=== PATIENT | female | born 1955 | race Caucasian/White ===

== ENCOUNTER 2023-04-16 13:24 | Outpatient (OUT) | payer OTHER, SELFPAY ==
--- NOTE | 2023-04-16 14:50 | PM.CN ---
Consult Note: HPI Data of Consult Patient: new to practice Consult date: 04/16/23 Requesting Physician: Tomas Rosas MD Primary Care Provider: LATOYA CHONG Consult Narrative Reason for consult: low back pain Narrative: Pleasant 67yof who presents for evaluation. Increasing low back pain that is axial, worse in past several months. Engages in provider directed home exercises > 6weeks, limited relief. Utilizes tylenol and advil as needed. Imaging reviewed, significant for multilevel facet arthropathy. Denies loss of bowel or bladder control. cc:: CC: Tomas Rosas MD Review of Systems ROS Status of ROS 10 or more systems reviewed and unremarkable except as noted in history and below Exam Constitutional Common normals: no apparent distress, oriented x3 and healthy appearing Respiratory Common normals: normal respiratory effort Effort & inspection: able to speak in complete sentences Back & Pelvis Other: Tenderness to palpation in lumbar spine. Pain with flexion, extension, lateral rotation. Facet loading maneuvers positive bilaterally. Coordination intact. Extremity Common normals: normal to inspection Neuro Common normals: oriented x3, CN's II-XII intact bilaterally and no focal motor deficits Psych Common normals: mental status grossly normal and cooperative Assessment and Plan Assessment and Plan (1) Lumbar stenosis with neurogenic claudication: (2) Lumbar spondylosis: Plan 67yof who presents for evaluation. Failed conservative measures, as noted above. Imaging reviewed, as noted. Given symptoms and imaging findings, prudent to attempt diagnostic bilateral L4-5, L5-S1 medial branch blocks under fluoroscopic guidance with intention of proceeding to radiofrequency ablation. She is in agreement. Medications reviewed, no changes. Follow up after procedure
== END 2023-04-16 13:25 | disposition home or self-care (01) ==
PROVIDERS: PCP Family Medicine; Visit Provider Anesthesiology
DX: M48.062 Spinal stenosis, lumbar region with neurogenic claudication (principal); M47.816 Spondylosis without myelopathy or radiculopathy, lumbar region
CPT/HCPCS: G0463

== ENCOUNTER 2023-04-30 06:48 | Day surgery (SDC) | payer OTHER, SELFPAY ==
[2023-04-30 07:04] VITALS: BP 147/88; PULSE 107; RESP 16; TEMP 36.7; O2SAT 97
[2023-04-30] MEDS: BUPIVACAINE HCL 0.25% PF 25 MG/10 ML VIAL INJ (07:34)
[2023-04-30] MEDS: LIDOCAINE HCL 2% PF 100 MG/5 ML VIAL INJ (07:34)
[2023-04-30] MEDS: TRIAMCINOLONE ACETONIDE 40 MG/ML VIAL INJ (07:34)
[2023-04-30 07:36] VITALS: BP 151/78; BP 159/83; PULSE 107; PULSE 108; RESP 18; O2SAT 95
--- NOTE | 2023-04-30 07:41 | W.PM.PROCNOT ---
Date of procedure: 04/30/23 Pre-op diagnosis: lumbar spondylosis Post-op diagnosis: same as pre-op Procedure: Procedure: Bilateral L4-5, L5-S1 medial branch block Medications: Bupivacaine 0.25% 4cc The patient was seen and examined in the preoperative holding area.? An informed consent was obtained and placed on the chart.? The patient was brought to the medical procedure unit and placed in the prone position.? A timeout was completed verifying correct patient, procedure site, positioning, plan, and special equipment.? Using aseptic technique, the needle was placed at left L4. Under direct fluoroscopic visualization a Quincke-tipped spinal needle was advanced to the junction of the superior articulating process with the transverse process at the designated medial branch segment.? Preceded by negative aspiration, the above-mentioned injectate was placed in 1 mL aliquots.? The procedure was repeated at left L5, S1.? The needle was removed and insertion site was covered. The same procedure, at the same levels, was completed on the right side. The patient was taken to the postprocedural recovery area and monitored for an appropriate length of time before found suitable for discharge in the company of a responsible adult. Anesthesia: Local Surgeon: Tomas Rosas Pathology: none sent Condition: stable Disposition: no change
[2023-04-30 13:57] VITALS: O2SAT 97
== END 2023-04-30 07:44 | disposition home or self-care (01) ==
PROVIDERS: PCP Family Medicine; Visit Provider Anesthesiology
DX: M47.816 Spondylosis without myelopathy or radiculopathy, lumbar region (principal)
CPT/HCPCS: 64493; 64494

== ENCOUNTER 2023-05-14 13:53 | Outpatient (OUT) | payer OTHER, SELFPAY ==
--- NOTE | 2023-05-14 15:03 | PM.CN ---
Consult Note: HPI Data of Consult Patient: known to practice within the last 3 years Consult date: 05/14/23 Requesting Physician: Tomas Rosas MD Primary Care Provider: LATOYA CHONG Consult Narrative Reason for consult: low back pain Narrative: 67yof who presents for assessment. recently underwent diagnostic bilateral l4-5, l5-s1 medial branch block and notes significant relief of >80% for over 2 hours and subsequent return of pain to baseline. satisfied with her results from diagnostic block. continues to stay very active. denies adverse med side effects. cc:: CC: Tomas Rosas MD Review of Systems ROS Status of ROS 10 or more systems reviewed and unremarkable except as noted in history and below Meds Home Medications and Allergies Home Medications Medication Instructions Recorded Confirmed Type COLLAGEN 20 mg PO DAILY 04/17/23 04/30/23 History estradiol 1 mg tablet mg 04/17/23 History mecobalamin (vitamin B12) 1,000 1,000 mcg PO DAILY 04/17/23 04/30/23 History mcg chewable tablet Allergies Allergy/AdvReac Type Severity Reaction Status Date / Time azathioprine Allergy Unknown Verified 04/17/23 08:40 hydroxychloroquine Allergy Unknown Verified 04/17/23 08:40 Exam Narrative Exam Narrative: Psych-alert and oriented x 3. Attentive and appropriate, constitutionally normal, displays normal mood and affect per situation.? There are no obvious deficits in memory, reasoning, or intellect.? Skin-no obvious rashes, bruising, erythema noted to the patient's area of pain. Extremities- extremities are warm with minimal edema and palpable pulses. Lumbar-no significant tenderness to palpation noted in the lumbar spine and paraspinal musculature.? Pain is elicited with extension, and lateral rotation of the lumbar spine. Range of motion is slightly diminished with these motions due to pain. Facet loading maneuvers are positive bilaterally and do appear to be concordant with the patient's normal complaints of pain.? Coordination remains intact.? Gait remains non-antalgic. Assessment and Plan Assessment and Plan (1) Lumbar spondylosis: (2) Lumbar stenosis with neurogenic claudication: Plan 67yof who presents for assessment. had significant relief with diagnostic block, as noted above. given positive response, prudent to proceed with bilateral l4-5, l5-s1 radiofrequency ablation under fluoroscopic guidance. this will be done at standard 80 degree celsius temp for 90 seconds at each level. we will do with moderate sedation. she is in agreement. medications reviewed, no changes. follow up after procedure.
== END 2023-05-14 13:54 | disposition home or self-care (01) ==
LOC: PM 13:53
PROVIDERS: PCP Family Medicine; Visit Provider Anesthesiology
DX: M47.816 Spondylosis without myelopathy or radiculopathy, lumbar region (principal); M48.062 Spinal stenosis, lumbar region with neurogenic claudication
CPT/HCPCS: G0463

== ENCOUNTER 2023-05-28 06:51 | Day surgery (SDC) | payer OTHER, SELFPAY ==
[2023-05-28 07:10] VITALS: BP 157/87; PULSE 100; RESP 16; TEMP 36.1; O2SAT 98
[2023-05-28] MEDS: 0.9 % SODIUM CHLORIDE 500 ML IV (07:22)
[2023-05-28] MEDS: LIDOCAINE HCL 2% 400 MG/20 ML MDV INJ (08:01)
[2023-05-28] MEDS: TRIAMCINOLONE ACETONIDE 40 MG/ML VIAL INJ (08:01)
[2023-05-28] MEDS: BUPIVACAINE HCL 0.25% PF 25 MG/10 ML VIAL INJ (08:01)
[2023-05-28] MEDS: LIDOCAINE HCL 2% 400 MG/20 ML MDV 15 ML INJ (08:01)
--- NOTE | 2023-05-28 08:10 | P.ON_ITS ---
Date of procedure: 05/28/23 Pre-op diagnosis: Lumbar spondylosis Post-op diagnosis: same as pre-op Procedure: Procedure: Bilateral L4-5, L5-S1 radiofrequency ablation Medications: Bupivacaine 0.25% 6cc, lidocaine 2% 5cc, kenalog 80mg The patient was seen and examined in the preoperative holding area.? The site was marked.? Written informed consent was obtained and placed on the chart.? The patient was brought to the medical procedure unit and placed in the prone position.? A timeout was completed verifying correct patient, procedure, positioning, and special requirements.? The skin overlying the target points, the designated medial branch, were prepped and draped in the usual sterile fashion.? The target point was achieved with a 20-gauge 15 cm with a 10 mm curved active tip radiofrequency cannula under direct fluoroscopic visualization.? The needle was inserted at level L4 on the right side. Needle tip position was confirmed with lateral fluoroscopic position.? Motor stimulation was carried out at 2 Hz up to 5 volts with the absence of extremity activity.? This was repeated at level L5, S1 on right side.?? Sensory stimulation was carried out.? Concordant pain was realized at the above- mentioned sites.? Then radiofrequency lesioning was carried out times 90 seconds at 80 degrees times 2 lesions at each level.? The radiofrequency probe was removed prior to cannula removal.? The above-mentioned injectate was placed in 1 mL increments.? The needle was removed. The same procedure, with the same steps, was then completed on the left side at the same levels. Insertion sites were covered.? The patient was taken to the postoperative recovery area and monitored for an appropriate length of time before being found suitable for discharge in the company of a responsible adult. Anesthesia: Moderate Sedation Surgeon: Tomas Rosas Pathology: none sent Condition: stable Disposition: no change
[2023-05-28 08:12] VITALS: BP 94/77; PULSE 89; RESP 16; TEMP 36.3; O2SAT 97
[2023-05-28 08:17] VITALS: BP 137/74; PULSE 92; RESP 14; TEMP 36.3; O2SAT 95
== END 2023-05-28 08:35 | disposition home or self-care (01) ==
PROVIDERS: PCP Family Medicine; Visit Provider Anesthesiology
DX: M47.816 Spondylosis without myelopathy or radiculopathy, lumbar region (principal)
CPT/HCPCS: 64635; 64636; J1100; J2704

== ENCOUNTER 2023-07-05 09:03 | Outpatient (OUT) | payer OTHER, SELFPAY ==
--- NOTE | 2023-07-05 09:47 | PM.CN ---
Consult Note: HPI Data of Consult Patient: known to practice within the last 3 years Requesting Physician: Mei Hatch NP Primary Care Provider: LATOYA CHONG Consult Narrative Reason for consult: f/u Narrative: Maci pretty pleasant 67 year old female presents for evaluation and management of chronic low back pain. Recently underwent bilateral L4-5 L5-S1 thermal RFA with 90% ongoing relief and functional improvement. Today rating pain 1/10 intermittent in left low back. cc:: CC: Mei Hatch NP Review of Systems ROS Status of ROS 10 or more systems reviewed and unremarkable except as noted in history and below [facility] Medical History Basal cell carcinoma ?C44.91 - Basal cell carcinoma of skin, unspecified (ICD-10) Osteoarthritis ?M19.90 - Unspecified osteoarthritis, unspecified site (ICD-10) Scoliosis ?M41.9 - Scoliosis, unspecified (ICD-10) Surgical History History of cardiac radiofrequency ablation ?Z98.890 - Other specified postprocedural states (ICD-10) History of hysterectomy ?Z90.710 - Acquired absence of both cervix and uterus (ICD-10) History of tonsillectomy ?Z90.89 - Acquired absence of other organs (ICD-10) Meds Home Medications and Allergies Home Medications Medication Instructions Recorded Confirmed Type COLLAGEN 20 mg PO DAILY 04/17/23 05/28/23 History estradiol 1 mg tablet mg 04/17/23 History mecobalamin (vitamin B12) 1,000 1,000 mcg PO DAILY 04/17/23 05/28/23 History mcg chewable tablet Allergies Allergy/AdvReac Type Severity Reaction Status Date / Time azathioprine Allergy Unknown Verified 04/17/23 08:40 hydroxychloroquine Allergy Unknown Verified 04/17/23 08:40 Exam Constitutional Documenting provider has reviewed patient's vital signs: yes Common normals: no apparent distress, oriented x3, healthy appearing, alert and well nourished General appearance: cooperative HENMT Common normals: normocephalic, hearing grossly normal bilaterally and moist oral mucous membranes Head and scalp: normocephalic Eye Common normals: PERRL Pupil: PERRL Neck & C-Spine Common normals: full ROM General: normal visual inspection Chest Common normals: inspection of chest normal Respiratory Common normals: normal respiratory effort, no retractions and no use of accessory muscles Back & Pelvis Other: stiffness to low back negative facet loading negative radiculopathy Neuro Common normals: oriented x3, CN's II-XII intact bilaterally, moves all extremities, no focal motor deficits, no sensory deficits noted and deep tendon reflexes 2+ bilaterally Sensorium/orientation: alert Motor exam: strength 5/5 throughout and no movement abnormalities noted Psych Common normals: mental status grossly normal, thought process normal, cooperative, affect normal, speech normal and activity/motor behavior normal Speech: normal speech Thought process: normal thought process Results Additional Findings Additional findings: I have checked an [facility] report on this patient today and there are no aberrancies noted in the prescribing history.?? A drug screen was completed and reviewed within the last year, and if there has not been a drug screen completed we ordered one today to monitor higher risk, state monitored pain medication use. As part of providing excellent, safe, comprehensive care, the following was completed at our patient's visit: 1. A medication reconciliation and review to ensure accurate knowledge of current/active medications, including asking our patients to inform us about any [id number] medications or herbal remedies/nutritional supplements/alternative remedies. 2. A review to specifically ensure our patients have had annual screening for: elevated body mass index (BMI), tobacco use, screening for depression, and screening for unhealthy alcohol use. When screening is concerning, patients are provided with education and the specific recommendation to discuss the concerning health issue and treatment options with their primary care provider. Assessment and Plan Assessment and Plan (1) Lumbar spondylosis: Plan f/u 6 months, sooner if needed
== END 2023-07-05 09:04 | disposition home or self-care (01) ==
LOC: PM 09:03
PROVIDERS: PCP Family Medicine; Visit Provider Nurse Practitioner
DX: M47.816 Spondylosis without myelopathy or radiculopathy, lumbar region (principal)
CPT/HCPCS: G0463

== ENCOUNTER 2023-09-17 12:30 | Outpatient (OUT) | payer BC, SELFPAY ==
--- OUTSIDE RECORDS SUMMARY | 2023-09-17 12:34 | XMS_ITS | CCD ---
Author Name Unknown Address [address] [facility] [address] [place] [address] Organization [facility] Care Team Providers Care Enterprise Resource Planning Consultant Name Role Phone JUSTIN CHRISTINE Attending Unavailable BUNTING, LATOYA Resendiz Primary Care Unavailable JUSTIN CHRISTINE Attending Unavailable BUNTING, LATOYA R Primary Care Unavailable Gregorio Barton Attending Unavailable Bunting, Latoya Oquendo Primary Care Unavailable Bunting, Latoya R Unavailable Unavailable Unavailable Bunnorma, DO Klein Primary Care Provider MD Gregorio Barton Attending Provider Bunting, DO Klein Primary Care Provider MD Gregorio Barton Attending Provider Bunting, DO Klein Attending Provider [phone] Dr. Gregorio Barton Attending Unavailab le Mick, Dr. Gregorio Herrera Referring Unavailab Latoya Fabian Primary Care Unavailable Mick, Dr. Gregorio Herrera Attending Unavailab le BunLatoya monroy Primary Care Unavailable ROSE MARIE, DR LUCI Rivera Admitting Unavailable WEST, DR LUCI Rivera Attending Unavailable WEST, DR LUCI Rivera Consulting Unavailable BUNNORMA, DR KLEIN Admitting Unavailable BUNNORMA, DR KLEIN Attending Unavailable Bunnomra, DO Klein Primary Care Provider DO Augusto Siu Attending Provider Bunnorma, DO Klein Primary Care Provider DO Augusto Siu Attending Provider CAL Elder Attending Provider Noris Elder Unavailable MD Art Rinaldi Attending Provider [phone] Gidarby GARCIA, Tomas Walsh Attending Unavailable Gidarby GARCIA, Tomas Walsh Attending Unavailable Gidarby GARCIA, Tomas Walsh Attending Unavailable Giedjordin GARCIA, Tomas Walsh Attending Unavailable BUNTING, LATOYA R Primary Care Physician DO Latoya Chong Primary Care Provider CAL Elder Attending Provider MD Art Rinaldi Attending Provider MD Richard Jackson Attending Provider REENATING, LATOYA R Referring Unavailable JACKSON, Richard R Attending Unavailable JACKSON, Richard R Attending Unavailable JACKSON, Richard R Admitting Unavailable JACKSON, Richard Resendiz Attending Unavailable JACKSON, Richard Resendiz Attending Unavailable SALBADOR, AUGUSTO Roth Attending Unavailable AUGUSTO SIU Referring Unavailable Elder, Noris Admitting Unavailable Noris Elder Attending Unavailable Bunting, Latoya Primary Care Unavailable Bunting, Latoya Primary Care Unavailable Art Rinaldi Admitting Unavailable Nimco, Art Attending Unavailable Augusto Siu Admitting Unavailable Augusto Siu Attending Unavailable Bunting, Latoya Primary Care Unavailable Jackson, Richard Admitting Unavailable Jackson, Richard Attending Unavailable Bunting, Latoya Primary Care Unavailable Augusto Siu Admitting Unavailable Augusto Siu Attending Unavailable Bunting, Latoya Primary Care Unavailable Noris Elder Admitting Unavailable Noris Elder Attending Unavailable Bunting, Latoya Primary Care Unavailable Allergies Allergy Classification Reported Allergen(s) Allergy Type Date of Onset Reaction(s) Facility (6 sources) azaTHIOprine; Translations: [azaTHIOprine TABS] Drug Allergy Unknown [facility] (11 sources) azaTHIOprine; Translations: [azaTHIOprine] Drug Allergy 05-04-2020 [facility] (4 sources) Hydroxychloroquin e; Translations: [hydroxychloroqui ne] Drug Allergy [facility] Medications Current Medications Medication Drug Class(es) Dates Sig (Normalized) Sig (Original) Calcium Citrate / Vitamin D (3 sources) Start: 06-08-2023 calcium-vitamin D Refill(s) 0 Start Date: 06/08/23 Status: Ordered cholecalciferol 0.025 mg oral tablet (10 sources) Vitamin D Start: 05-04-2020 take 1 tablet by mouth once daily Cholecalciferol (Vitamin D3) (Vitamin D3) 25 mcg (1,000 unit) Tablet Active 1000 UNIT PO Daily May 03, 2020 11:00pm Collagen (1 source) Collagen Active Fish Oils (1 source) take 1 capsule by mouth once daily lidocaine 0.05 mg/mg medicated patch (1 source) Antiarrhythmic, Amide Local Anesthetic Start: 01-15-2023 Lidocaine 5 % 1 patch remove after 12 hours Externally Once a day for 15 days Jan, Active meloxicam 15 mg oral tablet (1 source) Nonsteroidal Anti-inflammatory Drug take 1 tablet by mouth every twenty-four hours Meloxicam 15 MG 1 tablet Orally Once a day Active [place] 9-Zjg-Fcb-Fish Oil (Fish Oil) 1,000 mg (120 mg-180 mg) Capsule (9 sources) Start: 05-04-2020 take 1 capsule by mouth once daily [place] 9-Yqc-Dze-Fish Oil (Fish Oil) 1,000 mg (120 mg-180 mg) Capsule Active 1000 CAP PO Daily May 03, 2020 11:00pm Start: 05-04-2020 take 1 capsule by mo [facility] once daily [place] 5-Bwp-Yrv-Fish Oil (Fish Oil) 1,000 mg (120 mg-180 mg) Capsule Active 1000 CAP PO Daily May 04, 2020 12:00am vitamin B12 (4 sources) Vitamin B12 Start: 06-08-2023 Vitamin B12 Re fills(s) 0 Start Date: 06/08/23 Status: Ordered take 1 tablet by symone every twenty-four hours Vitamin B-12 1000 MCG 1 tablet Orally Once a day Active Vitamin D 1000 UNIT (1 source) take 1 tablet by mouth once william y Completed/Discontinued Medications Medication Drug Class(es) Dates Sig (Normalized) Sig (Original) acetaminophen 500 mg oral tablet (1 source) take 1 tablet by mouth once daily as needed Tylenol Extra Strength 500 MG Oral Tablet TAKE 1 TABLET DAILY NEEDED Quantity: 0 Refills: 0 Ordered: 14-Feb-2022 DO Active acetaminophen 325 mg / HYDROcodone bitartrate 5 mg oral tablet (9 sources) Opioid Agonist Start: 04-20-2020 End: 05-04-2020 take 1 tablet by mouth every four to six hours Hydrocodone-Acetamin ophen ([place]) 5-325 mg Tablet Discontinued 1 TAB PO EVERY 4-6 HOURS 17 10April 20, 2020 May 04, 2020 6:58am ciprofloxacin 500 mg oral tablet (2 sources) Quinolone Antimicrobial Start: 06-08-2023 Cipro 500 mg Tab 500 mg = 1 tab(s), Oral, As Directed, Pt to take 1 tab the day before procedure and the 2nd tab the day of procedure once completed., # 2 tab(s), Refills(s) 0, Pharmacy: [facility]/pharmacy #[id number], 164, cm, 06/08/23 12:39:00 EDT, Height/Length Dosing, 64, kg, 06/08/23 12:39:00 EDT, Weight Dosing Start Date: 06/08/23 Status: Ordered cyclobenzaprine hydrochloride 10 mg oral tablet (9 sources) Muscle Relaxant Start: 04-20-2020 End: 05-04-2020 take 10 mg by mouth three times daily Cyclobenzaprine Discontinued 10 MG PO Three times daily April 19, 2020 11:00pm May 04, 2020 6:58am estradiol 1 mg oral tablet (15 sources) Estrogen Start: 04-20-2020 estradiol 1 mg Tab 30 EA, 0 Refill(s), TAKE 1 TABLET BY MOUTH EVERY DAY, Refills(s) 0 Start Date: 06/08/23 Status: Ordered Fish Oil CAPS (1 source) Fish Oil CAPS TA KE 1 CAPSULE Daily Quantity: 0 Refills: 0 Ordered: 14-Feb-2022 DO Active ibuprofen 600 mg oral tablet (11 sources) Nonsteroidal Anti-inflammatory Drug Start: 04-20-2020 End: 05-04-2020 Ibuprofen Discontinued 600 MG PO Every 6 hours April 19, 2020 11:00pm May 04, 2020 6:58am do not exceed 4 doses in a 24 hour period take 1 tablet by symone th every eight hours Ibuprofen 600 MG Oral Tablet TAKE 1 TABLET DAILY OR 2 TABLETS DAILY ON A RARE OCCASION ONLY NEEDED FOR OSTEOARTHRITIES (USES 5 TIMES A MONTH MAX) Quantity: 0 Refills: 0 Ordered: 14-Feb-2022 DO Active Triamcinolone (2 sources) Corticosteroid Start: 08-08-2017 Kenalog -40 mg 03 Jose, 2018 Start: 08-31-2016 Kenalog -40 mg Aug, Problems Active Problems Problem Classification Problem Date Documented Date Episodic/Chronic Abdominal pain (9 sources) Abdominal pain; Translations: [Unspecified abdominal pain] 04-20-2020 Episodic Calculus of urinary tract (5 sources) Kidney stone; Translations: [Calculus of kidney] Onset: 06-08-2023 Episodic Cardiac dysrhythmias (5 sources) Supraventricular tachycardia; Translations: [Cardiac arrhythmia, unspecified] Onset: 09-23-2018 Chronic Cardiac dysrhythmias (4 sources) Palpitations; Translations: [Palpitations] Onset: 10-24-2018 Episodic Essential hypertension (1 source) Essential (primary) hypertension Onset: 10-24-2018 Chronic Genitourinary symptoms and ill-defined conditions (5 sources) Microscopic hematuria; Translations: [Other microscopic hematuria] Onset: 06-08-2023 Episodic Osteoarthritis (5 sources) Degenerative joint disease of hand; Translations: [Primary osteoarthritis, left hand] Onset: 02-26-2020 06-08-2023 Chronic Other diseases of veins and lymphatics (1 source) Venous insufficiency of leg; Translations: [Venous insufficiency (chronic) (peripheral)] Episodic Other lower respiratory disease (1 source) Shortness of breath Onset: 09-23-2018 Episodic Other lower respiratory disease (2 sources) Dyspnea on exertion; Translations: [Other respiratory abnormalities] Episodic Other lower respiratory disease (1 source) Multiple nodules of lung; Translations: [Other nonspecific abnormal finding of lung field] Episodic Residual codes; unclassified (4 sources) Body mass index 20-24 - normal; Translations: [Body Mass Index between 19-24, adult] Episodic Residual codes; unclassified (1 source) Body mass index (BMI) 22.0-22.9, adult Episodic Residual codes; unclassified (1 source) Asymptomatic menopausal state Episodic Screening and history of mental health and substance abuse codes (2 sources) Patient encounter status; Translations: [Encounter for screening for depression] Episodic Spondylosis; intervertebral disc disorders; other back problems (6 sources) Spondylosis without myelopathy or radiculopathy, thoracolumbar region; Translations: [Inflammation of sacroiliac joint] Onset: 06-07-2022 Chronic Spondylosis; intervertebral disc disorders; other back problems (2 sources) Dorsalgia, unspecified; Translations: [Other specified dorsopathies, thoracolumbar region] Onset: 06-07-2022 Episodic Unclassified (2 sources) Other forms of dyspnea; Translations: [Other forms of dyspnea] Onset: 09-23-2018 Unclassified (1 source) Encounter for screening mammogram for malignant neoplasm of breast; Translations: [Encounter for screening mammogram for malignant neoplasm of breast] Onset: 08-24-2023 Unclassified (1 source) Other microscopic hematuria; Translations: [Other microscopic hematuria] Onset: 06-25-2023 Unclassified (1 source) Pain in left hand; Translations: [Pain in left hand] Onset: 04-25-2023 Unclassified (1 source) Encounter for screening for osteoporosis; Translations: [Encounter for screening for osteoporosis] Onset: 03-30-2023 Unclassified (1 source) Low back pain, unspecified; Translations: [Low back pain, unspecified] Onset: 02-08-2023 Varicose veins of lower extremity (5 sources) Varicose veins of bilateral lower extremities with pain; Translations: [Pain due to varicose veins of lower extremity] Onset: 09-12-2021 Episodic Past or Other Problems Problem Classification Problem Date Documented Date Episodic/Chronic Other screening for suspected conditions (not mental disorders or infectious disease) (6 sources) Abnormal electrocardiogram [ECG] [EKG]; Translations: [Electrocardiogram abnormal] Onset: 10-24-2018 Episodic Unclassified (1 source) Never smoked tobacco; Translations: [Never a smoker] Unclassified (1 source) Lumbar pain M54.50 Results Test Name Value Interpretation Reference Range Facility MM screening mammo BI w/CADo n 08-24-2023 MM screening mammo BI w/CAD [facility] [address] Mammography Report Signed Patient: Christian Rich MR#: [id number] : 1955 Acct:[id number] Age/Sex: 67 / F ADM Date: 08/24/23 Loc: [place] Room: Type: [facility] Attending Dr: Augusto Siu DO Copies to: DO Augusto Williamson DO Ordering Provider: Augsuto Siu DO Date of Service: 08/24/23 MM/MM screening mammo BI w/CAD: SCREENING CLINICAL DATA: Screening for malignancy. BILATERAL SCREENING MAMMOGRAMS - FULL FIELD DIGITAL WITH TOMOSYNTHESIS AND CAD Tomosynthesis craniocaudal and mediolateral oblique views of both breasts were obtained using low- dose digital technique. Comparison is made to prior studies from August 13, 2020 through August 28, 2022. This examination was reviewed with the aid of CAD. There are scattered fibroglandular densities. Scattered calcifications are again seen bilaterally. A previously documented cyst on the left has resolved. There are no developing masses, typically malignant calcifications or architectural distortion. There has been no significant interval change. MM/MM screening mammo BI w/CAD IMPRESSION: NO MAMMOGRAPHIC EVIDENCE OF MALIGNANCY. ROUTINE FOLLOW-UP IS RECOMMENDED IN ONE YEAR. RESULT CODE: 2 Benign Findings(s) DENSITY CODE: 2 (approximately 25-50% glandular) FOLLOW UP: 1YR The false-negative rate of mammography is approximately 10-percent. Management of a palpable abnormality must be based on clinical grounds. Patient was entered into a reminder system with a target due date for the next mammogram. Impression dictated by: Clarissa Garcia M.D.08/24/2023 11:18 AM Dictation Location: [facility] Transcribed By: [facility] 08/24/23 1118 Dictated By: Clarissa Garcia MD 08/24/23 1115 Signed By: 08/24/23 1118 [facility] Pre-Certification Formon Pre-Certification Form [id number] [facility] Consent for Procedure/Surger yon 08-09-2023 Consent for Procedure/Surgery [id number]#[id number] [facility] Patient Educationon 08-08-19 Patient Education Urology Kidney Stones Kidney stones are solid, rock-like deposits that form inside of the kidneys. The kidneys are a pair of organs that make urine. A kidney stone may form in a kidney and move into other parts of the urinary tract, including the tubes that connect the kidneys to the bladder (ureters), the bladder, and the tube that carries urine out of the body (urethra). As the stone moves through these areas, it can cause intense pain and block the flow of urine. Kidney stones are created when high levels of certain minerals are found in the urine. The stones are usually passed out of the body through urination, but in some cases, medical treatment may be needed to remove them. What are the causes? Kidney stones may be caused by: ? A condition in which certain glands produce too much parathyroid hormone (primary hyperparathyroidism), which causes too much calcium buildup in the blood. ? A buildup of uric acid crystals in the bladder (hyperuricosuria). Uric acid is a chemical that the body produces when you eat certain foods. It usually leaves the body in the urine. ? Narrowing (stricture) of one or both of the ureters. ? A kidney blockage that is present at (congenital obstruction). ? Past surgery on the kidney or the ureters. What increases the risk? The following factors may make you more likely to develop this condition: ? Having had a kidney stone in the past. ? Having a family history of kidney stones. ? Not drinking enough water. ? Eating a diet that is high in protein, salt (sodium), or sugar. ? Being overweight or obese. What are the signs or symptoms? Symptoms of a kidney stone may include: ? Pain in the side of the abdomen, right below the ribs (flank pain). Pain usually spreads (radiates) to the groin. ? Needing to urinate often or urgently. ? Painful urination. ? Blood in the urine (hematuria). ? Nausea. ? Vomiting. ? Fever and chills. How is this diagnosed? This condition may be diagnosed based on: ? Your symptoms and medical history. ? A physical exam. ? Blood tests. ? Urine tests. These may be done before and after the stone passes out of your body through urination. ? Imaging tests, such as a CT scan, abdominal X-ray, or ultrasound. ? A procedure to examine the inside of the bladder (cystoscopy). How is this treated? Treatment for kidney stones depends on the size, location, and makeup of the stones. Kidney stones will often pass out of the body through urination. You may need to: ? Increase your fluid intake to help pass the stone. In some cases, you may be given fluids through an IV and may need to be monitored in the hospital. ? Take medicine for pain. ? Make changes in your diet to help prevent kidney stones from coming back. Sometimes, procedures are needed to remove a kidney stone. This may involve: ? A procedure to break up kidney stones using: ? A focused beam of light (laser therapy). ? Shock waves (extracorporeal shock wave lithotripsy). ? Surgery to remove kidney stones. This may be needed if you have severe pain or have stones that block your urinary tract. Follow these instructions at home: Medicines ? Take mmmu-glo-sqqngwd and prescription medicines only as told by your health care provider. ? Ask your health care provider if the medicine prescribed to you requires you to avoid driving or using heavy machinery. Eating and drinking ? Drink enough fluid to keep your urine pale yellow. You may be instructed to drink at least 8?10 glasses of water each day. This will help you pass the kidney stone. ? If directed, change your diet. This may include: ? Limiting how much sodium you eat. ? Eating more fruits and vegetables. ? Limiting how much animal protein you eat. Animal proteins include red meat, poultry, fish, and eggs. ? Eating a normal amount of calcium (1,000?1,300 mg per day). ? Follow instructions from your health care provider about eating or drinking restrictions. General instructions ? Collect urine samples as told by your health care provider. You may need to collect a urine sample: ? 24 hours after you pass the stone. ? 8?12 weeks after you pass the kidney stone, and every 6?12 months after that. ? Strain your urine every time you urinate, for as long as directed. Use the strainer that your health care provider recommends. ? Do not throw out the kidney stone after passing it. Keep the stone so it can be tested by your health care provider. Testing the makeup of your kidney stone may help prevent you from getting kidney stones in the future. ? Keep all follow-up visits. You may need follow-up X-rays or ultrasounds to make sure that your stone has passed. How is this prevented? To prevent another kidney stone: ? Drink enough fluid to keep your urine pale yellow. This is the best way to prevent kidney stones. ? Eat a healthy diet. Follow recommendations from (more content not included)... Normal [facility] Urology Office/Clinic Noteon 08-08-2023 Urology Office/Clinic Note Chief Complaint Patient is here for Cysto HPI Staff Cysto ABX TAKEN, review cytol108/12/22, CTU 06/25/23 History of Present Illness Tests reviewed: reviewed cytology, CTU I have reviewed the previous health record information and history for this patient from Dr. Jackson. I have reviewed and verified the staff HPI to be accurate for this encounter. There have been no associated fever, chills, flank pain, or blood in the urine. Denies any urinary infections since last encounter. Review of Systems ROS - Provider Constitutional: denies weight loss, denies hot flashes. Eyes: denies eye problems. Gastrointestinal: denies nausea, denies vomiting. Cardiovascular: denies chest pain or angina. Integumentary: no dryness Musculoskeletal: denies musculoskeletal symptoms. ENMT: denies otolaryngeal symptoms. Respiratory: no shortness of breath. Heme/Lymph: denies easy bleeding tendency, denies easy bruising tendency. Psychiatric: no confusion, no anxiety. Genitourinary: See HPI. Physical Exam Vitals & Measurements HR: 104(Peripheral) RR: 18 BP: 156/105 HT: 65 in HT: 165 cm WT: 62.5 kg WT: 137.5 lb BMI: 22.96 General Appearance: alert , no acute distress, well nourished, well developed female. Genitourinary: bladder nonpalpable, no flank pain. Procedure Operative Information Anesthesia Type: Local Procedure: Local Cystoscopy Complications: None Surgical risks, benefits, details of the procedure have been explained to the patient. Full informed consent has been obtained. Intraoperative Information Prepped: Patient is brought back to the endoscopy suite. Patient is placed in modified dorso/lithotomy position. Patient prepped in the usual fashion with Betadine solution. 2% Xylocaine Jelly is placed per Urethra. After waiting several minutes, the Cystoscope is introduced. The Urethra is: Normal The Bladder: Normal, Trabeculated: None (0) no kinjal, prolapse or a.v. The Ureteral orifices: Show efflux of clear urine Specimens Removed: None Removal: Cystoscope is removed. The patient tolerated it well. Postoperative Information Patient is discharged home with antibiotic coverage. Follow up arranged. Assessment/Plan 1. Microscopic hematuria (R31.29: Other microscopic hematuria) Cytology 06/08/23 neg. CTU 06/25/23 - Punctate nonobstructing stone R kidney. No enhancing renal or collecting system mass. Evidence of constipation. Pt had IO cysto today wo complications. Reviewed cytology and CTU with pt. 2. Kidney stone (N20.0: Calculus of kidney) CT AP wo con 04/20/20 - Punctate midpole stone on the right. [facility] 11/11/21 - Neg for stones. CTU 06/25/23 - Punctate nonobstructing stone R kidney. Follow up 1 yr with [facility] or sooner if needed. Pt understands and agrees with plan. Follow-up With When Contact Information KELSY GARCIA, Richard Resendiz, URL [facility] [address], [place] [address]- Additional Instructions: 1 yr with [facility] Patient Education Kidney Stones I, Angelina Turpin, personally scribed for Dr. Jackson on 08/08/2023 07:55:57. . Documentation recorded by the scribe, Angelina Turpin, accurately reflects the services(s) I performed and decisions made by me. Authenticated by Dr. Jackson on 08/08/2023 07:59:39. Problem List/Past Medical History Ongoing Arthritis Kidney stone Microscopic hematuria Historical No qualifying data Procedure/Surgical History Back, Cardiac ablation system, Colonoscopy, Hip replacement, Hysterectomy, Radiofrequency ablation of medial branch of lumbar nerve using fluoroscopic guidance. Medications calcium-vitamin D estradiol 1 mg Tab Vitamin B12 Allergies azaTHIOprine hydroxychloroquine Social History Alcohol - Low Risk, 08/08/2023 Substance Abuse - Denies Substance Abuse, 08/08/2023 Tobacco - Denies Tobacco Use, 08/08/2023 Never (less than 100 in lifetime) Tobacco Use:., 08/08/2023 Family History Cervical cancer: Mother. Diabetes: Father. Immunizations Vaccine Date Status influenza virus vaccine, inactivated 07/17/2023 Recorded influenza virus vaccine, inactivated 06/20/2022 Recorded SARS-CoV-2 (COVID-19) mRNA BNT-162b2 vax 07/14/2021 Recorded influenza virus vaccine, inactivated 05/19/2021 Recorded SARS-CoV-2 (COVID-19) mRNA BNT-162b2 vax 12/02/2020 Recorded SARS-CoV-2 (COVID-19) mRNA BNT-162b2 vax 11/11/2020 Recorded influenza virus vaccine, inactivated 07/16/2020 Recorded influenza virus vaccine, inactivated 05/13/2020 Recorded influenza virus vaccine, inactivated 06/05/2019 Recorded influenza virus vaccine, inactivated 06/17/2018 Recorded influenza virus vaccine, inactivated 06/11/2018 Recorded diphtheria/pertussis, acel/tetanus adult 03/28/2018 Recorded hepatitis B adult vaccine 07/01/2001 Recorded hepatitis B adult vaccine 03/13/2001 Recorded hepatitis B adult vaccine 12/18/2000 Recorded Normal [facility] Comment on above: Result Comment: Elec tronically Signed By: KELSY GARCIA, Richard Resendiz\.br\Date and Time Signed: 08/08/23 07:59 EST\.br\Electronically Co-Signed By: Angelina Turpin\.br\Date and Time Co-Signed: 08/08/23 07:58 EST Insurance Correspondenceon 1 Insurance Correspondence [id number]#[id number] Normal [facility] RAD - CT Reporton 06-27-2023 RAD - CT Report [id number]#[id number] Normal [facility] CT urogramon 06-25-2023 CT urogram [facility] [place] [address] CT Scan Report Signed Patient: Christian Rich MR#: [id number] : 1955 Acct:[id number] Age/Sex: 67 / F ADM Date: 06/25/23 Loc: CT Room: Type: [facility] Attending Dr: Richard Jackson MD Copies to: Richard Jackson MD Ordering Provider: Richard Jackson MD Date of Service: 06/25/23 CT/CT urogram: R31.29 CT ABDOMEN AND PELVIS WITH AND WITHOUT INTRAVENOUS CONTRAST: CLINICAL HISTORY: Microscopic hematuria. COMPARISON: CT abdomen and pelvis 04/20/2020 TECHNIQUE: Spiral images were obtained through the abdomen and pelvis before and after the administration of intravenous contrast. This CT exam was performed using one or more following dose reduction techniques: Automated exposure control, adjustment of the mA and/or kV according to patient size, or use of iterative reconstruction technique. FINDINGS: Lung Bases: [Calcified granuloma right lower lobe. Mild bibasilar atelectasis/scarring.] Organs:Noncontrasted images demonstrates a punctate stone involving the right kidney. No ureteral or urinary bladder calculus is seen. Postcontrast imaging demonstrates no enhancing renal or collecting system mass. Opacified ureters appear unremarkable. Urinary bladder is grossly unremarkable. Liver gallbladder spleen pancreas and adrenal glands all appear unremarkable. Abdominal aorta appears normal in caliber.[ GI: Stomach is grossly unremarkable. Small bowel appears nondilated. Appendix is normal. Moderate stool burden involving the colon with distention of the rectum to approximately 6.2 cm. Pelvis:[Urinary bladder is grossly unremarkable. Uterus has been removed. No adnexal mass.] Peritoneum/Retroperitoneum :No free air, free fluid or lymphadenopathy.[ Abd wall/Bones:Abdominal wall demonstrates no acute findings. Osseous structures demonstrate degenerative change.[ CT/CT urogram IMPRESSION: Punctate nonobstructing calculus right kidney. No obstructive uropathy. No enhancing renal or collecting system mass. Evidence of constipation. Impression dictated by: Emanuel Pérez Jr., DMaddieOMaddie06/25/2023 12:34 PM Dictation Location: [place] [address] Transcribed By: [facility] 06/25/23 1234 Dictated By: Emanuel Pérez Jr, DO 06/25/23 1228 Signed By: 06/25/23 1234 [facility] Creatinine (Bld) [Mass/Vol]O rdered By: Richard Jackson on 06-25-2023 Creatinine [Mass/Vol] 0.7 mg/dL 0.6-1.3 [facility] Comment on above: ER/ESD physician is notified/shown all ISTAT results.Critical values may be confirmed by laboratory testing ifdeemed necessary by ER attending doctor. ISTAT XRay CREon 06-25-2023 Creatinine [Mass/Vol] 0.7 mg/dL Normal 0.6-1.3 [facility] Comment on above: Result Comment: ER/E SD physician is notified/shown all ISTAT results. Critical values may be confirmed by laboratory testing if deemed necessary by ER attending doctor. Performed By: #### I SCRE ####[facility] [id number] ISTAT GFR > 60.0 Normal [facility] Comment on above: Result Comment: PERF ORMED BY: [facility] [address] [place] [address] PATHOLOGIST MUSIC PUBLISHER ALEJANDRA BONILLA M.D. Performed By: #### I SCRE ####[facility] [id number] [place] [id number] [facility] No Panel InformationOrdered By: Richard Jackson on 06-25-2023 Bedside Estimated GFR (eGFR) > 60.0 [facility] Physician Referralon 023 Physician Referral [id number] Normal [facility] Pre-Certification Formon Pre-Certification Form [id number] Normal [facility] Urine Cytology ([facility])on 08-14-2022 Urine Cytology Diagnosis Info Invalid Interpretation Code [facility] Comment on above: Result Comment: A:Ur ine,Urine:Voided Interpretation - MicroScopic Description - Adequacy - Gross Description Site ID:A color Light Yellow fixative Alcohol Specimen designated Urine received in alcohol preservative and labeled with the patient?s name, consists of 80ml clear light yellow fluid. Electronically signed by : on: 06/14/2023 08:27:08 Performed By: #### 1 [id number] #### [facility] Laboratory [address] [place] [address] Ambulatory Visit Summaryon 08-08-2022 Ambulatory Visit Summary CHRISTIAN RICH :1955 Visit Date:06/08/2023 Ambulatory Visit Instructions Your Diagnosis Microscopic hematuria Kidney stones Tests Performed CT Urogram -- Results Pending -- Please visit your patient portal for your results or contact your primary care physician. Your Care Team Attending Physician - Richard JACKSON MD Primary Care Physician - LATOYA CHONG DO Referring Physician - LATOYA CHONG DO This Is Your Medications List Contact prescribing physician if questions or concerns calcium-vitamin D cyanocobalamin (Vitamin B12) estradiol (estradiol 1 mg Tab) Procedures Performed Back, Cardiac ablation system, Colonoscopy, Hip replacement, Hysterectomy. Discharge Vitals Heart Rate (Peripheral) 91 Respiratory Rate 16 Blood Pressure 136/88 Height 164 cm Height 65 in Weight 64 kg Weight 140.8 lb BMI 23.8 What to do next You Need to Schedule the Following Appointments Follow Up with Richard JACKSON MD, URL When: Where: [address] [place] [address]- Medications What When Instructions Unchanged calcium-vitamin D Contact prescribing physician if questions or concerns Unchanged cyanocobalamin (Vitamin B12) Contact prescribing physician if questions or concerns Unchanged estradiol (estradiol 1 mg Tab) 30 EA, 0 Refill(s), TAKE 1 TABLET BY MOUTH EVERY DAY Contact prescribing physician if questions or concerns Allergies azaTHIOprine hydroxychloroquine Problems Ongoing - Any problem that you are currently receiving treatment for. Arthritis Kidney stones Microscopic hematuria Patient Survey You may receive a survey via text or e-mail asking about your office visit. Please share your experience with us by completing your survey. We appreciate your feedback and thank you for choosing us for your care. Education Materials Hematuria, Adult Hematuria is blood in the urine. Blood may be visible in the urine, or it may be identified with a test. This condition can be caused by infections of the bladder, urethra, kidney, or prostate. Other possible causes include: ? Kidney stones. ? Cancer of the urinary tract. ? Too much calcium in the urine. ? Conditions that are passed from parent to child (inherited conditions). ? Exercise that requires a lot of energy. Infections can usually be treated with medicine, and a kidney stone usually will pass through your urine. If neither of these is the cause of your hematuria, more tests may be needed to identify the cause of your symptoms. It is very important to tell your health care provider about any blood in your urine, even if it is painless or the blood stops without treatment. Blood in the urine, when it happens and then stops and then happens again, can be a symptom of a very serious condition, including cancer. There is no pain in the initial stages of many urinary cancers. Follow these instructions at home: Medicines ? Take cskv-cpp-hhtjjui and prescription medicines only as told by your health care provider. ? If you were prescribed an antibiotic medicine, take it as told by your health care provider. Do not stop taking the antibiotic even if you start to feel better. Eating and drinking ? Drink enough fluid to keep your urine pale yellow. It is recommended that you drink 3?4 quarts (2.8?3.8 L) a day. If you have been diagnosed with an infection, drinking cranberry juice in addition to large amounts of water is recommended. ? Avoid caffeine, tea, and carbonated beverages. These tend to irritate the bladder. ? Avoid alcohol because it may irritate the prostate (in males). General instructions ? If you have been diagnosed with a kidney stone, follow your health care provider's instructions about straining your urine to catch the stone. ? Empty your bladder often. Avoid holding urine for long periods of time. ? If you are female: ? After a bowel movement, wipe from front to back and use each piece of toilet paper only once. ? Empty your bladder before and after sex. ? Pay attention to any changes in your symptoms. Tell your health care provider about any changes or any new symptoms. ? It is up to you to get the results of any tests. Ask your health care provider, or the department that is doing the test, when your results will be ready. ? Keep all follow-up visits. This is important. Contact a health care provider if: ? You develop back pain. ? You have a fever or chills. ? You have nausea or vomiting. ? Your symptoms do not improve after 3 days. ? Your symptoms get worse. Get help right away if: ? You develop severe vomiting and are unable to take medicine without vomiting. ? You develop severe pain in your back or abdomen even though you are taking medicine. ? You pass a large amount of blood in your urine. ? You pass blood clots in your urine. ? (more content not included)... Normal [facility] Patient Educationon 06-08-20 23 Patient Education Urology Hematuria, Adult Hematuria is blood in the urine. Blood may be visible in the urine, or it may be identified with a test. This condition can be caused by infections of the bladder, urethra, kidney, or prostate. Other possible causes include: ? Kidney stones. ? Cancer of the urinary tract. ? Too much calcium in the urine. ? Conditions that are passed from parent to child (inherited conditions). ? Exercise that requires a lot of energy. Infections can usually be treated with medicine, and a kidney stone usually will pass through your urine. If neither of these is the cause of your hematuria, more tests may be needed to identify the cause of your symptoms. It is very important to tell your health care provider about any blood in your urine, even if it is painless or the blood stops without treatment. Blood in the urine, when it happens and then stops and then happens again, can be a symptom of a very serious condition, including cancer. There is no pain in the initial stages of many urinary cancers. Follow these instructions at home: Medicines ? Take hemh-vuf-jhvtkye and prescription medicines only as told by your health care provider. ? If you were prescribed an antibiotic medicine, take it as told by your health care provider. Do not stop taking the antibiotic even if you start to feel better. Eating and drinking ? Drink enough fluid to keep your urine pale yellow. It is recommended that you drink 3?4 quarts (2.8?3.8 L) a day. If you have been diagnosed with an infection, drinking cranberry juice in addition to large amounts of water is recommended. ? Avoid caffeine, tea, and carbonated beverages. These tend to irritate the bladder. ? Avoid alcohol because it may irritate the prostate (in males). General instructions ? If you have been diagnosed with a kidney stone, follow your health care provider's instructions about straining your urine to catch the stone. ? Empty your bladder often. Avoid holding urine for long periods of time. ? If you are female: ? After a bowel movement, wipe from front to back and use each piece of toilet paper only once. ? Empty your bladder before and after sex. ? Pay attention to any changes in your symptoms. Tell your health care provider about any changes or any new symptoms. ? It is up to you to get the results of any tests. Ask your health care provider, or the department that is doing the test, when your results will be ready. ? Keep all follow-up visits. This is important. Contact a health care provider if: ? You develop back pain. ? You have a fever or chills. ? You have nausea or vomiting. ? Your symptoms do not improve after 3 days. ? Your symptoms get worse. Get help right away if: ? You develop severe vomiting and are unable to take medicine without vomiting. ? You develop severe pain in your back or abdomen even though you are taking medicine. ? You pass a large amount of blood in your urine. ? You pass blood clots in your urine. ? You feel very weak or like you might faint. ? You faint. Summary ? Hematuria is blood in the urine. It has many possible causes. ? It is very important that you tell your health care provider about any blood in your urine, even if it is painless or the blood stops without treatment. ? Take fghs-snh-gjpzckt and prescription medicines only as told by your health care provider. ? Drink enough fluid to keep your urine pale yellow. This information is not intended to replace advice given to you by your health care provider. Make sure you discuss any questions you have with your health care provider. Document Revised: 03/23/2021 Document Reviewed: 03/23/2021 [employer] Patient Education ? 2022 [employer] Normal [facility] Urine Cytology ([facility])on 08-08-2022 Method of Extraction Voided Normal [facility] Comment on above: Performed By: #### 1 [id number] #### [facility] [address] Number of Jars 1 Invalid Interpretation Code [facility] Comment on above: Performed By: #### 1 [id number] #### [facility] [address] [place] [id number] Specimen Urine Normal [facility] Comment on above: Performed By: #### 1 [id number] #### [facility] [address] [place] [address] Type of Service Technical Only Normal [facility] Comment on above: Performed By: #### 1 [id number] #### [facility] [address] [place] [address] JESS Antinuclear Antibodieson 04-25-2023 Antinuclear Abs, IFA Positive Critically abnormal . [facility] Comment on above: Result Comment: Nega tive <1:80 Borderline 1:80 Positive >1:80 Performed By: #### A NA, CH50, TPO, THYGLOB AB, CHROMATIN, C3, C4 #### [facility] , Homogeneous Pattern 1:320 High . [facility] Comment on above: Result Comment: ICAP nomenclature: AC-1 Performed By: #### A NA, CH50, TPO, THYGLOB AB, CHROMATIN, C3, C4 #### [facility] , Note 1 Normal . [facility] Comment on above: Result Comment: For more information about Hep-2 cell patterns use ANApatterns.org, the official website for the International Consensus on Antinuclear Antibody (JESS) Patterns (ICAP). A positive JESS result may occur in healthy individuals (low titer) or be associated with a variety of diseases. See interpretation chart which is not all inclusive: Pattern Antigen Detected Suggested Disease Association Homogeneous DNA(ds,ss), SLE - High titers Nucleosomes, Histones Drug-induced SLE Speckled Sm, JACKSCREW WORKER, SCL-70, SLE,MCTD,PSS (diffuse form), SS-A/SS-B Sjogrens Nucleolar SCL-70, PM-1/SCL High titers Scleroderma, PM/DM Centromere Centromere PSS (limited form) w/Crest syndrome variable Nuclear Dot Sp100,u76-pmyqgr Primary Biliary Cirrhosis Nuclear GP210, Primary Biliary Cirrhosis Membrane mireille A,B,C Performed at: - [facility] [address] [id number] Detonator Maker: Freddy Zamora PhD, Phone: [phone] Performed By: #### A NA, CH50, TPO, THYGLOB AB, CHROMATIN, C3, C4 #### [facility] , Activated partial thrombopla stin time (aPTT) in platelet poor plasma by coagulation aOrdered By: Art Rinaldi on 04-25-2023 aPTT Coag (PPP) [Time] 28.6 s 25.1-36.5 [facility] Comment on above: A hematocrit value g reater than 55% may lead to inaccurate results in coagulation testing. Patients having hematocrit values >55% require a special collection tube for coagulation studies. Please contact the laboratory at [phone] for redraw instructions. Alanine aminotransferase [En zymatic activity/volume] in Serum or PlasmaOrdered By: Art Rinaldi on 04-25-2023 ALT [Catalytic activity/Vol] 10 U/L Normal 7-52 [facility] Comment on above: Performed By: #### E SR, LIPID, CRP, [id number], CMP, URIC, MG, CBC, ADDONUAPLUS, T4F, TSH3, CK ####[facility] [id number] Albumin [Mass/volume] in Ser um or Plasma by Bromocresol green (BCG) dye binding methoOrdered By: Art Rinaldi on 04-25-2023 Albumin BCG dye [Mass/Vol] 4.3 g/dL 3.5-5.7 [facility] Alkaline phosphatase [Enzyma tic activity/volume] in Serum or PlasmaOrdered By: Art Rinaldi on 04-25-2023 ALP [Catalytic activity/Vol] 54 U/L Normal 34-104 [facility] Comment on above: Performed By: #### E SR, LIPID, CRP, [id number], CMP, URIC, MG, CBC, ADDONUAPLUS, T4F, TSH3, CK ####[facility] Antithyroglobulin Abon 04-25 Antithyroglobulin Ab <1.0 Normal 0.0-0.9 [facility] Comment on above: Result Comment: Thyr oglobulin Antibody measured by [employer] Methodology Performed at: - [facility] [address] [id number] Detonator Maker: Freddy Zamora PhD, Phone: [phone] Performed By: #### A NA, CH50, TPO, THYGLOB AB, CHROMATIN, C3, C4 #### [facility] , Aspartate aminotransferase [ Enzymatic activity/volume] in Serum or PlasmaOrdered By: Art Rinaldi on 04-25-2023 AST [Catalytic activity/Vol] 14 U/L Normal 13-39 [facility] Comment on above: Performed By: #### E SR, LIPID, CRP, [id number], CMP, URIC, MG, CBC, ADDONUAPLUS, T4F, TSH3, CK ####[facility] Automated basophil %Ordered By: Art Rinaldi on 04-25-2023 Basophils/100 WBC (Bld) 0.2 % Normal . [facility] Comment on above: Performed By: #### E SR, LIPID, CRP, [id number], CMP, URIC, MG, CBC, ADDONUAPLUS, T4F, TSH3, CK ####[address] Automated basophil countOrde red By: Art Jamesrow on 04-25-2023 Basophils (Bld) [#/Vol] 0.0 10*3/uL Normal 0.0-0.2 [facility] Comment on above: Performed By: #### E SR, LIPID, CRP, [id number], CMP, URIC, MG, CBC, ADDONUAPLUS, T4F, TSH3, CK ####[address] Automated blood monocyte cou ntOrdered By: Art Rinaldi on 04-25-2023 Monocytes (Bld) [#/Vol] 0.6 10*3/uL Normal 0.0-0.8 [facility] Comment on above: Performed By: #### E SR, LIPID, CRP, [id number], CMP, URIC, MG, CBC, ADDONUAPLUS, T4F, TSH3, CK ####[address] Automated eosinophil %Ordere d By: Art Nimco on 04-25-2023 Eosinophils/100 WBC (Bld) 0.5 % Normal . [facility] Comment on above: Performed By: #### E SR, LIPID, CRP, [id number], CMP, URIC, MG, CBC, ADDONUAPLUS, T4F, TSH3, CK ####[address] Automated eosinophil countOr dered By: Art Nimco on 04-25-2023 Eosinophils (Bld) [#/Vol] 0.0 10*3/uL Normal 0.0-0.45 [facility] Comment on above: Performed By: #### E SR, LIPID, CRP, [id number], CMP, URIC, MG, CBC, ADDONUAPLUS, T4F, TSH3, CK ####[place] [id number] Automated erythrocytes count in urine sediment (number/area)Ordered By: Art Jamesrow on 04-25-2023 RBC Auto (Urine sed) [#/Area] 10-19 [HPF] 0-4 [facility] Automated leukocytes count i n urine sediment (number/area)Ordered By: Art Jamesrow on 04-25-2023 WBC Auto (Urine sed) [#/Area] None seen [HPF] 0-4 [facility] Automated monocyte %Ordered By: Art Jamesrow on 04-25-2023 Monocytes/100 WBC (Bld) 6.9 % Normal . [facility] Comment on above: Performed By: #### E SR, LIPID, CRP, [id number], CMP, URIC, MG, CBC, ADDONUAPLUS, T4F, TSH3, CK ####[address] Automated neutrophil %Ordere d By: Art Jamesrow on 04-25-2023 Neutrophils/100 WBC (Bld) 63.9 % Normal . [facility] Comment on above: Performed By: #### E SR, LIPID, CRP, [id number], CMP, URIC, MG, CBC, ADDONUAPLUS, T4F, TSH3, CK ####[address] Automated urine color determ inationOrdered By: Art Nimco on 04-25-2023 Color (U) Yellow Normal Yellow [facility] Comment on above: Order Comment: Name Collection Type:: Clean-Voided Midstream Performed By: #### E SR, LIPID, CRP, [id number], CMP, URIC, MG, CBC, ADDONUAPLUS, T4F, TSH3, CK ####[place] [id number] [facility] Bilirubin Test strip Ql (U)O rdered By: Art Jamesrow on 04-25-2023 Bilirubin Ql (U) Negative Negative [facility] Bilirubin.total [Mass/volume ] in Serum or PlasmaOrdered By: Art Jamesrow on 04-25-2023 Bilirubin [Mass/Vol] 0.3 mg/dL Normal 0.3-1.0 [facility] Comment on above: Performed By: #### E SR, LIPID, CRP, [id number], CMP, URIC, MG, CBC, ADDONUAPLUS, T4F, TSH3, CK ####[address] C reactive protein [Mass/vol ume] in Serum or PlasmaOrdered By: Art Nimco on 04-25-2023 CRP [Mass/Vol] < 0.5 mg/dL 0.0-0.5 [facility] C-Reactive Proteinon 023 CRP [Mass/Vol] mg/L Normal 0.0-0.5 [facility] Comment on above: Performed By: #### E SR, LIPID, CRP, [id number], CMP, URIC, MG, CBC, ADDONUAPLUS, T4F, TSH3, CK ####[address] Calcium [Mass/volume] in Ser um or PlasmaOrdered By: Art Jamesrow on 04-25-2023 Calcium [Mass/Vol] 9.4 mg/dL Normal 8.6-10.3 [facility] Comment on above: Performed By: #### E SR, LIPID, CRP, [id number], CMP, URIC, MG, CBC, ADDONUAPLUS, T4F, TSH3, CK ####[place] [id number] [facility] Carbon dioxide, total [Moles /volume] in Serum or PlasmaOrdered By: Art Jamesrow on 04-25-2023 CO2 [Moles/Vol] 28.1 mmol/L Normal 21.0-31.0 [facility] Comment on above: Performed By: #### E SR, LIPID, CRP, [id number], CMP, URIC, MG, CBC, ADDONUAPLUS, T4F, TSH3, CK ####[place] [id number] [facility] Chloride [Moles/volume] in S ajith or PlasmaOrdered By: Art Rinaldi on 04-25-2023 Chloride [Moles/Vol] 104 mmol/L Normal 98-107 [facility] Comment on above: Performed By: #### E SR, LIPID, CRP, [id number], CMP, URIC, MG, CBC, ADDONUAPLUS, T4F, TSH3, CK ####[facility] [id number] [place] [address] [facility] Cholesterol [Mass/volume] in Serum or PlasmaOrdered By: Art Rinaldi on 04-25-2023 Cholesterol [Mass/Vol] 226 mg/dL High 140-200 [facility] Comment on above: Chol less than 200 m g/dl low riskChol 201-239 mg/dl borderline riskChol 240 mg/dl and greater high risk Result Comment: Chol less than 200 mg/dl low risk Chol 201-239 mg/dl borderline risk Chol 240 mg/dl and greater high risk Performed By: #### E SR, LIPID, CRP, [id number], CMP, URIC, MG, CBC, ADDONUAPLUS, T4F, TSH3, CK ####[facility] [id number] [place] [address] [facility] Cholesterol in LDL Calc [Mas s/Vol]Ordered By: Art Rinaldi on 04-25-2023 Cholesterol in LDL [Mass/Vol] 112 mg/dL 0-100 [facility] Comment on above: LDL ATP III CLASSIFI CATIONLDL less than 100 mg/dL OptimalLDL 100-129 mg/dL Near or above optimalLDL 130-159 mg/dL Borderline highLDL 160-189 mg/dL HighLDL greater than 189 mg/dL Very high Cholesterol in VLDL Calc [Ma ss/Vol]Ordered By: Art Rinaldi on 04-25-2023 Cholesterol in VLDL [Mass/Vol] 43 mg/dL [facility] Chromatin Antibodyon 023 Chromatin Antibody <0.2 Normal 0.0-0.9 [facility] Comment on above: Result Comment: Perf ormed at: CB - [facility] [address] [id number] Detonator Maker: Freddy Zamora PhD, Phone: [phone] PERFORMED BY: [address] [place] [address] PATHOLOGIST MUSIC PUBLISHER ALEJANDRA BONILLA M.D. Performed By: #### A NA, CH50, TPO, THYGLOB AB, CHROMATIN, C3, C4 #### [facility] , Coagulation Profileon 2022 aPTT Coag (Bld) [Time] 28.6 s Normal 25.1-36.5 [facility] Comment on above: Result Comment: A he matocrit value greater than 55% may lead to inaccurate results in coagulation testing. Patients having hematocrit values >55% require a special collection tube for coagulation studies. Please contact the laboratory at [phone] for redraw instructions. PERFORMED BY: [address] [place] [address] PATHOLOGIST MUSIC PUBLISHER ALEJANDRA BONILLA M.D. Performed By: #### L UPANTCOAG ####[facility] ,#### PP ####[facility] [id number] [place] [id number] [facility] Complement C3on 04-25-2023 Complement C3 138 mg/dL Normal 82-167 [facility] Comment on above: Performed By: #### A NA, CH50, TPO, THYGLOB AB, CHROMATIN, C3, C4 #### [facility] , Complement C4on 04-25-2023 Complement C4 21 mg/dL Normal 12-38 [facility] Comment on above: Performed By: #### A NA, CH50, TPO, THYGLOB AB, CHROMATIN, C3, C4 #### [facility] , Complement Total (CH50)on Complement Total (CH50) >60 Normal >41 [facility] Comment on above: Result Comment: Age Male Female 1 - 30 days Not Estab. Not Estab. 31 days - 6 months >32 >20 7 months - 17 years >39 >39 >17 years >41 >41 NOTE: The adult ( >17 years ) reference interval range is used to flag abnormals on this report. If the patient is 17 years old or younger, use the table above to determine out of range values. Performed at: - [facility] [address] [id number] Detonator Maker: Freddy Zamora PhD, Phone: [phone] PERFORMED BY: [facility] [address] [place] [address] PATHOLOGIST MUSIC PUBLISHER ALEJANDRA BONILLA M.D. Performed By: #### A NA, CH50, TPO, THYGLOB AB, CHROMATIN, C3, C4 #### [facility] , Complete Blood Count Auto Di ffon 04-25-2023 Mean Corpuscular HGB Conc 33.8 g/dL Normal 32.0-35.0 [facility] Comment on above: Performed By: #### E SR, LIPID, CRP, [id number], CMP, URIC, MG, CBC, ADDONUAPLUS, T4F, TSH3, CK ####[address] NRBC% 0.1 /100{WBC} Normal 0-0.5 [facility] Comment on above: Performed By: #### E SR, LIPID, CRP, [id number], CMP, URIC, MG, CBC, ADDONUAPLUS, T4F, TSH3, CK ####[address] Comprehensive Metabolic Pane shane 04-25-2023 Albumin [Mass/Vol] 4.3 g/dL Normal 3.5-5.7 [facility] Comment on above: Performed By: #### E SR, LIPID, CRP, [id number], CMP, URIC, MG, CBC, ADDONUAPLUS, T4F, TSH3, CK ####[address] GFR/1.73 sq M.predicted MDRD (S/P/Bld) [Vol rate/Area] mL/min/{1.73_m2} Normal [facility] Comment on above: Performed By: #### E SR, LIPID, CRP, [id number], CMP, URIC, MG, CBC, ADDONUAPLUS, T4F, TSH3, CK ####[place] [id number] [facility] Creatine kinase [Enzymatic a ctivity/volume] in Serum or PlasmaOrdered By: Art Rinaldi on 04-25-2023 CK [Catalytic activity/Vol] 63 U/L Normal 30-223 [facility] Comment on above: Result Comment: PERF ORMED BY: [facility] [address] [place] [id number] PATHOLOGIST MUSIC PUBLISHER ALEJANDRA BONILLA M.D. Performed By: #### E SR, LIPID, CRP, [id number], CMP, URIC, MG, CBC, ADDONUAPLUS, T4F, TSH3, CK ####[address] Creatinine [Mass/volume] in Serum or PlasmaOrdered By: Art Rinaldi on 04-25-2023 Creatinine [Mass/Vol] 0.63 mg/dL Normal 0.60-1.20 [facility] Comment on above: Performed By: #### E SR, LIPID, CRP, [id number], CMP, URIC, MG, CBC, ADDONUAPLUS, T4F, TSH3, CK ####[place] [id number] [facility] Dipstick and Microscopicon 0 04-25-2023 Appearance (U) Clear Normal Clear [facility] Comment on above: Order Comment: Name Collection Type:: Clean-Voided Midstream Performed By: #### E SR, LIPID, CRP, [id number], CMP, URIC, MG, CBC, ADDONUAPLUS, T4F, TSH3, CK ####[address] Bacteria,Urine None Seen Normal None Seen [facility] Comment on above: Order Comment: Name Collection Type:: Clean-Voided Midstream Performed By: #### E SR, LIPID, CRP, [id number], CMP, URIC, MG, CBC, ADDONUAPLUS, T4F, TSH3, CK ####[place] [address] [place] [id number] [facility] Bilirubin,Urine Negative Normal Negative [facility] Comment on above: Order Comment: Name Collection Type:: Clean-Voided Midstream Performed By: #### E SR, LIPID, CRP, [id number], CMP, URIC, MG, CBC, ADDONUAPLUS, T4F, TSH3, CK ####[place] [id number] [facility] Glucose Ql (U) Normal Normal Normal [facility] Comment on above: Order Comment: Name Collection Type:: Clean-Voided Midstream Performed By: #### E SR, LIPID, CRP, [id number], CMP, URIC, MG, CBC, ADDONUAPLUS, T4F, TSH3, CK ####[place] [id number] [facility] Hyaline Casts,Urine None Seen Normal 0-8 [facility] Comment on above: Order Comment: Name Collection Type:: Clean-Voided Midstream Result Comment: PERF ORMED BY: [facility] [address] [place] [address] PATHOLOGIST MUSIC PUBLISHER ALEJANDRA BONILLA M.D. Performed By: #### E SR, LIPID, CRP, [id number], CMP, URIC, MG, CBC, ADDONUAPLUS, T4F, TSH3, CK ####[place] [id number] [facility] Ketones Ql (U) Negative Normal Negative [facility] Comment on above: Order Comment: Name Collection Type:: Clean-Voided Midstream Performed By: #### E SR, LIPID, CRP, [id number], CMP, URIC, MG, CBC, ADDONUAPLUS, T4F, TSH3, CK ####[place] [id number] [facility] Leukocyte esterase Test strip Ql (U) Negative Normal Negative [facility] Comment on above: Order Comment: Name Collection Type:: Clean-Voided Midstream Performed By: #### E SR, LIPID, CRP, [id number], CMP, URIC, MG, CBC, ADDONUAPLUS, T4F, TSH3, CK ####[address] [address] [facility] Nitrite,Urine Negative Normal Negative [facility] Comment on above: Order Comment: Name Collection Type:: Clean-Voided Midstream Performed By: #### E SR, LIPID, CRP, [id number], CMP, URIC, MG, CBC, ADDONUAPLUS, T4F, TSH3, CK ####[address] [address] [facility] Occult Blood,Urine Negative Normal Negative [facility] Comment on above: Order Comment: Name Collection Type:: Clean-Voided Midstream Performed By: #### E SR, LIPID, CRP, [id number], CMP, URIC, MG, CBC, ADDONUAPLUS, T4F, TSH3, CK ####[address] [address] [facility] Protein,Urine Negative Normal Negative [facility] Comment on above: Order Comment: Name Collection Type:: Clean-Voided Midstream Performed By: #### E SR, LIPID, CRP, [id number], CMP, URIC, MG, CBC, ADDONUAPLUS, T4F, TSH3, CK ####[place] [id number] [facility] RBC,Urine 10-19 High 0-4 [facility] Comment on above: Order Comment: Name Collection Type:: Clean-Voided Midstream Performed By: #### E SR, LIPID, CRP, [id number], CMP, URIC, MG, CBC, ADDONUAPLUS, T4F, TSH3, CK ####[address] [address] [facility] Specificy [place],Urine 1.021 Normal 1.001-1.03 0 [facility] Comment on above: Order Comment: Name Collection Type:: Clean-Voided Midstream Performed By: #### E SR, LIPID, CRP, [id number], CMP, URIC, MG, CBC, ADDONUAPLUS, T4F, TSH3, CK ####[place] [id number] [facility] Squamous Epithelial Cell,Urine None Seen Normal 0-2 [facility] Comment on above: Order Comment: Name Collection Type:: Clean-Voided Midstream Performed By: #### E SR, LIPID, CRP, [id number], CMP, URIC, MG, CBC, ADDONUAPLUS, T4F, TSH3, CK ####[place] [address] [place] [id number] [facility] Urobilinogen,Urine Normal Normal Normal [facility] Comment on above: Order Comment: Name Collection Type:: Clean-Voided Midstream Performed By: #### E SR, LIPID, CRP, [id number], CMP, URIC, MG, CBC, ADDONUAPLUS, T4F, TSH3, CK ####[place] [address] WBC,Urine None Seen Normal 0-4 [facility] Comment on above: Order Comment: Name Collection Type:: Clean-Voided Midstream Performed By: #### E SR, LIPID, CRP, [id number], CMP, URIC, MG, CBC, ADDONUAPLUS, T4F, TSH3, CK ####[place] [id number] [facility] Erythrocyte Sedimentation Ra bryn 04-25-2023 ESR (Bld) [Velocity] 22 mm/h Normal 0-29 [facility] Comment on above: Result Comment: PERF ORMED BY: [facility] [address] [place] [address] PATHOLOGIST MUSIC PUBLISHER ALEJANDRA BONILLA M.D. Performed By: #### E SR, LIPID, CRP, [id number], CMP, URIC, MG, CBC, ADDONUAPLUS, T4F, TSH3, CK ####[address] Erythrocyte distribution wid th [Ratio] by Automated countOrdered By: Art Rinaldi on 04-25-2023 Erythrocyte distribution width (RBC) [Ratio] 13.3 % Normal 11.9-15.3 [facility] Comment on above: Performed By: #### E SR, LIPID, CRP, [id number], CMP, URIC, MG, CBC, ADDONUAPLUS, T4F, TSH3, CK ####[facility] [place] [address] [facility] Erythrocyte sedimentation ra te by Photometric methodOrdered By: Art Rinaldi on 04-25-2023 ESR Photometric method (Bld) [Velocity] 22 mm/hr 0-29 [facility] Erythrocytes [#/volume] in B lood by Automated countOrdered By: Art Rinaldi on 04-25-2023 RBC (Bld) [#/Vol] 4.19 10*6/uL Normal 3.60-5.00 [facility] Comment on above: Performed By: #### E SR, LIPID, CRP, [id number], CMP, URIC, MG, CBC, ADDONUAPLUS, T4F, TSH3, CK ####[facility] [place] [id number] [facility] Glucose [Mass/volume] in Ser um or PlasmaOrdered By: Art Rinaldi on 04-25-2023 Glucose [Mass/Vol] 92 mg/dL Normal 70-100 [facility] Comment on above: ADA recommended refe rence rangeRandom Glucose Reference Range is dependent on time and content of last meal. Glucose of more than 200 mg/dL in a nonstressed, ambulatory subject supports the diagnosis of Diabetes Mellitus. Result Comment: [place] om Glucose Reference Range is dependent on time and content of last meal. Glucose of more than 200 mg/dL in a nonstressed, ambulatory subject supports the diagnosis of Diabetes Mellitus. ADA recommended reference range Performed By: #### E SR, LIPID, CRP, [id number], CMP, URIC, MG, CBC, ADDONUAPLUS, T4F, TSH3, CK ####[facility] [place] [address] [facility] Hematocrit [Volume Fraction] of Blood by Automated countOrdered By: Art Rinaldi on 04-25-2023 Hematocrit (Bld) [Volume fraction] 36.9 % Normal 34.0-46.4 [facility] Comment on above: Performed By: #### E SR, LIPID, CRP, [id number], CMP, URIC, MG, CBC, ADDONUAPLUS, T4F, TSH3, CK ####[facility] [id number] [place] [id number] [facility] Hemoglobin [Mass/volume] in BloodOrdered By: Art Rinaldi on 04-25-2023 Hemoglobin (Bld) [Mass/Vol] 12.5 g/dL Normal 11.8-15.4 [facility] Comment on above: Performed By: #### E SR, LIPID, CRP, [id number], CMP, URIC, MG, CBC, ADDONUAPLUS, T4F, TSH3, CK ####[facility] [id number] [place] [address] [facility] INR in Platelet poor plasma by Coagulation assayOrdered By: Art Rinaldi on 04-25-2023 INR Coag (PPP) [Relative time] 0.8 {INR} Normal [facility] Comment on above: INR Therapeutic Rang e A) Pre- and Peroperative OAT started two weeks before surgery. NOT HIP SURGERY: 1.5 - 2.5 HIP SURGERY: 2 - 3B) Primary and secondary prevention of venous THROMBOSIS: 2 - 3C) Active venous thrombosis, pulmonary embolismand prevention of recurrent venous thrombosis: 2 - 3D) Prevention of arterial thromboembolismincluding patients with mechanical heart valves: 3 - 4.5 Result Comment: INR Therapeutic Range A) Pre- and Peroperative OAT started two weeks before surgery. NOT HIP SURGERY: 1.5 - 2.5 HIP SURGERY: 2 - 3 B) Primary and secondary prevention of venous THROMBOSIS: 2 - 3 C) Active venous thrombosis, pulmonary embolism and prevention of recurrent venous thrombosis: 2 - 3 D) Prevention of arterial thromboembolism including patients with mechanical heart valves: 3 - 4.5 Performed By: #### L UPANTCOAG ####[facility] ,#### PP ####[facility] [id number] [place] [id number] [facility] Ketones Auto test strip (U) [Mass/Vol]Ordered By: Art Rinaldi on 04-25-2023 Ketones (U) [Mass/Vol] Negative Negative [facility] - UrinalysisOrder ed By: Art Rinaldi on 04-25-2023 Hyaline casts LM Ql (Urine sed) None seen [LPF] 0-8 [facility] Leukocytes [#/volume] correc hilario for nucleated erythrocytes in Blood by Automated counOrdered By: Art Rinaldi on 04-25-2023 WBC corrected for nucl RBC Auto (Bld) [#/Vol] 8.5 10*3/uL 3.8-11.6 [facility] Leukocytes [#/volume] in Blo od by Automated countOrdered By: Art Rinaldi on 04-25-2023 WBC (Bld) [#/Vol] 8.5 10*3/uL Normal 3.8-11.6 [facility] Comment on above: Performed By: #### E SR, LIPID, CRP, [id number], CMP, URIC, MG, CBC, ADDONUAPLUS, T4F, TSH3, CK ####[facility] [id number] [place] [address] [facility] Lipid Panelon 04-25-2023 LDL Cholesterol,Calculate d 112 mg/dL High 0-100 [facility] Comment on above: Result Comment: LDL ATP III CLASSIFICATION LDL less than 100 mg/dL Optimal LDL 100-129 mg/dL Near or above optimal LDL 130-159 mg/dL Borderline high LDL 160-189 mg/dL High LDL greater than 189 mg/dL Very high Performed By: #### E SR, LIPID, CRP, [id number], CMP, URIC, MG, CBC, ADDONUAPLUS, T4F, TSH3, CK ####[facility] [place] [address] [facility] Triglyceride w/Reflex 217 mg/dL High 0-149 [facility] Comment on above: Result Comment: TRIG ATP III CLASSIFICATION TRIG less than 150 mg/dL Normal TRIG 150-199 mg/dL Borderline high TRIG 200-500 mg/dL High TRIG greater than 500 mg/dL Very high Standard traceable to the Center for Disease Conrtrol and Prevention (CDC) test method. Performed By: #### E SR, LIPID, CRP, [id number], CMP, URIC, MG, CBC, ADDONUAPLUS, T4F, TSH3, CK ####[facility] [id number] [place] [address] [facility] VLDL CHOLESTEROL 43 mg/dL Normal [facility] Comment on above: Performed By: #### E SR, LIPID, CRP, [id number], CMP, URIC, MG, CBC, ADDONUAPLUS, T4F, TSH3, CK ####[address] Lupus Anticoagulant Compon 0 04-25-2023 Dilute Prothrombin Time (dPt) 33.7 Normal 0.0-47.6 [facility] Comment on above: Performed By: #### L UPANTCOAG ####[facility] ,#### PP ####[address] dPT Confirm Ratio 1.05 Normal 0.00-1.34 [facility] Comment on above: Performed By: #### L UPANTCOAG ####[facility] ,#### PP ####[address] DRVVT Lupus 34.4 Normal 0.0-47.0 [facility] Comment on above: Performed By: #### L UPANTCOAG ####[facility] ,#### PP ####[address] Interpretation Comment: Normal . [facility] Comment on above: Result Comment: No l upus anticoagulant was detected. Performed at: - [facility] [id number] Detonator Maker: Rowena Schofield MD, Phone: [phone] PERFORMED BY: [facility] [address] [place] [address] PATHOLOGIST MUSIC PUBLISHER ALEJANDRA BONILLA M.D. Performed By: #### L UPANTCOAG ####[facility] ,#### PP ####[address] PTT-LA 37.4 Normal 0.0-43.5 [facility] Comment on above: Performed By: #### L UPANTCOAG ####[facility] ,#### PP ####[address] Thrombin Time 16.5 Normal 0.0-23.0 [facility] Comment on above: Performed By: #### L UPANTCOAG ####[facility] ,#### PP ####[address] Lupus anticoagulant [Interpr etation] in Platelet poor plasmaOrdered By: Art Rinaldi on 04-25-2023 Lupus anticoagulant (PPP) [Interp] Comment: . [facility] Comment on above: No lupus anticoagula nt was detected.Performed at: [facility] [address] [id number] Director: Rowena Schofield MD, Phone: [phone] Lymphocytes [#/volume] in Bl ood by Automated countOrdered By: Art Rinaldi on 04-25-2023 Lymphocytes (Bld) [#/Vol] 2.4 10*3/uL Normal 1.00-4.8 [facility] Comment on above: Performed By: #### E SR, LIPID, CRP, [id number], CMP, URIC, MG, CBC, ADDONUAPLUS, T4F, TSH3, CK ####[address] Lymphocytes/100 leukocytes i n Blood by Automated countOrdered By: Art Rinaldi on 04-25-2023 Lymphocytes/100 WBC (Bld) 28.5 % Normal . [facility] Comment on above: Performed By: #### E SR, LIPID, CRP, [id number], CMP, URIC, MG, CBC, ADDONUAPLUS, T4F, TSH3, CK ####[address] MCH [Entitic mass] by Automa hilario countOrdered By: Art Rinaldi on 04-25-2023 MCH (RBC) [Entitic mass] 29.8 pg Normal 24.7-34.3 [facility] Comment on above: Performed By: #### E SR, LIPID, CRP, [id number], CMP, URIC, MG, CBC, ADDONUAPLUS, T4F, TSH3, CK ####[address] MCHC Auto (RBC) [Mass/Vol]Or dered By: Art Rinaldi on 04-25-2023 MCHC (RBC) [Mass/Vol] 33.8 g/dL 32.0-35.0 [facility] MCV [Entitic volume] by Auto mated countOrdered By: Art Rinaldi on 04-25-2023 MCV (RBC) [Entitic vol] 88.1 fL Normal 80-100 [facility] Comment on above: Performed By: #### E SR, LIPID, CRP, [id number], CMP, URIC, MG, CBC, ADDONUAPLUS, T4F, TSH3, CK ####[address] Magnesium [Mass/volume] in S ajith or PlasmaOrdered By: Art Rinaldi on 04-25-2023 Magnesium [Mass/Vol] 1.9 mg/dL Normal 1.9-2.7 [facility] Comment on above: Performed By: #### E SR, LIPID, CRP, [id number], CMP, URIC, MG, CBC, ADDONUAPLUS, T4F, TSH3, CK ####[address] Neutrophils [#/volume] in Bl ood by Automated countOrdered By: Art Rinaldi on 04-25-2023 Neutrophils (Bld) [#/Vol] 5.5 10*3/uL Normal 1.8-7.7 [facility] Comment on above: Performed By: #### E SR, LIPID, CRP, [id number], CMP, URIC, MG, CBC, ADDONUAPLUS, T4F, TSH3, CK ####[address] Nitrite Test strip Ql (U)Ord ered By: Art Rinaldi on 04-25-2023 Nitrite Ql (U) Negative Negative [facility] No Panel InformationOrdered By: Art Rinaldi on 04-25-2023 Anti-Nuclear Antibody Comment 2 See comment . [facility] Comment on above: For more information about Hep-2 cell patterns usePreggerspaAudiencePointerCore Diagnostics.[employer], the official website for the [place] Systemss on Antinuclear Antibody (JESS) Patterns (ICAP). ---A positive JESS result may occur in healthy individuals (lowtiter) or be associated with a variety of diseases. Seeinterpretation chart which is not all inclusive:Pattern Antigen Detected Suggested Disease Association Homogeneous DNA(ds,ss), SLE - High titers Nucleosomes, Histones Drug-induced SLE Speckled Sm, JACKSCREW WORKER, SCL-70, SLE,MCTD,PSS (diffuse form), SS-A/SS-B Sjogrens Nucleolar SCL-70, PM-1/SCL High titers Scleroderma, PM/DM Centromere Centromere PSS (limited form) w/Crest syndrome variable Nuclear Dot Sp100,p31-otpsmg Primary Biliary Cirrhosis Nuclear GP210, Primary Biliary CirrhosisMembrane mireille A,B,C Performed at: [facility] [address] [id number] Director: Freddy Zamora PhD, Phone: [phone] Estimated GFR (CKD-EPI) > 60.0 mL/Min [facility] Creatinine Clearance (Chem N/A [facility] Total Complement (CH50) >60 U/mL >41 [facility] Comment on above: Age Male Female 1 - 30 days Not Estab. Not Estab. 31 days - 6 months >32 >20 7 months - 17 years >39 >39 >17 years >41 >41 NOTE: The adult ( >17 years ) reference interval range is used to flag abnormals on this report. If the patient is 17 years old or younger, use the table above to determine out of range values.Performed at: [facility] [address] [id number] Director: Freddy Zamora PhD, Phone: [phone] Nucleated erythrocytes [Pres ence] in Blood by Automated countOrdered By: Art Rinaldi on 04-25-2023 Nucleated RBC Auto Ql (Bld) 0.1 /100{WBC} 0-0.5 [facility] Platelet mean volume [Entiti c volume] in Blood by Automated countOrdered By: Art Rinaldi on 04-25-2023 Platelet mean volume (Bld) [Entitic vol] 8.7 fL Normal 6.3-10.7 [facility] Comment on above: Performed By: #### E SR, LIPID, CRP, [id number], CMP, URIC, MG, CBC, ADDONUAPLUS, T4F, TSH3, CK ####[place] [address] [place] [id number] [facility] Platelet poor plasma ratio o f lupus anticoagulant-sensitive activated partial thromboOrdered By: Art Rinaldi on 04-25-2023 aPTT.lupus sensitive.excess phospholipid actual/normal Coag (PPP) [Relative time] 33.7 sec 0.0-47.6 [facility] Platelets [#/volume] in Bloo d by Automated countOrdered By: Art Rinaldi on 04-25-2023 Platelets (Bld) [#/Vol] 229 10*3/uL Normal 150-450 [facility] Comment on above: Performed By: #### E SR, LIPID, CRP, [id number], CMP, URIC, MG, CBC, ADDONUAPLUS, T4F, TSH3, CK ####[place] [address] [place] [id number] [facility] Potassium [Moles/volume] in Serum or PlasmaOrdered By: Art Rinaldi on 04-25-2023 Potassium [Moles/Vol] 3.7 mmol/L Normal 3.5-5.1 [facility] Comment on above: Performed By: #### E SR, LIPID, CRP, [id number], CMP, URIC, MG, CBC, ADDONUAPLUS, T4F, TSH3, CK ####[place] [address] [place] [id number] [facility] Protein Auto test strip (U) [Mass/Vol]Ordered By: Art Rinaldi on 04-25-2023 Protein (U) [Mass/Vol] Negative Negative [facility] Protein [Mass/volume] in Ser um or PlasmaOrdered By: Art Rinaldi on 04-25-2023 Protein [Mass/Vol] 6.7 g/dL Normal 6.4-8.9 [facility] Comment on above: Performed By: #### E SR, LIPID, CRP, [id number], CMP, URIC, MG, CBC, ADDONUAPLUS, T4F, TSH3, CK ####[facility] [id number] Prothrombin time (PT)Ordered By: Art Rinaldi on 04-25-2023 PT Coag (PPP) [Time] 10.2 s Normal 9.0-12.9 [facility] Comment on above: A hematocrit value g reater than 55% may lead to inaccurate results in coagulation testing. Patients having hematocrit values >55% require a special collection tube for coagulation studies. Please contact the laboratory at [phone] for redraw instructions. Result Comment: A he matocrit value greater than 55% may lead to inaccurate results in coagulation testing. Patients having hematocrit values >55% require a special collection tube for coagulation studies. Please contact the laboratory at [phone] for redraw instructions. Performed By: #### L UPANTCOAG ####[facility] ,#### PP ####[address] RPR w/rfx to Quant TP Abson 04-25-2023 RPR, Rfx Quant RPR Non-Reactive Normal Non Reactive [facility] Comment on above: Result Comment: Perf ormed at: CB - [facility] [address] [id number] Detonator Maker: Freddy Zamora PhD, Phone: [phone] PERFORMED BY: [facility] [address] [place] [address] PATHOLOGIST MUSIC PUBLISHER ALEJANDRA BONILLA M.D. Performed By: #### R IN W RFX ####[facility] , Reagin Ab [Presence] in Seru m by RPROrdered By: Art Rinaldi on 04-25-2023 Reagin Ab RPR Ql (S) Non-Reactive Non Reactive [facility] Comment on above: Performed at: [facility] [address] [id number] Director: Freddy Zamora PhD, Phone: [phone] Screening dilute Lavelle's v iper venom time (DRVVT) with reflex to confirmatory testOrdered By: Art Jamesrow on 04-25-2023 dRVVT Coag (PPP) [Time] 34.4 s 0.0-47.0 [facility] Screening lupus anticoagulan t-sensitive activated partial thromboplastin time (aPTT)Ordered By: Art Nimco on 04-25-2023 aPTT.lupus sensitive Coag (PPP) [Time] 37.4 sec 0.0-43.5 [facility] Serum globulin measurement b y calculation (mass/volume)Ordered By: Artblank Rinaldi on 04-25-2023 Globulin (S) [Mass/Vol] 2.4 g/dL Normal [facility] Comment on above: Performed By: #### E SR, LIPID, CRP, [id number], CMP, URIC, MG, CBC, ADDONUAPLUS, T4F, TSH3, CK ####[facility] [id number] Serum homogeneous pattern an tinuclear antibody (JESS) titerOrdered By: Art Rinaldi on 04-25-2023 Homogenous nuclear Ab pattern (S) [Titer] 1:320 . [facility] Comment on above: ICAP nomenclature: A C-1 Serum nuclear antibody titer Ordered By: Art Rinaldi on 04-25-2023 Nuclear Ab (S) [Titer] Positive . [facility] Comment on above: Negative <1:80 Borde rline 1:80 Positive >1:80 Serum or plasma albumin/glob ulin mass ratioOrdered By: Art Rinaldi on 04-25-2023 Albumin/Globulin [Mass ratio] 1.8 {ratio} [facility] Comment on above: Performed By: #### E SR, LIPID, CRP, [id number], CMP, URIC, MG, CBC, ADDONUAPLUS, T4F, TSH3, CK ####[facility] [id number] Serum or plasma anion gap de terminationOrdered By: Art Rinaldi on 04-25-2023 Anion gap [Moles/Vol] 11.6 mmol/L Normal 6.0-15.0 [facility] Comment on above: Performed By: #### E SR, LIPID, CRP, [id number], CMP, URIC, MG, CBC, ADDONUAPLUS, T4F, TSH3, CK ####[facility] [facility] [id number] Serum or plasma chromatin an tibody assay (units/volume)Ordered By: Art Rinaldi on 04-25-2023 Chromatin Ab Qn <0.2 AI 0.0-0.9 [facility] Comment on above: Performed at: CB [facility] [place] [id number] Director: Freddy Zamora PhD, Phone: [phone] Serum or plasma complement C 3 measurement (mass/volume)Ordered By: Art Rinaldi on 04-25-2023 Complement C3 [Mass/Vol] 138 mg/dL 82-167 [facility] Serum or plasma complement C 4 measurement (mass/volume)Ordered By: Art Rinaldi on 04-25-2023 Complement C4 [Mass/Vol] 21 mg/dL 12-38 [facility] Serum or plasma high density lipoprotein (HDL) cholesterol measurementOrdered By: Art Rinaldi on 04-25-2023 Cholesterol in HDL [Mass/Vol] 71 mg/dL Normal 23-92 [facility] Comment on above: HDL CHOL ATP-III CLA SSIFICATION Cardiovascular RiskHDL > or equal to 60 mg/dL LOWHDL < 40 mg/dL HIGH Result Comment: HDL CHOL ATP-III CLASSIFICATION Cardiovascular Risk HDL > or equal to 60 mg/dL LOW HDL < 40 mg/dL HIGH Performed By: #### E SR, LIPID, CRP, [id number], CMP, URIC, MG, CBC, ADDONUAPLUS, T4F, TSH3, CK ####[facility] [id number] Serum or plasma thyroglobuli n antibody assay (units/volume)Ordered By: Art Rinaldi on 04-25-2023 Thyroglobulin Ab Qn [IU]/mL 0.0-0.9 [facility] Comment on above: Thyroglobulin Antibo dy measured by GeoGraffitiMethodologyPerformed at: [facility] [place] [id number] Director: Freddy Zamora PhD, Phone: [phone] Serum or plasma thyroperoxid ase antibody assay (units/volume)Ordered By: Art Rinaldi on 04-25-2023 TPO Ab Qn 13 [IU]/mL 0-34 [facility] Comment on above: Performed at: CB [facility] [id number] [place], [place] [id number] Director: Freddy Zamora PhD, Phone: [phone] Serum or plasma total choles terol/high density lipoprotein (HDL) cholesterol mass ratOrdered By: Art Rinaldi on 04-25-2023 Cholesterol.total/Cho lesterol in HDL [Mass ratio] 3.2 {ratio} Normal <5.0 [facility] Comment on above: Performed By: #### E SR, LIPID, CRP, [id number], CMP, URIC, MG, CBC, ADDONUAPLUS, T4F, TSH3, CK ####[facility] [id number] Sodium [Moles/volume] in Ser um or PlasmaOrdered By: Art Rinaldi on 04-25-2023 Sodium [Moles/Vol] 140 mmol/L Normal 136-145 [facility] Comment on above: Performed By: #### E SR, LIPID, CRP, [id number], CMP, URIC, MG, CBC, ADDONUAPLUS, T4F, TSH3, CK ####[place] [id number] [place] [id number] [facility] Specific gravity Auto test s trip (U) [Rel density]Ordered By: Art Rinaldi on 04-25-2023 Specific gravity (U) [Rel density] 1.021 1.001-1.03 0 [facility] Squamous epithelial cells de tection in urine sediment by light microscopyOrdered By: Art Rinaldi on 04-25-2023 Epithelial cells.squamous LM Ql (Urine sed) None seen [HPF] 0-2 [facility] TT plasOrdered By: Art begum on 04-25-2023 Thrombin time Coag (PPP) [Time] 16.5 sec 0.0-23.0 [facility] Thyroid Peroxidase Antibodie son 04-25-2023 Thyroid Peroxidase Antibodies 13 Normal 0-34 [facility] Comment on above: Result Comment: Perf ormed at: CB - [facility] [address] [id number] Detonator Maker: Freddy Zamora PhD, Phone: [phone] Performed By: #### A NA, CH50, TPO, THYGLOB AB, CHROMATIN, C3, C4 #### [facility] , Thyrotropin [Units/volume] i n Serum or PlasmaOrdered By: Art Rinaldi on 04-25-2023 TSH Qn 3.03 m[IU]/L Normal 0.45-5.33 [facility] Comment on above: Performed By: #### E SR, LIPID, CRP, [id number], CMP, URIC, MG, CBC, ADDONUAPLUS, T4F, TSH3, CK ####[facility] [id number] [place] [id number] [facility] Thyroxine (T4) free [Mass/vo lume] in Serum or PlasmaOrdered By: Art Rinaldi on 04-25-2023 Free T4 [Mass/Vol] 0.60 ng/dL Low 0.61-1.12 [facility] Comment on above: Performed By: #### E SR, LIPID, CRP, [id number], CMP, URIC, MG, CBC, ADDONUAPLUS, T4F, TSH3, CK ####[facility] [id number] [place] [address] [facility] Triglyceride [Mass/volume] i n Serum or PlasmaOrdered By: Art Rinaldi on 04-25-2023 Triglyceride [Mass/Vol] 217 mg/dL 0-149 [facility] Comment on above: TRIG ATP III CLASSIF ICATIONTRIG less than 150 mg/dL NormalTRIG 150-199 mg/dL Borderline highTRIG 200-500 mg/dL High TRIG greater than 500 mg/dL Very highStandard traceable to the Center for Disease Conrtrol and Prevention (CDC) test method. Urate [Mass/volume] in Serum or PlasmaOrdered By: Art Rinaldi on 04-25-2023 Urate [Mass/Vol] 3.9 mg/dL Normal 2.3-6.6 [facility] Comment on above: Performed By: #### E SR, LIPID, CRP, [id number], CMP, URIC, MG, CBC, ADDONUAPLUS, T4F, TSH3, CK ####[facility] [id number] Urea nitrogen [Mass/volume] in Serum or PlasmaOrdered By: Art Rinaldi on 04-25-2023 Urea nitrogen [Mass/Vol] 15 mg/dL Normal 7-25 [facility] Comment on above: Performed By: #### E SR, LIPID, CRP, [id number], CMP, URIC, MG, CBC, ADDONUAPLUS, T4F, TSH3, CK ####[facility] [id number] Urine bacteria detection by automated methodOrdered By: Art Rinaldi on 04-25-2023 Bacteria Auto Ql (U) None seen None Seen [facility] Urine clarity by refractomet ry automatedOrdered By: Art Rinaldi on 04-25-2023 Clarity Refractometry automated (U) Clear Clear [facility] Urine glucose measurement by automated test strip (mass/volume)Ordered By: Art Rinaldi on 04-25-2023 Glucose Auto test strip (U) [Mass/Vol] Normal mg/dL Normal [facility] Urine hemoglobin detection b y automated test stripOrdered By: Art Rinaldi on 04-25-2023 Hemoglobin Auto test strip Ql (U) Negative Negative [facility] Urine leukocyte esterase det ection by automated test stripOrdered By: Art Rinaldi on 04-25-2023 Leukocyte esterase Auto test strip Ql (U) Negative Negative [facility] Urine pH measurement by auto mated test stripOrdered By: Art Rinaldi on 04-25-2023 pH (U) 5.0 [pH] Normal 5.0-9.0 [facility] Comment on above: Order Comment: Name Collection Type:: Clean-Voided Midstream Performed By: #### E SR, LIPID, CRP, [id number], CMP, URIC, MG, CBC, ADDONUAPLUS, T4F, TSH3, CK ####[facility] [id number] [place] [address] [facility] Urobilinogen Auto test strip (U) [Mass/Vol]Ordered By: Art Rinaldi on 04-25-2023 Urobilinogen (U) [Mass/Vol] Normal mg/dL Normal [facility] Vitamin D 25 Hydroxy Totalon 04-25-2023 Vitamin D 25 Hydroxy Total 32.0 ng/mL Normal 30-100 [facility] Comment on above: Result Comment: RONY MIN D STATUS 25([place])VITAMIN D RANGE (ng/mL) Deficient <20 Insufficient 20 to <30 Sufficient 30 to 100 Reference: Shaina Sears, Iliana MELENDEZ, et al. Evaluation,treatment, and prevention of vitamin D deficiency; an Endocrine Society clinical practice guideline. JCEM. 2010; 96(7):191-. PERFORMED BY: [facility] [address] [place] [id number] PATHOLOGIST MUSIC PUBLISHER ALEJANDRA BONILLA M.D. Performed By: #### E SR, LIPID, CRP, [id number], CMP, URIC, MG, CBC, ADDONUAPLUS, T4F, TSH3, CK ####[facility] [id number] [place] [address] [facility] Vitamin D+Metabolites [Mass/ volume] in Serum or PlasmaOrdered By: Art Rinaldi on 04-25-2023 Vitamin D+Metabolites [Mass/Vol] 32.0 ng/mL 30-100 [facility] Comment on above: VITAMIN D STATUS 25( [place])VITAMIN D RANGE (ng/mL) Deficient <20 Insufficient 20 to <30Sufficient 30 to 100Reference: Shaina Sears, Iliana MELENDEZ, et al. Evaluation,treatment, and prevention of vitamin D deficiency; an Endocrine Society clinical practice guideline. JCEM. 2010; 96(7):1911-30. XR foot BI 2Von 04-25-2023 XR foot BI 2V [facility] [address] [place] [address] [place] [address] XRay Report Signed Patient: Christian Rich MR#: [id number] : 1955 Acct:[id number] Age/Sex: 67 / F ADM Date: 04/25/23 Loc: ICXD Room: Type: [facility] Attending Dr: Art Rinaldi MD Copies to: Art Rinaldi MD Ordering Provider: Art Rinaldi MD Date of Service: 04/25/23 XR/XR wrist BI 2V: PAIN ([id number]) XR/XR foot BI 2V: PAIN ([id number]) XR/XR hand BI 2V: PAIN CLINICAL DATA: Bilateral hand, wrist and foot pain for years. No injury. BILATERAL WRISTS - 2 views each COMPARISON: Left hand 08/01/2016 AP and lateral views were obtained. No acute fractures or dislocation are identified. Degenerative changes are visualized at the first carpal metacarpal joints with narrowing of the joint space, subchondral sclerosis and cystic change as well as hypertrophy. Adjacent bony ossicles are also visualized on the right. This has progressed on the left since the comparison. No prominent soft tissue swelling is seen. XR/XR wrist BI 2V IMPRESSION: DEGENERATIVE CHANGES INVOLVING THE FIRST CARPAL METACARPAL JOINT. BILATERAL HANDS - 2 views each COMPARISON: Left hand 08/01/2016 AP and lateral views were obtained. No acute fractures or dislocation are noted. There is joint space narrowing and hypertrophy involving the interphalangeal joints, greatest at the index finger on the left. There is also joint space narrowing, subchondral cystic change, sclerosis and hypertrophy at the first carpal metacarpal joint bilaterally. No significant soft tissue swelling is seen. IMPRESSION: DEGENERATIVE CHANGES, DESCRIBED. BILATERAL FEET - 2 views each COMPARISON: None AP and lateral views were obtained. No acute fracture or dislocation is seen. There is slight hallux valgus deformity. There is subchondral cystic change at the medial aspect of the first metat arsal heads. There is some joint space narrowing at the second metatarsal phalangeal joint on the right where there is subchondral cystic change and marginal spurring. There is minimal spurring at the head of the left second metatarsal. No soft tissue swelling is noted. IMPRESSION: DEGENERATIVE CHANGES, DESCRIBED. NO ACUTE BONY FINDINGS. Impression dictated by: Clarissa Garcia M.D.04/25/2023 6:04 PM Dictation Location: [place] [address] Transcribed By: PWS 04/25/231803 Dictated By: Clarissa Garcia MD 04/25/23 175 Signed By: 04/25/231803 Normal [facility] aPTT.lupus sensitive/aPTT.jad pus sensitive W excess phospholipid (screen to confirm raOrdered By: Art Rinaldi on 04-25-2023 aPTT.lupus sensitive/aPTT.lupus sensitive W excess phospholipid Coag (PPP) [Ratio] 1.05 Ratio 0.00-1.34 [facility] MR lumbar spine wo conon MR lumbar spine wo con [facility] Main [place] [address] [place] [address] MRI Report Signed Patient: Christian Rich MR#: [id number] : 1955 Acct:[id number] Age/Sex: 67 / F ADM Date: 02/08/23 Loc: MR Room: Type: [facility] Attending Dr: Noris KLEINC Copies to: CAL Hunter Ordering Provider: CAL Hunter Date of Service: 02/08/23 MR/MR lumbar spine wo con: Lumbar pain MRI LUMBAR SPINE WITHOUT CONTRAST COMPARISON: Plain films 02/08/2023 CLINICAL DATA: Chronic low back pain. No injury. Multiecho imaging in the axial and sagittal plane was performed without contrast. There is dextroscoliotic curvature. There is slight anterolisthesis of L5 on S1. Alignment is otherwise maintained. No acute compression fractures or marrow edema are identified. There is multilevel degenerative endplate signal change. The conus medullaris terminates at the L1-2 level. No paraspinal soft tissue abnormalities are noted. At T12-L1, there is narrowing of the disc space. There is mild annular disc bulging, slightly asymmetric extending laterally on the right. There is slight anterior thecal sac effacement. The neural foramen are patent. L1-2, there is narrowing of the disc space. There is mild annular disc bulging, greater extending laterally. There is minor facet disease. Mild thecal sac effacement is present. There is mild right and mild to moderate left foraminal encroachment. At L2-3, there is narrowing of the disc space. There is annular disc bulging, greater toward the neural foramen and slightly asymmetric extending laterally on the left. There is bilateral facet hypertrophy with fluid in the joint on the right. There is also thickening of ligamentum flavum, slightly greater on the left. There is at moderate thecal sac effacement. There is mild right and moderate left foraminal impingement. At L3-4, there is narrowing of the space. Annular disc bulging is visualized, greater toward the neural foramen where there is a more focal protrusion on the left. There is moderate facet and ligamentous hypertrophy. There is moderate thecal sac effacement. There is moderate left and mild right foraminal impingement. At L4-5, there is narrowing of the disc space. Annular disc bulging is visualized, greater toward the neural foramen and slightly asymmetric extending laterally on the right. There is facet and ligamentous hypertrophy. Mild to moderate thecal sac effacement is identified. There is mild to potentially moderate left and moderate to severe right foraminal impingement. At the lumbosacral junction, there is mild annular disc bulging, slightly more focal in the right parasagittal region extending toward the neural foramen. There is prominent bilateral facet disease. A synovial cyst is visualized posterior to the facets on the right. There is mild thecal sac effacement. Mild left and mild to moderate right foraminal encroachment is identified. MR/MR lumbar spine wo con IMPRESSION: DEXTROSCOLIOSIS AND MULTILEVEL DISCOVERTEBRAL DEGENERATIVE CHANGES WITH ASSOCIATED STENOSIS, OUTLINED ABOVE. Impression dictated by: Clarissa Garcia M.D.02/08/2023 5:18 PM Dictation Location: [place] [address] Transcribed By: [facility] 02/08/231717 Dictated By: Clarissa Garcia MD 02/08/23 1708 Signed By: 02/08/238 [facility] MR lumbar spine wo con [facility] [employer] Other MR lumbar spine wo con [facility] [employer] Other MR lumbar spine wo con [address] [place] [address] [employer] [place] [address] [facility] Other MR lumbar spine wo con MRI Report [facility] Other MR lumbar spine wo con Signed [facility] Other MR lumbar spine wo con Patient: Christian Rich MR#: [id number] [facility] Other MR lumbar spine wo con 8127 [facility] Other MR lumbar spine wo con : 1955 Acct:[id number] [facility] Other MR lumbar spine wo con Age/Sex: 67 / F ADM Date: 02/08/23 [facility] Other MR lumbar spine wo con Loc: MR Room: Type: [facility] Other MR lumbar spine wo con Attending Dr: Noris Elder WIRE DRAWING MACHINE OPERATOR-C [facility] Other MR lumbar spine wo con Copies to: Noris Elder WIRE DRAWING MACHINE OPERATOR-C [facility] Other MR lumbar spine wo con Ordering Provider: Noris Elder NP-C [facility] Other MR lumbar spine wo con Date of Service: 02/08/23 [facility] Other MR lumbar spine wo con MR/MR lumbar spine wo con: Lumbar pain [facility] Other MR lumbar spine wo con MRI LUMBAR SPINE WITHOUT CONTRAST [facility] Other MR lumbar spine wo con COMPARISON: Plain films 02/08/2023 [facility] Other MR lumbar spine wo con CLINICAL DATA: Chronic low back pain. No injury. [facility] Other MR lumbar spine wo con Multiecho imaging in the axial and sagittal plane was performed without contrast. [facility] Other MR lumbar spine wo con There is dextroscoliotic curvature. There is slight anterolisthesis of L5 on S1. Alignment is [facility] Other MR lumbar spine wo con otherwise maintained. No acute compression fractures or marrow edema are identified. There is [facility] Other MR lumbar spine wo con multilevel degenerative endplate signal change. The conus medullaris terminates at the L1-2 level. [facility] Other MR lumbar spine wo con No paraspinal soft tissue abnormalities are noted. [facility] Other MR lumbar spine wo con At T12-L1, there is narrowing of the disc space. There is mild annular disc bulging, slightly [facility] Other MR lumbar spine wo con asymmetric extending laterally on the right. There is slight anterior thecal sac effacement. The [facility] Other MR lumbar spine wo con neural foramen are patent. [facility] Other MR lumbar spine wo con L1-2, there is narrowing of the disc space. There is mild annular disc bulging, greater extending [facility] Other MR lumbar spine wo con laterally. There is minor facet disease. Mild thecal sac effacement is present. There is mild [facility] Other MR lumbar spine wo con right and mild to moderate left foraminal encroachment. [facility] Other MR lumbar spine wo con At L2-3, there is narrowing of the disc space. There is annular disc bulging, greater toward the [facility] Other MR lumbar spine wo con neural foramen and slightly asymmetric extending laterally on the left. There is bilateral facet [facility] Other MR lumbar spine wo con hypertrophy with fluid in the joint on the right. There is also thickening of ligamentum flavum, [facility] Other MR lumbar spine wo con slightly greater on the left. There is at moderate thecal sac effacement. There is mild right and [facility] Other MR lumbar spine wo con moderate left foraminal impingement. [facility] Other MR lumbar spine wo con At L3-4, there is narrowing of the space. Annular disc bulging is visualized, greater toward the [facility] Other MR lumbar spine wo con neural foramen where there is a more focal protrusion on the left. There is moderate facet and [facility] Other MR lumbar spine wo con ligamentous hypertrophy. There is moderate thecal sac effacement. There is moderate left and mild [facility] Other MR lumbar spine wo con right foraminal impingement. [facility] Other MR lumbar spine wo con At L4-5, there is narrowing of the disc space. Annular disc bulging is visualized, greater toward [facility] Other MR lumbar spine wo con the neural foramen and slightly asymmetric extending laterally on the right. There is facet and [facility] Other MR lumbar spine wo con ligamentous hypertrophy. Mild to moderate thecal sac effacement is identified. There is mild to [facility] Other MR lumbar spine wo con potentially moderate left and moderate to severe right foraminal impingement. [facility] Other MR lumbar spine wo con At the lumbosacral junction, there is mild annular disc bulging, slightly more focal in the right [facility] Other MR lumbar spine wo con parasagittal region extending toward the neural foramen. There is prominent bilateral facet [facility] Other MR lumbar spine wo con disease. A synovial cyst is visualized posterior to the facets on the right. There is mild thecal [facility] Other MR lumbar spine wo con sac effacement. Mild left and mild to moderate right foraminal encroachment is identified. [facility] Other MR lumbar spine wo con MR/MR lumbar spine wo con [facility] Other MR lumbar spine wo con IMPRESSION: [facility] Other MR lumbar spine wo con DEXTROSCOLIOSIS AND MULTILEVEL DISCOVERTEBRAL DEGENERATIVE CHANGES WITH ASSOCIATED STENOSIS, [facility] Other MR lumbar spine wo con OUTLINED ABOVE. [facility] Other MR lumbar spine wo con Impression dictated by: Clarissa Garcia M.D.02/08/2023 5:18 PM [facility] Other MR lumbar spine wo con Dictation Location: [place] [address] [facility] Other MR lumbar spine wo con Transcribed By: PWS 02/08/23 [facility] Other MR lumbar spine wo con Dictated By: Clarissa Garcia MD 02/08/23 170 [facility] Other MR lumbar spine wo con Signed By: [facility] Other MR lumbar spine wo con 02/08/23 1719 [facility] Other US breast LT limitedon 02-08 US breast LT limited [facility] Main [place] [address] [place] [address] Ultrasound Report Signed Patient: Christian Rich MR#: [id number] : 1955 Acct:[id number] Age/Sex: 67 / F ADM Date: 02/08/23 Loc: [facility] Room: Type: [facility] Attending Dr: Augusto Siu DO Ordering Provider: Augusto Siu DO Date of Service: 02/08/23 US/US breast LT limited: 6m;Abnormal mammogram Copies to: Augusto Siu DO Targeted left breast ultrasound HISTORY: Follow-up assessment of left breast cyst. COMPARISON: 08/28/2022 The previously identified anechoic cyst is no longer visualized consistent with interval resolution. US/US breast LT limited IMPRESSION: Resolution of anechoic left breast cyst. Impression dictated by: Stanislav Anthony M.D.02/08/2023 2:54 PM Dictation Location: [facility] Tech: Farrah Andrews Transcribed By: JAHAIRA 02/08/231453 Dictated By: Stanislav Anthony DO 02/08/231452 Signed By: 02/08/231453 [facility] XR lumbar spine 6V w bending on 02-08-2023 XR lumbar spine 6V w bending [facility] [place] [address] XRay Report Signed Patient: Christian Rich MR#: [id number] : 1955 Acct:[id number] Age/Sex: 67 / F ADM Date: 02/08/23 Loc: MR Room: Type: [facility] Attending Dr: Noris MCCALL Copies to: CAL Hunter Ordering Provider: CAL Hunter Date of Service: 02/08/23 XR/XR lumbar spine 6V w bending: Lumbar pain LUMBAR SPINE WITH FLEXION, EXTENSION AND BENDING VIEWS - 6 views: CLINICAL HISTORY: Nonradiating low back pain. No injury. COMPARISON: 04/28/2020 Standing AP neutral, right left bending and lateral views with neutral, flexion and extension were obtained. There is osteopenia. There is rotatory dextroscoliotic curvature. There is minimal anterolisthesis of L5 on S1. There is no other malalignment or instability. No acute fractures are seen. There is disc space narrowing at the upper lumbar levels, asymmetric toward the left. There is also mild posterior disc space narrowing at L3-4 and L4-5. There are tiny endplate spurs. There is mid and lower lumbar facet disease. The SI joints are intact. No paraspinal soft tissue abnormalities are present. XR/XR lumbar spine 6V w bending IMPRESSION: SCOLIOSIS AND DEGENERATIVE CHANGES. Impression dictated by: Clarissa Garcia M.D.02/08/2023 5:08 PM Dictation Location: [place] [address] Transcribed By: JAHAIRA 02/08/231707 Dictated By: Clarissa Garcia MD 02/08/231705 Signed By: 02/08/231707 [facility] XR lumbar spine 6V w bending XRay Report [facility] Other XR lumbar spine 6V w bending XR/XR lumbar spine 6V w bending: Lumbar pain [facility] Other XR lumbar spine 6V w bending LUMBAR SPINE WITH FLEXION, EXTENSION AND BENDING VIEWS - 6 views: [facility] Other XR lumbar spine 6V w bending CLINICAL HISTORY: Nonradiating low back pain. No injury. [facility] Other XR lumbar spine 6V w bending COMPARISON: 04/28/2020 [facility] Other XR lumbar spine 6V w bending Standing AP neutral, right left bending and lateral views with neutral, flexion and extension were [facility] Other XR lumbar spine 6V w bending obtained. There is osteopenia. There is rotatory dextroscoliotic curvature. There is minimal [facility] Other XR lumbar spine 6V w bending anterolisthesis of L5 on S1. There is no other malalignment or instability. No acute fractures are [facility] Other XR lumbar spine 6V w bending seen. There is disc space narrowing at the upper lumbar levels, asymmetric toward the left. There [facility] Other XR lumbar spine 6V w bending is also mild posterior disc space narrowing at L3-4 and L4-5. There are tiny endplate spurs. There [facility] Other XR lumbar spine 6V w bending is mid and lower lumbar facet disease. The SI joints are intact. No paraspinal soft tissue [facility] Other XR lumbar spine 6V w bending abnormalities are present. [facility] Other XR lumbar spine 6V w bending XR/XR lumbar spine 6V w bending [facility] Other XR lumbar spine 6V w bending SCOLIOSIS AND DEGENERATIVE CHANGES. [facility] Other XR lumbar spine 6V w bending Impression dictated by: Clarissa Garcia M.D.02/08/2023 5:08 PM [facility] Other XR lumbar spine 6V w bending Transcribed By: JAHAIRA 02/08/23 1706 [facility] Other XR lumbar spine 6V w bending Dictated By: Clarissa Garcia MD 02/08/23 1701 [facility] Other XR lumbar spine 6V w bending 02/08/23 8394 [facility] Other Office Visit (Cardiology)on 06-19-2022 Follow-up visit Diagnoses/Problems Assessed Body mass index (BMI) of 23.0 to 23.9 in adult (V85.1) (Z68.23) PSVT (paroxysmal supraventricular tachycardia) (427.0) (I47.1) Never a smoker Abnormal ECG (794.31) (R94.31) Palpitations (785.1) (R00.2) Orders Body mass index (BMI) of 23.0 to 23.9 in adult Healthy Weight Tips; Status:Complete - Retrospective Authorization; Done: 19Jun2022 Health Maintenance Please bring all medicines, vitamins, and herbal supplements with you when you come to the office.; Status:Complete - Retrospective Authorization; Done: 19Jun2022 SocHx: Never a smoker Tobacco Use Screening; Status:Complete; Done: 19Jun2022 Tobacco Use Screening; Status:Complete; Done: 19Jun2022 FOLLOW UP WITH PRIMARY CARE Physician. Jake Zepeda MA am scribing for and in the presence of, Dr. Gregorio Barton MD Patient Instructions PLEASE BRING ALL PRESCRIPTIONS IN ORIGINAL BOTTLES TO EVERY APPOINTMENT. Chief Complaint CHRISTIAN RICH is being seen for follow up. History of Present Illness 66-year-old female with a past medical history of hypertension. She had an episode of palpitations back in 2017. She ended in the emergency department and her arrhythmia was terminated with adenosine. There is no documentation of the rhythm strips during this evaluation. Her echocardiogram at that time showed a left ventricular ejection fraction 55-60% with no significant valvular abnormality. She states that she was doing well until last month when she had an episode of palpitations again. She did not seek medical attention at that time. Apparently her palpitations lasted for almost 30 minutes and resolve on its own. There was no dizziness or lightheadedness or chest pain associated with that. She was evaluated in September 2018 in the office and treadmill stress test was ordered. Her stress test was switched to Lexiscan Myoview stress test. Back in October 2018, her stress test was negative for ischemia with a left ventricular ejection fraction was 71%. Her echocardiogram shows no significant valvular normalities with a left ventricular ejection fraction 65%. she was scheduled for an ablation that was performed in July 23, 2020 with no complications. 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 Successful ablation of the slow pathway was performed. Since the last office visit, she has been doing well. She denies any symptoms of chest pain or shortness of breath or palpitations. Telemetry monitoring March 2022 shows creatinine 0.7, LFTs okay, TSH okay. Vital signs are stable Patient is alert oriented x3 Head normocephalic HEENT normal Neck no nodules. JVD negative Lungs clear to auscultation and percussion Cardiovascular regular rate and rhythm. No murmurs or gallops. Abdomen soft, bowel sounds present. No tenderness organomegaly Extremities no edema in the lower extremities Patient is alert oriented x3 no motor or sensory deficit Skin no cyanosis no pallor Clinical impression 1. Palpitations, no recurrence 2. 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 3. Normal left ventricular function per echocardiogram in 2017, stable 4. Abnormal stress test based on EKG changes, stable 5. Hyperlipidemia, controlled 6. Covid?19 infection in November 2020, patient recovered successfully Plan and recommendations Patient is doing well from the electrophysiology standpoint. No recurrence of palpitations. No chest pain. Patient would like to follow-up with primary care physician. Follow my office as needed basis. Risk factor modifications and lifestyle modifications discussed with patient. Diet , exercise and hydration discussed during this office visit, as well as avoid alcohol, smoking and excessive caffeine use. Prescriptions were refilled during this office visit I have personally review with patient during this office visit, laboratory data, echocardiogram results, stress test results, Holter?event monitor results prior and after the last electrophysiology visit. All questions has been answered. Please excuse any errors in grammar or translation related to this dictation. Voice recognition software was utilized to prepare this document. Active Problems Problems Abnormal ECG (794.31) (R94.31) Dyspnea on minimal exertion (786.09) (R06.09) Never a smoker Palpitations (785.1) (R00.2) Pre-procedure lab exam (V72.63) (Z01.812) PSVT (paroxysmal supraventricular tachycardia) (427.0) (I47.1) Surgical History Problems History of Colonoscopy [id number] History of Excision of basal cell carcinoma History of Radiofrequency ablation History of Tonsillectomy with adenoidectomy History of Total hysterectomy abdominal Past Medical History Problems History of BMI 24.0-24.9, adult (V85.1) (Z68.24) Current Meds Medication NameInstruction Estrace 1 MG Oral TabletTAKE 1 TABLET DAILY. Verbally updated medication list with Patient. Patient did not bring medication bottles or (more content not included)... Normal [employer] Tobacco Screening.on 022 Adult depression screening assessment No [facility] [facility] DO Work Phone: Fall risk assessment a) No falls within the last year [facility] 127 DO Work Phone: Tobacco use status [facility] b) No [facility] 127 DO Work Phone: Albumin [Mass/volume] in Ser um or PlasmaOrdered By: Latoya Chong on 06-09-2022 Albumin [Mass/Vol] 3.7 g/dL 3.2-5.5 [facility] Basophils Auto (Bld) [#/Vol] Ordered By: Latoya Bunting on 06-09-2022 Basophils (Bld) [#/Vol] 0.0 10*3/uL 0.0-0.2 [facility] Basophils/100 WBC Auto (Bld) Ordered By: Latoya Bunting on 06-09-2022 Basophils/100 WBC (Bld) 0.2 % . [facility] Cholesterol [Mass/volume] in Serum or PlasmaOrdered By: Latoya Chong on 06-09-2022 Cholesterol [Mass/Vol] 231 mg/dL 140-200 [facility] Comment on above: Chol less than 200 m g/dl low riskChol 201-239 mg/dl borderline riskChol 240 mg/dl and greater high risk Cholesterol in LDL Calc [Mas s/Vol]Ordered By: Latoya Bunting on 06-09-2022 Cholesterol in LDL [Mass/Vol] 135 mg/dL 0-100 [facility] Comment on above: LDL ATP III CLASSIFI CATIONLDL less than 100 mg/dL OptimalLDL 100-129 mg/dL Near or above optimalLDL 130-159 mg/dL Borderline highLDL 160-189 mg/dL HighLDL greater than 189 mg/dL Very high Cholesterol in VLDL Calc [Ma ss/Vol]Ordered By: Latoya Bunting on 06-09-2022 Cholesterol in VLDL [Mass/Vol] 25 mg/dL [facility] Creatinine and Glomerular fi ltration rate.predicted panel (S/P/Bld)Ordered By: Latoya Bunting on 06-09-2022 Creatinine [Mass/Vol] 0.69 mg/dL 0.44-1.03 [facility] Eosinophils Auto (Bld) [#/Vo l]Ordered By: Latoya Bunting on 06-09-2022 Eosinophils (Bld) [#/Vol] 0.0 10*3/uL 0.0-0.45 [facility] Eosinophils/100 WBC Auto (Bl d)Ordered By: Latoya Bunting on 06-09-2022 Eosinophils/100 WBC (Bld) 0.7 % . [facility] Erythrocyte distribution wid th Auto (RBC) [Ratio]Ordered By: Latoya Bunnorma on 06-09-2022 Erythrocyte distribution width (RBC) [Ratio] 13.4 % 11.9-15.3 [facility] Estimated glomerular filtrat ion rate (GFR) non- AmericanOrdered By: Latoya Bunnorma on 06-09-2022 GFR/1.73 sq M.predicted among non-blacks MDRD (S/P/Bld) [Vol rate/Area] > 60 mL/Min [facility] Globulin Calc (S) [Mass/Vol] Ordered By: Latoya Bunting on 06-09-2022 Globulin (S) [Mass/Vol] 2.5 g/dL [facility] Hematocrit Auto (Bld) [Volum e fraction]Ordered By: Latoya Bunting on 06-09-2022 Hematocrit (Bld) [Volume fraction] 38.6 % 34.0-46.4 [facility] Hemoglobin [Mass/volume] in BloodOrdered By: Latoya Bunting on 06-09-2022 Hemoglobin (Bld) [Mass/Vol] 12.9 g/dL 11.8-15.4 [facility] Laboratory - Hematology and Cell countsOrdered By: Latoya Bunting on 06-09-2022 Nucleated RBC/100 WBC (Bld) [Ratio] 0.1 % 0-0.5 [facility] Leukocytes [#/volume] in Blo od by Automated countOrdered By: Latoya Bunting on 06-09-2022 WBC (Bld) [#/Vol] 6.5 10*3/uL 4.5-11.0 [facility] Lymphocytes Auto (Bld) [#/Vo l]Ordered By: Latoya Bunting on 06-09-2022 Lymphocytes (Bld) [#/Vol] 2.3 10*3/uL 1.00-4.8 [facility] Lymphocytes/100 WBC Auto (Bl d)Ordered By: Latoya Bunting on 06-09-2022 Lymphocytes/100 WBC (Bld) 34.9 % . [facility] MCH Auto (RBC) [Entitic mass ]Ordered By: Latoya Bunting on 06-09-2022 MCH (RBC) [Entitic mass] 29.9 pg 24.7-34.3 [facility] MCHC Auto (RBC) [Mass/Vol]Or dered By: Latoya Bunting on 06-09-2022 MCHC (RBC) [Mass/Vol] 33.5 g/dL 32.0-35.0 [facility] MCV Auto (RBC) [Entitic vol] Ordered By: Latoya Bunting on 06-09-2022 MCV (RBC) [Entitic vol] 89.2 fL 80-100 [facility] Monocytes Auto (Bld) [#/Vol] Ordered By: Latoya Bunting on 06-09-2022 Monocytes (Bld) [#/Vol] 0.5 10*3/uL 0.0-0.8 [facility] Monocytes/100 WBC Auto (Bld) Ordered By: Latoya Bunting on 06-09-2022 Monocytes/100 WBC (Bld) 8.5 % . [facility] Neutrophils Auto (Bld) [#/Vo l]Ordered By: Latoya Bunting on 06-09-2022 Neutrophils (Bld) [#/Vol] 3.6 10*3/uL 1.8-7.7 [facility] Neutrophils/100 WBC Auto (Bl d)Ordered By: Latoya Bunting on 06-09-2022 Neutrophils/100 WBC (Bld) 55.7 % . [facility] No Panel InformationOrdered By: Latoya Bunting on 06-09-2022 25-Hydroxy Vitamin D Total 39.8 ng/mL 30-100 [facility] Comment on above: VITAMIN D STATUS 25( [place])VITAMIN D RANGE (ng/mL) Deficient <20 Insufficient 20 to <30Sufficient 30 to 100Reference: Aly MF,Shaina MORENO, Iliana MELENDEZ, et al. Evaluation,treatment, and prevention of vitamin D deficiency; an Endocrine Society clinical practice guideline. JCEM. 2010; 96(7):1911-30. Estimated GFR () > 60 mL/Min [facility] Comment on above: GFR estimated refere nce range: According to KDOQI guidelines, <60 ml/min/1.73m2 is sufficient to diagnose a patient with chronic kidney disease. Pharmacy Creatinine Clearance (Chem N/A [facility] Platelet mean volume Auto (B ld) [Entitic vol]Ordered By: Latoya Bunting on 06-09-2022 Platelet mean volume (Bld) [Entitic vol] 8.0 fL 6.3-10.7 [facility] Platelets Auto (Bld) [#/Vol] Ordered By: Latoya Bunting on 06-09-2022 Platelets (Bld) [#/Vol] 261 10*3/uL 150-450 [facility] Protein [Mass/volume] in Ser um or PlasmaOrdered By: Latoya Bunting on 06-09-2022 Protein [Mass/Vol] 6.2 g/dL 6.1-7.9 [facility] RBC Auto (Bld) [#/Vol]Ordere d By: Latoya Chong on 06-09-2022 RBC (Bld) [#/Vol] 4.33 10*6/uL 3.60-5.00 [facility] Serum or plasma alanine castro otransferase measurement without P-5'-P (enzymatic activiOrdered By: Latoya Bunting on 06-09-2022 ALT No additional P-5'-P [Catalytic activity/Vol] 13 U/L 10-60 [facility] Serum or plasma albumin/glob ulin mass ratioOrdered By: Latoya Bunting on 06-09-2022 Albumin/Globulin [Mass ratio] 1.5 {ratio} [facility] Serum or plasma alkaline tesha sphatase measurement (enzymatic activity/volume)Ordered By: Latoya Chong on 06-09-2022 ALP [Catalytic activity/Vol] 51 U/L 32-92 [facility] Serum or plasma anion gap de terminationOrdered By: Latoya Chong on 06-09-2022 Anion gap [Moles/Vol] 15.5 mmol/L 6.0-15.0 [facility] Serum or plasma aspartate am inotransferase measurement (enzymatic activity/volume)Ordered By: Latoya Chong on 06-09-2022 AST [Catalytic activity/Vol] 19 U/L 10-42 [facility] Serum or plasma calcium franchesca urement (mass/volume)Ordered By: Latoya Chong on 06-09-2022 Calcium [Mass/Vol] 9.2 mg/dL 8.2-10.2 [facility] Serum or plasma chloride aristides surement (moles/volume)Ordered By: Latoya Chong on 06-09-2022 Chloride [Moles/Vol] 102 mmol/L 95-114 [facility] Serum or plasma glucose franchesca urement (mass/volume)Ordered By: Latoya Chong on 06-09-2022 Glucose [Mass/Vol] 91 mg/dL 70-100 [facility] Comment on above: ADA recommended refe rence rangeRandom Glucose Reference Range is dependent on time and content of last meal. Glucose of more than 200 mg/dL in a nonstressed, ambulatory subject supports the diagnosis of Diabetes Mellitus. Serum or plasma high density lipoprotein (HDL) cholesterol measurementOrdered By: Latoya Chong on 06-09-2022 Cholesterol in HDL [Mass/Vol] 71 mg/dL 35-85 [facility] Comment on above: HDL CHOL ATP-III CLA SSIFICATION Cardiovascular RiskHDL > or equal to 60 mg/dL LOWHDL < 40 mg/dL HIGH Serum or plasma potassium me asurement (moles/volume)Ordered By: Latoya Chong on 06-09-2022 Potassium [Moles/Vol] 4.1 mmol/L 3.5-5.1 [facility] Serum or plasma sodium measu rement (moles/volume)Ordered By: Latoya Chong on 06-09-2022 Sodium [Moles/Vol] 139 mmol/L 136-146 [facility] Serum or plasma total biliru bin measurement (mass/volume)Ordered By: Latoya Chong on 06-09-2022 Bilirubin [Mass/Vol] 0.7 mg/dL 0.3-1.2 [facility] Serum or plasma total carbon dioxide measurement (moles/volume)Ordered By: Latoya Chong on 06-09-2022 CO2 [Moles/Vol] 25.6 mmol/L 22.0-30.0 [facility] Serum or plasma total choles terol/high density lipoprotein (HDL) cholesterol mass ratOrdered By: Latoya Chong on 06-09-2022 Cholesterol.total/Cho lesterol in HDL [Mass ratio] 3.3 {ratio} <5.0 [facility] Serum or plasma urea nitroge n measurement (mass/volume)Ordered By: Latoya Chong on 06-09-2022 Urea nitrogen [Mass/Vol] 11 mg/dL 9-23 [facility] Triglyceride [Mass/volume] i n Serum or PlasmaOrdered By: Latoya Chong on 06-09-2022 Triglyceride [Mass/Vol] 125 mg/dL 35-149 [facility] Comment on above: TRIG ATP III CLASSIF ICATIONTRIG less than 150 mg/dL NormalTRIG 150-199 mg/dL Borderline highTRIG 200-500 mg/dL High TRIG greater than 500 mg/dL Very highStandard traceable to the Center for Disease Conrtrol and Prevention (CDC) test method. Basophils Auto (Bld) [#/Vol] Ordered By: Gregorio Barton on 03-31-2022 Basophils (Bld) [#/Vol] 0.0 10*3/uL 0.0-0.2 [facility] Basophils/100 WBC Auto (Bld) Ordered By: Gregorio Barton on 03-31-2022 Basophils/100 WBC (Bld) 0.3 % . [facility] Blood hemoglobin measurement (mass/volume)Ordered By: Gregorio Barton on 03-31-2022 Hemoglobin (Bld) [Mass/Vol] 13.0 g/dL 11.8-15.4 [facility] Blood leukocytes automated c ount (number/volume)Ordered By: Gregorio Barton on 03-31-2022 WBC (Bld) [#/Vol] 6.7 10*3/uL 4.5-11.0 [facility] Body fluid albumin measureme nt (mass/volume)Ordered By: Gregorio Barton on 03-31-2022 Albumin (Body fld) [Mass/Vol] 3.7 g/dL 3.2-5.5 [facility] Creatinine and Glomerular fi ltration rate.predicted panel (S/P/Bld)Ordered By: Gregorio Barton on 03-31-2022 Creatinine [Mass/Vol] 0.70 mg/dL 0.44-1.03 [facility] Eosinophils Auto (Bld) [#/Vo l]Ordered By: Gregorio Barton on 03-31-2022 Eosinophils (Bld) [#/Vol] 0.0 10*3/uL 0.0-0.45 [facility] Eosinophils/100 WBC Auto (Bl d)Ordered By: Gregorio Barton on 03-31-2022 Eosinophils/100 WBC (Bld) 0.6 % . [facility] Erythrocyte distribution wid th Auto (RBC) [Ratio]Ordered By: Gregorio Barton on 03-31-2022 Erythrocyte distribution width (RBC) [Ratio] 12.9 % 11.9-15.3 [facility] Estimated glomerular filtrat ion rate (GFR) non- AmericanOrdered By: Gregorio Barton on 03-31-2022 GFR/1.73 sq M.predicted among non-blacks MDRD (S/P/Bld) [Vol rate/Area] > 60 mL/Min [facility] Globulin Calc (S) [Mass/Vol] Ordered By: Gregorio Barton on 03-31-2022 Globulin (S) [Mass/Vol] 2.6 g/dL [facility] Hematocrit Auto (Bld) [Volum e fraction]Ordered By: Gregorio Barton on 03-31-2022 Hematocrit (Bld) [Volume fraction] 38.9 % 34.0-46.4 [facility] Laboratory - Hematology and Cell countsOrdered By: Gregorio Barton on 03-31-2022 Nucleated RBC/100 WBC (Bld) [Ratio] 0.0 % 0-0.5 [facility] Lymphocytes Auto (Bld) [#/Vo l]Ordered By: Gregorio Barton on 03-31-2022 Lymphocytes (Bld) [#/Vol] 2.4 10*3/uL 1.00-4.8 [facility] Lymphocytes/100 WBC Auto (Bl d)Ordered By: Gregorio Barton on 03-31-2022 Lymphocytes/100 WBC (Bld) 35.3 % . [facility] MCH Auto (RBC) [Entitic mass ]Ordered By: Gregorio Barton on 03-31-2022 MCH (RBC) [Entitic mass] 29.8 pg 24.7-34.3 [facility] MCHC Auto (RBC) [Mass/Vol]Or dered By: Gregorio Barton on 03-31-2022 MCHC (RBC) [Mass/Vol] 33.5 g/dL 32.0-35.0 [facility] MCV Auto (RBC) [Entitic vol] Ordered By: Gregorio Barton on 03-31-2022 MCV (RBC) [Entitic vol] 89.0 fL 80-100 [facility] Monocytes Auto (Bld) [#/Vol] Ordered By: Gregorio Barton on 03-31-2022 Monocytes (Bld) [#/Vol] 0.5 10*3/uL 0.0-0.8 [facility] Monocytes/100 WBC Auto (Bld) Ordered By: Gregorio Barton on 03-31-2022 Monocytes/100 WBC (Bld) 7.2 % . [facility] Neutrophils Auto (Bld) [#/Vo l]Ordered By: Gregorio Barton on 03-31-2022 Neutrophils (Bld) [#/Vol] 3.8 10*3/uL 1.8-7.7 [facility] Neutrophils/100 WBC Auto (Bl d)Ordered By: Gregorio Barton on 03-31-2022 Neutrophils/100 WBC (Bld) 56.6 % . [facility] No Panel InformationOrdered By: Gregorio Barton on 03-31-2022 Estimated GFR () > 60 mL/Min [facility] Comment on above: GFR estimated refere nce range: According to KDOQI guidelines, <60 ml/min/1.73m2 is sufficient to diagnose a patient with chronic kidney disease. Pharmacy Creatinine Clearance (Chem N/A [facility] No Panel Informationon 03-31 56.6\S\56.6 Normal . [facility] [employer] [email or web address] Work Phone: 8.2\S\8.2 Normal 6.3-10.7 [facility] [employer] Work Phone: [phone]\S\244 Normal 150-450 [facility] Work Phone: 12.9\S\12.9 Normal 11.9-15.3 [facility] [employer] Work Phone: 33.5\S\33.5 Normal 32.0-35.0 -[facility] Work Phone: 29.8\S\29.8 Normal 24.7-34.3 -[facility] Work Phone: 3.8\S\3.8 Normal 1.8-7.7 -[facility] Work Phone: 0.0\S\0.0 Normal 0.0-0.45 -[facility] [email or web address] Work Phone: Comment on above: PERFORMED BY:[facility] [place] [id number] MEDICAL DIRECTORALEJANDRA BONILLA M.D. 0.3\S\0.3 Normal . -[facility] Work Phone: [phone] 0.6\S\0.6 Normal 0.3-1.2 [facility] Work Phone: [phone] 7.2\S\7.2 Normal . -[facility] Work Phone: [phone] 35.3\S\35.3 Normal . -[facility] Work Phone: [phone] 0.5\S\0.5 Normal 0.0-0.8 -[facility] Work Phone: [phone] 2.4\S\2.4 Normal 1.00-4.8 -[facility] Work Phone: [phone] 89.0\S\89.0 Normal 80-100 -[facility] Work Phone: [phone] 38.9\S\38.9 Normal 34.0-46.4 -[facility] Work Phone: [phone] 13.0\S\13.0 Normal 11.8-15.4 -[facility] Work Phone: [phone] 4.37\S\4.37 Normal 3.60-5.00 -[facility] Work Phone: [phone] 6.7\S\6.7 Normal 3.8-11.6 -[facility] Work Phone: [phone] 3.7\S\3.7 Normal 3.2-5.5 -[facility] Work Phone: [phone] 6.3\S\6.3 Normal 6.1-7.9 [facility] [email or web address] Work Phone: 9.1\S\9.1 Normal 8.2-10.2 [facility] [email or web address] Work Phone: [phone] 23.3\S\23.3 Normal 22.0-30.0 [facility] [employer] [email or web address] Work Phone: 103\S\103 Normal 95-114 [facility] [email or web address] Work Phone: 4.1\S\4.1 Normal 3.5-5.1 [facility] [email or web address] Work Phone: 46\S\46 Normal 32-92 [facility] [employer] [email or web address] Work Phone: 14\S\14 Normal 10-60 [facility] [email or web address] Work Phone: 16\S\16 Normal 10-42 [facility] [employer] [email or web address] Work Phone: [phone] 1.4\S\1.4 Normal -[facility] [employer] Work Phone: 2.6\S\2.6 Normal [facility] [email or web address] Work Phone: 137\S\137 Normal 136-146 [facility] [employer] [email or web address] Work Phone: > 60 Normal [facility] [email or web address] Work Phone: Comment on above: GFR estimated refere nce range: According to KDOQI guidelines, <60 ml/min/1.73m2 is sufficient to diagnose a patient with chronic kidney disease. 0.70\S\0.70 Normal 0.44-1.03 [facility] [employer] [email or web address] Work Phone: 12\S\12 Normal 9-23 [facility] [employer] [email or web address] Work Phone: [phone] 88\S\88 Normal 70-100 [facility] Work Phone: Comment on above: Random Glucose Refer ence Range is dependent on time and content of last meal. Glucose of more than 200 mg/dL in a nonstressed, ambulatory subject supports the diagnosis of Diabetes Mellitus. ADA recommended reference range 3.65\S\3.65 Normal 0.45-5.33 [facility] Work Phone: Comment on above: PERFORMED BY:[facility] [place], [place] [id number] MEDICAL DIRECTORALEJANDRA BONILLA M.D. Platelet mean volume Auto (B ld) [Entitic vol]Ordered By: Gregorio Barton on 03-31-2022 Platelet mean volume (Bld) [Entitic vol] 8.2 fL 6.3-10.7 [facility] Platelets Auto (Bld) [#/Vol] Ordered By: Gregorio Barton on 03-31-2022 Platelets (Bld) [#/Vol] 244 10*3/uL 150-450 [facility] Protein [Mass/volume] in Ser um or PlasmaOrdered By: Gregorio Barton on 03-31-2022 Protein [Mass/Vol] 6.3 g/dL 6.1-7.9 [facility] RBC Auto (Bld) [#/Vol]Ordere d By: Gregorio Barton on 03-31-2022 RBC (Bld) [#/Vol] 4.37 10*6/uL 3.60-5.00 [facility] Serum or plasma alanine castro otransferase measurement without P-5'-P (enzymatic activiOrdered By: Gregorio Barton on 03-31-2022 ALT No additional P-5'-P [Catalytic activity/Vol] 14 U/L 10-60 [facility] Serum or plasma albumin/glob ulin mass ratioOrdered By: Gregorio Barton on 03-31-2022 Albumin/Globulin [Mass ratio] 1.4 {ratio} [facility] Serum or plasma alkaline tesha sphatase measurement (enzymatic activity/volume)Ordered By: Gregorio Barton on 03-31-2022 ALP [Catalytic activity/Vol] 46 U/L 32-92 [facility] Serum or plasma aspartate am inotransferase measurement (enzymatic activity/volume)Ordered By: Gregorio Barton on 03-31-2022 AST [Catalytic activity/Vol] 16 U/L 10-42 [facility] Serum or plasma calcium franchesca urement (mass/volume)Ordered By: Gregorio Barton on 03-31-2022 Calcium [Mass/Vol] 9.1 mg/dL 8.2-10.2 [facility] Serum or plasma chloride aristides surement (moles/volume)Ordered By: Gregorio Barton on 03-31-2022 Chloride [Moles/Vol] 103 mmol/L 95-114 [facility] Serum or plasma glucose franchesca urement (mass/volume)Ordered By: Gregorio Barton on 03-31-2022 Glucose [Mass/Vol] 88 mg/dL 70-100 [facility] Comment on above: ADA recommended refe rence range Random Glucose Reference Range is dependent on time and content of last meal. Glucose of more than 200 mg/dL in a nonstressed, ambulatory subject supports the diagnosis of Diabetes Mellitus. ADA recommended refe rence rangeRandom Glucose Reference Range is dependent on time and content of last meal. Glucose of more than 200 mg/dL in a nonstressed, ambulatory subject supports the diagnosis of Diabetes Mellitus. Serum or plasma potassium me asurement (moles/volume)Ordered By: Gregorio Barton on 03-31-2022 Potassium [Moles/Vol] 4.1 mmol/L 3.5-5.1 [facility] Serum or plasma sodium measu rement (moles/volume)Ordered By: Gregorio Barton on 03-31-2022 Sodium [Moles/Vol] 137 mmol/L 136-146 [facility] Serum or plasma total biliru bin measurement (mass/volume)Ordered By: Gregorio Barton on 03-31-2022 Bilirubin [Mass/Vol] 0.6 mg/dL 0.3-1.2 [facility] Serum or plasma total carbon dioxide measurement (moles/volume)Ordered By: Gregorio Barton on 03-31-2022 CO2 [Moles/Vol] 23.3 mmol/L 22.0-30.0 [facility] Serum or plasma urea nitroge n measurement (mass/volume)Ordered By: Gregorio Barton on 03-31-2022 Urea nitrogen [Mass/Vol] 12 mg/dL 9- [facility] TSH DL <= 0.005 mIU/L QnOrde red By: Gregorio Barton on 03-31-2022 TSH Qn 3.65 m[IU]/L 0.45-5.33 [facility] BASIC METABOLIC PANELon - Anion gap [Moles/Vol] 13 mmol/L Normal 10 - 20 [facility] [place] Comment on above: Performed By: #### B MP #### [address] [address] Calcium [Mass/Vol] 9.4 mg/dL Normal 8.6 - 10.3 [facility] Comment on above: Performed By: #### B MP #### [address] [address] Chloride [Moles/Vol] 103 mmol/L Normal 98 - 107 [facility] [place] Comment on above: Performed By: #### B MP #### [address] [address] Creatinine [Mass/Vol] 0.67 mg/dL Normal 0.50 - 1.05 [facility] [place] Comment on above: Performed By: #### B MP #### [address] [address] GFR- AM. >60 Normal >60 [facility] [place] Comment on above: Result Comment: CALC ULATIONS OF ESTIMATED GFR ARE PERFORMED USING THE MDRD STUDY EQUATION FOR THE IDMS-TRACEABLE CREATININE METHODS. CLIN CHEM 2007;53:766-72 Performed By: #### B MP #### [address] [address] GFR-NON AM. >60 Normal >60 [facility] Comment on above: Performed By: #### B MP #### [address] [address] Glucose [Mass/Vol] 93 mg/dL Normal 74 - 99 [facility] Comment on above: Performed By: #### B MP #### [address] [place] [address] HCO3 (Bld) [Moles/Vol] 27 mmol/L Normal 21 - 32 [facility] [place] Comment on above: Performed By: #### B MP #### [address] [place] [address] Potassium [Moles/Vol] 3.6 mmol/L Normal 3.5 - 5.3 [facility] [place] Comment on above: Performed By: #### B MP #### [address] [place] [address] Sodium [Moles/Vol] 139 mmol/L Normal 136 - 145 [facility] Comment on above: Performed By: #### B MP #### [address] [address] Urea nitrogen [Mass/Vol] 12 mg/dL Normal 6 - 23 [facility] [place] Comment on above: Performed By: #### B MP #### [address] [place] [address] CBCon 07-23-2020 Erythrocyte distribution width (RBC) [Ratio] 12.5 % Normal 11.5 - 14.5 [facility] [place] Comment on above: Performed By: #### C BC #### [address] [address] Hematocrit (Bld) [Volume fraction] 40.8 % Normal 36.0 - 46.0 [facility] [place] Comment on above: Performed By: #### C BC #### [address] [place] [address] Hemoglobin (Bld) [Mass/Vol] 13.6 g/dL Normal 12.0 - 16.0 [facility] [place] Comment on above: Performed By: #### C BC #### [address] [place] [address] MCHC (RBC) [Mass/Vol] 33.3 g/dL Normal 32.0 - 36.0 [facility] [place] Comment on above: Performed By: #### C BC #### [address] [address] MCV (RBC) [Entitic vol] 90 fL Normal 80 - 100 [facility] [place] Comment on above: Performed By: #### C BC #### [address] [address] Nucleated RBC/100 WBC (Bld) [Ratio] 0.0 /100 WBC Normal 0.0 - 0.0 [facility] [place] Comment on above: Performed By: #### C BC #### [address] [address] Platelets (Bld) [#/Vol] 228 10*3/uL Normal 150 - 450 [facility] [place] Comment on above: Performed By: #### C BC #### [address] [address] RBC (Bld) [#/Vol] 4.53 x10E12/L Normal 4.00 - 5.20 [facility] [place] Comment on above: Performed By: #### C BC #### [address] [address] WBC (Bld) [#/Vol] 7.9 10*3/uL Normal 4.4 - 11.3 [facility] Comment on above: Performed By: #### C BC #### [address] [address] CORONAVIRUS 2019, SCREEN ASY MPTOMATICon 07-23-2020 CORONAVIRUS 2019,PCR NOT DETECTED Normal Not Detected [facility] [place] Comment on above: Result Comment: . This assay is designed to detect the N2 and E genes of SARS-CoV-2 via nucleic acid amplification. A Not Detected result does not preclude COVID-19 infection since the adequacy of sample collection and/or low viral burden may result in presence of viral nucleic acids below the clinical sensitivity of this test method. Fact sheet for providers: www.fda.gov/media/598721/download Fact sheet for patients: www.fda.gov/media/540109/download This test has received FDA Emergency Use Authorization (EUA) and has been verified by [facility]. This test is only authorized for the duration of time that circumstances exist to justify the authorization of the emergency use of in vitro diagnostic tests for the detection of SARS-CoV-2 virus and/or diagnosis of COVID-19 infection under section 564(b)(1) of the Act, 21 U.S.C. 360bbb-3(b)(1), unless the authorization is terminated or revoked sooner. [facility] is certified under CLIA-88 as qualified to perform high complexity testing. Testing is performed in the [facility] [place] laboratory located at [address] [place] [address]. Performed By: #### C OVSC #### [place] [address] Lab Specimen Source Nasal, Nasopharyngeal Normal [facility] [place] Comment on above: Performed By: #### C OVSC #### [place] [address] Covid 19 Resultson 0 Covid 19 Results NEGATIVE COVID-[address] Coronaviruses are common world-wide and are the cause of many common colds. SARS-COV2 is a new coronavirus that began circulating worldwide in 2019 so we are calling it COVID-19. It has been estimated that four out of five patients with COVID-19 will recover at home without the need for medical attention. Symptoms of COVID-19 include cough, fever, shortness of breath, loss of taste or smell and other flu-like symptoms including chills, sore muscles, sore throat, and headache. Severe illness is more common in older people and people with other health problems such as high blood pressure, obesity, and immune system problems. If the test is positive, you have COVID-19. You will be contacted by the ordering physicians office and instructed to remain on home isolation, in accordance with CDC guidelines. You may also be contacted by the [facility] to see if any of your close contacts may have been exposed to the virus and need to quarantine. If the test is negative, you likely do not have COVID-19 at this time, but you still may have a different illness that can spread to other people (like Influenza, or the Flu) and could still be at risk for getting COVID-19. We recommend that you stay away from other people to limit the spread of illness until your symptoms are improving and you are fever-free for 24 hours without the use of fever lowering medications such as acetaminophen or ibuprofen. No test is 100% accurate so if you are still concerned you may have COVID-19, talk to your doctor about the need to continue to stay away from others. Medicines Acetaminophen (Tylenol and others) is generally safe. Anti-inflammatory medications, such as Ibuprofen (Advil or Motrin) or Naproxen (Aleve) can also be used. Oynb-tve-ipxpotx cough and cold medicines can be used according to the instructions on the package. Some onbh-ygc-tptgooc medicines also contain acetaminophen. Make sure you are not taking more than your recommended dose For those not hospitalized, there is no specific treatment available for this illness. Antibiotics do not treat Coronaviruses. Follow-Up Follow up with your doctor by scheduling a virtual visit or consider follow-up at one of our urgent care fever clinics. If you are having difficulty breathing, or are very weak and having difficulty standing, this is a medical emergency. Call 911 or have someone take you to the nearest emergency room immediately. If possible, wear a facemask. Additional guidance from the CDC for patients who tested POSITIVE for COVID-19 How to isolate: Isolate yourself in a specific room at home and limit your contact with others. Use a separate bathroom from other members of the household, when possible. Leave home only to get essential medical care. Do not go to work, school or public areas. Avoid using public transportation, ride-sharing, or taxis. Restrict contact with pets and other animals. If you must care for your pet or be around animals while you are sick, wash your hands before and after your interaction and wear a facemask. Make sure that shared spaces in the home have good airflow, such as by an air conditioner or an opened window, weather permitting. Personal Hygiene Procedures: Wear a face mask when in the same room as other people or pets. If a face mask interferes with your breathing, others should wear a mask when sharing space with you. Frequent hand-washing: wash your hands with soap and water for at least 20 seconds. If soap and water are not available, use alcohol-based hand dumper central concrete mixing plant. Avoid touching your eyes, nose, and mouth with unwashed hands. Household Hygiene Procedures: Avoid sharing personal household items such as dishes, glassware, cups, eating utensils, towels or bedding with other people or pets in your home. After use, these items should be washed with soap and hot water. Disinfect all high-touch surfaces every day with antibacterial cleaning solutions such as Lysol wipes, bleach, cleansers, etc. High-touch surfaces include tabletops, doorknobs, bathroom fixtures, toilets, phones, keyboards, tablets and bedside tables. Immediately clean any surfaces that may have blood, poop or body fluids on them, using antibacterial cleaning solutions such as Lysol wipes, bleach, cleansers, etc. If clothing or bedding come into contact with blood, poop or body fluids, they should be washed immediately. Follow the directions on the laundry detergent and clothing labels but hot water is recommended when possible. Stopping home isolation precautions: If possible, consult your doctor before stopping home isolation precautions. According to the CDC, you can discontinue home isolation precautions when you have met both of these criteria: Your fever and respiratory symptoms have been gone for 24 hours without the use of any medicines like ibuprofen (Motrin) and acetaminophen (Tylenol). It has been at least 10 days since your symptoms first appeared. If you are immunosuppressed OR you were admitted to the hospital for this, you should wait until it has been 14 days since your symptoms first appeared. Guidelines for Those Living With and/or Caring For Persons with COVID-19: Read and follow all the recommendations outlined in this handout. Do not permit visitors in the home unless there is an essential need. Wear a facemask when in the same room as the patient. Wear a facemask and gloves (disposable if available) when you touch or have contact with the patient's blood, poop, or body fluids including saliva, phlegm, nasal mucus, vomit or urine. Clean or throw away facemasks and gloves after use and wash your hands with soap and water. You will need to quarantine (stay away from others) for 14 days after your last contact with your family member with COVID-19. The person with COVID-19 is considered contagious 48 hours prior to symptoms beginning (or starting with the day of the positive test if they have no symptoms) for a total of 10 days. Additional resources: [place] Department [facility] COVID Hotline at 5-035-4ZUFFOT ( ). COVID-19 Careline at (available 24 hours per day, seven days a week if you or a loved one is experiencing anxiety related to the coronavirus pandemic). Clinical research opportunities: is conducting research studies to develop better testing and treatments for COVID. Do you want any information on how to participate Call [phone]. Websites: hospitals.org or www.CDC.gov Follow My Health / My [facility] (for other test results): Revised 06/22/2020 Electronic Signatures: April Chen (ADMIN) (Signature pending) Authored Last Updated: 23-Jul-2020 11:41 by April PSCMSash (ADMIN) Normal [facility] [place] PT/INRon 07-23-2020 INR Coag (PPP) [Relative time] 1.0 {INR} Normal 0.9 - 1.1 [facility] [place] Comment on above: Performed By: #### P TINR #### [address] [address] PT Coag (PPP) [Time] 11.2 s Normal 10.1 - 13.3 [facility] [place] Comment on above: Performed By: #### P TINR #### [address] [address] Vital Signs Date Time Vital Sign Value Performing Clinician Facility 08-08-2023 08:08-0500 Diastolic blood pressure 90 mm[Hg] Richard JACKSON [facility] 08-08-2023 08:08-0500 Heart rate 94 /min Richard JACKSON [facility] 08-08-2023 08:08-0500 Mean blood pressure 113 mm[Hg] Richard JACKSON [facility] 08-08-2023 08:08-0500 Respiratory rate 18 /min Richard JACKSON [facility] 08-08-2023 08:08-0500 Systolic blood pressure 159 mm[Hg] Richard JACKSON [facility] 08-08-2023 07:34-0500 Blood Pressure Location Richard JACKSON [facility] 08-08-2023 07:34-0500 Diastolic blood pressure 105 mm[Hg] Richard JACKSON [facility] 08-08-2023 07:34-0500 Heart rate 104 /min Richard JACKSON [facility] 08-08-2023 07:34-0500 Respiratory rate 18 /min Richard JACKSON [facility] 08-08-2023 07:34-0500 Systolic blood pressure 156 mm[Hg] Richard JACKSON [facility] 06-08-2023 12:37-0400 Diastolic blood pressure 88 mm[Hg] Richard JACKSON [facility] 06-08-2023 12:37-0400 Heart rate 91 /min Irchard JACKSON [facility] 06-08-2023 12:37-0400 Respiratory rate 16 /min Richard JACKSON [facility] 06-08-2023 12:37-0400 Systolic blood pressure 136 mm[Hg] Richard JACKSON [facility] 01-15-2023 09:50-0400 Body height 165.1 cm Noris Elder Other [facility] Other 01-15-2023 09:50-0400 Body mass index (BMI) [Ratio] 22.3 kg/m2 Noris Elder Other [facility] Other 01-15-2023 09:50-0400 Body weight 60.78 kg Noris Elder Other [facility] Other 01-15-2023 09:50-0400 Diastolic blood pressure 86 mm[Hg] Noris Elder Other [facility] Other 01-15-2023 09:50-0400 Systolic blood pressure 142 mm[Hg] Noris [employer] Other [facility] Other 06-19-2022 12:32-0500 Body height 165.1 cm Latoya R Bunting Work Phone: [facility] [employer] DO Work Phone: 06-19-2022 12:32-0500 Body mass index (BMI) [Ratio] 23.46 kg/m2 Latoya R Bunting Work Phone: [facility] [employer] DO Work Phone: 06-19-2022 12:32-0500 Body surface area Derived from formula 1.71 m2 Latoya R Bunting Work Phone: [facility] [employer] DO Work Phone: 06-19-2022 12:32-0500 Body weight 63.96 kg Latoya R Bunting Work Phone: [facility] [employer] [address] DO Work Phone: 06-19-2022 12:32-0500 Diastolic blood pressure 75 mm[Hg] Latoya R Bunting Work Phone: [facility] [address] DO Work Phone: 06-19-2022 12:32-0500 Heart rate 95 /min Latoya R Bunting Work Phone: [facility] [address] DO Work Phone: 06-19-2022 12:32-0500 Systolic blood pressure 153 mm[Hg] Latoya R Bunting Work Phone: [facility] [address] DO Work Phone: Encounters Encounter Date Encounter Type Care Provider Facility Start: 08-13-2024 ambulatory Richard JACKSON [facility]ili [facility] Start: 08-29-2023 End: 08-29-2023 ambulatory AUGUSTO SIU Not Available Start: 08-24-2023 End: 08-24-2023 ambulatory Augusto Siu Facility:[facility] Start: 08-08-2023 End: 08-09-2023 ambulatory Richard JACKSON Facility:[facility] Start: 08-08-2023 End: 08-08-2023 Patient encounter procedure Richard JACKSON [facility] Start: 06-25-2023 End: 06-25-2023 ambulatory Richard Jackson Facility:[facility] Start: 06-25-2023 End: 06-25-2023 ambulatory DO Latoya Bunting Work Phone: [facility] Work Phone: Start: 06-25-2023 End: 06-25-2023 Patient encounter procedure DO Latoya Bunting Work Phone: [facility]-CT Scan [facility] [place] Work Phone: Start: 06-08-2023 End: 06-09-2023 ambulatory Richard JACKSON Facility:[facility] Start: 06-08-2023 End: 06-08-2023 Lab Drop off Richard JACKSON [facility] Start: 06-08-2023 End: 06-09-2023 ambulatory LAT[facility] R [facility]UN[facility] Start: 06-08-2023 End: 06-08-2023 Patient encounter procedure Richard JACKSON [facility] [place] Start: 05-28-2023 End: 05-29-2023 ambulatory Tomas Rosas MD Facility:[facility] Start: 05-14-2023 End: 05-15-2023 ambulatory Tomas Rosas MD Facility:[facility] [place] Start: 05-09-2023 ambulatory LATOYA BUNTING Facility : [facility] Start: 05-08-2023 ambulatory LATOYA BUNTING Facility : [facility] Start: 04-30-2023 End: 05-01-2023 ambulatory Tomas Rosas MD Facility: [facility] Start: 04-25-2023 End: 04-25-2023 ambulatory Latoya Bunting Facility:[facility] Start: 04-25-2023 End: 04-25-2023 ambulatory DO Latoya Bunting Work Phone: [facility] Work Phone: Start: 04-25-2023 End: 04-25-2023 Patient encounter procedure DO Latoya Bunting Work Phone: [facility]-[address] Work Phone: Start: 04-16-2023 End: 04-17-2023 ambulatory Tomas oRsas MD Facility: [facility] Start: 03-30-2023 End: 03-30-2023 ambulatory Noris Elder Facility:[facility] Start: 03-30-2023 End: 03-30-2023 ambulatory DO Latoya Bunting Work Phone: [facility] Work Phone: Start: 03-30-2023 End: 03-30-2023 Patient encounter procedure DO Latoya Bunting Work Phone: [facility] Work Phone: Start: 02-08-2023 End: 02-08-2023 ambulatory Noris Elder Facility:[facility] Start: 02-08-2023 End: 02-08-2023 ambulatory DO Latoya Bunting Work Phone: [facility] Work Phone: Start: 02-08-2023 End: 02-08-2023 Patient encounter procedure DO Latoya Bunting Work Phone: [facility]-MRI [facility] [place] Work Phone: Start: 02-08-2023 End: 02-08-2023 ambulatory DO Latoya Bunting Work Phone: [facility] Work Phone: Start: 02-08-2023 End: 02-08-2023 Patient encounter procedure DO Latoya Bunting Work Phone: [facility] Start: 01-15-2023 End: 01-15-2023 ambulatory Noris Elder Other [facility] [employer] Other Start: 01-15-2023 Office outpatient ne w 45 minutes Noris Elder [facility] Start: 08-28-2022 End: 08-28-2022 ambulatory DO Latoya Bunting Work Phone: [facility] Work Phone: Start: 08-28-2022 End: 08-28-2022 Patient encounter procedure DO Latoya Bunting Work Phone: [facility] Work Phone: Start: 08-23-2022 End: 08-23-2022 ambulatory DO Latoya Bunting Work Phone: [facility] Work Phone: Start: 08-23-2022 End: 08-23-2022 Patient encounter procedure DO Latoya Chong Work Phone: [facility] Work Phone: Start: 06-19-2022 Office outpatient visit 25 minutes Latoya Astrid Chong Work Phone: [facility] [facility] DO Work Phone: Start: 06-19-[address] Gregorio Nichols acility: Start: 06-09-2022 End: 06-09-2022 ambulatory DO Latoya Chong Work Phone: [facility] Work Phone: Start: 06-09-2022 End: 06-09-2022 Patient encounter procedure DO Latoya Chong Work Phone: [facility] Start: 06-07-2022 End: 07-15-[address] LATOYA CHONG Facility:[facility] Start: 04-17-[address] Gregorio Nichols acility: Start: 03-31-2022 Chart Update Latoya Velez ng [facility] Work Phone: Start: 03-31-2022 End: 03-31-2022 Patient encounter procedure DO Latoya Chong Work Phone: [facility] Start: 09-12-2021 End: 09-13-[address] LUCI TROTTER Facility:[facility] Start: 11-14-2018 Patient encounter procedure Gregorio Barton Facility:[id number] Start: 10-24-2018 Patient encounter procedure JUSTIN CHRISTINE Facility:[id number] Start: 09-23-2018 Patient encounter procedure JUSTIN CHRISTINE Facility:[id number] Patient encounter status Latoya Chong [facility] Phone[facility] Work Phone: Procedures Date Procedure Procedure Detail Performing Clinician Start: 08-08-2023 Transurethral cystoscopy Richard JACKSON Start: 06-25-2023 CT of urinary tract DO Latoya Bunting Work Phone: Start: 04-25-2023 Plain X-ray of bilat eral hands DO Latoya Bunting Work Phone: Start: 04-25-2023 Plain X-ray of bilat eral wrists DO Latoya Bunting Work Phone: Start: 04-25-2023 X-ray of both feet DO D arrin Bunting Work Phone: Start: 03-30-2023 Dual energy X-ray absorptiometry DO Latoya Bunting Work Phone: Start: 02-08-2023 MR lumbar spine wo con DO Latoya Bunting Work Phone: Start: 02-08-2023 X-ray of lumbar spin e, six views including bending views DO Latoya Bunting Work Phone: Start: 02-08-2023 Ultrasonography of l eft breast DO Latoya Bunting Work Phone: Start: 08-28-2022 Mammography of left breast DO Latoya Bunting Work Phone: Start: 08-28-2022 Ultrasonography of l eft breast DO Latoya Bunting Work Phone: Start: 08-23-2022 Screening mammograph y of bilateral breasts DO Latoya Bunting Work Phone: Start: 11-14-2018 Echocardiography Jose o Barton Back structure, excl uding neck (body structure) Richard JACKSON Cardiac ablation sys tem (physical object) Richard JACKSON Colonoscopy Latoya R Buntin g Work Phone: Comment on above: [id number]; Colonoscopy Richard JACKSON Destructive procedure Latoya R Bunting Work Phone: Excision of basal ce ll carcinoma Latoya Chong Work Phone: Hysterectomy Richard JACKSON Insertion of hip prosthesis Richardcass JACKSON Radiofrequency ablat ion of medial branch of lumbar nerve using fluoroscopic guidance Richardcass JACKSON Tonsillectomy and adenoidectomy Latoya R Lor Work Phone: Total abdominal hysterectomy Latoya R Lor Work Phone: Plan of Treatment Date Care Activity Detail Author Start: 04-25-2023 Hemolytic complement CH50 level [facility] Start: 04-25-2023 [facility] Start: 04-17-2022 FUV, Provider: Gregorio Barton, Status: Pen, Time: 11:45 AM FUV, Provider: Gregorio Barton, Status: Pen, [facility]: 11:[facility] [place] [facility]: Lupus anticoagulant [Interpretation] in Platelet poor plasma [facility] Thrombin time [facility] Immunizations Immunization Date Immunization Notes Care Provider Edna lopez 07-17-2023 influenza virus vaccine, unspecified formulation Richard JACKSON [facility] 06-20-2022 influenza virus vaccine, unspecified formulation Richard JACKSON [facility] 07-14-2021 Pfizer-BioNTech COVID-19 Vacc 30 MCG/0.3ML Intramuscular Suspension Latoya R Lor Work Phone: [facility] 05-19-2021 influenza virus vaccine, unspecified formulation Richard JACKSON [facility] 05-19-2021 influenza, injectable, quadrivalent, preservative free Latoya R Lor Work Phone: [facility] DO Work Phone: 12-02-2020 Pfizer-BioNTech COVID-19 Vacc 30 MCG/0.3ML Intramuscular Suspension Latoya R Bunting Work Phone: [facility] 11-11-2020 Pfizer-BioNTech COVID-19 Vacc 30 MCG/0.3ML Intramuscular Suspension Latoya R B[place] Work Phone: [facility] 07-16-2020 influenza virus vaccine, unspecified formulation Richard JACKSON [facility] 07-16-2020 Influenza, injectable, [place] [place] Canine Kidney, preservative free, quadrivalent Latoya R B[place] Work Phone: [place] [address] DO Work Phone: 05-13-2020 influenza virus vaccine, unspecified formulation Latoya R Bunting Work Phone: [facility] 06-05-2019 influenza virus vaccine, unspecified formulation Richard JACKSON [facility] 06-05-2019 influenza, injectable, quadrivalent, preservative free Latoya R [place] Work Phone: [place] [address] DO Work Phone: 06-17-2018 influenza virus vaccine, unspecified formulation Richard JACKSON [facility] 06-17-2018 influenza, seasonal, injectable, preservative free Latoya R [place] Work Phone: [place] [address] DO Work Phone: 06-11-2018 influenza virus vaccine, unspecified formulation Richard JACKSON [facility] 06-06-2018 influenza virus vaccine, unspecified formulation Latoya R Bunnorma Work Phone: [facility] Work Phone: 06-06-2018 pneumococcal polysaccharide vaccine, 23 valent Latoya R Bunting Work Phone: [facility] Work Phone: 03-28-2018 tetanus toxoid, reduced diphtheria toxoid, and acellular pertussis vaccine, adsorbed Latoya R Bunnorma Work Phone: [facility] 07-01-2001 hepatitis B vaccine, adult dosage Latoya R Bunting Work Phone: [facility] 03-13-2001 hepatitis B vaccine, adult dosage Latoya R [place] Work Phone: [facility] 12-18-2000 hepatitis B vaccine, adult dosage Latoya R Bunting Work Phone: [facility] NEGATED: Highlighted row has not occurred! 8 influenza, seasonal, injectable Patient Objection Noris Elder Other [facility] Other NEGATED: Highlighted row has not occurred! 8 pneumococcal polysaccharide vaccine, 23 valent Patient Objection Noris Elder Other [facility] Other Payers Date Payer Category Payer Unknown [id number] 2022 Medicare [id number] 2022 Self-pay [id number] 2022 Unknown 1959 Unknown [id number] 1955 Unknown [id number] 2.16.8 40.1.339458.3.579.2.355 1956 Unknown [id number] 2.16.8 40.1.878294.3.579.2.355 1956 Unknown [id number] 2.16.840 .1.357748.3.579.2.1068 1956 Unknown [id number] 2.16. 840.1.252681.3.579.2.356 1956 Unknown [id number] 2.16. 840.1.895575.3.579.2.356 1956 Unknown [id number] 2.16.84 0.1.667699.3.579.2.593 1956 Unknown [id number] 2.16.84 0.1.025750.3.579.2.593 1956 Unknown [id number] 2.16. 840.1.100279.3.579.2.196 1956 Unknown [id number] 2.16. 840.1.116376.3.579.2.196 1956 Unknown [id number] 2.16. 840.1.194573.3.579.2.196 1956 Unknown [id number] 2.16. 840.1.839696.3.579.2.196 1956 Unknown [id number] 2.16.8 40.1.020776.3.579.2.727 1956 Unknown [id number] 2.16.8 40.1.508320.3.579.2.727 1956 Unknown [id number] 2.16.8 40.1.428933.3.579.2.727 1956 Unknown [id number] 2.16.8 40.1.237114.3.579.2.727 1956 Unknown [id number] 2.16.84 0.1.678837.3.579.2.1259 Unknown [id number] Unknown [id number] Unknown [id number] 2.16.8 40.1.305157.3.579.2.531 Unknown [id number] 2.16.8 40.1.255390.3.579.2.531 Unknown [id number] 2.16.8 40.1.003378.3.579.2.531 Unknown [id number] 2.16.8 40.1.617302.3.579.2.531 Unknown [id number] 2.16.8 40.1.714725.3.579.2.531 Unknown [id number] 2.16.8 40.1.908944.3.579.2.531 Social History Date Type Detail Facility Occasional alcohol use Occasional alcohol use [facility] Work Phone: Start: 05-04-2020 End: 08-08-2023 Tobacco smoking status NHIS Never smoked tobacco (finding) [facility] Start: 1955 Sex Assigned At Female F [facility] Sex Assigned At [facility] Tobacco smoking status Never [facility] Functional Status Date Assessment Result Facility 08-08-2023 Functional Status N/A [facility] 06-08-2023 Functional Status N/A [facility] Clinical Notes 05-20-2022 to 08-08-2023 Note Date & Type Note Facility 08-08-2023 Hospital Discharg e instructions Patient Education 08/08/2023 07:44:17 Kidney Stones Kidney Stones Kidney stones are solid, rock-like deposits that form inside of the kidneys. The kidneys are a pair of organs that make urine. A kidney stone may form in a kidney and move into other parts of the urinary tract, including the tubes that connect the kidneys to the bladder (ureters), the bladder, and the tube that carries urine out of the body (urethra). As the stone moves through these areas, it can cause intense pain and block the flow of urine. Kidney stones are created when high levels of certain minerals are found in the urine. The stones are usually passed out of the body through urination, but in some cases, medical treatment may be needed to remove them. What are the causes? Kidney stones may be caused by: A condition in which certain glands produce too much parathyroid hormone (primary hyperparathyroidism), which causes too much calcium buildup in the blood. A buildup of uric acid crystals in the bladder (hyperuricosuria). Uric acid is a chemical that the body produces when you eat certain foods. It usually leaves the body in the urine. Narrowing (stricture) of one or both of the ureters. A kidney blockage that is present at (congenital obstruction). Past surgery on the kidney or the ureters. What increases the risk? The following factors may make you more likely to develop this condition: Having had a kidney stone in the past. Having a family history of kidney stones. Not drinking enough water. Eating a diet that is high in protein, salt (sodium), or sugar. Being overweight or obese. What are the signs or symptoms? Symptoms of a kidney stone may include: Pain in the side of the abdomen, right below the ribs (flank pain). Pain usually spreads (radiates) to the groin. Needing to urinate often or urgently. Painful urination. Blood in the urine (hematuria). Nausea. Vomiting. Fever and chills. How is this diagnosed? This condition may be diagnosed based on: Your symptoms and medical history. A physical exam. Blood tests. Urine tests. These may be done before and after the stone passes out of your body through urination. Imaging tests, such as a CT scan, abdominal X-ray, or ultrasound. A procedure to examine the inside of the bladder (cystoscopy). How is this treated? Treatment for kidney stones depends on the size, location, and makeup of the stones. Kidney stones will often pass out of the body through urination. You may need to: Increase your fluid intake to help pass the stone. In some cases, you may be given fluids through an IV and may need to be monitored in the hospital. Take medicine for pain. Make changes in your diet to help prevent kidney stones from coming back. Sometimes, procedures are needed to remove a kidney stone. This may involve: A procedure to break up kidney stones using: ?A focused beam of light (laser therapy). ?Shock waves (extracorporeal shock wave lithotripsy). Surgery to remove kidney stones. This may be needed if you have severe pain or have stones that block your urinary tract. Follow these instructions at home: Medicines Take gjgm-glb-johvbol and prescription medicines only as told by your health care provider. Ask your health care provider if the medicine prescribed to you requires you to avoid driving or using heavy machinery. Eating and drinking Drink enough fluid to keep your urine pale yellow. You may be instructed to drink at least 8 10 glasses of water each day. This will help you pass the kidney stone. If directed, change your diet. This may include: ?Limiting how much sodium you eat. ?Eating more fruits and vegetables. ?Limiting how much animal protein you eat. Animal proteins include red meat, poultry, fish, and eggs. ?Eating a normal amount of calcium (1,000 1,300 mg per day). Follow instructions from your health care provider about eating or drinking restrictions. General instructions Collect urine samples as told by your health care provider. You may need to collect a urine sample: ?24 hours after you pass the stone. ?8 12 weeks after you pass the kidney stone, and every 6 12 months after that. Strain your urine every time you urinate, for as long as directed. Use the strainer that your health care provider recommends. Do not throw out the kidney stone after passing it. Keep the stone so it can be tested by your health care provider. Testing the makeup of your kidney stone may help prevent you from getting kidney stones in the future. Keep all follow-up visits. You may need follow-up X-rays or ultrasounds to make sure that your stone has passed. How is this prevented? To prevent another kidney stone: Drink enough fluid to keep your urine pale yellow. This is the best way to prevent kidney stones. Eat a healthy diet. Follow recommendations from your health care provider about foods to avoid. Recommendations vary depending on the type of kidney stone that you have. You may be instructed to eat a low-protein diet. Maintain a healthy weight. Where to find more information National Kidney Foundation (NKF): www.kidney.org Urology Care Foundation (UCF): www.urologyhealth.org Contact a health care provider if: You have pain that gets worse or does not get better with medicine. Get help right away if: You have a fever or chills. You develop severe pain. You develop new abdominal pain. You faint. You are unable to urinate. Summary Kidney stones are solid, rock-like deposits that form inside of the kidneys. Kidney stones can cause nausea, vomiting, blood in the urine, abdominal pain, and the urge to urinate often. Treatment for kidney stones depends on the size, location, and makeup of the stones. Kidney stones will often pass out of the body through urination. Kidney stones can be prevented by drinking enough fluids, eating a healthy diet, and maintaining a healthy weight. This information is not intended to replace advice given to you by your health care provider. Make sure you discuss any questions you have with your health care provider. Document Revised: 11/01/2022 Document Reviewed: 11/01/2022 [employer] Patient Education 2022 [employer]. Follow Up Care 06/08/2023 13:38:53 With:KELSY GARCIA, Richard Resendiz, BUDDY Address: [facility] [address] , [place] [address]- When: Unknown [facility] 06-08-2023 Note Chief Complaint Referral *Microscopic Hematuria HPI Staff Evaluation requested by Dr Latoya Chong due to hematuria. Pt is a new pt, never before seen in our office. CT ap 04/20/20 UA 04/25/23 *10-19 RBC's CBC/CMP 04/25/23 *BUN 15 & Crea 0.63 Denies family Hx of Bladder Cancer. Never Smoker. Denies Hx of Kidney Stones, was told previous CT from 2020 states Rt Nephrolithiasis. Denies visible blood in urine. Denies pain/burning. Denies urinary concerns. Does have hx of bulging disks. Hx of back pain. History of Present Illness Tests reviewed: Reviewed UA, labs, CT, XR, external records. I have reviewed the previous health record information and history for this patient from external provider. I have reviewed and verified the staff HPI to be accurate for this encounter. There have been no associated fever, chills, flank pain, or blood in the urine. Denies any urinary infections since last encounter. Review of Systems PHQ Score Initial Depression Screen Score: 0 ROS - Provider Constitutional: denies weight loss, denies hot flashes. Eyes: denies eye problems. Gastrointestinal: denies nausea, denies vomiting. Cardiovascular: denies chest pain or angina. Integumentary: no dryness Musculoskeletal: denies musculoskeletal symptoms. ENMT: denies otolaryngeal symptoms. Respiratory: no shortness of breath. Heme/Lymph: denies easy bleeding tendency, denies easy bruising tendency. Psychiatric: no confusion, no anxiety. Genitourinary: See HPI. Physical Exam Vitals & Measurements HR: 91(Peripheral) RR: 16 BP: 136/88 HT: 65 in HT: 164 cm WT: 64 kg WT: 140.8 lb BMI: 23.8 General Appearance: alert , no acute distress, well nourished, well developed female. Head: normocephalic . Eyes: normal orbit and globe. ENMT: normal examination of external ears. Chest: Lungs CTA, respirations non labored . Cardiovascular: regular rate and rhythm. Abdomen: soft , non distended, no tenderness, no mass or organomegaly, no hernia. Genitourinary: bladder nonpalpable, no flank tenderness. Lymph Nodes: unremarkable palpation of the cervical area. Skin: warm, dry, no bruising. Psychiatric: cooperative, affect appropriate for age, normal judgement, euthymic mood. Assessment/Plan Evaluation requested by Dr Latoya Chong due to hematuria. No issues with urination. Pending workup for RA. 1. Microscopic hematuria (R31.29: Other microscopic hematuria) Micro UA 04/25/23 10-19 RBCs. Denies gross hematuria. Mother had ovarian cancer. Family hx of colon cancer. Never a smoker. UA today neg. Discussed options. The patient is aware that a distinct etiology of the hematuria may not be clear upon conclusion of the workup. Will initiate hematuria workup to include upper urinary tract imaging, as well as evaluation of the urinary cells with urine cytology. A cystoscopy will be scheduled to rule out lower urinary tract pathology. The rationale for this workup has been discussed, and all questions have been answered. Informed consent will be obtained. Prophylactic antibiotics will be given. -Cysto -Cytology today -CT Urogram -Abx sent 2. Kidney stones (N20.0: Calculus of kidney) CT AP wo con 04/20/20 punctate midpole stone on the right. KUB 11/11/21 neg for stones. Denies hx of stones. Denies current pain. Follow-up With When Contact Information KELSY GARCIA, Richard Resendiz, URL [address] [place] [address]- Additional Instructions: Cysto, CT Urogram Patient Education Hematuria, Adult I, Gabbi Kwan, personally scribed for Dr. Jackson on 06/08/2023 13:11:49. . Documentation recorded by the scribe, Gabbi Kwan, accurately reflects the services(s) I performed and decisions made by me. Authenticated by Dr. Jackson on 06/08/2023 13:16:00. Problem List/Past Medical History Ongoing Arthritis Kidney stones Microscopic hematuria Historical No qualifying data Procedure/Surgical History Back, Cardiac ablation system, Colonoscopy, Hip replacement, Hysterectomy. Medications calcium-vitamin D estradiol 1 mg Tab Vitamin B12 Allergies azaTHIOprine hydroxychloroquine Social History Tobacco Never (less than 100 in lifetime) Tobacco Use:. Never Smokeless Tobacco Use:. Household tobacco concerns: No. Yes, 06/08/2023 Family History Cervical cancer: Mother. Diabetes: Father. Immunizations Vaccine Date Status influenza virus vaccine, inactivated 06/20/2022 Recorded SARS-CoV-2 (COVID-19) mRNA BNT-162b2 vax 07/14/2021 Recorded influenza virus vaccine, inactivated 05/19/2021 Recorded SARS-CoV-2 (COVID-19) mRNA BNT-162b2 vax 12/02/2020 Recorded SARS-CoV-2 (COVID-19) mRNA BNT-162b2 vax 11/11/2020 Recorded influenza virus vaccine, inactivated 07/16/2020 Recorded influenza virus vaccine, inactivated 05/13/2020 Recorded influenza virus vaccine, inactivated 06/05/2019 Recorded influenza virus vaccine, in (more content not included)... [facility] Comment on above: Result Comment: Elec tronically Signed By: Richard JACKSON MD\.br\Date and Time Signed: 06/08/23 13:16 EDT\.br\Electronically Co-Signed By: Gabbi Kwan.br\Date and Time Co-Signed: 06/08/23 13:12 EDT\.br\Electronically Co-Signed By: Gabbi Kwan\Date and Time Co-Signed: 06/08/23 13:12 EDT 06-08-2023 [facility] e instructions Patient Education 06/08/2023 13:10:51 Hematuria, Adult Hematuria, Adult Hematuria is blood in the urine. Blood may be visible in the urine, or it may be identified with a test. This condition can be caused by infections of the bladder, urethra, kidney, or prostate. Other possible causes include: Kidney stones. Cancer of the urinary tract. Too much calcium in the urine. Conditions that are passed from parent to child (inherited conditions). Exercise that requires a lot of energy. Infections can usually be treated with medicine, and a kidney stone usually will pass through your urine. If neither of these is the cause of your hematuria, more tests may be needed to identify the cause of your symptoms. It is very important to tell your health care provider about any blood in your urine, even if it is painless or the blood stops without treatment. Blood in the urine, when it happens and then stops and then happens again, can be a symptom of a very serious condition, including cancer. There is no pain in the initial stages of many urinary cancers. Follow these instructions at home: Medicines Take jfab-iyy-itvjopq and prescription medicines only as told by your health care provider. If you were prescribed an antibiotic medicine, take it as told by your health care provider. Do not stop taking the antibiotic even if you start to feel better. Eating and drinking Drink enough fluid to keep your urine pale yellow. It is recommended that you drink 3 4 quarts (2.8 3.8 L) a day. If you have been diagnosed with an infection, drinking cranberry juice in addition to large amounts of water is recommended. Avoid caffeine, tea, and carbonated beverages. These tend to irritate the bladder. Avoid alcohol because it may irritate the prostate (in males). General instructions If you have been diagnosed with a kidney stone, follow your health care provider's instructions about straining your urine to catch the stone. Empty your bladder often. Avoid holding urine for long periods of time. If you are female: ?After a bowel movement, wipe from front to back and use each piece of toilet paper only once. ?Empty your bladder before and after sex. Pay attention to any changes in your symptoms. Tell your health care provider about any changes or any new symptoms. It is up to you to get the results of any tests. Ask your health care provider, or the department that is doing the test, when your results will be ready. Keep all follow-up visits. This is important. Contact a health care provider if: You develop back pain. You have a fever or chills. You have nausea or vomiting. Your symptoms do not improve after 3 days. Your symptoms get worse. Get help right away if: You develop severe vomiting and are unable to take medicine without vomiting. You develop severe pain in your back or abdomen even though you are taking medicine. You pass a large amount of blood in your urine. You pass blood clots in your urine. You feel very weak or like you might faint. You faint. Summary Hematuria is blood in the urine. It has many possible causes. It is very important that you tell your health care provider about any blood in your urine, even if it is painless or the blood stops without treatment. Take osdw-wgm-tvlosuv and prescription medicines only as told by your health care provider. Drink enough fluid to keep your urine pale yellow. This information is not intended to replace advice given to you by your health care provider. Make sure you discuss any questions you have with your health care provider. Document Revised: 03/23/2021 Document Reviewed: 03/23/2021 [employer] Patient Education 2022 [employer]. Follow Up Care 05/09/2023 11:38:04 With:KELSY GARCIA, Richard Resendiz, URL Address: [address] [place] [address]- When: Unknown [facility] 01-15-2023 Evaluation note Encounter Date Diagnosis Assessment Notes Jan, Lumbar pain (ICD-10 - M54.50) -Will order Xray lumbar 6view -WIll order MRI lumbar to rule out cord compression -Will refer to Pain managment; Dr GARCIA -Will get SERGE from physical Therapy for continuity of care -Will order dexa scan r/o osteoporosis -Will follow up in 8 weeks or once imaging is compelted Medical decision making shows a new problem to me with further workup planned or suggested with the potential for extensive treatment options that were considered with the most applicable given this patient's situation as noted above. Treatment options considered include a combination of physical therapy approaches, pharmacologic management, and interventional procedures. Those most applicable to the patient were discussed at this time. Risk of complications and/or morbidity and mortality is high given that acute and chronic pain poses a threat to life and bodily function if undertreated, poorly treated or with failure to maintain adequate treatment and timely followup. Given the serious and fluctuating nature of pain with extensive consideration for whenever pain changes, there always remains the possibility of prolonged functional impairment requiring constant patient reassessment and high-level medical decision making. The amount and complexity of data reviewed is high given that patient labs, radiology reports, and other test were obtained, reviewed and summarized as applicable from the physician portal and/or outside medical records. Pertinent positive and negative findings were considered in medical decision-making. Jan, Sacroiliac inflammation (ICD-10 - M46.1) Jan, Depression screening (ICD-10 - Z13.31) PHQ reviewed score 4; education completed with [employer] [facility] number given. denies anythoughts of harming self or others. Feels down d/t difficulty with pain and being able to do activities with grandchildren. Jan, BMI 22.0-22.9, adult (ICD-10 - Z68.22) Jan, Post menopausal syndrome (ICD-10 - Z78.0) [facility] Other 10-15-2022 History of Present illness Narrative* 66-year-old female with a past medical history of hypertension. She had an episode of palpitations back in 2016. She ended in the emergency department and her arrhythmia was terminated with adenosine. There is no documentation of the rhythm strips during this evaluation. Her echocardiogram at that time showed a left ventricular ejection fraction 55-60% with no significant valvular abnormality. She states that she was doing well until last month when she had an episode of palpitations again. Shedid not seek medical attention at that time. Apparently her palpitations lasted for almost 30 minutes and resolve on its own. There was no dizziness or lightheadedness or chest pain associated with that. She was evaluated in September 2018 in the office and treadmill stress test was ordered. Her stress test was switched to Lexiscan Myoview stress test. Back in October 2018, her stress test was negative for ischemia with a left ventricular ejection fraction was 71%. Her echocardiogram shows no significant valvular normalities with a left ventricular ejection fraction 65%. she was scheduled for anablation that was performed in July 23, 2020 with no complications. 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 Successful ablation of the slow pathway was performed. * Since the last office visit, she has been doing well. She denies any symptoms of chest pain or shortness of breath or palpitations. * Telemetry monitoring March 2022 shows creatinine 0.7, LFTs okay, TSH okay. * Vital signs are stable * Patient is alert oriented x3 * Head normocephalic * HEENT normal * Neck no nodules. JVD negative * Lungs clear to auscultation and percussion * Cardiovascular regular rate and rhythm. No murmurs or gallops. * Abdomen soft, bowel sounds present. No tenderness organomegaly * Extremities no edema in the lower extremities * Patient is alert oriented x3 no motor or sensory deficit * Skin no cyanosis no pallor * Clinical impression * 1. Palpitations, no recurrence * 2. 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 * 3. Normal left ventricular function per echocardiogram in 2017, stable * 4. Abnormal stress test based on EKG changes, stable * 5. Hyperlipidemia, controlled * 6. Covid 19 infection in November 2020, patient recovered successfully * Plan and recommendations * Patient is doing well from the electrophysiology standpoint. No recurrence of palpitations. No chest pain. Patient would like to follow-up with primary care physician. * Follow my office as needed basis. * Risk factor modifications and lifestyle modifications discussed with patient. Diet , exercise and hydration discussed during this office visit, as well as avoid alcohol, smoking and excessive caffeine use. * Prescriptions were refilled during this office visit * I have personally review with patient during this office visit, laboratory data, echocardiogram results, stress test results, Holter event monitor results prior and after the last electrophysiology visit. All questions has been answered. * Please excuse any errors in grammar or translation related to this dictation. Voice recognition software was utilized to prepare this document. -[facility] DO Work Phone: Evaluation + Plan note Future Appointments Appointment Date:08/08/2023 07:45:00 AM Scheduled Provider:Richard JACKSON MD Location:[facility] [place] Appointment Type:URO Procedure 15 min Diagnostic Tests Pending * Creatinine 06/08/23 [facility] evaluation + Plan note Future Appointments Appointment Date:08/08/2023 07:45:00 AM Scheduled Provider:Richard JACKSON MD Location:[facility] [place] Appointment Type:URO Procedure 15 min Diagnostic Tests Pending * Urine Cytology ([facility]) [facility] Future Appointments Appointment Date:08/13/2024 09:45:00 AM Scheduled Provider:Richard JACKSON MD Location:[facility] [place] Appointment Type:URO Office Visit [facility] Evaluation noteNo assessment information available [facility] Work Phone: Histezg general Narrative - Reported* Type Description Date Medical History migraine headache Medical History mild osteoarthritis Medical History varicose veins Medical History basal cell carcinoma Surgical History hysterectomy 1993 Surgical History D&C 1981 Surgical History colonoscopy 2006, 2014 Surgical History tonsillectomy Hospitalization History same as surgical history [facility] Other Hospital course Narrative No data available for this section [facility] Discharge instructions No data available for this section [facility] No data available for this section [facility] Summary Purpose Family History No Family History Records FoundUnknown Family Member Name Dates Details No pertinent family history: Mother, Father(V49.89, Z78.9) Status:Active Relationship Condition Age at Onset Recorded Date/T katy Not Specified No pertinent family history Unknown Unknown Family Member Name Dates Details No pertinent family history: Mother, Father(V49.89, Z78.9) Status:Active Advance Directives No Advanced Directives Records Found Advance Directive Response Recorded Date/ Time Advance Directives No July 1:28pm Advance Directive Response Recorded Date/ Time Advance Directives No July 12:28pm Procedure Findings Note Pre-procedure Verification a nd Time Out: Pre-Procedure Verification and Time Out: Procedure Locationprocedure area HUDDLE - Pre-procedure Verificationcompleted TIME OUT - Final Verificationcompleted DEBRIEFcompleted General Information: Anesthesia Critical Care: Non-Anesthesia Date/Time of Procedure: 23-Jul-2020 14:56 Post-Procedure 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 Her spells of been adenosine-sensitive in an raj (more content not included)... Chief Complaint and Reason for Visit Chief Complaint Z00.00 Chief Complaint Z00.00 E78.2;Z83.3;Z83.49;Z79.899;E55.9 Chief Complaint E78.2;Z83.3;Z83.49;Z 79.899;E55.9 Z12.31 Chief Complaint E78.2;Z83.3;Z83.49;Z 79.899;E55.9 Z12.31 r92.8 Chief Complaint R92.8 M54.50 Chief Complaint R92.8 M54.50 z780 Chief Complaint z780 Rheumatoid Arthritis R31.29 N20.0 Chief Complaint CHRISTIAN RICH is being seen for follow up. Reason for Referral Reason DECLINED evaluate and treat Diagnosis 1 Lumbar pain (M54.50) Referral Organization [facility] Referring Provider First Name Noris Referring Provider Last Name Jael Referring Provider Specialty Nurse Pract [place] Referred Organization [facility] Referred Provider Trever Moreno Referred Address [address], [place],[address] Referred Provider Specialty Pain Medicin e Referral Priority Routine General Notes Kathia Nunez 023 08:06:47 AM >Received today and waiting for office notes to be locked before sending referral Kathia Nunez 01/17/2023 07:30:06 AM >Office notes are now locked. [facility]'s office request us to fill out form and fax referral to them and they will review the referral and call patient. Referral was fax Kathia Nunez 01/24/2023 10:24:48 AM >Letter from [facility] is in the chart and patient has declined to schedule Clinical Notes Office [phone] Additional Source Comments INFORMATION SOURCE (unrecogn ized section and content) DATE CREATED AUTHOR 10/25/2018 [facility] DATE CREATED AUTHOR AUTHOR'S ORGANIZ ATION 11/16/2018 [facility] DATE CREATED AUTHOR AUTHOR'S ORGANIZ ATION 08/05/2020 [facility] DATE CREATED AUTHOR AUTHOR'S ORGANIZ ATION 06/20/2022 [facility] DATE CREATED AUTHOR AUTHOR'S ORGANIZ ATION 06/20/2022 [employer] DATE CREATED AUTHOR AUTHOR'S ORGANIZ ATION 08/17/2022 [facility] DATE CREATED AUTHOR AUTHOR'S ORGANIZ ATION 06/05/2023 [facility] DATE CREATED AUTHOR AUTHOR'S ORGANIZ ATION 08/14/2023 [facility] DATE CREATED AUTHOR AUTHOR'S ORGANIZ ATION 08/30/2023 [facility] DATE CREATED AUTHOR AUTHOR'S ORGANIZ ATION 09/14/2023 [facility] Care Teams (unrecognized sec tion and content) Team Status: Inactive Member Role Status Dates Latoya Chong , DO Primary Care Provider Active Gregorio Barton MD Attending Provider Active Team Status: Active Member Role Status Dates Latoya Chong , DO Primary Care Provider Active Team Status: Inactive Member Role Status Dates Latoya Chong , DO Primary Care Provider, Wei reyes Active Team Status: Inactive Member Role Status Dates Latoya Chong , DO Primary Care Provider Active Augusto Siu , DO Attending Provider Active Team Status: Inactive Member Role Status Dates Latoya Chong , DO Primary Care Provider Active CAL Patel Attending Provider Active Team Status: Inactive Member Role Status Dates Latoya Chong , DO Primary Care Provider Active Art Rinaldi MD Attending Provider Active Team Status: Inactive Member Role Status Dates Latoya Chong , DO Primary Care Provider Active Richard Jackson MD Attending Provider Active Goals (unrecognized section and content) Goals may be documented in a n alternate sectionGoals may be documented in an alternate sectionGoals may be documented in an alternate sectionGoals may be documented in an alternate sectionGoals may be documented in an alternate sectionGoals may be documented in an alternate sectionNo InformationGoals may be documented in an alternate sectionGoals may be documented in an alternate section No data available for this section No data available for this sectionGoals may be documented in an alternate section No data available for this section REASON FOR VISIT (unrecogniz ed section and content) referred by Dr. Chong low back pain FOR RECORDS PERTAINING TO PATIENTS WHO ARE OR HAVE BEEN ENROLLED IN A CHEMICAL DEPENDENCY/SUBSTANCEABUSE PROGRAM, SOME INFORMATION MAY BE OMITTED. This clinical summary was aggregated from multiple sources. Caution should be exercised in using it in the provision of clinical care. This summary normalizes information from multiple sources, and as a consequence, information in this document may materially change the coding, format and clinical context of patient data. In addition, data may be omitted in some cases. CLINICAL DECISIONS SHOULD BE BASED ON THE PRIMARY CLINICAL RECORDS. [employer] provides no warranty or guarantee of the accuracy or completeness of information in this document.
--- NOTE | 2023-09-17 14:32 | PM.CN ---
Consult Note: HPI Data of Consult Patient: known to practice within the last 3 years Consult date: 09/17/23 Requesting Physician: Tomas Rosas MD Primary Care Provider: LATOYA CHONG Consult Narrative Reason for consult: low back, bilateral lower extremity pain Narrative: 67yof who presents for assessment. worsening pain from low back into bilateral lower extremities. imaging reviewed, which shows multilevel stenosis, worst at l4-5 and l5-s1. continues in provider directed home exercise course >6 weeks, with minimal benefit. uses tylenol as needed. denies adverse med side effects. cc:: CC: Tomas Rosas MD Review of Systems ROS Status of ROS 10 or more systems reviewed and unremarkable except as noted in history and below [facility] History Scoliosis ?M41.9 - Scoliosis, unspecified (ICD-10) Osteoarthritis ?M19.90 - Unspecified osteoarthritis, unspecified site (ICD-10) Basal cell carcinoma ?C44.91 - Basal cell carcinoma of skin, unspecified (ICD-10) Surgical History History of tonsillectomy ?Z90.89 - Acquired absence of other organs (ICD-10) History of hysterectomy ?Z90.710 - Acquired absence of both cervix and uterus (ICD-10) History of cardiac radiofrequency ablation ?Z98.890 - Other specified postprocedural states (ICD-10) Meds Home Medications and Allergies Home Medications Medication Instructions Recorded Confirmed Type COLLAGEN 20 mg PO DAILY 04/17/23 05/28/23 History estradiol 1 mg tablet mg 04/17/23 History mecobalamin (vitamin B12) 1,000 1,000 mcg PO DAILY 04/17/23 05/28/23 History mcg chewable tablet Allergies Allergy/AdvReac Type Severity Reaction Status Date / Time azathioprine Allergy Unknown Verified 04/17/23 08:40 hydroxychloroquine Allergy Unknown Verified 04/17/23 08:40 Exam Narrative Exam Narrative: Psych-alert and oriented x 3. Attentive and appropriate, constitutionally normal, displays normal mood and affect per situation. There are no obvious deficits in memory, reasoning, or intellect.? Skin-no obvious rashes, bruising, erythema noted to the patient's area of pain.? Extremities- extremities are warm with minimal edema and palpable pulses. Lumbar-tenderness to palpation noted in the lumbar spine and paraspinal musculature. Pain is elicited with flexion, extension, and lateral rotation of the lumbar spine. Range of motion is not diminished with these motions. Facet loading maneuvers are negative.? Strength-noted to be unremarkable with the exception of decreased strength rated at 4 out of 5 in bilateral quadriceps femoris, anterior tibialis. Sensory-no notable sensory deficits in the bilateral lower extremities to touch or pinprick in all dermatomal distributions with the exception to decreased sensation to the bilateral L4, 5 dermatomal distribution.? Coordination remains intact.? Gait remains non-antalgic. Assessment and Plan Assessment and Plan (1) Lumbar spondylosis: (2) Lumbar stenosis with neurogenic claudication: Plan 67yof who presents for assessment. failed conservative measures, as noted. imaging reviewed, as noted. given symptoms and imaging, would proceed with bilateral l4-5 tfesi under fluoroscopic guidance. depending on response, may benefit from bilateral l5-s1 tfesi under fluoroscopic guidance. she is in agreement. meds reviewed, no changes. follow up after procedure.
== END 2023-09-17 12:31 | disposition home or self-care (01) ==
PROVIDERS: PCP Family Medicine; Visit Provider Anesthesiology
DX: M47.816 Spondylosis without myelopathy or radiculopathy, lumbar region (principal); M48.062 Spinal stenosis, lumbar region with neurogenic claudication
CPT/HCPCS: G0463

== ENCOUNTER 2023-09-24 08:00 | Day surgery (SDC) | payer BC, SELFPAY ==
--- OUTSIDE RECORDS SUMMARY | 2023-09-24 08:03 | XMS_ITS | CCD ---
Author Name Unknown Address [address] [place] [address] Organization [facility] Care Team Providers Care Air Support Operations Operator Name Role Phone JUSTIN CHRISTINE Attending Unavailable BUNTING, LATOYA R Primary Care Unavailable JUSTIN CHRISTINE Attending Unavailable BUNTING, LATOYA R Primary Care Unavailable Gregorio Barton Attending Unavailable Bunting, Latoya Oquendo Primary Care Unavailable Bunting, Latoya R Unavailable Unavailable Unavailable Bunnorma, DO Klein Primary Care Provider MD Gregorio Barton Attending Provider [phone] Bunting, DO Klein Primary Care Provider [phone] MD Gregorio Barton Attending Provider [phone] Bunnorma, DO Klein Attending Provider Dr. Gregorio Barton Attending Unavailab le Mick, Dr. Gregorio Herrera Referring Unavailab le Latoya Chong Primary Care Unavailable Mick, Dr. Gregorio Herrera Attending Unavailab le Latoya Chong Primary Care Unavailable ROSE MARIE, DR LUCI Rivera Admitting Unavailable WEST, DR LUCI Rivera Attending Unavailable WEST, DR LUCI Rivera Consulting Unavailable BUNNORMA, DR KLEIN Admitting Unavailable BUNNORMA, DR KLEIN Attending Unavailable Bunnorma, DO Klein Primary Care Provider DO Augusto Siu Attending Provider Bunting, DO Klein Primary Care Provider DO Augusto Siu Attending Provider CAL Elder Attending Provider Noris Elder Unavailable MD Art Rinaldi Attending Provider LATOYA CHONG Primary Care Physician DO Latoya Chong Primary Care Provider CAL Elder Attending Provider MD Art Rinaldi Attending Provider MD Richard Jackson Attending Provider BUNTING, LATOYA R Referring Unavailable JACKSON, Richard R Attending Unavailable JACKSON, Richard R Attending Unavailable JACKSON, Richard R Admitting Unavailable JACKSON, Richard R Attending Unavailable JACKSON, Richard R Attending Unavailable KAYLEE, AUGUSTO Roth Attending Unavailable KAYLEE, AUGUSTO Roth Referring Unavailable Elder, Noris Admitting Unavailable Jael, Noris Attending Unavailable Bunting, Latoya Primary Care Unavailable Bunting, Latoya Primary Care Unavailable Nimco, Art Admitting Unavailable Nimco, Art Attending Unavailable Kaylee, Augusto Roth Admitting Unavailable Kaylee, Augusto Roth Attending Unavailable Bunting, Latoya Primary Care Unavailable Jackson, Richard Admitting Unavailable Jackson, Richard Attending Unavailable Bunting, Latoya Primary Care Unavailable Augusto Siu Admitting Unavailable Kaylee, Augusto Roth Attending Unavailable Bunting, Latoya Primary Care Unavailable Jael, Noris Admitting Unavailable Jael, Noris Attending Unavailable Bunting, Latoya Primary Care Unavailable Giarminitis , Andrius Walsh Attending Unavailable Giedraitis , Andrius Nico Attending Unavailable Giedraitis , Andrius Nico Attending Unavailable Giedraitis , Andrius Vziggy Attending Unavailable Giedraitis , Andrius Nico Attending Unavailable Allergies Allergy Classification Reported Allergen(s) Allergy Type Date of Onset Reaction(s) Facility (6 sources) azaTHIOprine; Translations: [azaTHIOprine TABS] Drug Allergy Unknown [facility] (11 sources) azaTHIOprine; Translations: [azaTHIOprine] Drug Allergy 05-04-2020 [facility] (4 sources) Hydroxychloroquin e; Translations: [hydroxychloroqui ne] Drug Allergy [facility] Medications Current Medications Medication Drug Class(es) Dates [...] 1 tablet Orally Once a day Active Houlka 6-Zee-Gxx-Fish Oil (Fish Oil) 1,000 mg (120 mg-180 mg) Capsule (9 sources) Start: 05-04-2020 take 1 capsule by mouth once daily Houlka 2-Wuq-Sow-Fish Oil (Fish Oil) 1,000 mg (120 mg-180 mg) Capsule Active 1000 CAP PO Daily May 03, 2020 11:00pm Start: 05-04-2020 take 1 capsule by mo [facility] once daily Houlka 0-Waq-Kfi-Fish Oil (Fish Oil) 1,000 mg (120 mg-180 [...] every four to six hours Hydrocodone-Acetamin ophen (Parks) 5-325 mg Tablet Discontinued 1 TAB PO [...] completed., # 2 tab(s), Refills(s) 0, Pharmacy: [facility]/pharmacy #[id number], 164, cm, 06/08/23 12:39:00 EDT, Height/Length [...] sources) Corticosteroid Start: 08-08-2017 Kenalog -40 mg Aug, Start: 08-31-2016 Kenalog -40 mg Aug, Problems [...] n 08-24-2023 MM screening mammo BI w/CAD [facility] [place] [address] Mammography Report Signed Patient: Christian Rich MR#: [id number] : 1955 Acct:[id number] Age/Sex: 67 / F ADM Date: 08/24/23 Loc: [place] Room: Type: [facility] Attending Dr: Augusto Siu DO Copies to: DO Augusto Williamson DO Ordering Provider: Augusto Siu DO Date of Service: 08/24/23 MM/MM [...] Clarissa Garcia M.D.08/24/2023 11:18 AM Dictation Location: [facility] Transcribed By: [facility] 08/24/23 1118 Dictated By: Clarissa Garcia MD 08/24/23 1115 Signed By: 08/24/23 1118 [facility] Pre-Certification Formon Pre-Certification Form [id number]#1.00TIFF [facility] Consent for Procedure/Surger yon 08-09-2023 Consent for Procedure/Surgery [id number]#1.00TIFF [facility] Patient Educationon 08-08-19 Patient Education Urology Kidney [...] these instructions at home: Medicines ? Take lplk-uas-yfbveli and prescription medicines only as told by [...] recommendations from (more content not included)... Normal Noé [facility] Urology Office/Clinic Noteon 08-08-2023 Urology Office/Clinic Note [...] [facility] [address], [place] [address]- Additional Instructions: 1 yr with KUB Patient [...] hepatitis B adult vaccine 12/18/2000 Recorded Normal [facility] Comment on above: Result Comment: Elec tronically Signed By: KELSY GARCIA, Richard Resendiz\.br\Date and Time Signed: 08/08/23 07:59 EST\.br\Electronically Co-Signed By: Angelina Turpin\.br\Date and Time Co-Signed: 08/08/23 07:58 EST Insurance Correspondenceon 1 Insurance Correspondence [id number]#1.00TIFF Normal [facility] RAD - CT Reporton 06-27-2023 RAD - CT Report [id number]#1.00TIFF Normal [facility] CT urogramon 06-25-[address] [facility] [place] [address] CT Scan Report Signed Patient: Christian Rich MR#: [id number] : 1955 Acct:[id number] Age/Sex: 67 / F ADM Date: 06/25/23 Loc: CT Room: Type: [facility] Attending Dr: Richard Jackson MD Copies to: [...] constipation. Impression dictated by: Emanuel Pérez Jr., D.O.06/25/2023 12:34 PM Dictation Location: [place] [address] Transcribed By: [facility] 06/25/23 1234 Dictated By: Emanuel Pérez Jr, DO 06/25/23 1228 Signed By: 06/25/23 1234 [facility] Creatinine (Bld) [Mass/Vol]O rdered By: Richard Jackson on 06-25-2023 Creatinine [Mass/Vol] 0.7 mg/dL 0.6-1.3 [facility] Comment on above: ER/ESD physician is notified/shown all ISTAT results.Critical values may be confirmed by laboratory testing ifdeemed necessary by ER attending doctor. ISTAT XRay CREon 06-25-2023 Creatinine [Mass/Vol] 0.7 mg/dL Normal 0.6-1.3 [facility] Comment on above: Result Comment: ER/E SD physician is notified/shown all ISTAT results. Critical values may be confirmed by laboratory testing if deemed necessary by ER attending doctor. Performed By: #### I SCRE ####[facility] [id number] [place] [id number] [facility] ISTAT GFR > 60.0 Normal [facility] Comment on above: Result Comment: PERF ORMED BY: [facility] [address] [place] [id number] PATHOLOGIST TEMPLATE STORAGE CLERK ALEJANDRA BONILLA M.D. Performed By: #### I SCRE ####[facility] [id number] [place] [id number] [facility] No Panel InformationOrdered By: Richard Jackson on 06-25-2023 Bedside Estimated GFR (eGFR) > 60.0 [facility] Physician Referralon 023 Physician Referral [id number]#1.00TIFF Normal [facility] Pre-Certification Formon Pre-Certification Form [id number]#1.00TIFF Normal [facility] Urine Cytology ([facility])on 08-14-2022 Urine Cytology Diagnosis Info Invalid Interpretation Code [facility] Comment on above: Result Comment: A:Ur ine,Urine:Voided Interpretation - MicroScopic Description - Adequacy - Gross Description Site ID:A color Light Yellow fixative Alcohol Specimen designated Urine received in alcohol preservative and labeled with the patient?s name, consists of 80ml clear light yellow fluid. Electronically signed by : on: 06/14/2023 08:27:08 Performed By: #### 1 [id number] #### [facility] [address] [place] [address] Ambulatory Visit Summaryon 1 08-08-2022 Ambulatory Visit Summary CHRISTIAN RICH :1955 [...] with Richard JACKSON MD, URL When: Where: [address] [place] [address]- Medications What When Instructions Unchanged calcium-vitamin D [...] these instructions at home: Medicines ? Take wclm-gns-efkgncs and prescription medicines only as told by [...] urine. ? (more content not included)... Normal Umanzor [facility] Patient Educationon 06-08-20 23 Patient Education Urology [...] these instructions at home: Medicines ? Take ubyg-kcn-inuzyfp and prescription medicines only as told by [...] the blood stops without treatment. ? Take znqv-rtn-ltxeiey and prescription medicines only as told by your health care provider. ? Drink enough fluid to keep your urine pale yellow. This information is not intended to replace advice given to you by your health care provider. Make sure you discuss any questions you have with your health care provider. Document Revised: 03/23/2021 Document Reviewed: 03/23/2021 [employer] Patient Education ? 2022 [employer] Normal [facility] Urine Cytology ([facility])on 08-08-2022 Method of Extraction Voided Normal [facility] Comment on above: Performed By: #### 1 [id number] #### [facility] [address] Number of Jars 1 Invalid Interpretation Code [facility] Comment on above: Performed By: #### 1 [id number] #### [facility] [address] [place] [id number] Specimen Urine Normal [facility] Comment on above: Performed By: #### 1 [id number] #### [facility] [address] [place] [address] Type of Service Technical Only Normal [facility] Comment on above: Performed By: #### 1 [id number] #### [facility] [address] [place] [address] JESS Antinuclear Antibodieson 04-25-2023 Antinuclear Abs, IFA Positive Critically abnormal . [facility] Comment on above: Result Comment: Nega tive <1:80 Borderline 1:80 Positive >1:80 Performed By: #### A NA, CH50, TPO, THYGLOB AB, CHROMATIN, C3, C4 #### [facility] , Homogeneous Pattern 1:320 High . [facility] Comment on above: Result Comment: ICAP nomenclature: AC-1 Performed By: #### A NA, CH50, TPO, THYGLOB AB, CHROMATIN, C3, C4 #### [facility] , Note 1 Normal . [facility] Comment on above: Result Comment: For more [...] titers Nucleosomes, Histones Drug-induced SLE Speckled Sm, ENTERPRISE ENGINEER, SCL-70, SLE,MCTD,PSS (diffuse form), SS-A/SS-B Sjogrens Nucleolar SCL-70, PM-1/SCL High titers Scleroderma, PM/DM Centromere Centromere PSS (limited form) w/Crest syndrome variable Nuclear Dot Sp100,a43-jwneca Primary Biliary Cirrhosis Nuclear GP210, Primary Biliary Cirrhosis Membrane mireille A,B,C Performed at: - [facility] [id number] Geological Drafter: Freddy Zamora PhD, Phone: [phone] Performed By: #### A NA, CH50, TPO, THYGLOB AB, CHROMATIN, C3, C4 #### [facility] , Activated partial thrombopla stin time (aPTT) in platelet poor plasma by coagulation aOrdered By: Art Rinaldi on 04-25-2023 aPTT Coag (PPP) [Time] 28.6 s 25.1-36.5 [facility] Comment on above: A hematocrit value g reater than 55% may lead to inaccurate results in coagulation testing. Patients having hematocrit values >55% require a special collection tube for coagulation studies. Please contact the laboratory at [phone] for redraw instructions. Alanine aminotransferase [En zymatic activity/volume] in Serum or PlasmaOrdered By: Art Rinaldi on 04-25-2023 ALT [Catalytic activity/Vol] 10 U/L Normal 7-52 [facility] Comment on above: Performed By: #### E SR, LIPID, CRP, [id number], CMP, URIC, MG, CBC, ADDONUAPLUS, T4F, TSH3, CK ####[facility] Albumin [Mass/volume] in Ser um or Plasma by Bromocresol green (BCG) dye binding methoOrdered By: Art Rinaldi on 04-25-2023 Albumin BCG dye [Mass/Vol] 4.3 g/dL 3.5-5.7 [facility] Alkaline phosphatase [Enzyma tic activity/volume] in Serum or PlasmaOrdered By: Art Rinaldi on 04-25-2023 ALP [Catalytic activity/Vol] 54 U/L Normal 34-104 [facility] Comment on above: Performed By: #### E SR, LIPID, CRP, [id number], CMP, URIC, MG, CBC, ADDONUAPLUS, T4F, TSH3, CK ####[facility] Antithyroglobulin Abon 04-25 Antithyroglobulin Ab <1.0 Normal 0.0-0.9 [facility] Comment on above: Result Comment: Thyr oglobulin Antibody measured by Crossfader Methodology Performed at: - [facility] [address] [id number] Geological Drafter: Freddy Zamora PhD, Phone: [phone] Performed By: #### A NA, CH50, TPO, THYGLOB AB, CHROMATIN, C3, C4 #### [facility] , Aspartate aminotransferase [ Enzymatic activity/volume] in Serum or PlasmaOrdered By: Art Rinaldi on 04-25-2023 AST [Catalytic activity/Vol] 14 U/L Normal 13-39 [facility] Comment on above: Performed By: #### E SR, LIPID, CRP, [id number], CMP, URIC, MG, CBC, ADDONUAPLUS, T4F, TSH3, CK ####[facility] [address] Automated basophil %Ordered By: Artblank Rinaldi on 04-25-2023 Basophils/100 WBC (Bld) 0.2 % Normal . [facility] Comment on above: Performed By: #### E SR, LIPID, CRP, [id number], CMP, URIC, MG, CBC, ADDONUAPLUS, T4F, TSH3, CK ####[address] Automated basophil countOrde red By: Art Rinaldi on 04-25-2023 Basophils (Bld) [#/Vol] 0.0 10*3/uL Normal 0.0-0.2 [facility] Comment on above: Performed By: #### E SR, LIPID, CRP, [id number], CMP, URIC, MG, CBC, ADDONUAPLUS, T4F, TSH3, CK ####[address] Automated blood monocyte cou ntOrdered By: Art Rinaldi on 04-25-2023 Monocytes (Bld) [#/Vol] 0.6 10*3/uL Normal 0.0-0.8 [facility] Comment on above: Performed By: #### E SR, LIPID, CRP, [id number], CMP, URIC, MG, CBC, ADDONUAPLUS, T4F, TSH3, CK ####[address] Automated eosinophil %Ordere d By: Art Rinaldi on 04-25-2023 Eosinophils/100 WBC (Bld) 0.5 % Normal . [facility] Comment on above: Performed By: #### E SR, LIPID, CRP, [id number], CMP, URIC, MG, CBC, ADDONUAPLUS, T4F, TSH3, CK ####[address] Automated eosinophil countOr dered By: Art Rinaldi on 04-25-2023 Eosinophils (Bld) [#/Vol] 0.0 10*3/uL Normal 0.0-0.45 [facility] Comment on above: Performed By: #### E SR, LIPID, CRP, [id number], CMP, URIC, MG, CBC, ADDONUAPLUS, T4F, TSH3, CK ####[place] [id number] [facility] Automated erythrocytes count in urine sediment (number/area)Ordered By: Art Nimco on 04-25-2023 RBC Auto (Urine sed) [#/Area] 10-19 [HPF] 0-4 [facility] Automated leukocytes count i n urine sediment (number/area)Ordered By: Art Nimco on 04-25-2023 WBC Auto (Urine sed) [#/Area] None seen [HPF] 0-4 [facility] Automated monocyte %Ordered By: Art Nimco on 04-25-2023 Monocytes/100 WBC (Bld) 6.9 % Normal . [facility] Comment on above: Performed By: #### E SR, LIPID, CRP, [id number], CMP, URIC, MG, CBC, ADDONUAPLUS, T4F, TSH3, CK ####[place] [id number] [facility] Automated neutrophil %Ordere d By: Artblank Rinaldi on 04-25-2023 Neutrophils/100 WBC (Bld) 63.9 % Normal . [facility] Comment on above: Performed By: #### E SR, LIPID, CRP, [id number], CMP, URIC, MG, CBC, ADDONUAPLUS, T4F, TSH3, CK ####[place] [id number] [facility] Automated urine color determ inationOrdered By: Art Rinaldi on 04-25-2023 Color (U) Yellow Normal Yellow [facility] Comment on above: Order Comment: Name Collection Type:: Clean-Voided Midstream Performed By: #### E SR, LIPID, CRP, [id number], CMP, URIC, MG, CBC, ADDONUAPLUS, T4F, TSH3, CK ####[address] [address] [facility] Bilirubin Test strip Ql (U)O rdered By: Art Rinaldi on 04-25-2023 Bilirubin Ql (U) Negative Negative [facility] Bilirubin.total [Mass/volume ] in Serum or PlasmaOrdered By: Art Rinaldi on 04-25-2023 Bilirubin [Mass/Vol] 0.3 mg/dL Normal 0.3-1.0 [facility] Comment on above: Performed By: #### E SR, LIPID, CRP, [id number], CMP, URIC, MG, CBC, ADDONUAPLUS, T4F, TSH3, CK ####[place] [id number] [place] [id number] [facility] C reactive protein [Mass/vol ume] in Serum or PlasmaOrdered By: Art Jamesrow on 04-25-2023 CRP [Mass/Vol] < 0.5 mg/dL 0.0-0.5 [facility] C-Reactive Proteinon 023 CRP [Mass/Vol] mg/L Normal 0.0-0.5 [facility] Comment on above: Performed By: #### E SR, LIPID, CRP, [id number], CMP, URIC, MG, CBC, ADDONUAPLUS, T4F, TSH3, CK ####[place] [id number] [facility] Calcium [Mass/volume] in Ser um or PlasmaOrdered By: Art Jamesrow on 04-25-2023 Calcium [Mass/Vol] 9.4 mg/dL Normal 8.6-10.[address] [facility] Comment on above: Performed By: #### E SR, LIPID, CRP, [id number], CMP, URIC, MG, CBC, ADDONUAPLUS, T4F, TSH3, CK ####[place] [id number] [facility] Carbon dioxide, total [Moles /volume] in Serum or PlasmaOrdered By: Art Jamesrow on 04-25-2023 CO2 [Moles/Vol] 28.1 mmol/L Normal 21.0-31.0 [facility] Comment on above: Performed By: #### E SR, LIPID, CRP, [id number], CMP, URIC, MG, CBC, ADDONUAPLUS, T4F, TSH3, CK ####[facility] [id number] [place] [address] [facility] Chloride [Moles/volume] in S ajith or PlasmaOrdered By: Art Rinaldi on 04-25-2023 Chloride [Moles/Vol] 104 mmol/L Normal 98-107 [facility] Comment on above: Performed By: #### E SR, LIPID, CRP, [id number], CMP, URIC, MG, CBC, ADDONUAPLUS, T4F, TSH3, CK ####[facility] [id number] [place] [address] [facility] Cholesterol [Mass/volume] in Serum or PlasmaOrdered By: Art Rinaldi on 04-25-2023 Cholesterol [Mass/Vol] 226 mg/dL High 140-200 [facility] Comment on above: Chol less than 200 m g/dl low riskChol 201-239 mg/dl borderline riskChol 240 mg/dl and greater high risk Result Comment: Chol less than 200 mg/dl low risk Chol 201-239 mg/dl borderline risk Chol 240 mg/dl and greater high risk Performed By: #### E SR, LIPID, CRP, [id number], CMP, URIC, MG, CBC, ADDONUAPLUS, T4F, TSH3, CK ####[facility] [id number] [place] [address] [facility] Cholesterol in LDL Calc [Mas s/Vol]Ordered By: Art Rinaldi on 04-25-2023 Cholesterol in LDL [Mass/Vol] 112 mg/dL 0-100 [facility] Comment on above: LDL ATP III CLASSIFI CATIONLDL less than 100 mg/dL OptimalLDL 100-129 mg/dL Near or above optimalLDL 130-159 mg/dL Borderline highLDL 160-189 mg/dL HighLDL greater than 189 mg/dL Very high Cholesterol in VLDL Calc [Ma ss/Vol]Ordered By: Art Rinaldi on 04-25-2023 Cholesterol in VLDL [Mass/Vol] 43 mg/dL [facility] Chromatin Antibodyon 023 Chromatin Antibody <0.2 Normal 0.0-0.[address] [facility] Comment on above: Result Comment: Perf ormed at: CB - [facility] [address] [id number] Geological Drafter: Freddy Zamora PhD, Phone: [phone] PERFORMED BY: [address] [place] [id number] PATHOLOGIST TEMPLATE STORAGE CLERK ALEJANDRA BONILLA M.D. Performed By: #### A NA, CH50, TPO, THYGLOB AB, CHROMATIN, C3, C4 #### [facility] , Coagulation Profileon 2022 aPTT Coag (Bld) [Time] 28.6 s Normal 25.1-36.5 [facility] Comment on above: Result Comment: A he matocrit value greater than 55% may lead to inaccurate results in coagulation testing. Patients having hematocrit values >55% require a special collection tube for coagulation studies. Please contact the laboratory at [phone] for redraw instructions. PERFORMED BY: [address] [place] [address] PATHOLOGIST TEMPLATE STORAGE CLERK ALEJANDRA BONILLA M.D. Performed By: #### L UPANTCOAG ####[facility] ,#### PP ####[facility] [id number] [place] [id number] [facility] Complement C3on 04-25-2023 Complement C3 138 mg/dL Normal 82-167 [facility] Comment on above: Performed By: #### A NA, CH50, TPO, THYGLOB AB, CHROMATIN, C3, C4 #### [facility] , Complement C4on 04-25-2023 Complement C4 21 mg/dL Normal 12-38 [facility] Comment on above: Performed By: #### A NA, CH50, TPO, THYGLOB AB, CHROMATIN, C3, C4 #### [facility] , Complement Total (CH50)on Complement Total (CH50) >60 Normal >41 [facility] Comment on above: Result Comment: Age Male [...] of range values. Performed at: - [facility] [address] [id number] Geological Drafter: Freddy Zamora PhD, Phone: [phone] PERFORMED BY: [facility] [address] [place] [id number] PATHOLOGIST TEMPLATE STORAGE CLERK ALEJANDRA BONILLA M.D. Performed By: #### A NA, CH50, TPO, THYGLOB AB, CHROMATIN, C3, C4 #### [facility] , Complete Blood Count Auto Di ffon 04-25-2023 Mean Corpuscular HGB Conc 33.8 g/dL Normal 32.0-35.0 [facility] Comment on above: Performed By: #### E SR, LIPID, CRP, [id number], CMP, URIC, MG, CBC, ADDONUAPLUS, T4F, TSH3, CK ####[place] [id number] [address] NRBC% 0.1 /100{WBC} Normal 0-0.5 [facility] Comment on above: Performed By: #### E SR, LIPID, CRP, [id number], CMP, URIC, MG, CBC, ADDONUAPLUS, T4F, TSH3, CK ####[place] [id number] [facility] Comprehensive Metabolic Pane shane 04-25-2023 Albumin [Mass/Vol] 4.3 g/dL Normal 3.5-5.[address] [facility] Comment on above: Performed By: #### E SR, LIPID, CRP, [id number], CMP, URIC, MG, CBC, ADDONUAPLUS, T4F, TSH3, CK ####[address] GFR/1.73 sq M.predicted MDRD (S/P/Bld) [Vol rate/Area] mL/min/{1.73_m2} Normal [facility] Comment on above: Performed By: #### E SR, LIPID, CRP, [id number], CMP, URIC, MG, CBC, ADDONUAPLUS, T4F, TSH3, CK ####[place] [id number] [facility] Creatine kinase [Enzymatic a ctivity/volume] in Serum or PlasmaOrdered By: Art Rinaldi on 04-25-2023 CK [Catalytic activity/Vol] 63 U/L Normal 30-223 [facility] Comment on above: Result Comment: PERF ORMED BY: [facility] [address] [place] [id number] PATHOLOGIST TEMPLATE STORAGE CLERK ALEJANDRA BONILLA M.D. Performed By: #### E SR, LIPID, CRP, [id number], CMP, URIC, MG, CBC, ADDONUAPLUS, T4F, TSH3, CK ####[address] Creatinine [Mass/volume] in Serum or PlasmaOrdered By: Art Rinaldi on 04-25-2023 Creatinine [Mass/Vol] 0.63 mg/dL Normal 0.60-1.20 [facility] [facility] Comment on above: Performed By: #### E SR, LIPID, CRP, [id number], CMP, URIC, MG, CBC, ADDONUAPLUS, T4F, TSH3, CK ####[place] [id number] [facility] Dipstick and Microscopicon 0 04-25-2023 Appearance (U) Clear Normal Clear [facility] Comment on above: Order Comment: Name Collection Type:: Clean-Voided Midstream Performed By: #### E SR, LIPID, CRP, [id number], CMP, URIC, MG, CBC, ADDONUAPLUS, T4F, TSH3, CK ####[place] [id number] [facility] Bacteria,Urine None Seen Normal None Seen [facility] Comment on above: Order Comment: Name Collection Type:: Clean-Voided Midstream Performed By: #### E SR, LIPID, CRP, [id number], CMP, URIC, MG, CBC, ADDONUAPLUS, T4F, TSH3, CK ####[address] [address] [facility] Bilirubin,Urine Negative Normal Negative [facility] Comment on above: Order Comment: Name Collection Type:: Clean-Voided Midstream Performed By: #### E SR, LIPID, CRP, [id number], CMP, URIC, MG, CBC, ADDONUAPLUS, T4F, TSH3, CK ####[place] [id number] [facility] Glucose Ql (U) Normal Normal Normal [facility] Comment on above: Order Comment: Name Collection Type:: Clean-Voided Midstream Performed By: #### E SR, LIPID, CRP, [id number], CMP, URIC, MG, CBC, ADDONUAPLUS, T4F, TSH3, CK ####[place] [id number] [facility] Hyaline Casts,Urine None Seen Normal 0-8 [facility] Comment on above: Order Comment: Name Collection Type:: Clean-Voided Midstream Result Comment: PERF ORMED BY: [facility] [address] [place] [address] PATHOLOGIST TEMPLATE STORAGE CLERK ALEJANDRA BONILLA M.D. Performed By: #### E SR, LIPID, CRP, [id number], CMP, URIC, MG, CBC, ADDONUAPLUS, T4F, TSH3, CK ####[place] [id number] [facility] Ketones Ql (U) Negative Normal Negative [facility] Comment on above: Order Comment: Name Collection Type:: Clean-Voided Midstream Performed By: #### E SR, LIPID, CRP, [id number], CMP, URIC, MG, CBC, ADDONUAPLUS, T4F, TSH3, CK ####[place] [id number] [facility] Leukocyte esterase Test strip Ql (U) Negative Normal Negative [facility] Comment on above: Order Comment: Name Collection Type:: Clean-Voided Midstream Performed By: #### E SR, LIPID, CRP, [id number], CMP, URIC, MG, CBC, ADDONUAPLUS, T4F, TSH3, CK ####[address] Nitrite,Urine Negative Normal Negative [facility] Comment on above: Order Comment: Name Collection Type:: Clean-Voided Midstream Performed By: #### E SR, LIPID, CRP, [id number], CMP, URIC, MG, CBC, ADDONUAPLUS, T4F, TSH3, CK ####[address] Occult Blood,Urine Negative Normal Negative [facility] Comment on above: Order Comment: Name Collection Type:: Clean-Voided Midstream Performed By: #### E SR, LIPID, CRP, [id number], CMP, URIC, MG, CBC, ADDONUAPLUS, T4F, TSH3, CK ####[address] Protein,Urine Negative Normal Negative [facility] Comment on above: Order Comment: Name Collection Type:: Clean-Voided Midstream Performed By: #### E SR, LIPID, CRP, [id number], CMP, URIC, MG, CBC, ADDONUAPLUS, T4F, TSH3, CK ####[address] RBC,Urine 10-19 High 0-4 [facility] Comment on above: Order Comment: Name Collection Type:: Clean-Voided Midstream Performed By: #### E SR, LIPID, CRP, [id number], CMP, URIC, MG, CBC, ADDONUAPLUS, T4F, TSH3, CK ####[address] Specificy [place],Urine 1.021 Normal 1.001-1.03 0 [facility] Comment on above: Order Comment: Name Collection Type:: Clean-Voided Midstream Performed By: #### E SR, LIPID, CRP, [id number], CMP, URIC, MG, CBC, ADDONUAPLUS, T4F, TSH3, CK ####[place] [id number] [facility] Squamous Epithelial Cell,Urine None Seen Normal 0-2 [facility] Comment on above: Order Comment: Name Collection Type:: Clean-Voided Midstream Performed By: #### E SR, LIPID, CRP, [id number], CMP, URIC, MG, CBC, ADDONUAPLUS, T4F, TSH3, CK ####[address] Urobilinogen,Urine Normal Normal Normal [facility] Comment on above: Order Comment: Name Collection Type:: Clean-Voided Midstream Performed By: #### E SR, LIPID, CRP, [id number], CMP, URIC, MG, CBC, ADDONUAPLUS, T4F, TSH3, CK ####[address] WBC,Urine None Seen Normal 0-4 [facility] Comment on above: Order Comment: Name Collection Type:: Clean-Voided Midstream Performed By: #### E SR, LIPID, CRP, [id number], CMP, URIC, MG, CBC, ADDONUAPLUS, T4F, TSH3, CK ####[address] Erythrocyte Sedimentation Ra bryn 04-25-2023 ESR (Bld) [Velocity] 22 mm/h Normal 0-29 [facility] Comment on above: Result Comment: PERF ORMED BY: [facility] [address] [facility] [place] [address] PATHOLOGIST TEMPLATE STORAGE CLERK ALEJANDRA BONILLA M.D. Performed By: #### E SR, LIPID, CRP, [id number], CMP, URIC, MG, CBC, ADDONUAPLUS, T4F, TSH3, CK ####[address] Erythrocyte distribution wid th [Ratio] by Automated countOrdered By: Art Rinaldi on 04-25-2023 Erythrocyte distribution width (RBC) [Ratio] 13.3 % Normal 11.9-15.3 [facility] Comment on above: Performed By: #### E SR, LIPID, CRP, [id number], CMP, URIC, MG, CBC, ADDONUAPLUS, T4F, TSH3, CK ####[facility] [place] [id number] [facility] Erythrocyte sedimentation ra te by Photometric methodOrdered By: Art Rinaldi on 04-25-2023 ESR Photometric method (Bld) [Velocity] 22 mm/hr 0-29 [facility] Erythrocytes [#/volume] in B lood by Automated countOrdered By: Art Rinaldi on 04-25-2023 RBC (Bld) [#/Vol] 4.19 10*6/uL Normal 3.60-5.00 [facility] Comment on above: Performed By: #### E SR, LIPID, CRP, [id number], CMP, URIC, MG, CBC, ADDONUAPLUS, T4F, TSH3, CK ####[place] [id number] Glucose [Mass/volume] in Ser um or PlasmaOrdered By: Art Rinaldi on 04-25-2023 Glucose [Mass/Vol] 92 mg/dL Normal 70-[address] [facility] Comment on above: ADA recommended refe rence rangeRandom Glucose Reference Range is dependent on time and content of last meal. Glucose of more than 200 mg/dL in a nonstressed, ambulatory subject supports the diagnosis of Diabetes Mellitus. Result Comment: [place] om Glucose Reference Range is dependent on time and content of last meal. Glucose of more than 200 mg/dL in a nonstressed, ambulatory subject supports the diagnosis of Diabetes Mellitus. ADA recommended reference range Performed By: #### E SR, LIPID, CRP, [id number], CMP, URIC, MG, CBC, ADDONUAPLUS, T4F, TSH3, CK ####[facility] [place] [id number] [facility] Hematocrit [Volume Fraction] of Blood by Automated countOrdered By: Art Rinaldi on 04-25-2023 Hematocrit (Bld) [Volume fraction] 36.9 % Normal 34.0-46.4 [facility] Comment on above: Performed By: #### E SR, LIPID, CRP, [id number], CMP, URIC, MG, CBC, ADDONUAPLUS, T4F, TSH3, CK ####[facility] Hemoglobin [Mass/volume] in BloodOrdered By: Art Rinaldi on 04-25-2023 Hemoglobin (Bld) [Mass/Vol] 12.5 g/dL Normal 11.8-15.4 [facility] Comment on above: Performed By: #### E SR, LIPID, CRP, [id number], CMP, URIC, MG, CBC, ADDONUAPLUS, T4F, TSH3, CK ####[place] [id number] [address] INR in Platelet poor plasma by Coagulation assayOrdered By: Art Rinaldi on 04-25-2023 INR Coag (PPP) [Relative time] 0.8 {INR} Normal [facility] Comment on above: INR Therapeutic Rang e [...] By: #### L UPANTCOAG ####[facility] ,#### PP ####[place] [id number] [place] [id number] [facility] Ketones Auto test strip (U) [Mass/Vol]Ordered By: Art Rinaldi on 04-25-2023 Ketones (U) [Mass/Vol] Negative Negative [facility] Laboratory - UrinalysisOrder ed By: Art Rinaldi on 04-25-2023 Hyaline casts LM Ql (Urine sed) None seen [LPF] 0-8 [facility] Leukocytes [#/volume] correc hilario for nucleated erythrocytes in Blood by Automated counOrdered By: Art Rinaldi on 04-25-2023 WBC corrected for nucl RBC Auto (Bld) [#/Vol] 8.5 10*3/uL 3.8-11.6 [facility] Leukocytes [#/volume] in Blo od by Automated countOrdered By: Art Rinaldi on 04-25-2023 WBC (Bld) [#/Vol] 8.5 10*3/uL Normal 3.8-11.[address] [facility] Comment on above: Performed By: #### E SR, LIPID, CRP, [id number], CMP, URIC, MG, CBC, ADDONUAPLUS, T4F, TSH3, CK ####[facility] [id number] [place] [address] [facility] Lipid Panelon 04-25-2023 LDL Cholesterol,Calculate d 112 mg/dL High 0-100 [facility] Comment on above: Result Comment: LDL ATP III CLASSIFICATION LDL less than 100 mg/dL Optimal LDL 100-129 mg/dL Near or above optimal LDL 130-159 mg/dL Borderline high LDL 160-189 mg/dL High LDL greater than 189 mg/dL Very high Performed By: #### E SR, LIPID, CRP, [id number], CMP, URIC, MG, CBC, ADDONUAPLUS, T4F, TSH3, CK ####[facility] [id number] [place] [address] [facility] Triglyceride w/Reflex 217 mg/dL High 0-149 [facility] Comment on above: Result Comment: TRIG ATP III CLASSIFICATION TRIG less than 150 mg/dL Normal TRIG 150-199 mg/dL Borderline high TRIG 200-500 mg/dL High TRIG greater than 500 mg/dL Very high Standard traceable to the Center for Disease Conrtrol and Prevention (CDC) test method. Performed By: #### E SR, LIPID, CRP, [id number], CMP, URIC, MG, CBC, ADDONUAPLUS, T4F, TSH3, CK ####[facility] [place] [id number] [facility] VLDL CHOLESTEROL 43 mg/dL Normal [facility] Comment on above: Performed By: #### E SR, LIPID, CRP, [id number], CMP, URIC, MG, CBC, ADDONUAPLUS, T4F, TSH3, CK ####[address] Lupus Anticoagulant Compon 0 04-25-2023 Dilute Prothrombin Time (dPt) 33.7 Normal 0.0-47.6 [facility] Comment on above: Performed By: #### L UPANTCOAG ####[facility] ,#### PP ####[address] dPT Confirm Ratio 1.05 Normal 0.00-1.34 [facility] Comment on above: Performed By: #### L UPANTCOAG ####[facility] ,#### PP ####[address] DRVVT Lupus 34.4 Normal 0.0-47.0 [facility] Comment on above: Performed By: #### L UPANTCOAG ####[facility] ,#### PP ####[address] Interpretation Comment: Normal . [facility] Comment on above: Result Comment: No l upus anticoagulant was detected. Performed at: - [facility] [id number] Geological Drafter: Rowena Schofield MD, Phone: [phone] PERFORMED BY: [facility] [address] [place] [address] PATHOLOGIST TEMPLATE STORAGE CLERK ALEJANDRA BONILLA M.D. Performed By: #### L UPANTCOAG ####[facility] ,#### PP ####[address] PTT-LA 37.4 Normal 0.0-43.5 [facility] Comment on above: Performed By: #### L UPANTCOAG ####[facility] ,#### PP ####[address] Thrombin Time 16.5 Normal 0.0-23.0 [facility] Comment on above: Performed By: #### L UPANTCOAG ####[facility] ,#### PP ####[address] Lupus anticoagulant [Interpr etation] in Platelet poor plasmaOrdered By: Art Rinaldi on 04-25-2023 Lupus anticoagulant (PPP) [Interp] Comment: . [facility] Comment on above: No lupus anticoagula nt was detected.Performed at: - [facility] [id number] Director: Rowena Schofield MD, Phone: [phone] Lymphocytes [#/volume] in Bl ood by Automated countOrdered By: Art Rinaldi on 04-25-2023 Lymphocytes (Bld) [#/Vol] 2.4 10*3/uL Normal 1.00-4.8 [facility] Comment on above: Performed By: #### E SR, LIPID, CRP, [id number], CMP, URIC, MG, CBC, ADDONUAPLUS, T4F, TSH3, CK ####[address] Lymphocytes/100 leukocytes i n Blood by Automated countOrdered By: Art Rinaldi on 04-25-2023 Lymphocytes/100 WBC (Bld) 28.5 % Normal . [facility] Comment on above: Performed By: #### E SR, LIPID, CRP, [id number], CMP, URIC, MG, CBC, ADDONUAPLUS, T4F, TSH3, CK ####[address] MCH [Entitic mass] by Automa hilario countOrdered By: Art Rinaldi on 04-25-2023 MCH (RBC) [Entitic mass] 29.8 pg Normal 24.7-34.3 [facility] Comment on above: Performed By: #### E SR, LIPID, CRP, [id number], CMP, URIC, MG, CBC, ADDONUAPLUS, T4F, TSH3, CK ####[address] MCHC Auto (RBC) [Mass/Vol]Or dered By: Art Rinaldi on 04-25-2023 MCHC (RBC) [Mass/Vol] 33.8 g/dL 32.0-35.0 [facility] MCV [Entitic volume] by Auto mated countOrdered By: Art Rinaldi on 04-25-2023 MCV (RBC) [Entitic vol] 88.1 fL Normal 80-100 [facility] Comment on above: Performed By: #### E SR, LIPID, CRP, [id number], CMP, URIC, MG, CBC, ADDONUAPLUS, T4F, TSH3, CK ####[address] Magnesium [Mass/volume] in S ajith or PlasmaOrdered By: Art Rinaldi on 04-25-2023 Magnesium [Mass/Vol] 1.9 mg/dL Normal 1.9-2.7 [facility] Comment on above: Performed By: #### E SR, LIPID, CRP, [id number], CMP, URIC, MG, CBC, ADDONUAPLUS, T4F, TSH3, CK ####[address] Neutrophils [#/volume] in Bl ood by Automated countOrdered By: Art Rinaldi on 04-25-2023 Neutrophils (Bld) [#/Vol] 5.5 10*3/uL Normal 1.8-7.7 [facility] Comment on above: Performed By: #### E SR, LIPID, CRP, [id number], CMP, URIC, MG, CBC, ADDONUAPLUS, T4F, TSH3, CK ####[address] Nitrite Test strip Ql (U)Ord ered By: Art Rinaldi on 04-25-2023 Nitrite Ql (U) Negative Negative [facility] No Panel InformationOrdered By: Art Rinaldi on 04-25-2023 Anti-Nuclear Antibody Comment 2 See comment . [facility] Comment on above: For more information about Hep-2 cell patterns useRocketfuel [email or web address].[email or web address], the official website for the InternationalConiZ3Ds on Antinuclear Antibody (JESS) Patterns (ICAP). ---A positive JESS result may occur in healthy individuals (lowtiter) or be associated with a variety of diseases. Seeinterpretation chart which is not all inclusive:Pattern Antigen Detected Suggested Disease Association Homogeneous DNA(ds,ss), SLE - High titers Nucleosomes, Histones Drug-induced SLE Speckled Sm, ENTERPRISE ENGINEER, SCL-70, SLE,MCTD,PSS (diffuse form), SS-A/SS-B Sjogrens Nucleolar SCL-70, PM-1/SCL High titers Scleroderma, PM/DM Centromere Centromere PSS (limited form) w/Crest syndrome variable Nuclear Dot Sp100,g99-pmxxtp Primary Biliary Cirrhosis Nuclear GP210, Primary Biliary CirrhosisMembrane mireille A,B,C Performed at: [facility] [id number] [place] [address] [id number] Director: Freddy Zamora PhD, Phone: [phone] Estimated GFR (CKD-EPI) > 60.0 mL/Min [facility] Creatinine Clearance (Chem N/A [facility] Total Complement (CH50) >60 U/mL >41 [facility] Comment on above: Age Male Female 2 [...] to determine out of range values.Performed at: [facility] [place], [place] [id number] Director: Freddy Zamora PhD, Phone: [phone] Nucleated erythrocytes [Pres ence] in Blood by Automated countOrdered By: Art Rinaldi on 04-25-2023 Nucleated RBC Auto Ql (Bld) 0.1 /100{WBC} 0-0.5 [facility] Platelet mean volume [Entiti c volume] in Blood by Automated countOrdered By: Atr Rinaldi on 04-25-2023 Platelet mean volume (Bld) [Entitic vol] 8.7 fL Normal 6.3-10.7 [facility] Comment on above: Performed By: #### E SR, LIPID, CRP, [id number], CMP, URIC, MG, CBC, ADDONUAPLUS, T4F, TSH3, CK ####[facility] [place] [address] [facility] Platelet poor plasma ratio o f lupus anticoagulant-sensitive activated partial thromboOrdered By: Art Rinaldi on 04-25-2023 aPTT.lupus sensitive.excess phospholipid actual/normal Coag (PPP) [Relative time] 33.7 sec 0.0-47.6 [facility] Platelets [#/volume] in Bloo d by Automated countOrdered By: Art Rinaldi on 04-25-2023 Platelets (Bld) [#/Vol] 229 10*3/uL Normal 150-450 [facility] Comment on above: Performed By: #### E SR, LIPID, CRP, [id number], CMP, URIC, MG, CBC, ADDONUAPLUS, T4F, TSH3, CK ####[place] [address] [place] [address] [place] Potassium [Moles/volume] in Serum or PlasmaOrdered By: Art Rinaldi on 04-25-2023 Potassium [Moles/Vol] 3.7 mmol/L Normal 3.5-5.1 [facility] Comment on above: Performed By: #### E SR, LIPID, CRP, [id number], CMP, URIC, MG, CBC, ADDONUAPLUS, T4F, TSH3, CK ####[facility] [place] [address] [facility] Protein Auto test strip (U) [Mass/Vol]Ordered By: Art Rinaldi on 04-25-2023 Protein (U) [Mass/Vol] Negative Negative [facility] Protein [Mass/volume] in Ser um or PlasmaOrdered By: Art Rinaldi on 04-25-2023 Protein [Mass/Vol] 6.7 g/dL Normal 6.4-8.[address] [facility] Comment on above: Performed By: #### E SR, LIPID, CRP, [id number], CMP, URIC, MG, CBC, ADDONUAPLUS, T4F, TSH3, CK ####[place] [id number] [address] Prothrombin time (PT)Ordered By: Art Rinaldi on 04-25-2023 PT Coag (PPP) [Time] 10.2 s Normal 9.0-12.9 [facility] Comment on above: A hematocrit value g reater than 55% may lead to inaccurate results in coagulation testing. Patients having hematocrit values >55% require a special collection tube for coagulation studies. Please contact the laboratory at [phone] for redraw instructions. Result Comment: A he matocrit value greater than 55% may lead to inaccurate results in coagulation testing. Patients having hematocrit values >55% require a special collection tube for coagulation studies. Please contact the laboratory at [phone] for redraw instructions. Performed By: #### L UPANTCOAG ####[facility] ,#### PP ####[address] RPR w/rfx to Quant TP Abson 04-25-2023 RPR, Rfx Quant RPR Non-Reactive Normal Non Reactive [facility] Comment on above: Result Comment: Perf ormed at: CB - [facility] [address] [id number] Geological Drafter: Freddy Zamora PhD, Phone: [phone] PERFORMED BY: [facility] [address] [place] [address] PATHOLOGIST TEMPLATE STORAGE CLERK ALEJANDRA BONILLA M.D. Performed By: #### R VT W RFX ####[facility] , Reagin Ab [Presence] in Seru m by RPROrdered By: Art Rinaldi on 04-25-2023 Reagin Ab RPR Ql (S) Non-Reactive Non Reactive [facility] Comment on above: Performed at: [facility] - [facility] [address] [id number] Director: Freddy Zamora PhD, Phone: [phone] Screening dilute Lavelle's v iper venom time (DRVVT) with reflex to confirmatory testOrdered By: Art Rinaldi on 04-25-2023 dRVVT Coag (PPP) [Time] 34.4 s 0.0-47.0 [facility] Screening lupus anticoagulan t-sensitive activated partial thromboplastin time (aPTT)Ordered By: Art Rinaldi on 04-25-2023 aPTT.lupus sensitive Coag (PPP) [Time] 37.4 sec 0.0-43.5 [facility] Serum globulin measurement b y calculation (mass/volume)Ordered By: Art Rinaldi on 04-25-2023 Globulin (S) [Mass/Vol] 2.4 g/dL Normal [facility] Comment on above: Performed By: #### E SR, LIPID, CRP, [id number], CMP, URIC, MG, CBC, ADDONUAPLUS, T4F, TSH3, CK ####[facility] [id number] Serum homogeneous pattern an tinuclear antibody (JESS) titerOrdered By: Art Rinaldi on 04-25-2023 Homogenous nuclear Ab pattern (S) [Titer] 1:320 . [facility] Comment on above: ICAP nomenclature: A C-1 Serum nuclear antibody titer Ordered By: Art Rinaldi on 04-25-2023 Nuclear Ab (S) [Titer] Positive . [facility] Comment on above: Negative <1:80 [place] 1:80 Positive >1:80 Serum or plasma albumin/glob ulin mass ratioOrdered By: Art Rinaldi on 04-25-2023 Albumin/Globulin [Mass ratio] 1.8 {ratio} Normal [facility] Comment on above: Performed By: #### E SR, LIPID, CRP, [id number], CMP, URIC, MG, CBC, ADDONUAPLUS, T4F, TSH3, CK ####[facility] [id number] Serum or plasma anion gap de terminationOrdered By: Art Rinadli on 04-25-2023 Anion gap [Moles/Vol] 11.6 mmol/L Normal 6.0-15.0 [facility] Comment on above: Performed By: #### E SR, LIPID, CRP, [id number], CMP, URIC, MG, CBC, ADDONUAPLUS, T4F, TSH3, CK ####[facility] [id number] Serum or plasma chromatin an tibody assay (units/volume)Ordered By: Art Rinaldi on 04-25-2023 Chromatin Ab Qn <0.2 AI 0.0-0.9 [facility] Comment on above: Performed at: [place] [id number] Director: Freddy Zamora PhD, Phone: [phone] Serum or plasma complement C 3 measurement (mass/volume)Ordered By: Art Rinaldi on 04-25-2023 Complement C3 [Mass/Vol] 138 mg/dL 82-167 [facility] Serum or plasma complement C 4 measurement (mass/volume)Ordered By: Art Rinaldi on 04-25-2023 Complement C4 [Mass/Vol] 21 mg/dL 12-38 [facility] Serum or plasma high density lipoprotein (HDL) cholesterol measurementOrdered By: Art Rinaldi on 04-25-2023 Cholesterol in HDL [Mass/Vol] 71 mg/dL Normal 23-92 [facility] Comment on above: HDL CHOL ATP-III CLA SSIFICATION Cardiovascular RiskHDL > or equal to 60 mg/dL LOWHDL < 40 mg/dL HIGH Result Comment: HDL CHOL ATP-III CLASSIFICATION Cardiovascular Risk HDL > or equal to 60 mg/dL LOW HDL < 40 mg/dL HIGH Performed By: #### E SR, LIPID, CRP, [id number], CMP, URIC, MG, CBC, ADDONUAPLUS, T4F, TSH3, CK ####[facility] [id number] Serum or plasma thyroglobuli n antibody assay (units/volume)Ordered By: Art Rinaldi on 04-25-2023 Thyroglobulin Ab Qn [IU]/mL 0.0-0.9 [facility] Comment on above: Thyroglobulin Antibo dy measured by Lisbet CoulterMethodologyPerformed at: CB - [facility] [address] [id number] Director: Freddy Zamora PhD, Phone: [phone] Serum or plasma thyroperoxid ase antibody assay (units/volume)Ordered By: Art Rinaldi on 04-25-2023 TPO Ab Qn 13 [IU]/mL 0-34 [facility] Comment on above: Performed at: CB - [facility] [address] [id number] Director: Freddy Zamora PhD, Phone: [phone] Serum or plasma total choles terol/high density lipoprotein (HDL) cholesterol mass ratOrdered By: Art Rinaldi on 04-25-2023 Cholesterol.total/Cho lesterol in HDL [Mass ratio] 3.2 {ratio} Normal <5.0 [facility] Comment on above: Performed By: #### E SR, LIPID, CRP, [id number], CMP, URIC, MG, CBC, ADDONUAPLUS, T4F, TSH3, CK ####[facility] [id number] [place] [address] [place] Sodium [Moles/volume] in Ser um or PlasmaOrdered By: Art Rinaldi on 04-25-2023 Sodium [Moles/Vol] 140 mmol/L Normal 136-[address] [facility] Comment on above: Performed By: #### E SR, LIPID, CRP, [id number], CMP, URIC, MG, CBC, ADDONUAPLUS, T4F, TSH3, CK ####[place] [id number] Specific gravity Auto test s trip (U) [Rel density]Ordered By: Art Rinaldi on 04-25-2023 Specific gravity (U) [Rel density] 1.021 1.001-1.03 0 [facility] Squamous epithelial cells de tection in urine sediment by light microscopyOrdered By: Art Rinaldi on 04-25-2023 Epithelial cells.squamous LM Ql (Urine sed) None seen [HPF] 0-2 [facility] TT plasOrdered By: Art begum on 04-25-2023 Thrombin time Coag (PPP) [Time] 16.5 sec 0.0-23.0 [facility] Thyroid Peroxidase Antibodie son 04-25-2023 Thyroid Peroxidase Antibodies 13 Normal 0-34 [facility] Comment on above: Result Comment: Perf ormed at: CB - [facility] [address] [id number] [place], [place] [id number] Geological Drafter: Freddy Zamora PhD, Phone: [phone] Performed By: #### A NA, CH50, TPO, THYGLOB AB, CHROMATIN, C3, C4 #### [facility] , Thyrotropin [Units/volume] i n Serum or PlasmaOrdered By: Art Rinaldi on 04-25-2023 TSH Qn 3.03 m[IU]/L Normal 0.45-5.33 [facility] Comment on above: Performed By: #### E SR, LIPID, CRP, [id number], CMP, URIC, MG, CBC, ADDONUAPLUS, T4F, TSH3, CK ####[facility] [id number] Thyroxine (T4) free [Mass/vo lume] in Serum or PlasmaOrdered By: Art Rinaldi on 04-25-2023 Free T4 [Mass/Vol] 0.60 ng/dL Low 0.61-1.[address] [facility] Comment on above: Performed By: #### E SR, LIPID, CRP, [id number], CMP, URIC, MG, CBC, ADDONUAPLUS, T4F, TSH3, CK ####[facility] [id number] [place] [id number] [facility] Triglyceride [Mass/volume] i n Serum or PlasmaOrdered By: Art Rinaldi on 04-25-2023 Triglyceride [Mass/Vol] 217 mg/dL 0-149 [facility] Comment on above: TRIG ATP III CLASSIF ICATIONTRIG less than 150 mg/dL NormalTRIG 150-199 mg/dL Borderline highTRIG 200-500 mg/dL High TRIG greater than 500 mg/dL Very highStandard traceable to the Center for Disease Conrtrol and Prevention (CDC) test method. Urate [Mass/volume] in Serum or PlasmaOrdered By: Art Rinaldi on 04-25-2023 Urate [Mass/Vol] 3.9 mg/dL Normal 2.3-6.6 [facility] Comment on above: Performed By: #### E SR, LIPID, CRP, [id number], CMP, URIC, MG, CBC, ADDONUAPLUS, T4F, TSH3, CK ####[facility] [address] [place] [id number] [facility] Urea nitrogen [Mass/volume] in Serum or PlasmaOrdered By: Art Rinaldi on 04-25-2023 Urea nitrogen [Mass/Vol] 15 mg/dL Normal 7-25 [facility] Comment on above: Performed By: #### E SR, LIPID, CRP, [id number], CMP, URIC, MG, CBC, ADDONUAPLUS, T4F, TSH3, CK ####[facility] [address] [place] [address] [facility] Urine bacteria detection by automated methodOrdered By: Art Rinaldi on 04-25-2023 Bacteria Auto Ql (U) None seen None Seen [facility] Urine clarity by refractomet ry automatedOrdered By: Art Rinaldi on 04-25-2023 Clarity Refractometry automated (U) Clear Clear [facility] Urine glucose measurement by automated test strip (mass/volume)Ordered By: Art Rinaldi on 04-25-2023 Glucose Auto test strip (U) [Mass/Vol] Normal mg/dL Normal [facility] Urine hemoglobin detection b y automated test stripOrdered By: Art Rinaldi on 04-25-2023 Hemoglobin Auto test strip Ql (U) Negative Negative [facility] Urine leukocyte esterase det ection by automated test stripOrdered By: Art Rinaldi on 04-25-2023 Leukocyte esterase Auto test strip Ql (U) Negative Negative [facility] Urine pH measurement by auto mated test stripOrdered By: Art Rinaldi on 04-25-2023 pH (U) 5.0 [pH] Normal 5.0-9.0 [facility] Comment on above: Order Comment: Name Collection Type:: Clean-Voided Midstream Performed By: #### E SR, LIPID, CRP, [id number], CMP, URIC, MG, CBC, ADDONUAPLUS, T4F, TSH3, CK ####[id number] [place] [address] [facility] Urobilinogen Auto test strip (U) [Mass/Vol]Ordered By: Art Rinaldi on 04-25-2023 Urobilinogen (U) [Mass/Vol] Normal mg/dL Normal [facility] Vitamin D 25 Hydroxy Totalon 04-25-2023 Vitamin D 25 Hydroxy Total 32.0 ng/mL Normal 30-100 [facility] Comment on above: Result Comment: RONY MIN D STATUS 25([place])VITAMIN D RANGE (ng/mL) Deficient <20 Insufficient 20 to <30 Sufficient 30 to 100 Reference: Shaina Sears, Iliana MELENDEZ, et al. Evaluation,treatment, and prevention of vitamin D deficiency; an Endocrine Society clinical practice guideline. JCEM. 2010; 96(7):191-. PERFORMED BY: [place] [id number] PATHOLOGIST TEMPLATE STORAGE CLERK ALEJANDRA BONILLA M.D. Performed By: #### E SR, LIPID, CRP, [id number], CMP, URIC, MG, CBC, ADDONUAPLUS, T4F, TSH3, CK ####[address] [id number] [place] [id number] [facility] Vitamin D+Metabolites [Mass/ volume] in Serum or PlasmaOrdered By: Art Rinaldi on 04-25-2023 Vitamin D+Metabolites [Mass/Vol] 32.0 ng/mL 30-100 [facility] Comment on above: VITAMIN D STATUS 25( [place])VITAMIN D RANGE (ng/mL) Deficient <20 Insufficient 20 to <30Sufficient 30 to 100Reference: Shaina Sears, Iliana MELENDEZ, et al. Evaluation,treatment, and prevention of vitamin D deficiency; an Endocrine Society clinical practice guideline. JCEM. 2010; 96(7):1911-30. XR foot BI 2Von 04-25-2023 XR foot BI [address]V [facility] [address] [place] [id number] XRay Report Signed Patient: Christian Rich MR#: [id number] : 1955 Acct:[id number] Age/Sex: 67 / F ADM Date: 04/25/23 Loc: ICXD Room: Type: [facility] Attending Dr: Art Rinaldi MD Copies to: Art Rinaldi MD Ordering Provider: Art Rinaldi MD Date of Service: 04/25/23 XR/XR wrist BI 2V: PAIN ([id number]) XR/XR foot BI 2V: PAIN ([id number]) XR/XR hand BI 2V: PAIN CLINICAL DATA: [...] Clarissa Garcia M.D.04/25/2023 6:04 PM Dictation Location: [place] [address] Transcribed By: [facility] 04/25/231803 Dictated By: Clarissa Garcia MD 04/25/231757 Signed By: 04/25/231803 Normal [facility] aPTT.lupus sensitive/aPTT.jad pus sensitive W excess phospholipid (screen to confirm raOrdered By: Art Rinaldi on 04-25-2023 aPTT.lupus sensitive/aPTT.lupus sensitive W excess phospholipid Coag (PPP) [Ratio] 1.05 Ratio 0.00-1.34 [facility] MR lumbar spine wo conon MR lumbar spine wo con [facility] [place] [address] MRI Report Signed Patient: Christian Rich MR#: [id number] : 1955 Acct:[id number] Age/Sex: 67 / F ADM Date: 02/08/23 Loc: Room: Type: [facility] Attending Dr: Noris MCCALL Copies to: CAL [...] Clarissa Garcia M.D.02/08/2023 5:18 PM Dictation Location: [place] [address] Transcribed By: [facility] 02/08/231717 Dictated By: Clarissa Garcia MD 02/08/231707 Signed By: 02/08/231717 [facility] MR lumbar spine wo con [facility] [employer] Other MR lumbar spine wo con [facility] [employer] Other MR lumbar spine wo con [address] [place] [address] [employer] Other MR lumbar spine wo con [place] [address] [employer] Other MR lumbar spine wo con MRI Report [employer] Other MR lumbar spine wo con Signed [employer] Other MR lumbar spine wo con Patient: Christian Rich MR#: [id number] [employer] Other MR lumbar spine wo con 8127 [employer] Other MR lumbar spine wo con : 1955 Acct:[id number] [employer] Other MR lumbar spine wo con Age/Sex: 67 / F ADM Date: 02/08/23 [employer] Other MR lumbar spine wo con Loc: MR Room: Type: [facility] [employer] Other MR lumbar spine wo con Attending Dr: Noris Elder [employer]PUT[employer] SOFTWARE ENGINEER-C [employer] Other MR lumbar spine wo con Copies to: Noris Elder [employer]PUTING [employer] ENGINE[employer]-C [employer] Other MR lumbar spine wo con Ordering Provider: Noris Elder NP-C [employer] Other MR lumbar spine wo con Date of Service: 02/08/23 [employer] Other MR lumbar spine wo con MR/MR lumbar spine wo con: Lumbar pain [employer] Other MR lumbar spine wo con MRI LUMBAR SPINE WITHOUT CONTRAST [employer] Other MR lumbar spine wo con COMPARISON: Plain films 02/08/2023 [employer] Other MR lumbar spine wo con CLINICAL DATA: Chronic low back pain. No injury. [employer] Other MR lumbar spine wo con Multiecho imaging in the axial and sagittal plane was performed without contrast. [employer] Other MR lumbar spine wo con There is dextroscoliotic curvature. There is slight anterolisthesis of L5 on S1. Alignment is [employer] Other MR lumbar spine wo con otherwise maintained. No acute compression fractures or marrow edema are identified. There is [employer] Other MR lumbar spine wo con multilevel degenerative endplate signal change. The conus medullaris terminates at the L1-2 level. [employer] Other MR lumbar spine wo con No paraspinal soft tissue abnormalities are noted. [employer] Other MR lumbar spine wo con At T12-L1, there is narrowing of the disc space. There is mild annular disc bulging, slightly [employer] Other MR lumbar spine wo con asymmetric extending laterally on the right. There is slight anterior thecal sac effacement. The [employer] Other MR lumbar spine wo con neural foramen are patent. [employer] Other MR lumbar spine wo con L1-2, there is narrowing of the disc space. There is mild annular disc bulging, greater extending [employer] Other MR lumbar spine wo con laterally. There is minor facet disease. Mild thecal sac effacement is present. There is mild [employer] Other MR lumbar spine wo con right and mild to moderate left foraminal encroachment. [employer] Other MR lumbar spine wo con At L2-3, there is narrowing of the disc space. There is annular disc bulging, greater toward the [employer] Other MR lumbar spine wo con neural foramen and slightly asymmetric extending laterally on the left. There is bilateral facet [employer] Other MR lumbar spine wo con hypertrophy with fluid in the joint on the right. There is also thickening of ligamentum flavum, [employer] Other MR lumbar spine wo con slightly greater on the left. There is at moderate thecal sac effacement. There is mild right and [employer] Other MR lumbar spine wo con moderate left foraminal impingement. [employer] Other MR lumbar spine wo con At L3-4, there is narrowing of the space. Annular disc bulging is visualized, greater toward the [employer] Other MR lumbar spine wo con neural foramen where there is a more focal protrusion on the left. There is moderate facet and [employer] Other MR lumbar spine wo con ligamentous hypertrophy. There is moderate thecal sac effacement. There is moderate left and mild [employer] Other MR lumbar spine wo con right foraminal impingement. [employer] Other MR lumbar spine wo con At L4-5, there is narrowing of the disc space. Annular disc bulging is visualized, greater toward [employer] Other MR lumbar spine wo con the neural foramen and slightly asymmetric extending laterally on the right. There is facet and [employer] Other MR lumbar spine wo con ligamentous hypertrophy. Mild to moderate thecal sac effacement is identified. There is mild to [employer] Other MR lumbar spine wo con potentially moderate left and moderate to severe right foraminal impingement. [employer] Other MR lumbar spine wo con At the lumbosacral junction, there is mild annular disc bulging, slightly more focal in the right [employer] Other MR lumbar spine wo con parasagittal region extending toward the neural foramen. There is prominent bilateral facet [employer] Other MR lumbar spine wo con disease. A synovial cyst is visualized posterior to the facets on the right. There is mild thecal [employer] Other MR lumbar spine wo con sac effacement. Mild left and mild to moderate right foraminal encroachment is identified. [employer] Other MR lumbar spine wo con MR/MR lumbar spine wo con [employer] Other MR lumbar spine wo con IMPRESSION: [employer] Other MR lumbar spine wo con DEXTROSCOLIOSIS AND MULTILEVEL DISCOVERTEBRAL DEGENERATIVE CHANGES WITH ASSOCIATED STENOSIS, [employer] Other MR lumbar spine wo con OUTLINED ABOVE. [employer] Other MR lumbar spine wo con Impression dictated by: Clarissa Garcia M.D.02/08/2023 5:18 PM [employer] Other MR lumbar spine wo con Dictation Location: [place] [address] [employer] Other MR lumbar spine wo con Transcribed By: [facility] 02/08/23 [facility] [employer] Other MR lumbar spine wo con Dictated By: Clarissa Garcia MD 02/08/23 170 [employer] Other MR lumbar spine wo con Signed By: [employer] Other MR lumbar spine wo con 02/08/23 1715 [employer] Other US breast LT limitedon 02-08 US breast LT limited [facility] [place] [address] Ultrasound Report Signed Patient: Christian Rich MR#: [id number] : 1955 Acct:[id number] Age/Sex: 67 / F ADM Date: 02/08/23 Loc: [facility] Room: Type: [facility] Attending Dr: Augusto Siu DO Ordering Provider: [...] Stanislav Anthony M.D.02/08/2023 2:54 PM Dictation Location: [facility] Tech: Farrah Andrews Transcribed By: JAHAIRA 02/08/23 145 Dictated By: Stanislav Anthony DO 02/08/231452 Signed By: 02/08/23 145 Normal [facility] XR lumbar spine 6V w bending on 02-08-2023 XR lumbar spine 6V w bending [facility] [address] [place] [address] [place] [address] XRay Report Signed Patient: Christian Rich MR#: [id number] : 1955 Acct:[id number] Age/Sex: 67 / F ADM Date: 02/08/23 Loc: MR Room: Type: [facility] Attending Dr: Noris KLEINC Copies to: CAL [...] Clarissa Garcia M.D.02/08/2023 5:08 PM Dictation Location: [facility] Transcribed By: JAHAIRA 02/08/231707 Dictated By: Clarissa Garcia MD 02/08/23 1706 Signed By: 02/08/23 1708 [facility] XR lumbar spine 6V w bending XRay Report [employer] Other XR lumbar spine 6V w bending XR/XR lumbar spine 6V w bending: Lumbar pain [employer] Other XR lumbar spine 6V w bending LUMBAR SPINE WITH FLEXION, EXTENSION AND BENDING VIEWS - 6 views: [employer] Other XR lumbar spine 6V w bending CLINICAL HISTORY: Nonradiating low back pain. No injury. [employer] Other XR lumbar spine 6V w bending COMPARISON: 04/28/2020 [facility] Other XR lumbar spine 6V w bending Standing AP neutral, right left bending and lateral views with neutral, flexion and extension were [employer] Other XR lumbar spine 6V w bending obtained. There is osteopenia. There is rotatory dextroscoliotic curvature. There is minimal [employer] Other XR lumbar spine 6V w bending anterolisthesis of L5 on S1. There is no other malalignment or instability. No acute fractures are [employer] Other XR lumbar spine 6V w bending seen. There is disc space narrowing at the upper lumbar levels, asymmetric toward the left. There [employer] Other XR lumbar spine 6V w bending is also mild posterior disc space narrowing at L3-4 and L4-5. There are tiny endplate spurs. There [employer] Other XR lumbar spine 6V w bending is mid and lower lumbar facet disease. The SI joints are intact. No paraspinal soft tissue [employer] Other XR lumbar spine 6V w bending abnormalities are present. [employer] Other XR lumbar spine 6V w bending XR/XR lumbar spine 6V w bending [employer] Other XR lumbar spine 6V w bending SCOLIOSIS AND DEGENERATIVE CHANGES. [employer] Other XR lumbar spine 6V w bending Impression dictated by: Clarissa Garcia M.D.02/08/2023 5:08 PM [employer] Other XR lumbar spine 6V w bending Transcribed By: [facility] 02/08/23 1703 [employer] Other XR lumbar spine 6V w bending Dictated By: Clarissa Garcia MD 02/08/23 1706 [employer] Other XR lumbar spine 6V w bending 02/08/23 1705 [employer] Other Office Visit (Cardiology)on 06-19-2022 Follow-up visit [...] UP WITH PRIMARY CARE Physician. Jake Zepeda MA, am scribing for and in the presence [...] Normal left ventricular function per echocardiogram in 2016, stable 4. Abnormal stress test based on [...] (I47.1) Surgical History Problems History of Colonoscopy [id number] History of Excision of basal cell carcinoma History of Radiofrequency ablation History of Tonsillectomy with adenoidectomy History of Total hysterectomy abdominal Past Medical History Problems History of BMI 24.0-24.9, adult (V85.1) (Z68.24) Current Meds Medication NameInstruction Estrace 1 MG Oral TabletTAKE 1 TABLET DAILY. Verbally updated medication list with Patient. Patient did not bring medication bottles or (more content not included)... Normal [employer] Tobacco Screening.on 022 Adult depression screening assessment No [facility] [address] DO Work Phone: Fall risk assessment a) No falls within the last year [facility] 127 DO Work Phone: Tobacco use status CPHS b) No [facility] [address] DO Work Phone: Albumin [Mass/volume] in Ser um or PlasmaOrdered By: Latoya Chong on 06-09-2022 Albumin [Mass/Vol] 3.7 g/dL 3.2-5.[address] [facility] Basophils Auto (Bld) [#/Vol] Ordered By: Latoya Bunting on 06-09-2022 Basophils (Bld) [#/Vol] 0.0 10*3/uL 0.0-0.2 [facility] Basophils/100 WBC Auto (Bld) Ordered By: Latoya Chong on 06-09-2022 Basophils/100 WBC (Bld) 0.2 % . [facility] Cholesterol [Mass/volume] in Serum or PlasmaOrdered By: Latoya Bunnoram on 06-09-2022 Cholesterol [Mass/Vol] 231 mg/dL 140-200 [facility] Comment on above: Chol less than 200 m g/dl low riskChol 201-239 mg/dl borderline riskChol 240 mg/dl and greater high risk Cholesterol in LDL Calc [Mas s/Vol]Ordered By: Latoya Bunting on 06-09-2022 Cholesterol in LDL [Mass/Vol] 135 mg/dL 0-100 [facility] Comment on above: LDL ATP III CLASSIFI CATIONLDL less than 100 mg/dL OptimalLDL 100-129 mg/dL Near or above optimalLDL 130-159 mg/dL Borderline highLDL 160-189 mg/dL HighLDL greater than 189 mg/dL Very high Cholesterol in VLDL Calc [Ma ss/Vol]Ordered By: Latoya Bunting on 06-09-2022 Cholesterol in VLDL [Mass/Vol] 25 mg/dL [facility] Creatinine and Glomerular fi ltration rate.predicted panel (S/P/Bld)Ordered By: Latoya Bunnorma on 06-09-2022 Creatinine [Mass/Vol] 0.69 mg/dL 0.44-1.03 [facility] Eosinophils Auto (Bld) [#/Vo l]Ordered By: Latoya Bunting on 06-09-2022 Eosinophils (Bld) [#/Vol] 0.0 10*3/uL 0.0-0.45 [facility] Eosinophils/100 WBC Auto (Bl d)Ordered By: Latoya Bunting on 06-09-2022 Eosinophils/100 WBC (Bld) 0.7 % . [facility] Erythrocyte distribution wid th Auto (RBC) [Ratio]Ordered By: Latoya Bunting on 06-09-2022 Erythrocyte distribution width (RBC) [Ratio] 13.4 % 11.9-15.3 [facility] Estimated glomerular filtrat ion rate (GFR) non- AmericanOrdered By: Latoya Bunnorma on 06-09-2022 GFR/1.73 sq M.predicted among non-blacks MDRD (S/P/Bld) [Vol rate/Area] > 60 mL/Min [facility] Globulin Calc (S) [Mass/Vol] Ordered By: Latoya Bunnorma on 06-09-2022 Globulin (S) [Mass/Vol] 2.5 g/dL [facility] Hematocrit Auto (Bld) [Volum e fraction]Ordered By: Latoya Bunting on 06-09-2022 Hematocrit (Bld) [Volume fraction] 38.6 % 34.0-46.4 [facility] Hemoglobin [Mass/volume] in BloodOrdered By: Latoya Bunting on 06-09-2022 Hemoglobin (Bld) [Mass/Vol] 12.9 g/dL 11.8-15.4 [facility] Laboratory - Hematology and Cell countsOrdered By: Latoya Bunting on 06-09-2022 Nucleated RBC/100 WBC (Bld) [Ratio] 0.1 % 0-0.5 [facility] Leukocytes [#/volume] in Blo od by Automated countOrdered By: Latoay Bunting on 06-09-2022 WBC (Bld) [#/Vol] 6.5 10*3/uL 4.5-11.[address] [facility] Lymphocytes Auto (Bld) [#/Vo l]Ordered By: Latoya Bunting on 06-09-2022 Lymphocytes (Bld) [#/Vol] 2.3 10*3/uL 1.00-4.8 [facility] Lymphocytes/100 WBC Auto (Bl d)Ordered By: Latoya Bunting on 06-09-2022 Lymphocytes/100 WBC (Bld) 34.9 % . [facility] MCH Auto (RBC) [Entitic mass ]Ordered By: Latoya Bunting on 06-09-2022 MCH (RBC) [Entitic mass] 29.9 pg 24.7-34.3 [facility] MCHC Auto (RBC) [Mass/Vol]Or dered By: Latoya Bunting on 06-09-2022 MCHC (RBC) [Mass/Vol] 33.5 g/dL 32.0-35.0 [facility] MCV Auto (RBC) [Entitic vol] Ordered By: Latoya Bunting on 06-09-2022 MCV (RBC) [Entitic vol] 89.2 fL 80-100 [facility] Monocytes Auto (Bld) [#/Vol] Ordered By: Latoya Bunting on 06-09-2022 Monocytes (Bld) [#/Vol] 0.5 10*3/uL 0.0-0.8 [facility] Monocytes/100 WBC Auto (Bld) Ordered By: Latoya Bunting on 06-09-2022 Monocytes/100 WBC (Bld) 8.5 % . [facility] Neutrophils Auto (Bld) [#/Vo l]Ordered By: Latoya Bunting on 06-09-2022 Neutrophils (Bld) [#/Vol] 3.6 10*3/uL 1.8-7.7 [facility] Neutrophils/100 WBC Auto (Bl d)Ordered By: Latoya Bunting on 06-09-2022 Neutrophils/100 WBC (Bld) 55.7 % . [facility] No Panel InformationOrdered By: Latoya Bunting on 06-09-2022 25-Hydroxy Vitamin D Total 39.8 ng/mL 30-100 [facility] Comment on above: VITAMIN D STATUS 25( [place])VITAMIN D RANGE (ng/mL) Deficient <20 Insufficient 20 to <30Sufficient 30 to 100Reference: Aly MF,Shaina NC, Iliana MELENDEZ, et al. Evaluation,treatment, and prevention of vitamin D deficiency; an Endocrine Society clinical practice guideline. JCEM. 2010; 96(7):1911-30. Estimated GFR () > 60 mL/Min [facility] Comment on above: GFR estimated refere nce range: According to KDOQI guidelines, <60 ml/min/1.73m2 is sufficient to diagnose a patient with chronic kidney disease. Pharmacy Creatinine Clearance (Chem N/A [facility] Platelet mean volume Auto (B ld) [Entitic vol]Ordered By: Latoya Bunting on 06-09-2022 Platelet mean volume (Bld) [Entitic vol] 8.0 fL 6.3-10.7 [facility] Platelets Auto (Bld) [#/Vol] Ordered By: Latoya Bunting on 06-09-2022 Platelets (Bld) [#/Vol] 261 10*3/uL 150-450 [facility] Protein [Mass/volume] in Ser um or PlasmaOrdered By: Latoya Bunting on 06-09-2022 Protein [Mass/Vol] 6.2 g/dL 6.1-7.[address] [facility] RBC Auto (Bld) [#/Vol]Ordere d By: Latoya Chong on 06-09-2022 RBC (Bld) [#/Vol] 4.33 10*6/uL 3.60-5.00 [facility] Serum or plasma alanine castro otransferase measurement without P-5'-P (enzymatic activiOrdered By: Latoya Bunnorma on 06-09-2022 ALT No additional P-5'-P [Catalytic activity/Vol] 13 U/L 10-60 [facility] Serum or plasma albumin/glob ulin mass ratioOrdered By: Latoya Chong on 06-09-2022 Albumin/Globulin [Mass ratio] 1.5 {ratio} [facility] Serum or plasma alkaline tesha sphatase measurement (enzymatic activity/volume)Ordered By: Latoya Chong on 06-09-2022 ALP [Catalytic activity/Vol] 51 U/L 32-92 [facility] Serum or plasma anion gap de terminationOrdered By: Latoya Chong on 06-09-2022 Anion gap [Moles/Vol] 15.5 mmol/L 6.0-15.0 [facility] Serum or plasma aspartate am inotransferase measurement (enzymatic activity/volume)Ordered By: Latoya Chong on 06-09-2022 AST [Catalytic activity/Vol] 19 U/L 10-42 [facility] Serum or plasma calcium franchesca urement (mass/volume)Ordered By: Latoya Chong on 06-09-2022 Calcium [Mass/Vol] 9.2 mg/dL 8.2-10.[address] [facility] Serum or plasma chloride aristidse surement (moles/volume)Ordered By: Latoya Chong on 06-09-2022 Chloride [Moles/Vol] 102 mmol/L 95-114 [place] [facility] Serum or plasma glucose franchesca urement (mass/volume)Ordered By: Latoya Chong on 06-09-2022 Glucose [Mass/Vol] 91 mg/dL 70-[address] [facility] Comment on above: ADA recommended refe rence rangeRandom Glucose Reference Range is dependent on time and content of last meal. Glucose of more than 200 mg/dL in a nonstressed, ambulatory subject supports the diagnosis of Diabetes Mellitus. Serum or plasma high density lipoprotein (HDL) cholesterol measurementOrdered By: Latoya Chong on 06-09-2022 Cholesterol in HDL [Mass/Vol] 71 mg/dL 35-85 [facility] Comment on above: HDL CHOL ATP-III CLA SSIFICATION Cardiovascular RiskHDL > or equal to 60 mg/dL LOWHDL < 40 mg/dL HIGH Serum or plasma potassium me asurement (moles/volume)Ordered By: Latoya Chong on 06-09-2022 Potassium [Moles/Vol] 4.1 mmol/L 3.5-5.1 [facility] Serum or plasma sodium measu rement (moles/volume)Ordered By: Latoya Chong on 06-09-2022 Sodium [Moles/Vol] 139 mmol/L 136-[address] [facility] Serum or plasma total biliru bin measurement (mass/volume)Ordered By: Latoya Chong on 06-09-2022 Bilirubin [Mass/Vol] 0.7 mg/dL 0.3-1.2 [facility] Serum or plasma total carbon dioxide measurement (moles/volume)Ordered By: Latoya Chong on 06-09-2022 CO2 [Moles/Vol] 25.6 mmol/L 22.0-30.0 [facility] Serum or plasma total choles terol/high density lipoprotein (HDL) cholesterol mass ratOrdered By: Latoya Chong on 06-09-2022 Cholesterol.total/Cho lesterol in HDL [Mass ratio] 3.3 {ratio} <5.0 [facility] Serum or plasma urea nitroge n measurement (mass/volume)Ordered By: Latoya Chong on 06-09-2022 Urea nitrogen [Mass/Vol] 11 mg/dL 9-23 [facility] Triglyceride [Mass/volume] i n Serum or PlasmaOrdered By: Latoya Chong on 06-09-2022 Triglyceride [Mass/Vol] 125 mg/dL 35-149 [facility] Comment on above: TRIG ATP III CLASSIF ICATIONTRIG less than 150 mg/dL NormalTRIG 150-199 mg/dL Borderline highTRIG 200-500 mg/dL High TRIG greater than 500 mg/dL Very highStandard traceable to the Center for Disease Conrtrol and Prevention (CDC) test method. Basophils Auto (Bld) [#/Vol] Ordered By: Gregorio Barton on 03-31-2022 Basophils (Bld) [#/Vol] 0.0 10*3/uL 0.0-0.2 [facility] Basophils/100 WBC Auto (Bld) Ordered By: Gregorio Barton on 03-31-2022 Basophils/100 WBC (Bld) 0.3 % . [facility] Blood hemoglobin measurement (mass/volume)Ordered By: Gregorio Barton on 03-31-2022 Hemoglobin (Bld) [Mass/Vol] 13.0 g/dL 11.8-15.4 [facility] Blood leukocytes automated c ount (number/volume)Ordered By: Gregorio Barton on 03-31-2022 WBC (Bld) [#/Vol] 6.7 10*3/uL 4.5-11.[address] [facility] Body fluid albumin measureme nt (mass/volume)Ordered By: Gregorio Barton on 03-31-2022 Albumin (Body fld) [Mass/Vol] 3.7 g/dL 3.2-5.5 [facility] Creatinine and Glomerular fi ltration rate.predicted panel (S/P/Bld)Ordered By: Gregorio Barton on 03-31-2022 Creatinine [Mass/Vol] 0.70 mg/dL 0.44-1.03 [facility] Eosinophils Auto (Bld) [#/Vo l]Ordered By: Gregorio Barton on 03-31-2022 Eosinophils (Bld) [#/Vol] 0.0 10*3/uL 0.0-0.45 [facility] Eosinophils/100 WBC Auto (Bl d)Ordered By: Gregorio Barton on 03-31-2022 Eosinophils/100 WBC (Bld) 0.6 % . [facility] Erythrocyte distribution wid th Auto (RBC) [Ratio]Ordered By: Gregorio Barton on 03-31-2022 Erythrocyte distribution width (RBC) [Ratio] 12.9 % 11.9-15.3 [facility] Estimated glomerular filtrat ion rate (GFR) non- AmericanOrdered By: Gregorio Barton on 03-31-2022 GFR/1.73 sq M.predicted among non-blacks MDRD (S/P/Bld) [Vol rate/Area] > 60 mL/Min [facility] Globulin Calc (S) [Mass/Vol] Ordered By: Gregorio Barton on 03-31-2022 Globulin (S) [Mass/Vol] 2.6 g/dL [facility] Hematocrit Auto (Bld) [Volum e fraction]Ordered By: Gregorio Barton on 03-31-2022 Hematocrit (Bld) [Volume fraction] 38.9 % 34.0-46.4 [facility] Laboratory - Hematology and Cell countsOrdered By: Gregorio Barton on 03-31-2022 Nucleated RBC/100 WBC (Bld) [Ratio] 0.0 % 0-0.5 [facility] Lymphocytes Auto (Bld) [#/Vo l]Ordered By: Gregorio Barton on 03-31-2022 Lymphocytes (Bld) [#/Vol] 2.4 10*3/uL 1.00-4.8 [facility] Lymphocytes/100 WBC Auto (Bl d)Ordered By: Gregorio Barton on 03-31-2022 Lymphocytes/100 WBC (Bld) 35.3 % . [facility] MCH Auto (RBC) [Entitic mass ]Ordered By: Gregorio Barton on 03-31-2022 MCH (RBC) [Entitic mass] 29.8 pg 24.7-34.3 [facility] MCHC Auto (RBC) [Mass/Vol]Or dered By: Gregorio Barton on 03-31-2022 MCHC (RBC) [Mass/Vol] 33.5 g/dL 32.0-35.0 [facility] MCV Auto (RBC) [Entitic vol] Ordered By: Gregorio Barton on 03-31-2022 MCV (RBC) [Entitic vol] 89.0 fL 80-100 [facility] Monocytes Auto (Bld) [#/Vol] Ordered By: Gregorio Barton on 03-31-2022 Monocytes (Bld) [#/Vol] 0.5 10*3/uL 0.0-0.8 [facility] Monocytes/100 WBC Auto (Bld) Ordered By: Gregorio Barton on 03-31-2022 Monocytes/100 WBC (Bld) 7.2 % . [facility] Neutrophils Auto (Bld) [#/Vo l]Ordered By: Gregorio Barton on 03-31-2022 Neutrophils (Bld) [#/Vol] 3.8 10*3/uL 1.8-7.7 [facility] Neutrophils/100 WBC Auto (Bl d)Ordered By: Gregorio Barton on 03-31-2022 Neutrophils/100 WBC (Bld) 56.6 % . [facility] No Panel InformationOrdered By: Gregorio Barton on 03-31-2022 Estimated GFR () > 60 mL/Min [facility] Comment on above: GFR estimated refere nce range: According to KDOQI guidelines, <60 ml/min/1.73m2 is sufficient to diagnose a patient with chronic kidney disease. Pharmacy Creatinine Clearance (Chem N/A [facility] No Panel Informationon 03-31 56.6\S\56.6 Normal . [facility] [employer] Work Phone: 8.2\S\8.2 Normal 6.3-10.7 [facility] [employer] Work Phone: 244\S\244 Normal 150-450 [facility] [employer] Work Phone: 12.9\S\12.9 Normal 11.9-15.3 [facility] [employer] Work Phone: 33.5\S\33.5 Normal 32.0-35.0 [facility] [employer] Work Phone: 29.8\S\29.8 Normal 24.7-34.3 [facility] [employer] Work Phone: 3.8\S\3.8 Normal 1.8-7.7 [facility] [employer] Work Phone: 0.0\S\0.0 Normal 0.0-0.45 [facility] [employer] [place] Work Phone: Comment on above: PERFORMED BY:[facility] [place] [phone] MEDICAL DIRECTORALEJANDRA BONILLA M.D. 0.3\S\0.3 Normal . [facility] Work Phone: 0.6\S\0.6 Normal 0.3-1.2 -[facility] Work Phone: 7.2\S\7.2 Normal . -[facility] Work Phone: 35.3\S\35.3 Normal . -[facility] Work Phone: 0.5\S\0.5 Normal 0.0-0.8 -[facility] Work Phone: 2.4\S\2.4 Normal 1.00-4.8 -[facility] Work Phone: 89.0\S\89.0 Normal 80-100 -[facility] Work Phone: 38.9\S\38.9 Normal 34.0-46.4 -[facility] Work Phone: 13.0\S\13.0 Normal 11.8-15.4 -[facility] Work Phone: 4.37\S\4.37 Normal 3.60-5.00 -[facility] Work Phone: 6.7\S\6.7 Normal 3.8-11.6 -[facility] Work Phone: [phone] 3.7\S\3.7 Normal 3.2-5.5 -[facility] Work Phone: 6.3\S\6.3 Normal 6.1-7.9 [facility] Work Phone: 9.1\S\9.1 Normal 8.2-10.2 [facility] Work Phone: 23.3\S\23.3 Normal 22.0-30.0 [facility] Work Phone: 103\S\103 Normal 95-114 -[facility] Work Phone: 4.1\S\4.1 Normal 3.5-5.1 [facility] Work Phone: 46\S\46 Normal 32-92 -[facility] [employer] Work Phone: 14\S\14 Normal 10-60 -[facility] Work Phone: 16\S\16 Normal 10-42 -[facility] Work Phone: [phone] 1.4\S\1.4 Normal -[facility] [employer] [employer] Work Phone: 2.6\S\2.6 Normal [facility] [place] [employer] Work Phone: 137\S\137 Normal 136-146 -[facility] Work Phone: > 60 Normal [facility] [place] [facility] Work Phone: Comment on above: GFR estimated refere nce range: According to KDOQI guidelines, <60 ml/min/1.73m2 is sufficient to diagnose a patient with chronic kidney disease. 0.70\S\0.70 Normal 0.44-1.03 [facility] [employer] Work Phone: 12\S\12 Normal 9-23 [facility] Work Phone: 88\S\88 Normal 70-100 [facility] Work Phone: Comment on above: Random Glucose Refer ence Range is dependent on time and content of last meal. Glucose of more than 200 mg/dL in a nonstressed, ambulatory subject supports the diagnosis of Diabetes Mellitus. ADA recommended reference range 3.65\S\3.65 Normal 0.45-5.33 [facility] Work Phone: Comment on above: PERFORMED BY:[facility] [place] [place], [place] [phone] MEDICAL DIRECTORALEJANDRA BONILLA M.D. Platelet mean volume Auto (B ld) [Entitic vol]Ordered By: Gregorio Barton on 03-31-2022 Platelet mean volume (Bld) [Entitic vol] 8.2 fL 6.3-10.7 [facility] Platelets Auto (Bld) [#/Vol] Ordered By: Gregorio Barton on 03-31-2022 Platelets (Bld) [#/Vol] 244 10*3/uL 150-450 [facility] Protein [Mass/volume] in Ser um or PlasmaOrdered By: Greogrio Barton on 03-31-2022 Protein [Mass/Vol] 6.3 g/dL 6.1-7.[address] [facility] RBC Auto (Bld) [#/Vol]Ordere d By: Gregorio Barton on 03-31-2022 RBC (Bld) [#/Vol] 4.37 10*6/uL 3.60-5.00 [facility] Serum or plasma alanine castro otransferase measurement without P-5'-P (enzymatic activiOrdered By: Gregorio Barton on 03-31-2022 ALT No additional P-5'-P [Catalytic activity/Vol] 14 U/L 10-60 [facility] Serum or plasma albumin/glob ulin mass ratioOrdered By: Gregorio Barton on 03-31-2022 Albumin/Globulin [Mass ratio] 1.4 {ratio} [facility] Serum or plasma alkaline tesha sphatase measurement (enzymatic activity/volume)Ordered By: Gregorio Barton on 03-31-2022 ALP [Catalytic activity/Vol] 46 U/L 32-92 [facility] Serum or plasma aspartate am inotransferase measurement (enzymatic activity/volume)Ordered By: Gregorio Barton on 03-31-2022 AST [Catalytic activity/Vol] 16 U/L 10-42 [facility] Serum or plasma calcium franchesca urement (mass/volume)Ordered By: Gregorio Barton on 03-31-2022 Calcium [Mass/Vol] 9.1 mg/dL 8.2-10.[address] [facility] Serum or plasma chloride aristides surement (moles/volume)Ordered By: Gregorio Barton on 03-31-2022 Chloride [Moles/Vol] 103 mmol/L 95-114 [facility] Serum or plasma glucose franchesca urement (mass/volume)Ordered By: Gregorio Barton on 03-31-2022 Glucose [Mass/Vol] 88 mg/dL 70-[address] [facility] Comment on above: ADA recommended [...] on 03-31-2022 Potassium [Moles/Vol] 4.1 mmol/L 3.5-5.1 [facility] Serum or plasma sodium measu rement (moles/volume)Ordered By: Gregorio Barton on 03-31-2022 Sodium [Moles/Vol] 137 mmol/L 136-[address] [facility] Serum or plasma total biliru bin measurement (mass/volume)Ordered By: Gregorio Barton on 03-31-2022 Bilirubin [Mass/Vol] 0.6 mg/dL 0.3-1.2 [facility] Serum or plasma total carbon dioxide measurement (moles/volume)Ordered By: Gregorio Barton on 03-31-2022 CO2 [Moles/Vol] 23.3 mmol/L 22.0-30.0 [facility] Serum or plasma urea nitroge n measurement (mass/volume)Ordered By: Gregorio Barton on 03-31-2022 Urea nitrogen [Mass/Vol] 12 mg/dL 04-28 [facility] TSH DL <= 0.005 mIU/L QnOrde red By: Gregorio Barton on 03-31-2022 TSH Qn 3.65 m[IU]/L 0.45-5.33 [facility] BASIC METABOLIC PANELon 12- Anion gap [Moles/Vol] 13 mmol/L Normal 10 - 20 [facility] Comment on above: Performed By: #### B MP #### [address] [address] Calcium [Mass/Vol] 9.4 mg/dL Normal 8.6 - 10.3 [facility] Comment on above: Performed By: #### B MP #### [address] [address] Chloride [Moles/Vol] 103 mmol/L Normal 98 - 107 [facility] Comment on above: Performed By: #### B MP #### [address] [address] Creatinine [Mass/Vol] 0.67 mg/dL Normal 0.50 - 1.05 [facility] Comment on above: Performed By: #### B MP #### [address] [address] GFR- AM. >60 Normal >60 [facility] Comment on above: Result Comment: CALC ULATIONS OF ESTIMATED GFR ARE PERFORMED USING THE MDRD STUDY EQUATION FOR THE IDMS-TRACEABLE CREATININE METHODS. CLIN CHEM 2007;53:766-72 Performed By: #### B MP #### [address] [address] GFR-NON AM. >60 Normal >60 [facility] Comment on above: Performed By: #### B MP #### [address] [address] Glucose [Mass/Vol] 93 mg/dL Normal 74 - 99 [facility] Comment on above: Performed By: #### B MP #### [address] [address] HCO3 (Bld) [Moles/Vol] 27 mmol/L Normal 21 - 32 [facility] Comment on above: Performed By: #### B MP #### [address] [address] Potassium [Moles/Vol] 3.6 mmol/L Normal 3.5 - 5.3 [facility] Comment on above: Performed By: #### B MP #### [address] [address] Sodium [Moles/Vol] 139 mmol/L Normal 136 - 145 [facility] Comment on above: Performed By: #### B MP #### [address] [address] Urea nitrogen [Mass/Vol] 12 mg/dL Normal 6 - 23 [facility] Comment on above: Performed By: #### B MP #### [address] [address] CBCon 07-23-2020 Erythrocyte distribution width (RBC) [Ratio] 12.5 % Normal 11.5 - 14.5 [facility] Comment on above: Performed By: #### C BC #### [address] [address] Hematocrit (Bld) [Volume fraction] 40.8 % Normal 36.0 - 46.0 [facility] Comment on above: Performed By: #### C BC #### [address] [address] Hemoglobin (Bld) [Mass/Vol] 13.6 g/dL Normal 12.0 - 16.0 [facility] Comment on above: Performed By: #### C BC #### [address] [address] MCHC (RBC) [Mass/Vol] 33.3 g/dL Normal 32.0 - 36.0 [facility] Comment on above: Performed By: #### C BC #### [address] [address] MCV (RBC) [Entitic vol] 90 fL Normal 80 - 100 [facility] Comment on above: Performed By: #### C BC #### [address] [address] Nucleated RBC/100 WBC (Bld) [Ratio] 0.0 /100 WBC Normal 0.0 - 0.0 [facility] Comment on above: Performed By: #### C BC #### [address] [address] Platelets (Bld) [#/Vol] 228 10*3/uL Normal 150 - 450 [facility] Comment on above: Performed By: #### C BC #### [address] [address] RBC (Bld) [#/Vol] 4.53 x10E12/L Normal 4.00 - 5.20 [facility] Comment on above: Performed By: #### C BC #### [address] [address] WBC (Bld) [#/Vol] 7.9 10*3/uL Normal 4.4 - 11.3 [facility] Comment on above: Performed By: #### C BC #### [address] [address] CORONAVIRUS 2019, SCREEN ASY MPTOMATICon 07-23-2020 CORONAVIRUS 2019,PCR NOT DETECTED Normal Not Detected [facility] Comment on above: Result Comment: . This assay is designed to detect the N2 and E genes of SARS-CoV-2 via nucleic acid amplification. A Not Detected result does not preclude COVID-19 infection since the adequacy of sample collection and/or low viral burden may result in presence of viral nucleic acids below the clinical sensitivity of this test method. Fact sheet for providers: www.fda.gov/media/632207/download Fact sheet for patients: www.fda.gov/media/295439/download This test has received FDA Emergency Use Authorization (EUA) and has been verified by [facility]. This test is only authorized for the duration of time that circumstances exist to justify the authorization of the emergency use of in vitro diagnostic tests for the detection of SARS-CoV-2 virus and/or diagnosis of COVID-19 infection under section 564(b)(1) of the Act, 21 U.S.C. 360bbb-3(b)(1), unless the authorization is terminated or revoked sooner. [facility] is certified under CLIA-88 as qualified to perform high complexity testing. Testing is performed in the [facility] laboratory located at [address] [place] [address]. Performed By: #### C OVSC #### [place] [address] Lab Specimen Source Nasal, Nasopharyngeal Normal [facility] Comment on above: Performed By: #### C OVSC #### [place] [address] Covid 19 Resultson 0 Covid 19 Results [...] You may also be contacted by the [facility] to see if any of [...] or Naproxen (Aleve) can also be used. Enqi-kak-snbkmri cough and cold medicines can be used according to the instructions on the package. Some jpbl-zyt-apfumff medicines also contain acetaminophen. Make sure you [...] water are not available, use alcohol-based hand residential care officer. Avoid touching your eyes, nose, and mouth [...] a total of 10 days. Additional resources: [facility] COVID Hotline at 5-312-4RKGSMR ( ). COVID-19 Careline at (available 24 hours per day, seven days a week if you or a loved one is experiencing anxiety related to the coronavirus pandemic). Clinical research opportunities: is conducting research studies to develop better testing and treatments for COVID. Do you want any information on how to participate Call [phone]. Websites: hospitals.org or www.CDC.gov Follow My Health / My [facility] (for other test results): Revised 06/22/2020 Electronic Signatures: April Chen (ADMIN) (Signature pending) Authored Last Updated: 23-Jul-2020 11:41 by April [employer] (ADMIN) Normal [facility] PT/INRon 07-23-2020 INR Coag (PPP) [Relative time] 1.0 {INR} Normal 0.9 - 1.1 [facility] Comment on above: Performed By: #### P TINR #### [address] [address] PT Coag (PPP) [Time] 11.2 s Normal 10.1 - 13.3 [facility] Comment on above: Performed By: #### P TINR #### [address] [address] Vital Signs Date Time Vital Sign Value Performing Clinician Facility 08-08-2023 08:08-0500 Diastolic blood pressure 90 mm[Hg] Richard JACKSON [facility] 08-08-2023 08:08-0500 Heart rate 94 /min Richard JACKSON [facility] 08-08-2023 08:08-0500 Mean blood pressure 113 mm[Hg] Richard JACKSON [facility] 08-08-2023 08:08-0500 Respiratory rate 18 /min Richard JACKSON [facility] 08-08-2023 08:08-0500 Systolic blood pressure 159 mm[Hg] Richard JACKSON [facility] 08-08-2023 07:34-0500 Blood Pressure Location Richard JACKSON [facility] 08-08-2023 07:34-0500 Diastolic blood pressure 105 mm[Hg] Richard JACKSON [facility] 08-08-2023 07:34-0500 Heart rate 104 /min Richard JACKSON [facility] 08-08-2023 07:34-0500 Respiratory rate 18 /min Richard JACKSON [facility] 08-08-2023 07:34-0500 Systolic blood pressure 156 mm[Hg] Richard JACKSON [facility] 06-08-2023 12:37-0400 Diastolic blood pressure 88 mm[Hg] Richard JACKSON [facility] 06-08-2023 12:37-0400 Heart rate 91 /min Richard JACKSON [facility] 06-08-2023 12:37-0400 Respiratory rate 16 /min Richard JACKSON [facility] 06-08-2023 12:37-0400 Systolic blood pressure 136 mm[Hg] Richard JACKSON [facility] 01-15-2023 09:50-0400 Body height 165.1 cm Noris Elder Other [employer] Other 01-15-2023 09:50-0400 Body mass index (BMI) [Ratio] 22.3 kg/m2 Noris Elder Other [employer] Other 01-15-2023 09:50-0400 Body weight 60.78 kg Noris Elder Other [employer] Other 01-15-2023 09:50-0400 Diastolic blood pressure 86 mm[Hg] Noris Elder Other [employer] Other 01-15-2023 09:50-0400 Systolic blood pressure 142 mm[Hg] Noris [employer] Other [employer] Other 06-19-2022 12:32-0500 Body height 165.1 cm Latoya R Bunting Work Phone: [facility] [employer] DO Work Phone: 06-19-2022 12:32-0500 Body mass index (BMI) [Ratio] 23.46 kg/m2 Latoya R Bunting Work Phone: [facility] [employer] DO Work Phone: 06-19-2022 12:32-0500 Body surface area Derived from formula 1.71 m2 Latoya R Bunting Work Phone: [facility] [employer] DO Work Phone: 06-19-2022 12:32-0500 Body weight 63.96 kg Latoya R Bunting Work Phone: [facility] [employer] DO Work Phone: 06-19-2022 12:32-0500 Diastolic blood pressure 75 mm[Hg] Latoya R Bunting Work Phone: [facility] DO Work Phone: 06-19-2022 12:32-0500 Heart rate 95 /min Latoya R Bunting Work Phone: [facility] DO Work Phone: 06-19-2022 12:32-0500 Systolic blood pressure 153 mm[Hg] Latoya R Bunting Work Phone: [facility] DO Work Phone: Encounters Encounter Date Encounter Type Care Provider Facility Start: 08-13-2024 ambulatory Richard Tani ty:[facility] Start: 09-17-2023 End: 09-18-2023 ambulatory Tomas Rosas MD Facility:[facility] Start: 08-29-2023 End: 08-29-2023 ambulatory AUG[facility]O [facility] Not Available Start: 08-24-2023 End: 08-24-2023 ambulatory Augusto Siu Facility:[facility] Start: 08-08-2023 End: 08-09-2023 ambulatory iRchard JACKSON Facility:[facility] Start: 08-08-2023 End: 08-08-2023 Patient encounter procedure Richard JACKSON [facility] Start: 06-25-2023 End: 06-25-2023 ambulatory Richard Jackson Facility:[facility] Start: 06-25-2023 End: 06-25-2023 ambulatory DO Latoya Bunting Work Phone: [facility] Work Phone: Start: 06-25-2023 End: 06-25-2023 Patient encounter procedure DO Latoya Bunting Work Phone: [facility]-CT Scan Main [place] Work Phone: Start: 06-08-2023 End: 06-09-2023 ambulatory Richard JACKSON Facility:[facility] Start: 06-08-2023 End: 06-08-2023 Lab Drop off Richard JACKSON [facility] Start: 06-08-2023 End: 06-09-2023 ambulatory LATOYA R BUNTING Facility: [place] Start: 06-08-2023 End: 06-08-2023 Patient encounter procedure Richard Resendiz JACKSON [facility] [place] Start: 05-28-2023 End: 05-29-2023 ambulatory Tomas Rosas MD Facility: [place] Start: 05-14-2023 End: 05-15-2023 ambulatory Tomas Rosas MD Facility: [place] Start: 05-09-2023 ambulatory LATOYA BUNTING Facility : [place] Start: 05-08-2023 ambulatory LATOYA BUNTING Facility : [place] Start: 04-30-2023 End: 05-01-2023 ambulatory Tomas Rosas MD Facility: [place] Start: 04-25-2023 End: 04-25-2023 ambulatory Latoya Bunting Facility:[facility] Start: 04-25-2023 End: 04-25-2023 ambulatory DO Latoya Bunting Work Phone: [facility] Work Phone: Start: 04-25-2023 End: 04-25-2023 Patient encounter procedure DO Latoya Bunting Work Phone: [facility]-XRay [address] Work Phone: Start: 04-16-2023 End: 04-17-2023 ambulatory Tomas Rosas MD Facility: [place] Start: 03-30-2023 End: 03-30-2023 ambulatory Noris Elder Facility:[facility] Start: 03-30-2023 End: 03-30-2023 ambulatory DO Latoya Bunting Work Phone: [facility] Work Phone: Start: 03-30-2023 End: 03-30-2023 Patient encounter procedure DO Latoya Bunting Work Phone: [facility] Work Phone: Start: 02-08-2023 End: 02-08-2023 ambulatory Noris Elder Facility:[facility] Start: 02-08-2023 End: 02-08-2023 ambulatory DO Latoya Bunting Work Phone: [facility] Work Phone: Start: 02-08-2023 End: 02-08-2023 Patient encounter procedure DO Latoya Bunting Work Phone: [facility]-MRI [facility] [place] Work Phone: Start: 02-08-2023 End: 02-08-2023 ambulatory DO Latoya Bunting Work Phone: [facility] Work Phone: Start: 02-08-2023 End: 02-08-2023 Patient encounter procedure DO Latoya Bunting Work Phone: [facility]-Ultrasound Cntr for [facility] Start: 01-15-2023 End: 01-15-2023 ambulatory Noris Elder Other [facility] [employer] Other Start: 01-15-2023 Office outpatient ne w 45 minutes Noris Elder [facility] Start: 08-28-2022 End: 08-28-2022 ambulatory DO Latoya Bunting Work Phone: [facility] Work Phone: Start: 08-28-2022 End: 08-28-2022 Patient encounter procedure DO Latoya Bunting Work Phone: [facility] Work Phone: Start: 08-23-2022 End: 08-23-2022 ambulatory DO Latoya Bunting Work Phone: [facility] Work Phone: Start: 08-23-2022 End: 08-23-2022 Patient encounter procedure DO Latoya Bunting Work Phone: [facility] Work Phone: Start: 06-19-2022 Office outpatient visit 25 minutes Latoya R Bunnorma Work Phone: [facility] [address] DO Work Phone: Start: 06-19-[address] Gregorio Nichols acility: Start: 06-09-2022 End: 06-09-2022 ambulatory DO Latoya Bunting Work Phone: [facility] Work Phone: Start: 06-09-2022 End: 06-09-2022 Patient encounter procedure DO Latoya Bunting Work Phone: [facility]-Lab Main [place] Start: 06-07-2022 End: 07-15-[address] LATOYA CHONG Facility:[facility] Start: 04-17-[address] Gregorio Nichols acility: Start: 03-31-2022 Chart Update Latoya Vailti ng Work Phone: [facility] Work Phone: Start: 03-31-2022 End: 03-31-2022 Patient encounter procedure DO Latoya Bunting Work Phone: [facility]-Lab Main [place] Start: 09-12-2021 End: 09-13-[address] LUCI TROTTER Facility:[facility] Start: 11-14-2018 Patient encounter procedure Gregorio Barton Facility:[id number] Start: 10-24-2018 Patient encounter procedure JUSTIN CHRISTINE Facility:[id number] Start: 09-23-2018 Patient encounter procedure JUSTIN CHRISTINE Facility:[id number] Patient encounter status Latoya R Bunting Work Phone: -[facility] Work Phone: Procedures Date Procedure Procedure Detail [...] Bunting Work Phone: Start: 11-14-2018 Echocardiography Jose Barton Back structure, excl uding neck (body structure) Richard JACKSON Cardiac ablation sys tem (physical object) Richard JACKSON Colonoscopy Latoya R Buntin g Work Phone: Comment on above: [id number]; Colonoscopy Richard JACSKON Destructive procedure Latoya Chong Work Phone: Excision of basal ce ll carcinoma Latoya Chong Work Phone: Hysterectomy Richard JACKSON Insertion of hip prosthesis Richard JACKSON Radiofrequency ablat ion of medial branch of lumbar nerve using fluoroscopic guidance Richard JACKSON Tonsillectomy and adenoidectomy Latoya Chong Work Phone: Total abdominal hysterectomy Latoya Chong Work Phone: Plan of Treatment Date Care Activity Detail Author Start: 04-25-2023 Hemolytic complement CH50 level [facility] Start: 04-25-2023 [facility] Start: 04-17-2022 FUV, Provider: Gregorio Barton, Status: Pen, Time: 11:45 AM FUV, Provider: Gregorio Barton, Status: Pen, Time: 11:45 AM [facility] Work Phone: Lupus anticoagulant [Interpretation] in Platelet poor plasma [facility] Thrombin time [facility] Immunizations Immunization Date Immunization Notes Care Provider Edna lopez 07-17-2023 influenza virus vaccine, unspecified formulation Richard JACKSON [facility] 06-20-2022 influenza virus vaccine, unspecified formulation Richard JACKSON [facility] 07-14-2021 Pfizer-BioNTXsigo COVID-19 Vacc 30 MCG/0.3ML Intramuscular Suspension Latoya Chong Work Phone: [facility] 05-19-2021 influenza virus vaccine, unspecified formulation Richard JACKSON [facility] 05-19-2021 influenza, injectable, quadrivalent, preservative free [facility] R [facility] Work Phone: 12-02-2020 Pfizer-BioNTech COVID-19 Vacc 30 MCG/0.3ML Intramuscular Suspension Latoya R Bunting Work Phone: [facility] 11-11-2020 Pfizer-BioNTech COVID-19 Vacc 30 MCG/0.3ML Intramuscular Suspension Latoya R Bunting Work Phone: [facility] 07-16-2020 influenza virus vaccine, unspecified formulation Richard JACKSON [facility] 07-16-2020 Influenza, injectable, Madin [place] Canine Kidney, preservative free, quadrivalent Latoya R Bunting Work Phone: [facility] 127 DO Work Phone: 05-13-2020 influenza virus vaccine, unspecified formulation Latoya R Bunting Work Phone: [facility] 06-05-2019 influenza virus vaccine, unspecified formulation Richard JACKSON [facility] 06-05-2019 influenza, injectable, quadrivalent, preservative free Latoya R Bunting Work Phone: [facility] 127 DO Work Phone: 06-17-2018 influenza virus vaccine, unspecified formulation Richard JACKSON [facility] 06-17-2018 influenza, seasonal, injectable, preservative free Latoya R Bunting Work Phone: [facility] 127 DO Work Phone: 06-11-2018 influenza virus vaccine, unspecified formulation Richard JACKSON [facility] 06-06-2018 influenza virus vaccine, unspecified formulation Latoya R Bunting Work Phone: [facility] Work Phone: 06-06-2018 pneumococcal polysaccharide vaccine, 23 valent Latoya R Bunting Work Phone: [facility] Work Phone: 03-28-2018 tetanus toxoid, reduced diphtheria toxoid, and acellular pertussis vaccine, adsorbed Latoya R Bunting Work Phone: [facility] 07-01-2001 hepatitis B vaccine, adult dosage Latoya R Bunting Work Phone: [facility] 03-13-2001 hepatitis B vaccine, adult dosage Latoya R Bunting Work Phone: [facility] 12-18-2000 hepatitis B vaccine, adult dosage Latoya R Bunting Work Phone: [facility] NEGATED: Highlighted row has not occurred! 8 influenza, seasonal, injectable Patient Objection Noris Elder Other [facility] [employer] Other NEGATED: Highlighted row has not occurred! 8 pneumococcal polysaccharide vaccine, 23 valent Patient Objection Noris Elder Other [employer] Other Payers Date Payer Category Payer Unknown [id number] 2022 Medicare [id number] 2022 Self-pay [id number] 2022 Unknown 1959 Unknown [id number] 1956 Unknown [id number] 2.16.8 40.1.771314.3.579.2.355 1956 Unknown [id number] 2.16.8 40.1.878908.3.579.2.355 1956 Unknown [id number] 2.16.840 .1.522528.3.579.2.1068 1956 Unknown [id number] 2.16. 840.1.359139.3.579.2.356 1956 Unknown [id number] 2.16. 840.1.804911.3.579.2.356 1956 Unknown [id number] 2.16.84 0.1.600235.3.579.2.593 1956 Unknown [id number] 2.16.84 0.1.854084.3.579.2.593 1956 Unknown [id number] 2.16.8 40.1.611475.3.579.2.727 1956 Unknown [id number] 2.16.8 40.1.379350.3.579.2.727 1956 Unknown [id number] 2.16.8 40.1.130111.3.579.2.727 1956 Unknown [id number] 2.16.8 40.1.331661.3.579.2.727 1956 Unknown [id number] 2.16.84 0.1.819713.3.579.2.1259 1956 Unknown [id number] 2.16. 840.1.685209.3.579.2.196 1956 Unknown [id number] 2.16. 840.1.776546.3.579.2.196 1956 Unknown [id number] 2.16. 840.1.109285.3.579.2.196 1956 Unknown [id number] 2.16. 840.1.124538.3.579.2.196 1956 Unknown [id number] 2.16. 840.1.534965.3.579.2.196 Unknown [id number] Unknown [id number] Unknown [id number] 2.16.8 40.1.189379.3.579.2.531 Unknown [id number] 2.16.8 40.1.337619.3.579.2.531 Unknown [id number] 2.16.8 40.1.747382.3.579.2.531 Unknown [id number] 2.16.8 40.1.930666.3.579.2.531 Unknown [id number] 2.16.8 40.1.087144.3.579.2.531 Unknown [id number] 2.16.8 40.1.027363.3.579.2.531 Social History Date Type Detail Facility Occasional alcohol use Occasional alcohol use -[facility] Work Phone: Start: 05-04-2020 End: 08-08-2023 Tobacco smoking status NHIS Never smoked tobacco (finding) [facility] Start: 1955 Sex Assigned At Female F [facility] Sex Assigned At [facility] Tobacco smoking status Never [facility] Functional Status Date Assessment Result Facility 08-08-2023 Functional Status N/A [facility] 06-08-2023 Functional Status N/A [facility] Clinical Notes 05-20-2022 to 08-08-2023 Note Date [...] Follow these instructions at home: Medicines Take orpr-orj-mfgrrlb and prescription medicines only as told by [...] provider. Document Revised: 11/01/2022 Document Reviewed: 11/01/2022 [employer] Patient Education 2022 [employer]. Follow Up Care 06/08/2023 13:38:53 With:KELSY GARCIA, Richard Resendiz, URL Address: [facility] [address] [place] [address]- When: Unknown [facility] 06-08-2023 Note Chief Complaint Referral *Microscopic Hematuria [...] Information KELSY GARCIA, Richard Resendiz, URL [address] [place] [address]- Additional Instructions: Cysto, CT Urogram Patient Education [...] virus vaccine, in (more content not included)... [facility] Comment on above: Result Comment: Elec tronically Signed By: Richard JACKSON MD\.br\Date and Time Signed: 06/08/23 13:16 EDT\.br\Electronically Co-Signed By: Gabbi Kwan\.br\Date and Time Co-Signed: 06/08/23 13:12 EDT\.br\Electronically Co-Signed By: Gabbi Kwan\.br\Date and Time Co-Signed: 06/08/23 13:12 EDT 06-08-2023 Hospital Discharg e instructions Patient Education 06/08/2023 13:10:51 Hematuria, [...] Follow these instructions at home: Medicines Take nmnz-lls-qoxqpcd and prescription medicines only as told by [...] or the blood stops without treatment. Take icao-ldq-gnikvzr and prescription medicines only as told by your health care provider. Drink enough fluid to keep your urine pale yellow. This information is not intended to replace advice given to you by your health care provider. Make sure you discuss any questions you have with your health care provider. Document Revised: 03/23/2021 Document Reviewed: 03/23/2021 [employer] Patient Education 2022 [employer]. Follow Up Care 05/09/2023 11:38:04 With:KELSY GARCIA, Richard Resendiz, URL Address: [address] [place] [address]- When: Unknown [facility] 01-15-2023 Evaluation note Encounter Date Diagnosis Assessment [...] PHQ reviewed score 4; education completed with [employer] number given. denies anythoughts of harming self or others. Feels down d/t difficulty with pain and being able to do activities with grandchildren. Jan, BMI 22.0-22.9, adult (ICD-10 - Z68.22) Jan, Post menopausal syndrome (ICD-10 - Z78.0) [employer] Other 10-15-2022 History of Present illness Narrative* [...] Normal left ventricular function per echocardiogram in 2016, stable * 4. Abnormal stress test based [...] software was utilized to prepare this document. [facility] [address] DO Work Phone: Evaluation + Plan note Future Appointments Appointment Date:08/08/2023 07:45:00 AM Scheduled Provider:Richard JACKSON MD [facility] Appoint[facility] Type:URO Procedure 15 min Diagnostic Tests Pending * Creatinine 06/08/23 [facility] evaluation + Plan note Future Appointments Appointment Date:08/08/2023 07:45:00 AM Scheduled Provider:Richard JACKSON MD Location:[facility] Appointment Type:URO Procedure 15 min Diagnostic Tests Pending * Urine Cytology [facility] Future App[facility]ments Appointment Date:08/13/2024 09:45:00 AM Scheduled Provider:Richard JACKSON MD [facility] App[facility] Type:URO Office Visit [facility] Evaluation noteNo assessment information available [facility] Work Phone: Hiszltn general Narrative - Reported* Type Description Date Medical History migraine headache Medical History mild osteoarthritis Medical History varicose veins Medical History basal cell carcinoma Surgical History hysterectomy 1993 Surgical History D&C 1981 Surgical History colonoscopy 2014 Surgical History tonsillectomy Hospitalization History same as surgical history [facility] [employer] Other Hospital course Narrative No data available for this section [facility] Hospital Discharge instructions No data available [facility] this [facility] No data available for this section [facility] Summary Purpose Family History No Family History [...] Successful AV herman modification Procedure performed by: id [employer] Worker(s): none Estimated Blood Loss (mL): 5 Specimen: [...] Diagnosis 1 Lumbar pain (M54.50) Referral Organization [facility] Referring Provider First Name Noris Referring Provider Last Name Jael Referring Provider Specialty Nurse Lashell elaine Referred Organization [facility] Referred Provider SejalfransiscaTrever baptisteradhika Referred Address [address] [place] [place], [place],[address] Referred Provider Specialty Pain Medicin e Referral Priority Routine General Notes Kathia Nunez Tatum 023 08:06:47 AM >Received today and waiting for office notes to be locked before sending referral Taniya Nunezjarrett Winn 01/17/2023 07:30:06 AM >Office notes are now locked. [facility]'s office request us to fill out form and fax referral to them and they will review the referral and call patient. Referral was fax Kathia Nunez Tatum 01/24/2023 10:24:48 AM >Letter from [facility] is in the chart and patient has declined to schedule Clinical Notes Office [phone] Additional Source Comments INFORMATION SOURCE (unrecogn ized section and content) DATE CREATED AUTHOR 10/25/2018 [facility] DATE CREATED AUTHOR AUTHOR'S ORGANIZ ATION [facility] DATE CREATED AUTHOR AUTHOR'S ORGANIZ ATION 08/05/2020 [facility] DATE CREATED AUTHOR AUTHOR'S ORGANIZ ATION 06/20/2022 [facility] DATE CREATED AUTHOR AUTHOR'S ORGANIZ ATION 06/20/2022 [employer] DATE CREATED AUTHOR AUTHOR'S ORGANIZ ATION 08/17/2022 [facility] DATE CREATED AUTHOR AUTHOR'S ORGANIZ ATION 08/14/2023 [facility] DATE CREATED AUTHOR AUTHOR'S ORGANIZ ATION 08/30/2023 [facility] DATE CREATED AUTHOR AUTHOR'S ORGANIZ ATION 09/14/2023 [facility] DATE CREATED AUTHOR AUTHOR'S ORGANIZ ATION 09/23/2023 [facility] Care Teams (unrecognized sec tion and content) Team Status: Inactive Member Role Status Dates Latoya Chong DO Primary Care Provider Active Gregorio Barton MD Attending Provider Active Team Status: Active Member Role Status Dates Latoya Chong DO Primary Care Provider Active Team Status: Inactive Member Role Status Dates Latoya Chong , DO Primary Care Provider, Attending Emir reyes Active Team Status: Inactive Member Role Status Dates Latoya Vailting , DO Primary Care Provider Active Augusto Siu , DO Attending Provider Active Team Status: Inactive Member Role Status Dates Latoyayanely Vailting , DO Primary Care Provider Active ERNIE PatelC Attending Provider Active Team Status: Inactive Member Role Status Dates Latoya Vailting , DO Primary Care Provider Active Art Rinaldi MD Attending Provider Active Team Status: Inactive Member Role Status Dates Latoyayanely Vailting , DO Primary Care Provider Active Richard [...] BE BASED ON THE PRIMARY CLINICAL RECORDS. [employer] provides no warranty or guarantee of the accuracy or completeness of information in this document.
[2023-09-24 08:31] VITALS: BP 142/92; PULSE 102; RESP 16; TEMP 36.3; O2SAT 100
[2023-09-24 09:05] VITALS: BP 162/74
[2023-09-24] MEDS: IOHEXOL 240 MG/ML - 10 ML VIAL INJ (09:05)
[2023-09-24] MEDS: TRIAMCINOLONE ACETONIDE 40 MG/ML VIAL INJ (09:05)
[2023-09-24] MEDS: LIDOCAINE HCL 2% PF 100 MG/5 ML VIAL INJ (09:05)
[2023-09-24] MEDS: BUPIVACAINE HCL 0.25% PF 25 MG/10 ML VIAL INJ (09:05)
[2023-09-24] MEDS: 0.9 % SODIUM CHLORIDE 10 ML INJ (09:05)
[2023-09-24 09:06] VITALS: BP 156/75; PULSE 95; RESP 18; O2SAT 96; O2SAT 98
--- NOTE | 2023-09-24 09:08 | P.ON_ITS ---
Date of procedure: 09/24/23 Pre-op diagnosis: Lumbar stenosis with neurogenic claudication Post-op diagnosis: same as pre-op Procedure: Procedure: Bilateral L4-5 transforaminal epidural steroid injection Medications: Bupivacaine 0.25% 1cc, lidocaine 2% 1cc, kenalog 80mg The patient was seen and examined in the preoperative holding area.? Informed consent was obtained and placed on the chart.? Patient was brought to the medical procedure unit and placed in the prone position where a timeout was completed verifying the correct patient, procedure site, position, and planned special equipment using sterile aseptic technique.? Under direct fluoroscopic visualization a 25-gauge Quincke tipped spinal needle was advanced to the designated neural foramen where contrast dye was injected to show adequate spread.? The needle was inserted at level left L4-5. There was no evidence of vascular or adverse uptake.? Epidural spread was appreciated.? The above- mentioned injectate was then placed in a 1.5 mL aliquot preceded by negative aspiration.? The needle was removed. The needle was inserted and the procedure repeated at level right L4-5.? The surgery site was covered.? Patient was taken to the postprocedural recovery area and monitored for an appropriate length of time before found suitable for discharge in the accompaniment of a responsible adult. Anesthesia: Local Surgeon: Tomas Rosas Pathology: none sent Condition: stable Disposition: no change
== END 2023-09-24 09:15 | disposition home or self-care (01) ==
PROVIDERS: PCP Family Medicine; Visit Provider Anesthesiology
DX: M48.062 Spinal stenosis, lumbar region with neurogenic claudication (principal)
CPT/HCPCS: 64483; J0665; J3301; Q9966

== ENCOUNTER 2023-10-08 06:53 | Day surgery (SDC) | payer BC, SELFPAY ==
--- OUTSIDE RECORDS SUMMARY | 2023-10-08 06:56 | XMS_ITS | CCD ---
Author Name Unknown Address [address] [facility] [address] [place] [address] Organization [facility] Care Team Providers Care Co Founder And Chief Strategy Officer Name Role Phone JUSTIN CHRISTINE Attending Unavailable BUNTING, LATOYA R Primary Care Unavailable JUSTIN CHRISTINE Attending Unavailable BUNTING, LATOYA R Primary Care Unavailable Gregorio Barton Attending Unavailable Bunting, Latoya Oquendo Primary Care Unavailable Bunting, Latoya R Unavailable Unavailable Unavailable Bunnorma, DO Klein Primary Care Provider [phone] MD Gregorio Barton Attending Provider [phone] Bunting, DO Klein Primary Care Provider MD Gregorio Barton Attending Provider [phone] Bunnorma, DO Klein Attending Provider Dr. Gregorio [...] Unavailable Bunnorma, DO Klein Primary Care Provider [phone] DO Augusto Siu Attending Provider Bunting, DO Klein Primary Care Provider DO Augusto Siu Attending Provider CAL Elder Attending Provider Noris Elder Unavailable MD Art Rinaldi Attending Provider LATOYA CHONG Primary Care Physician [phone] DO Latoya Chong Primary Care Provider [phone] CAL Elder Attending Provider MD Art Rinaldi Attending Provider [phone] MD Richard Jackson Attending Provider [phone] BUNTING, LATOYA R Referring Unavailable JACKSON, Richard R Attending Unavailable JACKSON, Richard R Attending Unavailable JACKSON, Richard R Admitting Unavailable JACKSON, Richard R Attending Unavailable JACKSON, Richard R Attending Unavailable KAYLEE, AUGUSTO Roth Attending Unavailable AUGUSTO SIU Referring Unavailable Elder, Noris Admitting Unavailable Jael, Noris Attending Unavailable Bunting, Latoya Primary Care Unavailable Bunting, Latoya Primary Care Unavailable Nimco, Art Admitting Unavailable Nimco, Art Attending Unavailable Augusto Siu Admitting Unavailable Kaylee, Augusto Roth Attending Unavailable Bunting, Latoya Primary Care Unavailable Jackson, Richard Admitting Unavailable Jackson, Richard Attending Unavailable Bunting, Latoya Primary Care Unavailable Augusto Siu Admitting Unavailable Kaylee, Augusto Roth Attending Unavailable Bunting, Latoya Primary Care Unavailable Noris Elder Admitting Unavailable Jael, Noris Attending Unavailable Bunting, Latoya Primary Care Unavailable Gieditis , Andrius Walsh Attending Unavailable Giedraitis , Andrius Nico Attending Unavailable Giedraitis , Andrius Nico Attending Unavailable Giedraitis , Andrius Vytisrael Attending Unavailable Giedraitis , Andrius Vytautas Attending Unavailable Giedraitis , Andrius Vytisrael Attending Unavailable Allergies Allergy Classification Reported Allergen(s) Allergy Type Date of Onset Reaction(s) Facility (6 sources) azaTHIOprine; Translations: [azaTHIOprine TABS] Drug Allergy Unknown [facility] (11 sources) azaTHIOprine; Translations: [azaTHIOprine] Drug Allergy 05-04-2020 [facility] (4 sources) Hydroxychloroquin e; Translations: [hydroxychloroqui ne] Drug Allergy [facility] Medications Current Medications Medication Drug Class(es) Dates [...] 1 tablet Orally Once a day Active [place] 2-Zrv-Pvo-Fish Oil (Fish Oil) 1,000 mg (120 mg-180 mg) Capsule (9 sources) Start: 05-04-2020 take 1 capsule by mouth once daily [place] 3-Avy-Xnd-Fish Oil (Fish Oil) 1,000 mg (120 mg-180 mg) Capsule Active 1000 CAP PO Daily May 03, 2020 11:00pm Start: 05-04-2020 take 1 capsule by mo cox branson once daily [place] 6-Tnn-Egx-Fish Oil (Fish Oil) 1,000 mg (120 mg-180 [...] every four to six hours Hydrocodone-Acetamin ophen ([place]) 5-325 mg Tablet Discontinued 1 TAB PO EVERY 4-6 HOURS 14 April 20, 2020 May 04, 2020 6:58am ciprofloxacin 500 mg oral tablet (2 sources) Quinolone Antimicrobial Start: 06-08-2023 Cipro 500 mg Tab 500 mg = 1 tab(s), Oral, As Directed, Pt to take 1 tab the day before procedure and the 2nd tab the day of procedure once completed., # 2 tab(s), Refills(s) 0, Pharmacy: [facility]/pharmacy #[id number], 164, cm, 06/08/23 12:39:00 EDT, Height/Length [...] n 08-24-2023 MM screening mammo BI w/CAD [facility] [place] [address] Mammography Report Signed Patient: Christian Rich MR#: [id number] : 1955 Acct:[id number] Age/Sex: 67 / F ADM Date: 08/24/23 Loc: CT Room: Type: [facility] Attending Dr: Augusto Siu DO [...] Clarissa Garcia M.D.08/24/2023 11:18 AM Dictation Location: [facility] Transcribed By: [facility] 08/24/23 1118 Dictated By: Clarissa Garcia MD 08/24/23 1115 Signed By: 08/24/23 1118 [facility] Pre-Certification Formon Pre-Certification Form [id number]#1.00TIFF [facility] Consent for Procedure/Surger yon 08-09-2023 Consent for Procedure/Surgery [id number]#1.00TIFF [facility] Patient Educationon 08-08-19 Patient Education Urology Kidney [...] these instructions at home: Medicines ? Take jmdd-mte-wdezxzd and prescription medicines only as told by [...] from (more content not included)... Normal Noé [facility] Urology Office/Clinic Noteon 08-08-2023 Urology Office/Clinic Note [...] [facility] [address], [place] [address]- Additional Instructions: 1 yr with KUB Patient [...] hepatitis B adult vaccine 12/18/2000 Recorded Normal [facility] Comment on above: Result Comment: Elec tronically Signed By: KELSY GARCIA, Richard Resendiz\.br\Date and Time Signed: 08/08/23 07:59 EST\.br\Electronically Co-Signed By: Angelina Turpin\.br\Date and Time Co-Signed: 08/08/23 07:58 EST Insurance Correspondenceon 1 Insurance Correspondence [id number]#1.00TIFF Normal [facility] RAD - CT Reporton 06-27-2023 RAD - CT Report [id number]#1.00TIFF Normal [facility] CT urogramon 06-25-2023 CT urogram [facility] [place] [address] CT Scan Report Signed Patient: Christian Rich MR#: [id number] : 1955 Acct:[id number] Age/Sex: 67 / F ADM Date: 06/25/23 Loc: CT Room: Type: [facility] Attending Dr: Richard Jackson MD [...] Pérez Jr., D.O.06/25/2023 12:34 PM Dictation Location: [place] [address] Transcribed By: [facility] 06/25/23 1234 Dictated By: Emanuel Pérez Jr, DO 06/25/23 1228 Signed By: 06/25/23 1234 [facility] Creatinine (Bld) [Mass/Vol]O rdered By: Richard Jackson on 06-25-2023 Creatinine [Mass/Vol] 0.7 mg/dL 0.6-1.3 [facility] Comment on above: ER/ESD physician is notified/shown all ISTAT results.Critical values may be confirmed by laboratory testing ifdeemed necessary by ER attending doctor. ISTAT XRay CREon 06-25-2023 Creatinine [Mass/Vol] 0.7 mg/dL Normal 0.6-1.3 [facility] Comment on above: Result Comment: ER/E SD physician is notified/shown all ISTAT results. Critical values may be confirmed by laboratory testing if deemed necessary by ER attending doctor. Performed By: #### I SCRE ####[facility] [id number] [place] [id number] [facility] ISTAT GFR > 60.0 Normal [facility] Comment on above: Result Comment: PERF ORMED BY: [facility] [address] [place] [id number] PATHOLOGIST SINGEING TORCH OPERATOR ALEJANDRA BONILLA M.D. Performed By: #### I SCRE ####[facility] [id number] [place] [id number] [facility] No Panel InformationOrdered By: Richadr Jackson on 06-25-2023 Bedside Estimated GFR (eGFR) > 60.0 [facility] Physician Referralon 023 Physician Referral [id number]#1.00TIFF Normal [facility] Pre-Certification Formon Pre-Certification Form [id number]#1.00TIFF Normal [facility] Urine Cytology ([facility])on 08-14-2022 Urine Cytology Diagnosis Info Invalid Interpretation Code [facility] Comment on above: Result Comment: A:Ur ine,Urine:Voided Interpretation - MicroScopic Description - Adequacy - Gross Description Site ID:A color Light Yellow fixative Alcohol Specimen designated Urine received in alcohol preservative and labeled with the patient?s name, consists of 80ml clear light yellow fluid. Electronically signed by : on: 06/14/2023 08:27:08 Performed By: #### 1 [id number] #### [facility] [address] [place] [address] Ambulatory Visit Summaryon 1 08-08-2022 Ambulatory Visit [...] Appointments Follow Up with Richard JACKSON MD, BUDDY When: Where: [address] [place] [address]- Medications What When Instructions Unchanged calcium-vitamin D [...] these instructions at home: Medicines ? Take dzls-ohy-wetpbpc and prescription medicines only as told by [...] ? (more content not included)... Normal [facility] Patient Educationon 06-08-20 23 Patient Education Urology [...] these instructions at home: Medicines ? Take cjqx-kqs-qelfuqv and prescription medicines only as told by [...] the blood stops without treatment. ? Take iwpz-kmx-apkxvzi and prescription medicines only as told by your health care provider. ? Drink enough fluid to keep your urine pale yellow. This information is not intended to replace advice given to you by your health care provider. Make sure you discuss any questions you have with your health care provider. Document Revised: 03/23/2021 Document Reviewed: 03/23/2021 [employer] Patient Education ? 2022 [employer] Normal [facility] Urine Cytology ([facility])on 08-08-2022 Method of Extraction Voided Normal [facility] Comment on above: Performed By: #### 1 [id number] #### [facility] [address] Number of Jars 1 Invalid Interpretation Code [facility] Comment on above: Performed By: #### 1 [id number] #### [facility] [address] [place] [id number] Specimen Urine Normal [facility] Comment on above: Performed By: #### 1 [id number] #### [facility] [address] [place] [id number] Type of Service Technical Only Normal [facility] Comment on above: Performed By: #### 1 [id number] #### [facility] [address] [place] [address] JESS Antinuclear Antibodieson 09-20-2023 Antinuclear Abs, IFA Positive Critically abnormal . [facility] Comment on above: Result Comment: Nega tive <1:80 Borderline 1:80 Positive >1:80 Performed By: #### A NA, CH50, TPO, THYGLOB AB, CHROMATIN, C3, C4 #### [facility] , Homogeneous Pattern 1:320 High . [facility] Comment on above: Result Comment: ICAP nomenclature: AC-1 Performed By: #### A NA, CH50, TPO, THYGLOB AB, CHROMATIN, C3, C4 #### [facility] , Note 1 Normal . [facility] Comment on above: Result Comment: [...] titers Nucleosomes, Histones Drug-induced SLE Speckled Sm, CEMENT MIXER DRIVER, SCL-70, SLE,MCTD,PSS (diffuse form), SS-A/SS-B Sjogrens Nucleolar SCL-70, PM-1/SCL High titers Scleroderma, PM/DM Centromere Centromere PSS (limited form) w/Crest syndrome variable Nuclear Dot Sp100,u42-lcfywc Primary Biliary Cirrhosis Nuclear GP210, Primary Biliary Cirrhosis Membrane mireille A,B,C Performed at: - [facility] [address] [id number] Psychiatric Arnp: Freddy Zamora PhD, Phone: [phone] Performed By: #### A NA, CH50, TPO, THYGLOB AB, CHROMATIN, C3, C4 #### [facility] , Activated partial thrombopla stin time (aPTT) in platelet poor plasma by coagulation aOrdered By: Art Rinaldi on 04-25-2023 aPTT Coag (PPP) [Time] 28.6 s 25.1-36.5 [facility] Comment on above: A hematocrit value g reater than 55% may lead to inaccurate results in coagulation testing. Patients having hematocrit values >55% require a special collection tube for coagulation studies. Please contact the laboratory at [phone] for redraw instructions. Alanine aminotransferase [En zymatic activity/volume] in Serum or PlasmaOrdered By: Art Rinaldi on 04-25-2023 ALT [Catalytic activity/Vol] 10 U/L Normal 7-52 [facility] Comment on above: Performed By: #### E SR, LIPID, CRP, [id number], CMP, URIC, MG, CBC, ADDONUAPLUS, T4F, TSH3, CK ####[facility] [place] [id number] [facility] Albumin [Mass/volume] in Ser um or Plasma by Bromocresol green (BCG) dye binding methoOrdered By: Art Rinaldi on 04-25-2023 Albumin BCG dye [Mass/Vol] 4.3 g/dL 3.5-5.7 [facility] Alkaline phosphatase [Enzyma tic activity/volume] in Serum or PlasmaOrdered By: Art Rinaldi on 04-25-2023 ALP [Catalytic activity/Vol] 54 U/L Normal 34-104 [facility] Comment on above: Performed By: #### E SR, LIPID, CRP, [id number], CMP, URIC, MG, CBC, ADDONUAPLUS, T4F, TSH3, CK ####[place] [address] [place] [id number] [facility] Antithyroglobulin Abon 04-25 Antithyroglobulin Ab <1.0 Normal 0.0-0.9 [facility] Comment on above: Result Comment: Thyr oglobulin Antibody measured by [employer] Methodology Performed at: - [facility] [address] [id number] Psychiatric Arnp: Freddy Zamora PhD, Phone: [phone] Performed By: #### A NA, CH50, TPO, THYGLOB AB, CHROMATIN, C3, C4 #### [facility] , Aspartate aminotransferase [ Enzymatic activity/volume] in Serum or PlasmaOrdered By: Art Rinaldi on 04-25-2023 AST [Catalytic activity/Vol] 14 U/L Normal 13-39 [facility] Comment on above: Performed By: #### E SR, LIPID, CRP, [id number], CMP, URIC, MG, CBC, ADDONUAPLUS, T4F, TSH3, CK ####[address] Automated basophil %Ordered By: Artblank Rinaldi on 04-25-2023 Basophils/100 WBC (Bld) 0.2 % Normal . [facility] Comment on above: Performed By: #### E SR, LIPID, CRP, [id number], CMP, URIC, MG, CBC, ADDONUAPLUS, T4F, TSH3, CK ####[address] Automated basophil countOrde red By: Art Rianldi on 04-25-2023 Basophils (Bld) [#/Vol] 0.0 10*3/uL Normal 0.0-0.2 [facility] Comment on above: Performed By: #### E SR, LIPID, CRP, [id number], CMP, URIC, MG, CBC, ADDONUAPLUS, T4F, TSH3, CK ####[address] Automated blood monocyte cou ntOrdered By: Art Rinaldi on 04-25-2023 Monocytes (Bld) [#/Vol] 0.6 10*3/uL Normal 0.0-0.8 [facility] Comment on above: Performed By: #### E SR, LIPID, CRP, [id number], CMP, URIC, MG, CBC, ADDONUAPLUS, T4F, TSH3, CK ####[address] Automated eosinophil %Ordere d By: Art Rinaldi on 04-25-2023 Eosinophils/100 WBC (Bld) 0.5 % Normal . [facility] Comment on above: Performed By: #### E SR, LIPID, CRP, [id number], CMP, URIC, MG, CBC, ADDONUAPLUS, T4F, TSH3, CK ####[address] Automated eosinophil countOr dered By: Art Rinaldi on 04-25-2023 Eosinophils (Bld) [#/Vol] 0.0 10*3/uL Normal 0.0-0.45 [facility] Comment on above: Performed By: #### E SR, LIPID, CRP, [id number], CMP, URIC, MG, CBC, ADDONUAPLUS, T4F, TSH3, CK ####[place] [id number] [facility] Automated erythrocytes count in urine sediment (number/area)Ordered By: Artblank Rinaldi on 04-25-2023 RBC Auto (Urine sed) [#/Area] 10-19 [HPF] 0-4 [facility] Automated leukocytes count i n urine sediment (number/area)Ordered By: Art Nimco on 04-25-2023 WBC Auto (Urine sed) [#/Area] None seen [HPF] 0-4 [facility] Automated monocyte %Ordered By: Art Rinaldi on 04-25-2023 Monocytes/100 WBC (Bld) 6.9 % Normal . [facility] Comment on above: Performed By: #### E SR, LIPID, CRP, [id number], CMP, URIC, MG, CBC, ADDONUAPLUS, T4F, TSH3, CK ####[place] [id number] [facility] Automated neutrophil %Ordere d By: Art Rinaldi on 04-25-2023 Neutrophils/100 WBC (Bld) 63.9 % Normal . [facility] Comment on above: Performed By: #### E SR, LIPID, CRP, [id number], CMP, URIC, MG, CBC, ADDONUAPLUS, T4F, TSH3, CK ####[place] [id number] [facility] Automated urine color determ inationOrdered By: Art Rinaldi on 04-25-2023 Color (U) Yellow Normal Yellow [facility] Comment on above: Order Comment: Name Collection Type:: Clean-Voided Midstream Performed By: #### E SR, LIPID, CRP, [id number], CMP, URIC, MG, CBC, ADDONUAPLUS, T4F, TSH3, CK ####[place] [id number] [facility] Bilirubin Test strip Ql (U)O rdered By: Art Rinaldi on 04-25-2023 Bilirubin Ql (U) Negative Negative [facility] Bilirubin.total [Mass/volume ] in Serum or PlasmaOrdered By: Art Rinaldi on 04-25-2023 Bilirubin [Mass/Vol] 0.3 mg/dL Normal 0.3-1.0 [facility] Comment on above: Performed By: #### E SR, LIPID, CRP, [id number], CMP, URIC, MG, CBC, ADDONUAPLUS, T4F, TSH3, CK ####[facility] [id number] [place] [id number] [facility] C reactive protein [Mass/vol ume] in Serum or PlasmaOrdered By: Art Jamesrow on 04-25-2023 CRP [Mass/Vol] < 0.5 mg/dL 0.0-0.5 [facility] C-Reactive Proteinon 023 CRP [Mass/Vol] mg/L Normal 0.0-0.5 [facility] Comment on above: Performed By: #### E SR, LIPID, CRP, [id number], CMP, URIC, MG, CBC, ADDONUAPLUS, T4F, TSH3, CK ####[place] [id number] [place] [id number] [facility] Calcium [Mass/volume] in Ser um or PlasmaOrdered By: Art Jamesrow on 04-25-2023 Calcium [Mass/Vol] 9.4 mg/dL Normal 8.6-10.3 [facility] Comment on above: Performed By: #### E SR, LIPID, CRP, [id number], CMP, URIC, MG, CBC, ADDONUAPLUS, T4F, TSH3, CK ####[address] [address] [place] Carbon dioxide, total [Moles /volume] in Serum or PlasmaOrdered By: Art Jamesrow on 04-25-2023 CO2 [Moles/Vol] 28.1 mmol/L Normal 21.0-31.0 [facility] Comment on above: Performed By: #### E SR, LIPID, CRP, [id number], CMP, URIC, MG, CBC, ADDONUAPLUS, T4F, TSH3, CK ####[facility] [id number] [place] [address] [place] Chloride [Moles/volume] in S ajith or PlasmaOrdered By: Art Rinaldi on 04-25-2023 Chloride [Moles/Vol] 104 mmol/L Normal 98-107 [facility] Comment on above: Performed By: #### E SR, LIPID, CRP, [id number], CMP, URIC, MG, CBC, ADDONUAPLUS, T4F, TSH3, CK ####[facility] [address] [place] [address] [facility] Cholesterol [Mass/volume] in Serum or PlasmaOrdered By: Art Rinaldi on 04-25-2023 Cholesterol [Mass/Vol] 226 mg/dL High 140-200 [facility] Comment on above: Chol less than 200 m g/dl low riskChol 201-239 mg/dl borderline riskChol 240 mg/dl and greater high risk Result Comment: Chol less than 200 mg/dl low risk Chol 201-239 mg/dl borderline risk Chol 240 mg/dl and greater high risk Performed By: #### E SR, LIPID, CRP, [id number], CMP, URIC, MG, CBC, ADDONUAPLUS, T4F, TSH3, CK ####[facility] [address] [place] [address] [facility] Cholesterol in LDL Calc [Mas s/Vol]Ordered By: Art Rinaldi on 04-25-2023 Cholesterol in LDL [Mass/Vol] 112 mg/dL 0-100 [facility] Comment on above: LDL ATP III CLASSIFI CATIONLDL less than 100 mg/dL OptimalLDL 100-129 mg/dL Near or above optimalLDL 130-159 mg/dL Borderline highLDL 160-189 mg/dL HighLDL greater than 189 mg/dL Very high Cholesterol in VLDL Calc [Ma ss/Vol]Ordered By: Art Rinaldi on 04-25-2023 Cholesterol in VLDL [Mass/Vol] 43 mg/dL [facility] Chromatin Antibodyon 023 Chromatin Antibody <0.2 Normal 0.0-0.9 [facility] Comment on above: Result Comment: Perf ormed at: CB - [facility] [place] [address], [place], [place] [id number] Psychiatric Arnp: Freddy Zamora PhD, Phone: [phone] PERFORMED BY: [address] [place] [address] PATHOLOGIST SINGEING TORCH OPERATOR ALEJANDRA BONILLA M.D. Performed By: #### A NA, CH50, TPO, THYGLOB AB, CHROMATIN, C3, C4 #### [facility] , Coagulation Profileon 2022 aPTT Coag (Bld) [Time] 28.6 s Normal 25.1-36.5 [facility] Comment on above: Result Comment: A he matocrit value greater than 55% may lead to inaccurate results in coagulation testing. Patients having hematocrit values >55% require a special collection tube for coagulation studies. Please contact the laboratory at [phone] for redraw instructions. PERFORMED BY: [address] [place] [address] PATHOLOGIST SINGEING TORCH OPERATOR ALEJANDRA BONILLA M.D. Performed By: #### L UPANTCOAG ####[facility] ,#### PP ####[facility] [id number] Complement C3on 04-25-2023 Complement C3 138 mg/dL Normal 82-167 [facility] Comment on above: Performed By: #### A NA, CH50, TPO, THYGLOB AB, CHROMATIN, C3, C4 #### [facility] , Complement C4on 04-25-2023 Complement C4 21 mg/dL Normal 12-38 [facility] Comment on above: Performed By: #### A NA, CH50, TPO, THYGLOB AB, CHROMATIN, C3, C4 #### [facility] , Complement Total (CH50)on Complement Total (CH50) >60 Normal >41 [facility] Comment on above: Result Comment: [...] of range values. Performed at: - [facility] [address] [id number] Psychiatric Arnp: Freddy Zamora PhD, Phone: [phone] PERFORMED BY: [facility] [address] [place] [id number] PATHOLOGIST SINGEING TORCH OPERATOR ALEJANDRA BONILLA M.D. Performed By: #### A NA, CH50, TPO, THYGLOB AB, CHROMATIN, C3, C4 #### [facility] , Complete Blood Count Auto Di ffon 04-25-2023 Mean Corpuscular HGB Conc 33.8 g/dL Normal 32.0-35.0 [facility] Comment on above: Performed By: #### E SR, LIPID, CRP, [id number], CMP, URIC, MG, CBC, ADDONUAPLUS, T4F, TSH3, CK ####[place] [address] [address] NRBC% 0.1 /100{WBC} Normal 0-0.5 [facility] Comment on above: Performed By: #### E SR, LIPID, CRP, [id number], CMP, URIC, MG, CBC, ADDONUAPLUS, T4F, TSH3, CK ####[place] [id number] [facility] Comprehensive Metabolic Pane shane 04-25-2023 Albumin [Mass/Vol] 4.3 g/dL Normal 3.5-5.7 [facility] Comment on above: Performed By: #### E SR, LIPID, CRP, [id number], CMP, URIC, MG, CBC, ADDONUAPLUS, T4F, TSH3, CK ####[place] [address] [address] GFR/1.73 sq M.predicted MDRD (S/P/Bld) [Vol rate/Area] mL/min/{1.73_m2} Normal [facility] Comment on above: Performed By: #### E SR, LIPID, CRP, [id number], CMP, URIC, MG, CBC, ADDONUAPLUS, T4F, TSH3, CK ####[place] [address] [place] [id number] [facility] Creatine kinase [Enzymatic a ctivity/volume] in Serum or PlasmaOrdered By: Art Rinaldi on 04-25-2023 CK [Catalytic activity/Vol] 63 U/L Normal 30-223 [facility] Comment on above: Result Comment: PERF ORMED BY: [facility] [address] [place] [address] PATHOLOGIST SINGEING TORCH OPERATOR ALEJANDRA BONILLA M.D. Performed By: #### E SR, LIPID, CRP, [id number], CMP, URIC, MG, CBC, ADDONUAPLUS, T4F, TSH3, CK ####[place] [id number] [facility] Creatinine [Mass/volume] in Serum or PlasmaOrdered By: Art Rinaldi on 04-25-2023 Creatinine [Mass/Vol] 0.63 mg/dL Normal 0.60-1.20 [facility] Comment on above: Performed By: #### E SR, LIPID, CRP, [id number], CMP, URIC, MG, CBC, ADDONUAPLUS, T4F, TSH3, CK ####[place] [id number] [facility] Dipstick and Microscopicon 0 04-25-2023 Appearance (U) Clear Normal Clear [facility] Comment on above: Order Comment: Name Collection Type:: Clean-Voided Midstream Performed By: #### E SR, LIPID, CRP, [id number], CMP, URIC, MG, CBC, ADDONUAPLUS, T4F, TSH3, CK ####[place] [id number] [facility] Bacteria,Urine None Seen Normal None Seen [facility] Comment on above: Order Comment: Name Collection Type:: Clean-Voided Midstream Performed By: #### E SR, LIPID, CRP, [id number], CMP, URIC, MG, CBC, ADDONUAPLUS, T4F, TSH3, CK ####[address] [address] [facility] Bilirubin,Urine Negative Normal Negative [facility] Comment on above: Order Comment: Name Collection Type:: Clean-Voided Midstream Performed By: #### E SR, LIPID, CRP, [id number], CMP, URIC, MG, CBC, ADDONUAPLUS, T4F, TSH3, CK ####[place] [id number] [facility] Glucose Ql (U) Normal Normal Normal [facility] Comment on above: Order Comment: Name Collection Type:: Clean-Voided Midstream Performed By: #### E SR, LIPID, CRP, [id number], CMP, URIC, MG, CBC, ADDONUAPLUS, T4F, TSH3, CK ####[address] Hyaline Casts,Urine None Seen Normal 0-8 [facility] Comment on above: Order Comment: Name Collection Type:: Clean-Voided Midstream Result Comment: PERF ORMED BY: [facility] [address] [address] PATHOLOGIST SINGEING TORCH OPERATOR ALEJANDRA BONILLA M.D. Performed By: #### E SR, LIPID, CRP, [id number], CMP, URIC, MG, CBC, ADDONUAPLUS, T4F, TSH3, CK ####[place] [id number] [facility] Ketones Ql (U) Negative Normal Negative [facility] Comment on above: Order Comment: Name Collection Type:: Clean-Voided Midstream Performed By: #### E SR, LIPID, CRP, [id number], CMP, URIC, MG, CBC, ADDONUAPLUS, T4F, TSH3, CK ####[place] [id number] [facility] Leukocyte esterase Test strip Ql (U) Negative Normal Negative [facility] Comment on above: Order Comment: Name Collection Type:: Clean-Voided Midstream Performed By: #### E SR, LIPID, CRP, [id number], CMP, URIC, MG, CBC, ADDONUAPLUS, T4F, TSH3, CK ####[place] [id number] [facility] Nitrite,Urine Negative Normal Negative [facility] Comment on above: Order Comment: Name Collection Type:: Clean-Voided Midstream Performed By: #### E SR, LIPID, CRP, [id number], CMP, URIC, MG, CBC, ADDONUAPLUS, T4F, TSH3, CK ####[address] [address] [facility] Occult Blood,Urine Negative Normal Negative [facility] Comment on above: Order Comment: Name Collection Type:: Clean-Voided Midstream Performed By: #### E SR, LIPID, CRP, [id number], CMP, URIC, MG, CBC, ADDONUAPLUS, T4F, TSH3, CK ####[place] [id number] [facility] Protein,Urine Negative Normal Negative [facility] Comment on above: Order Comment: Name Collection Type:: Clean-Voided Midstream Performed By: #### E SR, LIPID, CRP, [id number], CMP, URIC, MG, CBC, ADDONUAPLUS, T4F, TSH3, CK ####[place] [id number] [facility] RBC,Urine 10-19 High 0-4 [facility] Comment on above: Order Comment: Name Collection Type:: Clean-Voided Midstream Performed By: #### E SR, LIPID, CRP, [id number], CMP, URIC, MG, CBC, ADDONUAPLUS, T4F, TSH3, CK ####[address] Specificy [place],Urine 1.021 Normal 1.001-1.03 0 [facility] Comment on above: Order Comment: Name Collection Type:: Clean-Voided Midstream Performed By: #### E SR, LIPID, CRP, [id number], CMP, URIC, MG, CBC, ADDONUAPLUS, T4F, TSH3, CK ####[place] [address] [place] [id number] [facility] Squamous Epithelial Cell,Urine None Seen Normal 0-2 [facility] Comment on above: Order Comment: Name Collection Type:: Clean-Voided Midstream Performed By: #### E SR, LIPID, CRP, [id number], CMP, URIC, MG, CBC, ADDONUAPLUS, T4F, TSH3, CK ####[address] Urobilinogen,Urine Normal Normal Normal [facility] Comment on above: Order Comment: Name Collection Type:: Clean-Voided Midstream Performed By: #### E SR, LIPID, CRP, [id number], CMP, URIC, MG, CBC, ADDONUAPLUS, T4F, TSH3, CK ####[address] WBC,Urine None Seen Normal 0-4 [facility] Comment on above: Order Comment: Name Collection Type:: Clean-Voided Midstream Performed By: #### E SR, LIPID, CRP, [id number], CMP, URIC, MG, CBC, ADDONUAPLUS, T4F, TSH3, CK ####[address] Erythrocyte Sedimentation Ra bryn 04-25-2023 ESR (Bld) [Velocity] 22 mm/h Normal 0-29 [facility] Comment on above: Result Comment: PERF ORMED BY: [facility] [address] [place] [address] PATHOLOGIST SINGEING TORCH OPERATOR ALEJANDRA BONILLA M.D. Performed By: #### E SR, LIPID, CRP, [id number], CMP, URIC, MG, CBC, ADDONUAPLUS, T4F, TSH3, CK ####[address] Erythrocyte distribution wid th [Ratio] by Automated countOrdered By: Art Rinaldi on 04-25-2023 Erythrocyte distribution width (RBC) [Ratio] 13.3 % Normal 11.9-15.3 [facility] Comment on above: Performed By: #### E SR, LIPID, CRP, [id number], CMP, URIC, MG, CBC, ADDONUAPLUS, T4F, TSH3, CK ####[facility] Erythrocyte sedimentation ra te by Photometric methodOrdered By: Art Rinaldi on 04-25-2023 ESR Photometric method (Bld) [Velocity] 22 mm/hr 0-29 [facility] Erythrocytes [#/volume] in B lood by Automated countOrdered By: Art Rinaldi on 04-25-2023 RBC (Bld) [#/Vol] 4.19 10*6/uL Normal 3.60-5.00 [facility] Comment on above: Performed By: #### E SR, LIPID, CRP, [id number], CMP, URIC, MG, CBC, ADDONUAPLUS, T4F, TSH3, CK ####[facility] Glucose [Mass/volume] in Ser um or PlasmaOrdered By: Art Rinaldi on 04-25-2023 Glucose [Mass/Vol] 92 mg/dL Normal 70-100 [facility] Comment on above: ADA recommended refe rence rangeRandom Glucose Reference Range is dependent on time and content of last meal. Glucose of more than 200 mg/dL in a nonstressed, ambulatory subject supports the diagnosis of Diabetes Mellitus. Result Comment: Tippo om Glucose Reference Range is dependent on time and content of last meal. Glucose of more than 200 mg/dL in a nonstressed, ambulatory subject supports the diagnosis of Diabetes Mellitus. ADA recommended reference range Performed By: #### E SR, LIPID, CRP, [id number], CMP, URIC, MG, CBC, ADDONUAPLUS, T4F, TSH3, CK ####[facility] [place] [id number] [facility] Hematocrit [Volume Fraction] of Blood by Automated countOrdered By: Art Rinaldi on 04-25-2023 Hematocrit (Bld) [Volume fraction] 36.9 % Normal 34.0-46.4 [facility] Comment on above: Performed By: #### E SR, LIPID, CRP, [id number], CMP, URIC, MG, CBC, ADDONUAPLUS, T4F, TSH3, CK ####[place] [address] Hemoglobin [Mass/volume] in BloodOrdered By: Art Rinaldi on 04-25-2023 Hemoglobin (Bld) [Mass/Vol] 12.5 g/dL Normal 11.8-15.4 [facility] Comment on above: Performed By: #### E SR, LIPID, CRP, [id number], CMP, URIC, MG, CBC, ADDONUAPLUS, T4F, TSH3, CK ####[place] [address] INR in Platelet poor plasma by Coagulation assayOrdered By: Art Rinaldi on 04-25-2023 INR Coag (PPP) [Relative time] 0.8 {INR} Normal [facility] Comment on above: INR Therapeutic [...] By: #### L UPANTCOAG ####[facility] ,#### PP ####[address] Ketones Auto test strip (U) [Mass/Vol]Ordered By: Art Rinaldi on 04-25-2023 Ketones (U) [Mass/Vol] Negative Negative [facility] Laboratory - UrinalysisOrder ed By: Art Rinaldi on 04-25-2023 Hyaline casts LM Ql (Urine sed) None seen [LPF] 0-8 [facility] Leukocytes [#/volume] correc hilario for nucleated erythrocytes in Blood by Automated counOrdered By: Art Rinaldi on 04-25-2023 WBC corrected for nucl RBC Auto (Bld) [#/Vol] 8.5 10*3/uL 3.8-11.6 [facility] Leukocytes [#/volume] in Blo od by Automated countOrdered By: Art Rinaldi on 04-25-2023 WBC (Bld) [#/Vol] 8.5 10*3/uL Normal 3.8-11.6 [facility] Comment on above: Performed By: #### E SR, LIPID, CRP, [id number], CMP, URIC, MG, CBC, ADDONUAPLUS, T4F, TSH3, CK ####[facility] [id number] Lipid Panelon 04-25-2023 LDL Cholesterol,Calculate d 112 mg/dL High 0-100 [facility] Comment on above: Result Comment: LDL ATP III CLASSIFICATION LDL less than 100 mg/dL Optimal LDL 100-129 mg/dL Near or above optimal LDL 130-159 mg/dL Borderline high LDL 160-189 mg/dL High LDL greater than 189 mg/dL Very high Performed By: #### E SR, LIPID, CRP, [id number], CMP, URIC, MG, CBC, ADDONUAPLUS, T4F, TSH3, CK ####[facility] [id number] Triglyceride w/Reflex 217 mg/dL High 0-149 [facility] Comment on above: Result Comment: TRIG ATP III CLASSIFICATION TRIG less than 150 mg/dL Normal TRIG 150-199 mg/dL Borderline high TRIG 200-500 mg/dL High TRIG greater than 500 mg/dL Very high Standard traceable to the Center for Disease Conrtrol and Prevention (CDC) test method. Performed By: #### E SR, LIPID, CRP, [id number], CMP, URIC, MG, CBC, ADDONUAPLUS, T4F, TSH3, CK ####[address] VLDL CHOLESTEROL 43 mg/dL Normal [facility] Comment on above: Performed By: #### E SR, LIPID, CRP, [id number], CMP, URIC, MG, CBC, ADDONUAPLUS, T4F, TSH3, CK ####[address] Lupus Anticoagulant Compon 0 04-25-2023 Dilute Prothrombin Time (dPt) 33.7 Normal 0.0-47.6 [facility] Comment on above: Performed By: #### L UPANTCOAG ####[facility] ,#### PP ####[address] dPT Confirm Ratio 1.05 Normal 0.00-1.34 [facility] Comment on above: Performed By: #### L UPANTCOAG ####[facility] ,#### PP ####[address] DRVVT Lupus 34.4 Normal 0.0-47.0 [facility] Comment on above: Performed By: #### L UPANTCOAG ####[facility] ,#### PP ####[place] [id number] [facility] Interpretation Comment: Normal . [facility] Comment on above: Result Comment: No l upus anticoagulant was detected. Performed at: - [facility] [id number] Psychiatric Arnp: Rowena Schofield MD, Phone: [phone] PERFORMED BY: [facility] [address] [place] [address] PATHOLOGIST SINGEING TORCH OPERATOR ALEJANDRA BONILLA M.D. Performed By: #### L UPANTCOAG ####[facility] ,#### PP ####[address] PTT-LA 37.4 Normal 0.0-43.5 [facility] Comment on above: Performed By: #### L UPANTCOAG ####[facility] ,#### PP ####[place] [address] [place] [id number] [facility] Thrombin Time 16.5 Normal 0.0-23.0 [facility] Comment on above: Performed By: #### L UPANTCOAG ####[facility] ,#### PP ####[place] [id number] [facility] Lupus anticoagulant [Interpr etation] in Platelet poor plasmaOrdered By: Art Rinaldi on 04-25-2023 Lupus anticoagulant (PPP) [Interp] Comment: . [facility] Comment on above: No lupus anticoagula nt was detected.Performed at: - [facility] [id number] Director: Rowena Schofield MD, Phone: [phone] Lymphocytes [#/volume] in Bl ood by Automated countOrdered By: Art Rinaldi on 04-25-2023 Lymphocytes (Bld) [#/Vol] 2.4 10*3/uL Normal 1.00-4.8 [facility] Comment on above: Performed By: #### E SR, LIPID, CRP, [id number], CMP, URIC, MG, CBC, ADDONUAPLUS, T4F, TSH3, CK ####[place] [id number] [place] Lymphocytes/100 leukocytes i n Blood by Automated countOrdered By: Art Rinaldi on 04-25-2023 Lymphocytes/100 WBC (Bld) 28.5 % Normal . [facility] Comment on above: Performed By: #### E SR, LIPID, CRP, [id number], CMP, URIC, MG, CBC, ADDONUAPLUS, T4F, TSH3, CK ####[place] [id number] [facility] MCH [Entitic mass] by Automa hilario countOrdered By: Art Rinaldi on 04-25-2023 MCH (RBC) [Entitic mass] 29.8 pg Normal 24.7-34.3 [facility] Comment on above: Performed By: #### E SR, LIPID, CRP, [id number], CMP, URIC, MG, CBC, ADDONUAPLUS, T4F, TSH3, CK ####[address] MCHC Auto (RBC) [Mass/Vol]Or dered By: Art Rinaldi on 04-25-2023 MCHC (RBC) [Mass/Vol] 33.8 g/dL 32.0-35.0 [facility] MCV [Entitic volume] by Auto mated countOrdered By: Art Rinaldi on 04-25-2023 MCV (RBC) [Entitic vol] 88.1 fL Normal 80-100 [facility] Comment on above: Performed By: #### E SR, LIPID, CRP, [id number], CMP, URIC, MG, CBC, ADDONUAPLUS, T4F, TSH3, CK ####[address] Magnesium [Mass/volume] in S ajith or PlasmaOrdered By: Art Rinaldi on 04-25-2023 Magnesium [Mass/Vol] 1.9 mg/dL Normal 1.9-2.7 [facility] Comment on above: Performed By: #### E SR, LIPID, CRP, [id number], CMP, URIC, MG, CBC, ADDONUAPLUS, T4F, TSH3, CK ####[address] Neutrophils [#/volume] in Bl ood by Automated countOrdered By: Art Rinaldi on 04-25-2023 Neutrophils (Bld) [#/Vol] 5.5 10*3/uL Normal 1.8-7.7 [facility] Comment on above: Performed By: #### E SR, LIPID, CRP, [id number], CMP, URIC, MG, CBC, ADDONUAPLUS, T4F, TSH3, CK ####[address] Nitrite Test strip Ql (U)Ord ered By: Art Rinaldi on 04-25-2023 Nitrite Ql (U) Negative Negative [facility] No Panel InformationOrdered By: Art Rinaldi on 04-25-2023 Anti-Nuclear Antibody Comment 2 See comment . [facility] Comment on above: For more information about Hep-2 cell patterns use[employer].[place], the official website for the InternationalConVQiao.comsus on Antinuclear Antibody (JESS) Patterns (ICAP). ---A positive JESS result may occur in healthy individuals (lowtiter) or be associated with a variety of diseases. Seeinterpretation chart which is not all inclusive:Pattern Antigen Detected Suggested Disease Association Homogeneous DNA(ds,ss), SLE - High titers Nucleosomes, Histones Drug-induced SLE Speckled Sm, CEMENT MIX[employer], SCL-70, SLE,MCTD,PSS (diffuse form), SS-A/SS-B Sjogrens Nucleolar SCL-70, PM-1/SCL High titers Scleroderma, PM/DM Centromere Centromere PSS (limited form) w/Crest syndrome variable Nuclear Dot Sp100,v73-duipwj Primary Biliary Cirrhosis Nuclear GP210, Primary Biliary CirrhosisMembrane mireille A,B,C Performed at: [facility] [place], [place] [id number] Director: Freddy Zamora PhD, Phone: [phone] Estimated GFR (CKD-EPI) > 60.0 mL/Min [facility] Creatinine Clearance (Chem N/A [facility] Total Complement (CH50) >60 U/mL >41 [facility] Comment on above: Age Male [...] to determine out of range values.Performed at: [facility] [place], [place] [id number] Director: Freddy Zamora PhD, Phone: [phone] Nucleated erythrocytes [Pres ence] in Blood by Automated countOrdered By: Art Rinaldi on 04-25-2023 Nucleated RBC Auto Ql (Bld) 0.1 /100{WBC} 0-0.5 [facility] Platelet mean volume [Entiti c volume] in Blood by Automated countOrdered By: Art Rinaldi on 04-25-2023 Platelet mean volume (Bld) [Entitic vol] 8.7 fL Normal 6.3-10.7 [facility] Comment on above: Performed By: #### E SR, LIPID, CRP, [id number], CMP, URIC, MG, CBC, ADDONUAPLUS, T4F, TSH3, CK ####[facility] [place] [address] [facility] Platelet poor plasma ratio o f lupus anticoagulant-sensitive activated partial thromboOrdered By: Art Rinaldi on 04-25-2023 aPTT.lupus sensitive.excess phospholipid actual/normal Coag (PPP) [Relative time] 33.7 sec 0.0-47.6 [facility] Platelets [#/volume] in Bloo d by Automated countOrdered By: Art Rinaldi on 04-25-2023 Platelets (Bld) [#/Vol] 229 10*3/uL Normal 150-450 [facility] Comment on above: Performed By: #### E SR, LIPID, CRP, [id number], CMP, URIC, MG, CBC, ADDONUAPLUS, T4F, TSH3, CK ####[place] [address] [place] [address] [facility] Potassium [Moles/volume] in Serum or PlasmaOrdered By: Art Rinaldi on 04-25-2023 Potassium [Moles/Vol] 3.7 mmol/L Normal 3.5-5.1 [facility] Comment on above: Performed By: #### E SR, LIPID, CRP, [id number], CMP, URIC, MG, CBC, ADDONUAPLUS, T4F, TSH3, CK ####[address] [address] [facility] Protein Auto test strip (U) [Mass/Vol]Ordered By: Art Rinaldi on 04-25-2023 Protein (U) [Mass/Vol] Negative Negative [facility] Protein [Mass/volume] in Ser um or PlasmaOrdered By: Art Rinaldi on 04-25-2023 Protein [Mass/Vol] 6.7 g/dL Normal 6.4-8.9 [facility] Comment on above: Performed By: #### E SR, LIPID, CRP, [id number], CMP, URIC, MG, CBC, ADDONUAPLUS, T4F, TSH3, CK ####[facility] [id number] Prothrombin time (PT)Ordered By: Art Rinaldi on 04-25-2023 PT Coag (PPP) [Time] 10.2 s Normal 9.0-12.9 [facility] Comment on above: A hematocrit value g reater than 55% may lead to inaccurate results in coagulation testing. Patients having hematocrit values >55% require a special collection tube for coagulation studies. Please contact the laboratory at [phone] for redraw instructions. Result Comment: A he matocrit value greater than 55% may lead to inaccurate results in coagulation testing. Patients having hematocrit values >55% require a special collection tube for coagulation studies. Please contact the laboratory at [phone] for redraw instructions. Performed By: #### L UPANTCOAG ####[facility] ,#### PP ####[place] [address] [address] RPR w/rfx to Quant TP Abson 04-25-2023 RPR, Rfx Quant RPR Non-Reactive Normal Non Reactive [facility] Comment on above: Result Comment: Perf ormed at: CB - [facility] [address] [id number] Psychiatric Arnp: Freddy Zamora PhD, Phone: [phone] PERFORMED BY: [facility] [address] [place] [address] PATHOLOGIST SINGEING TORCH OPERATOR ALJEANDRA BONILLA M.D. Performed By: #### R CT W RFX ####[facility] , Reagin Ab [Presence] in Seru m by RPROrdered By: Art Rinaldi on 04-25-2023 Reagin Ab RPR Ql (S) Non-Reactive Non Reactive [facility] Comment on above: Performed at: CB - [facility] [address] [id number] Director: Freddy Zamora PhD, Phone: [phone] Screening dilute Lavelle's v iper venom time (DRVVT) with reflex to confirmatory testOrdered By: Art Rinaldi on 04-25-2023 dRVVT Coag (PPP) [Time] 34.4 s 0.0-47.0 [facility] Screening lupus anticoagulan t-sensitive activated partial thromboplastin time (aPTT)Ordered By: Art Rinaldi on 04-25-2023 aPTT.lupus sensitive Coag (PPP) [Time] 37.4 sec 0.0-43.5 [facility] Serum globulin measurement b y calculation (mass/volume)Ordered By: Art Rinaldi on 04-25-2023 Globulin (S) [Mass/Vol] 2.4 g/dL Normal [facility] Comment on above: Performed By: #### E SR, LIPID, CRP, [id number], CMP, URIC, MG, CBC, ADDONUAPLUS, T4F, TSH3, CK ####[facility] [id number] Serum homogeneous pattern an tinuclear antibody (JESS) titerOrdered By: Art Rinaldi on 04-25-2023 Homogenous nuclear Ab pattern (S) [Titer] 1:320 . [facility] Comment on above: ICAP nomenclature: A C-1 Serum nuclear antibody titer Ordered By: Art Rinaldi on 04-25-2023 Nuclear Ab (S) [Titer] Positive . [facility] Comment on above: Negative <1:80 Ludwin arriaza 1:80 Positive >1:80 Serum or plasma albumin/glob ulin mass ratioOrdered By: Art Rinaldi on 04-25-2023 Albumin/Globulin [Mass ratio] 1.8 {ratio} Normal [facility] Comment on above: Performed By: #### E SR, LIPID, CRP, [id number], CMP, URIC, MG, CBC, ADDONUAPLUS, T4F, TSH3, CK ####[facility] [id number] [place], [place] [address] Serum or plasma anion gap de terminationOrdered By: Art Rinaldi on 04-25-2023 Anion gap [Moles/Vol] 11.6 mmol/L Normal 6.0-15.0 [facility] Comment on above: Performed By: #### E SR, LIPID, CRP, [id number], CMP, URIC, MG, CBC, ADDONUAPLUS, T4F, TSH3, CK ####[facility] [id number] Serum or plasma chromatin an tibody assay (units/volume)Ordered By: Art Rinaldi on 04-25-2023 Chromatin Ab Qn <0.2 AI 0.0-0.9 [facility] Comment on above: Performed at: [place] [id number] Director: Freddy Zamora PhD, Phone: [phone] Serum or plasma complement C 3 measurement (mass/volume)Ordered By: Art Rinaldi on 04-25-2023 Complement C3 [Mass/Vol] 138 mg/dL 82-167 [facility] Serum or plasma complement C 4 measurement (mass/volume)Ordered By: Art Rinaldi on 04-25-2023 Complement C4 [Mass/Vol] 21 mg/dL 12-38 [facility] Serum or plasma high density lipoprotein (HDL) cholesterol measurementOrdered By: Art Rinaldi on 04-25-2023 Cholesterol in HDL [Mass/Vol] 71 mg/dL Normal 23-92 [facility] Comment on above: HDL CHOL ATP-III CLA SSIFICATION Cardiovascular RiskHDL > or equal to 60 mg/dL LOWHDL < 40 mg/dL HIGH Result Comment: HDL CHOL ATP-III CLASSIFICATION Cardiovascular Risk HDL > or equal to 60 mg/dL LOW HDL < 40 mg/dL HIGH Performed By: #### E SR, LIPID, CRP, [id number], CMP, URIC, MG, CBC, ADDONUAPLUS, T4F, TSH3, CK ####[facility] [id number] Serum or plasma thyroglobuli n antibody assay (units/volume)Ordered By: Art Rinaldi on 04-25-2023 Thyroglobulin Ab Qn [IU]/mL 0.0-0.9 [facility] Comment on above: Thyroglobulin Antibo dy measured by Nuclea BiotechnologiesMethodologyPerformed at: CB - [facility] [address] [id number] Director: Freddy Zamora PhD, Phone: [phone] Serum or plasma thyroperoxid ase antibody assay (units/volume)Ordered By: Art Rinaldi on 04-25-2023 TPO Ab Qn 13 [IU]/mL 0-34 [facility] Comment on above: Performed at: CB - [facility] [address] [id number] Director: Freddy Zamora PhD, Phone: [phone] Serum or plasma total choles terol/high density lipoprotein (HDL) cholesterol mass ratOrdered By: Art Rinaldi on 04-25-2023 Cholesterol.total/Cho lesterol in HDL [Mass ratio] 3.2 {ratio} Normal <5.0 [facility] Comment on above: Performed By: #### E SR, LIPID, CRP, [id number], CMP, URIC, MG, CBC, ADDONUAPLUS, T4F, TSH3, CK ####[facility] [id number] [place] [id number] [facility] Sodium [Moles/volume] in Ser um or PlasmaOrdered By: Art Rinaldi on 04-25-2023 Sodium [Moles/Vol] 140 mmol/L Normal 136-145 [facility] Comment on above: Performed By: #### E SR, LIPID, CRP, [id number], CMP, URIC, MG, CBC, ADDONUAPLUS, T4F, TSH3, CK ####[address] [address] [facility] Specific gravity Auto test s trip (U) [Rel density]Ordered By: Art Rinaldi on 04-25-2023 Specific gravity (U) [Rel density] 1.021 1.001-1.03 0 [facility] Squamous epithelial cells de tection in urine sediment by light microscopyOrdered By: Art Rinaldi on 04-25-2023 Epithelial cells.squamous LM Ql (Urine sed) None seen [HPF] 0-2 [facility] TT plasOrdered By: Art begum on 04-25-2023 Thrombin time Coag (PPP) [Time] 16.5 sec 0.0-23.0 [facility] Thyroid Peroxidase Antibodie son 04-25-2023 Thyroid Peroxidase Antibodies 13 Normal 0-34 [facility] Comment on above: Result Comment: Perf ormed at: - [facility] [address] [id number] Psychiatric Arnp: Freddy Zamora PhD, Phone: [phone] Performed By: #### A NA, CH50, TPO, THYGLOB AB, CHROMATIN, C3, C4 #### [facility] , Thyrotropin [Units/volume] i n Serum or PlasmaOrdered By: Art Rinaldi on 04-25-2023 TSH Qn 3.03 m[IU]/L Normal 0.45-5.33 [facility] Comment on above: Performed By: #### E SR, LIPID, CRP, [id number], CMP, URIC, MG, CBC, ADDONUAPLUS, T4F, TSH3, CK ####[facility] [id number] [place] [id number] [facility] Thyroxine (T4) free [Mass/vo lume] in Serum or PlasmaOrdered By: Art Rinaldi on 04-25-2023 Free T4 [Mass/Vol] 0.60 ng/dL Low 0.61-1.12 [facility] Comment on above: Performed By: #### E SR, LIPID, CRP, [id number], CMP, URIC, MG, CBC, ADDONUAPLUS, T4F, TSH3, CK ####[facility] [id number] [place] [id number] [facility] Triglyceride [Mass/volume] i n Serum or PlasmaOrdered By: Art Rinaldi on 04-25-2023 Triglyceride [Mass/Vol] 217 mg/dL 0-149 [facility] Comment on above: TRIG ATP III CLASSIF ICATIONTRIG less than 150 mg/dL NormalTRIG 150-199 mg/dL Borderline highTRIG 200-500 mg/dL High TRIG greater than 500 mg/dL Very highStandard traceable to the Center for Disease Conrtrol and Prevention (CDC) test method. Urate [Mass/volume] in Serum or PlasmaOrdered By: Art Rinaldi on 04-25-2023 Urate [Mass/Vol] 3.9 mg/dL Normal 2.3-6.6 [facility] Comment on above: Performed By: #### E SR, LIPID, CRP, [id number], CMP, URIC, MG, CBC, ADDONUAPLUS, T4F, TSH3, CK ####[place] [id number] [address] Urea nitrogen [Mass/volume] in Serum or PlasmaOrdered By: Art Rinaldi on 04-25-2023 Urea nitrogen [Mass/Vol] 15 mg/dL Normal 7-25 [facility] Comment on above: Performed By: #### E SR, LIPID, CRP, [id number], CMP, URIC, MG, CBC, ADDONUAPLUS, T4F, TSH3, CK ####[place] [id number] Urine bacteria detection by automated methodOrdered By: Art Rinaldi on 04-25-2023 Bacteria Auto Ql (U) None seen None Seen [facility] Urine clarity by refractomet ry automatedOrdered By: Art Rinaldi on 04-25-2023 Clarity Refractometry automated (U) Clear Clear [facility] Urine glucose measurement by automated test strip (mass/volume)Ordered By: Art Rinaldi on 04-25-2023 Glucose Auto test strip (U) [Mass/Vol] Normal mg/dL Normal [facility] Urine hemoglobin detection b y automated test stripOrdered By: Art Rinaldi on 04-25-2023 Hemoglobin Auto test strip Ql (U) Negative Negative [facility] Urine leukocyte esterase det ection by automated test stripOrdered By: Art Rinaldi on 04-25-2023 Leukocyte esterase Auto test strip Ql (U) Negative Negative [facility] Urine pH measurement by auto mated test stripOrdered By: Art Rinaldi on 04-25-2023 pH (U) 5.0 [pH] Normal 5.0-9.0 [facility] Comment on above: Order Comment: Name Collection Type:: Clean-Voided Midstream Performed By: #### E SR, LIPID, CRP, [id number], CMP, URIC, MG, CBC, ADDONUAPLUS, T4F, TSH3, CK ####[place] [id number] [place] [address] [facility] Urobilinogen Auto test strip (U) [Mass/Vol]Ordered By: Art Rinaldi on 04-25-2023 Urobilinogen (U) [Mass/Vol] Normal mg/dL Normal [facility] Vitamin D 25 Hydroxy Totalon 04-25-2023 Vitamin D 25 Hydroxy Total 32.0 ng/mL Normal 30-100 [facility] Comment on above: Result Comment: RONY MIN D STATUS 25(OH)VITAMIN D RANGE (ng/mL) Deficient <20 Insufficient 20 to <30 Sufficient 30 to 100 Reference: Shaina Sears, Iliana MELENDEZ, et al. Evaluation,treatment, and prevention of vitamin D deficiency; an Endocrine Society clinical practice guideline. JCEM. 2010; 96(7):1911-. PERFORMED BY: [place] [address] PATHOLOGIST [employer]INGEING [employer]ORCH OPERATOR ALEJANDRA BONILLA M.D. Performed By: #### E SR, LIPID, CRP, [id number], CMP, URIC, MG, CBC, ADDONUAPLUS, T4F, TSH3, CK ####[place] [id number] [place] [address] [facility] Vitamin D+Metabolites [Mass/ volume] in Serum or PlasmaOrdered By: Art Rinaldi on 04-25-2023 Vitamin D+Metabolites [Mass/Vol] 32.0 ng/mL 30-100 [facility] Comment on above: VITAMIN D STATUS 25( [place])VITAMIN D RANGE (ng/mL) Deficient <20 Insufficient 20 to <30Sufficient 30 to 100Reference: Shaina Sears, Iliana MELENDEZ, et al. Evaluation,treatment, and prevention of vitamin D deficiency; an Endocrine Society clinical practice guideline. JCEM. 2010; 96(7):1911-30. XR foot BI 2Von 04-25-2023 XR foot BI 2V [facility] [place] [place] [address] XRay Report Signed Patient: Christian Rich MR#: [id number] : 1955 Acct:[id number] Age/Sex: 67 / F ADM Date: 04/25/23 Loc: ICXD Room: Type: [facility] Attending Dr: Art Rinaldi MD Copies to: Art Rinaldi MD Ordering Provider: Art Rinaldi MD Date of Service: 04/25/23 XR/XR wrist BI 2V: PAIN ([id number]) XR/XR foot BI 2V: PAIN ([id number]) XR/XR hand BI 2V: PAIN CLINICAL DATA: [...] Clarissa Garcia M.D.04/25/2023 6:04 PM Dictation Location: [place] [address] Transcribed By: [facility] 04/25/231803 Dictated By: Clarissa Garcia MD 04/25/231757 Signed By: 04/25/231803 Normal [facility] aPTT.lupus sensitive/aPTT.jad pus sensitive W excess phospholipid (screen to confirm raOrdered By: Art Rinaldi on 04-25-2023 aPTT.lupus sensitive/aPTT.lupus sensitive W excess phospholipid Coag (PPP) [Ratio] 1.05 Ratio 0.00-1.34 [facility] MR lumbar spine wo conon MR lumbar spine wo [facility] [address] [place] [address] [place] [address] MRI Report Signed Patient: Christian Rich MR#: [id number] : 1955 Acct:[id number] Age/Sex: 67 / F ADM Date: 02/08/23 Loc: MR Room: Type: [facility] Attending Dr: Noris MCCALL Copies [...] Clarissa Garcia M.D.02/08/2023 5:18 PM Dictation Location: [facility] Transcribed By: [facility] 02/08/231717 Dictated By: Clarissa Garcia MD 02/08/231707 Signed By: 02/08/231717 [facility] MR lumbar spine wo con [facility] Other MR lumbar spine wo con [facility] Other MR lumbar spine wo con [address] [facility] [employer] [place] [address] [employer] Other MR lumbar spine wo con MRI Report [employer] Other MR lumbar spine wo con Signed [employer] Other MR lumbar spine wo con Patient: Christian Rich MR#: [id number] [employer] Other MR lumbar spine wo con 8127 [employer] Other MR lumbar spine wo con : 1955 Acct:[id number] [employer] Other MR lumbar spine wo con Age/Sex: 67 / F ADM Date: 02/08/23 [employer] Other MR lumbar spine wo con Loc: MR Room: Type: [facility] [employer] Other MR lumbar spine wo con Attending Dr: Noris Elder [employer] Other MR lumbar spine wo con Copies to: Noris Elder [employer] Other MR lumbar spine wo con Ordering Provider: ERNIE HunterC [employer] Other MR lumbar spine wo con Date of Service: 02/08/23 [employer] Other MR lumbar spine wo con MR/MR lumbar spine wo con: Lumbar pain [employer] Other MR lumbar spine wo con MRI LUMBAR SPINE WITHOUT CONTRAST [employer] Other MR lumbar spine wo con COMPARISON: Plain films 02/08/2023 [employer] Other MR lumbar spine wo con CLINICAL DATA: Chronic low back pain. No injury. [employer] Other MR lumbar spine wo con Multiecho imaging in the axial and sagittal plane was performed without contrast. [employer] Other MR lumbar spine wo con There is dextroscoliotic curvature. There is slight anterolisthesis of L5 on S1. Alignment is [employer] Other MR lumbar spine wo con otherwise maintained. No acute compression fractures or marrow edema are identified. There is [employer] Other MR lumbar spine wo con multilevel degenerative endplate signal change. The conus medullaris terminates at the L1-2 level. [employer] Other MR lumbar spine wo con No paraspinal soft tissue abnormalities are noted. [employer] Other MR lumbar spine wo con At T12-L1, there is narrowing of the disc space. There is mild annular disc bulging, slightly [employer] Other MR lumbar spine wo con asymmetric extending laterally on the right. There is slight anterior thecal sac effacement. The [employer] Other MR lumbar spine wo con neural foramen are patent. [employer] Other MR lumbar spine wo con L1-2, there is narrowing of the disc space. There is mild annular disc bulging, greater extending [employer] Other MR lumbar spine wo con laterally. There is minor facet disease. Mild thecal sac effacement is present. There is mild [employer] Other MR lumbar spine wo con right and mild to moderate left foraminal encroachment. [employer] Other MR lumbar spine wo con At L2-3, there is narrowing of the disc space. There is annular disc bulging, greater toward the [employer] Other MR lumbar spine wo con neural foramen and slightly asymmetric extending laterally on the left. There is bilateral facet [employer] Other MR lumbar spine wo con hypertrophy with fluid in the joint on the right. There is also thickening of ligamentum flavum, [employer] Other MR lumbar spine wo con slightly greater on the left. There is at moderate thecal sac effacement. There is mild right and [employer] Other MR lumbar spine wo con moderate left foraminal impingement. [employer] Other MR lumbar spine wo con At L3-4, there is narrowing of the space. Annular disc bulging is visualized, greater toward the [employer] Other MR lumbar spine wo con neural foramen where there is a more focal protrusion on the left. There is moderate facet and [employer] Other MR lumbar spine wo con ligamentous hypertrophy. There is moderate thecal sac effacement. There is moderate left and mild [employer] Other MR lumbar spine wo con right foraminal impingement. [employer] Other MR lumbar spine wo con At L4-5, there is narrowing of the disc space. Annular disc bulging is visualized, greater toward [employer] Other MR lumbar spine wo con the neural foramen and slightly asymmetric extending laterally on the right. There is facet and [employer] Other MR lumbar spine wo con ligamentous hypertrophy. Mild to moderate thecal sac effacement is identified. There is mild to [employer] Other MR lumbar spine wo con potentially moderate left and moderate to severe right foraminal impingement. [employer] Other MR lumbar spine wo con At the lumbosacral junction, there is mild annular disc bulging, slightly more focal in the right [employer] Other MR lumbar spine wo con parasagittal region extending toward the neural foramen. There is prominent bilateral facet [employer] Other MR lumbar spine wo con disease. A synovial cyst is visualized posterior to the facets on the right. There is mild thecal [employer] Other MR lumbar spine wo con sac effacement. Mild left and mild to moderate right foraminal encroachment is identified. [employer] Other MR lumbar spine wo con MR/MR lumbar spine wo con [employer] Other MR lumbar spine wo con IMPRESSION: [employer] Other MR lumbar spine wo con DEXTROSCOLIOSIS AND MULTILEVEL DISCOVERTEBRAL DEGENERATIVE CHANGES WITH ASSOCIATED STENOSIS, [employer] Other MR lumbar spine wo con OUTLINED ABOVE. [employer] Other MR lumbar spine wo con Impression dictated by: Clarissa Garcia M.D.02/08/2023 5:18 PM [employer] Other MR lumbar spine wo con Dictation Location: [place] [address] [employer] Other MR lumbar spine wo con Transcribed By: PWS 02/08/23 [facility] [employer] Other MR lumbar spine wo con Dictated By: Clarissa Garcia MD 02/08/23 [facility] [employer] Other MR lumbar spine wo con Signed By: [employer] Other MR lumbar spine wo con 02/08/23 [facility] [employer] Other US breast LT limitedon 02-08 US breast LT limited [facility] [place] [address] Ultrasound Report Signed Patient: Christian Rich MR#: [id number] : 1955 Acct:[id number] Age/Sex: 67 / F ADM Date: 02/08/23 Loc: [facility] Room: Type: [facility] Attending Dr: Augusto Siu DO [...] Stanislav Anthony M.D.02/08/2023 2:54 PM Dictation Location: [facility] Tech: Farrah Andrews Transcribed By: JAHAIRA 02/08/23 1454 Dictated By: Stanislav Anthony DO 02/08/231452 Signed By: 02/08/23 145 Normal [facility] XR lumbar spine 6V w bending on 02-08-2023 XR lumbar spine 6V w bending [facility] [address] [place] [address] [place] [address] XRay Report Signed Patient: Christian Rich MR#: [id number] : 1955 Acct:[id number] Age/Sex: 67 / F ADM Date: 02/08/23 Loc: Room: Type: [facility] Attending Dr: Noris KLEINC Copies [...] Clarissa Garcia M.D.02/08/2023 5:08 PM Dictation Location: [place] [address] Transcribed By: JAHAIRA 02/08/23 1708 Dictated By: Clarissa Garcia MD 02/08/236 Signed By: 02/08/231707 [facility] XR lumbar spine 6V w bending XRay Report [employer] Other XR lumbar spine 6V w bending XR/XR lumbar spine 6V w bending: Lumbar pain [employer] Other XR lumbar spine 6V w bending LUMBAR SPINE WITH FLEXION, EXTENSION AND BENDING VIEWS - 6 views: [employer] Other XR lumbar spine 6V w bending CLINICAL HISTORY: Nonradiating low back pain. No injury. [employer] Other XR lumbar spine 6V w bending COMPARISON: 04/28/2020 [employer] Other XR lumbar spine 6V w bending Standing AP neutral, right left bending and lateral views with neutral, flexion and extension were [employer] Other XR lumbar spine 6V w bending obtained. There is osteopenia. There is rotatory dextroscoliotic curvature. There is minimal [employer] Other XR lumbar spine 6V w bending anterolisthesis of L5 on S1. There is no other malalignment or instability. No acute fractures are [employer] Other XR lumbar spine 6V w bending seen. There is disc space narrowing at the upper lumbar levels, asymmetric toward the left. There [employer] Other XR lumbar spine 6V w bending is also mild posterior disc space narrowing at L3-4 and L4-5. There are tiny endplate spurs. There [employer] Other XR lumbar spine 6V w bending is mid and lower lumbar facet disease. The SI joints are intact. No paraspinal soft tissue [employer] Other XR lumbar spine 6V w bending abnormalities are present. [employer] Other XR lumbar spine 6V w bending XR/XR lumbar spine 6V w bending [employer] Other XR lumbar spine 6V w bending SCOLIOSIS AND DEGENERATIVE CHANGES. [employer] Other XR lumbar spine 6V w bending Impression dictated by: Clarissa Garcia M.D.02/08/2023 5:08 PM [employer] Other XR lumbar spine 6V w bending Transcribed By: PWS 02/08/23 1704 [employer] Other XR lumbar spine 6V w bending Dictated By: Clarissa Garcia MD 02/08/23 1702 [employer] Other XR lumbar spine 6V w bending 02/08/23 8634 [employer] Other Office Visit (Cardiology)on 06-19-2022 Follow-up visit [...] (I47.1) Surgical History Problems History of Colonoscopy [id number] History of Excision of basal cell carcinoma History of Radiofrequency ablation History of Tonsillectomy with adenoidectomy History of Total hysterectomy abdominal Past Medical History Problems History of BMI 24.0-24.9, adult (V85.1) (Z68.24) Current Meds Medication NameInstruction Estrace 1 MG Oral TabletTAKE 1 TABLET DAILY. Verbally updated medication list with Patient. Patient did not bring medication bottles or (more content not included)... Normal [employer] Tobacco Screening.on 022 Adult depression screening assessment No [facility] [address] DO Work Phone: Fall risk assessment a) No falls within the last year [facility] [address] DO Work Phone: Tobacco use status [facility] b) No [facility] [address] DO Work Phone: Albumin [Mass/volume] in Ser um or PlasmaOrdered By: Latoya Bunting on 06-09-2022 Albumin [Mass/Vol] 3.7 g/dL 3.2-5.5 [facility] Basophils Auto (Bld) [#/Vol] Ordered By: Latoya Bunting on 06-09-2022 Basophils (Bld) [#/Vol] 0.0 10*3/uL 0.0-0.2 [facility] Basophils/100 WBC Auto (Bld) Ordered By: Latoya Bunting on 06-09-2022 Basophils/100 WBC (Bld) 0.2 % . [facility] Cholesterol [Mass/volume] in Serum or PlasmaOrdered By: Latoya Bunnorma on 06-09-2022 Cholesterol [Mass/Vol] 231 mg/dL 140-200 [facility] Comment on above: Chol less than 200 m g/dl low riskChol 201-239 mg/dl borderline riskChol 240 mg/dl and greater high risk Cholesterol in LDL Calc [Mas s/Vol]Ordered By: Latoya Bunting on 06-09-2022 Cholesterol in LDL [Mass/Vol] 135 mg/dL 0-100 [facility] Comment on above: LDL ATP III CLASSIFI CATIONLDL less than 100 mg/dL OptimalLDL 100-129 mg/dL Near or above optimalLDL 130-159 mg/dL Borderline highLDL 160-189 mg/dL HighLDL greater than 189 mg/dL Very high Cholesterol in VLDL Calc [Ma ss/Vol]Ordered By: Latoya Bunting on 06-09-2022 Cholesterol in VLDL [Mass/Vol] 25 mg/dL [facility] Creatinine and Glomerular fi ltration rate.predicted panel (S/P/Bld)Ordered By: Latoya Bunnorma on 06-09-2022 Creatinine [Mass/Vol] 0.69 mg/dL 0.44-1.03 [facility] Eosinophils Auto (Bld) [#/Vo l]Ordered By: Latoya Bunnorma on 06-09-2022 Eosinophils (Bld) [#/Vol] 0.0 10*3/uL 0.0-0.45 [facility] Eosinophils/100 WBC Auto (Bl d)Ordered By: Latoya Bunnorma on 06-09-2022 Eosinophils/100 WBC (Bld) 0.7 % . [facility] Erythrocyte distribution wid th Auto (RBC) [Ratio]Ordered By: Latoya Bunnorma on 06-09-2022 Erythrocyte distribution width (RBC) [Ratio] 13.4 % 11.9-15.3 [facility] Estimated glomerular filtrat ion rate (GFR) non- AmericanOrdered By: Latoya Bunting on 06-09-2022 GFR/1.73 sq M.predicted among non-blacks MDRD (S/P/Bld) [Vol rate/Area] > 60 mL/Min [facility] Globulin Calc (S) [Mass/Vol] Ordered By: Latoya Bunting on 06-09-2022 Globulin (S) [Mass/Vol] 2.5 g/dL [facility] Hematocrit Auto (Bld) [Volum e fraction]Ordered By: Latoya Bunting on 06-09-2022 Hematocrit (Bld) [Volume fraction] 38.6 % 34.0-46.4 [facility] Hemoglobin [Mass/volume] in BloodOrdered By: Latoya Bunting on 06-09-2022 Hemoglobin (Bld) [Mass/Vol] 12.9 g/dL 11.8-15.4 [facility] Laboratory - Hematology and Cell countsOrdered By: Latoya Bunting on 06-09-2022 Nucleated RBC/100 WBC (Bld) [Ratio] 0.1 % 0-0.5 [facility] Leukocytes [#/volume] in Blo od by Automated countOrdered By: Latoya Bunting on 06-09-2022 WBC (Bld) [#/Vol] 6.5 10*3/uL 4.5-11.0 [facility] Lymphocytes Auto (Bld) [#/Vo l]Ordered By: Latoya Bunting on 06-09-2022 Lymphocytes (Bld) [#/Vol] 2.3 10*3/uL 1.00-4.8 [facility] Lymphocytes/100 WBC Auto (Bl d)Ordered By: Latoya Bunting on 06-09-2022 Lymphocytes/100 WBC (Bld) 34.9 % . [facility] MCH Auto (RBC) [Entitic mass ]Ordered By: Latoya Bunting on 06-09-2022 MCH (RBC) [Entitic mass] 29.9 pg 24.7-34.3 [facility] MCHC Auto (RBC) [Mass/Vol]Or dered By: Latoya Bunting on 06-09-2022 MCHC (RBC) [Mass/Vol] 33.5 g/dL 32.0-35.0 [facility] MCV Auto (RBC) [Entitic vol] Ordered By: Latoya Bunting on 06-09-2022 MCV (RBC) [Entitic vol] 89.2 fL 80-100 [facility] Monocytes Auto (Bld) [#/Vol] Ordered By: Latoya Bunting on 06-09-2022 Monocytes (Bld) [#/Vol] 0.5 10*3/uL 0.0-0.8 [facility] Monocytes/100 WBC Auto (Bld) Ordered By: Latoya Bunting on 06-09-2022 Monocytes/100 WBC (Bld) 8.5 % . [facility] Neutrophils Auto (Bld) [#/Vo l]Ordered By: Latoya Bunting on 06-09-2022 Neutrophils (Bld) [#/Vol] 3.6 10*3/uL 1.8-7.7 [facility] Neutrophils/100 WBC Auto (Bl d)Ordered By: Latoya Bunting on 06-09-2022 Neutrophils/100 WBC (Bld) 55.7 % . [facility] No Panel InformationOrdered By: Latoya Bunting on 06-09-2022 25-Hydroxy Vitamin D Total 39.8 ng/mL 30-100 [facility] Comment on above: VITAMIN D STATUS 25( [place])VITAMIN D RANGE (ng/mL) Deficient <20 Insufficient 20 to <30Sufficient 30 to 100Reference: Aly MF,Shaina NC, Iliana MELENDEZ, et al. Evaluation,treatment, and prevention of vitamin D deficiency; an Endocrine Society clinical practice guideline. JCEM. 2010; 96(7):1911-30. Estimated GFR () > 60 mL/Min [facility] Comment on above: GFR estimated refere nce range: According to KDOQI guidelines, <60 ml/min/1.73m2 is sufficient to diagnose a patient with chronic kidney disease. Pharmacy Creatinine Clearance (Chem N/A [facility] Platelet mean volume Auto (B ld) [Entitic vol]Ordered By: Latoya Bunting on 06-09-2022 Platelet mean volume (Bld) [Entitic vol] 8.0 fL 6.3-10.7 [facility] Platelets Auto (Bld) [#/Vol] Ordered By: Latoya Bunting on 06-09-2022 Platelets (Bld) [#/Vol] 261 10*3/uL 150-450 [facility] Protein [Mass/volume] in Ser um or PlasmaOrdered By: Latoya Bunting on 06-09-2022 Protein [Mass/Vol] 6.2 g/dL 6.1-7.9 [facility] RBC Auto (Bld) [#/Vol]Ordere d By: Latoya Bunting on 06-09-2022 RBC (Bld) [#/Vol] 4.33 10*6/uL 3.60-5.00 [facility] Serum or plasma alanine castro otransferase measurement without P-5'-P (enzymatic activiOrdered By: Latoya Bunting on 06-09-2022 ALT No additional P-5'-P [Catalytic activity/Vol] 13 U/L 10-60 [facility] Serum or plasma albumin/glob ulin mass ratioOrdered By: Latoya Bunting on 06-09-2022 Albumin/Globulin [Mass ratio] 1.5 {ratio} [facility] Serum or plasma alkaline tesha sphatase measurement (enzymatic activity/volume)Ordered By: Latoya Bunting on 06-09-2022 ALP [Catalytic activity/Vol] 51 U/L 32-92 [facility] Serum or plasma anion gap de terminationOrdered By: Latoya Bunting on 06-09-2022 Anion gap [Moles/Vol] 15.5 mmol/L 6.0-15.0 [facility] Serum or plasma aspartate am inotransferase measurement (enzymatic activity/volume)Ordered By: Latoya Bunting on 06-09-2022 AST [Catalytic activity/Vol] 19 U/L 10-42 [facility] Serum or plasma calcium franchesca urement (mass/volume)Ordered By: Latoya Bunting on 06-09-2022 Calcium [Mass/Vol] 9.2 mg/dL 8.2-10.2 [facility] Serum or plasma chloride aristides surement (moles/volume)Ordered By: Latoya Bunting on 06-09-2022 Chloride [Moles/Vol] 102 mmol/L 95-114 [facility] Serum or plasma glucose franchesca urement (mass/volume)Ordered By: Latoya Bunting on 06-09-2022 Glucose [Mass/Vol] 91 mg/dL 70-100 [facility] Comment on above: ADA recommended refe rence rangeRandom Glucose Reference Range is dependent on time and content of last meal. Glucose of more than 200 mg/dL in a nonstressed, ambulatory subject supports the diagnosis of Diabetes Mellitus. Serum or plasma high density lipoprotein (HDL) cholesterol measurementOrdered By: Latoya Chong on 06-09-2022 Cholesterol in HDL [Mass/Vol] 71 mg/dL 35-85 [facility] Comment on above: HDL CHOL ATP-III CLA SSIFICATION Cardiovascular RiskHDL > or equal to 60 mg/dL LOWHDL < 40 mg/dL HIGH Serum or plasma potassium me asurement (moles/volume)Ordered By: Latoya Chong on 06-09-2022 Potassium [Moles/Vol] 4.1 mmol/L 3.5-5.1 [facility] Serum or plasma sodium measu rement (moles/volume)Ordered By: Latoya Chong on 06-09-2022 Sodium [Moles/Vol] 139 mmol/L 136-146 [facility] Serum or plasma total biliru bin measurement (mass/volume)Ordered By: Latoya Chong on 06-09-2022 Bilirubin [Mass/Vol] 0.7 mg/dL 0.3-1.2 [facility] Serum or plasma total carbon dioxide measurement (moles/volume)Ordered By: Latoya Chong on 06-09-2022 CO2 [Moles/Vol] 25.6 mmol/L 22.0-30.0 [facility] Serum or plasma total choles terol/high density lipoprotein (HDL) cholesterol mass ratOrdered By: Latoya Chong on 06-09-2022 Cholesterol.total/Cho lesterol in HDL [Mass ratio] 3.3 {ratio} <5.0 [facility] Serum or plasma urea nitroge n measurement (mass/volume)Ordered By: Latoya Chong on 06-09-2022 Urea nitrogen [Mass/Vol] 11 mg/dL 9-23 [facility] Triglyceride [Mass/volume] i n Serum or PlasmaOrdered By: Latoya Chong on 06-09-2022 Triglyceride [Mass/Vol] 125 mg/dL 35-149 [facility] Comment on above: TRIG ATP III CLASSIF ICATIONTRIG less than 150 mg/dL NormalTRIG 150-199 mg/dL Borderline highTRIG 200-500 mg/dL High TRIG greater than 500 mg/dL Very highStandard traceable to the Center for Disease Conrtrol and Prevention (CDC) test method. Basophils Auto (Bld) [#/Vol] Ordered By: Gregorio Barton on 03-31-2022 Basophils (Bld) [#/Vol] 0.0 10*3/uL 0.0-0.2 [facility] Basophils/100 WBC Auto (Bld) Ordered By: Gregorio Barton on 03-31-2022 Basophils/100 WBC (Bld) 0.3 % . [facility] Blood hemoglobin measurement (mass/volume)Ordered By: Gregorio Barton on 03-31-2022 Hemoglobin (Bld) [Mass/Vol] 13.0 g/dL 11.8-15.4 [facility] Blood leukocytes automated c ount (number/volume)Ordered By: Gregorio Barton on 03-31-2022 WBC (Bld) [#/Vol] 6.7 10*3/uL 4.5-11.0 [facility] Body fluid albumin measureme nt (mass/volume)Ordered By: Gregorio Barton on 03-31-2022 Albumin (Body fld) [Mass/Vol] 3.7 g/dL 3.2-5.5 [facility] Creatinine and Glomerular fi ltration rate.predicted panel (S/P/Bld)Ordered By: Gregorio Barton on 03-31-2022 Creatinine [Mass/Vol] 0.70 mg/dL 0.44-1.03 [facility] Eosinophils Auto (Bld) [#/Vo l]Ordered By: Gregorio Barton on 03-31-2022 Eosinophils (Bld) [#/Vol] 0.0 10*3/uL 0.0-0.45 [facility] Eosinophils/100 WBC Auto (Bl d)Ordered By: Gregorio Barton on 03-31-2022 Eosinophils/100 WBC (Bld) 0.6 % . [facility] Erythrocyte distribution wid th Auto (RBC) [Ratio]Ordered By: Gregorio Barton on 03-31-2022 Erythrocyte distribution width (RBC) [Ratio] 12.9 % 11.9-15.3 [facility] Estimated glomerular filtrat ion rate (GFR) non- AmericanOrdered By: Gregorio Barton on 03-31-2022 GFR/1.73 sq M.predicted among non-blacks MDRD (S/P/Bld) [Vol rate/Area] > 60 mL/Min [facility] Globulin Calc (S) [Mass/Vol] Ordered By: Gregorio Barton on 03-31-2022 Globulin (S) [Mass/Vol] 2.6 g/dL [facility] Hematocrit Auto (Bld) [Volum e fraction]Ordered By: Gregorio Barton on 03-31-2022 Hematocrit (Bld) [Volume fraction] 38.9 % 34.0-46.4 [facility] Laboratory - Hematology and Cell countsOrdered By: Gregorio Barton on 03-31-2022 Nucleated RBC/100 WBC (Bld) [Ratio] 0.0 % 0-0.5 [facility] Lymphocytes Auto (Bld) [#/Vo l]Ordered By: Gregorio Barton on 03-31-2022 Lymphocytes (Bld) [#/Vol] 2.4 10*3/uL 1.00-4.8 [facility] Lymphocytes/100 WBC Auto (Bl d)Ordered By: Gregorio Barton on 03-31-2022 Lymphocytes/100 WBC (Bld) 35.3 % . [facility] MCH Auto (RBC) [Entitic mass ]Ordered By: Gregorio Barton on 03-31-2022 MCH (RBC) [Entitic mass] 29.8 pg 24.7-34.3 [facility] MCHC Auto (RBC) [Mass/Vol]Or dered By: Gregorio Barton on 03-31-2022 MCHC (RBC) [Mass/Vol] 33.5 g/dL 32.0-35.0 [facility] MCV Auto (RBC) [Entitic vol] Ordered By: Gregorio Barton on 03-31-2022 MCV (RBC) [Entitic vol] 89.0 fL 80-100 [facility] Monocytes Auto (Bld) [#/Vol] Ordered By: Greogrio Barton on 03-31-2022 Monocytes (Bld) [#/Vol] 0.5 10*3/uL 0.0-0.8 [facility] Monocytes/100 WBC Auto (Bld) Ordered By: Gregorio Barton on 03-31-2022 Monocytes/100 WBC (Bld) 7.2 % . [facility] Neutrophils Auto (Bld) [#/Vo l]Ordered By: Gregorio Barton on 03-31-2022 Neutrophils (Bld) [#/Vol] 3.8 10*3/uL 1.8-7.7 [facility] Neutrophils/100 WBC Auto (Bl d)Ordered By: Gregorio Barton on 03-31-2022 Neutrophils/100 WBC (Bld) 56.6 % . [facility] No Panel InformationOrdered By: Gregorio Barton on 03-31-2022 Estimated GFR () > 60 mL/Min [facility] Comment on above: GFR estimated refere nce range: According to KDOQI guidelines, <60 ml/min/1.73m2 is sufficient to diagnose a patient with chronic kidney disease. Pharmacy Creatinine Clearance (Chem N/A [facility] No Panel Informationon 03-31 56.6\S\56.6 Normal . -[facility] [employer] Work Phone: 8.2\S\8.2 Normal 6.3-10.7 [facility] [employer] Work Phone: 244\S\244 Normal 150-450 [facility] [employer] Work Phone: 12.9\S\12.9 Normal 11.9-15.3 [facility] [employer] Work Phone: 33.5\S\33.5 Normal 32.0-35.0 [facility] [employer] Work Phone: 29.8\S\29.8 Normal 24.7-34.3 [facility] [employer] Work Phone: 3.8\S\3.8 Normal 1.8-7.7 [facility] [employer] Work Phone: 0.0\S\0.0 Normal 0.0-0.45 [facility] Work Phone: Comment on above: PERFORMED BY:[place] [id number] [place], [place] [id number] MEDICAL DIRECTORALEJANDRA BONILLA M.D. 0.3\S\0.3 Normal . -[facility] Work Phone: 0.6\S\0.6 Normal 0.3-1.2 -[facility] Work Phone: 7.2\S\7.2 Normal . -[facility] Work Phone: 35.3\S\35.3 Normal . -[facility] Work Phone: 0.5\S\0.5 Normal 0.0-0.8 -[facility] Work Phone: 2.4\S\2.4 Normal 1.00-4.8 -[facility] Work Phone: 89.0\S\89.0 Normal 80-100 -[facility] Work Phone: 38.9\S\38.9 Normal 34.0-46.4 -[facility] Work Phone: 13.0\S\13.0 Normal 11.8-15.4 -[facility] Work Phone: 4.37\S\4.37 Normal 3.60-5.00 -[facility] Work Phone: [phone] 6.7\S\6.7 Normal 3.8-11.6 -[facility] Work Phone: [phone] 3.7\S\3.7 Normal 3.2-5.5 -[facility] [employer] Work Phone: 6.3\S\6.3 Normal 6.1-7.9 [employer] [employer] Work Phone: 9.1\S\9.1 Normal 8.2-10.2 [facility] [employer] Work Phone: 23.3\S\23.3 Normal 22.0-30.0 [facility] [employer] Work Phone: 103\S\103 Normal 95-114 -[facility] [employer] [employer] Work Phone: 4.1\S\4.1 Normal 3.5-5.1 [facility] [employer] Work Phone: 46\S\46 Normal 32-92 -[facility] [employer] Work Phone: 14\S\14 Normal 10-60 -[facility] [employer] [employer] Work Phone: [phone] 16\S\16 Normal 10-42 -[facility] [employer] Work Phone: [phone] 1.4\S\1.4 Normal [facility] [employer] Work Phone: 2.6\S\2.6 Normal -[facility] [employer] Work Phone: 137\S\137 Normal 136-146 [facility] [employer] [employer] Work Phone: > 60 Normal -[facility] [employer] Work Phone: Comment on above: GFR estimated refere nce range: According to KDOQI guidelines, <60 ml/min/1.73m2 is sufficient to diagnose a patient with chronic kidney disease. 0.70\S\0.70 Normal 0.44-1.03 [employer] [employer] Work Phone: 12\S\12 Normal 9-23 [facility] Work Phone: 88\S\88 Normal 70-100 [facility] Work Phone: Comment on above: Random Glucose Refer ence Range is dependent on time and content of last meal. Glucose of more than 200 mg/dL in a nonstressed, ambulatory subject supports the diagnosis of Diabetes Mellitus. ADA recommended reference range 3.65\S\3.65 Normal 0.45-5.33 [facility] Work Phone: Comment on above: PERFORMED BY:[place] [address] [place] [place], [place] [id number] MEDICAL DIRECTORALEJANDRA BONILLA M.D. Platelet mean volume Auto (B ld) [Entitic vol]Ordered By: Gregorio Barton on 03-31-2022 Platelet mean volume (Bld) [Entitic vol] 8.2 fL 6.3-10.7 [facility] Platelets Auto (Bld) [#/Vol] Ordered By: Gregorio Barton on 03-31-2022 Platelets (Bld) [#/Vol] 244 10*3/uL 150-450 [facility] Protein [Mass/volume] in Ser um or PlasmaOrdered By: Gregorio Barton on 03-31-2022 Protein [Mass/Vol] 6.3 g/dL 6.1-7.9 [facility] RBC Auto (Bld) [#/Vol]Ordere d By: Gregorio Barton on 03-31-2022 RBC (Bld) [#/Vol] 4.37 10*6/uL 3.60-5.00 [facility] Serum or plasma alanine castro otransferase measurement without P-5'-P (enzymatic activiOrdered By: Gregorio Barton on 03-31-2022 ALT No additional P-5'-P [Catalytic activity/Vol] 14 U/L 10-60 [facility] Serum or plasma albumin/glob ulin mass ratioOrdered By: Gregorio Barton on 03-31-2022 Albumin/Globulin [Mass ratio] 1.4 {ratio} [facility] Serum or plasma alkaline tesha sphatase measurement (enzymatic activity/volume)Ordered By: Gregorio Barton on 03-31-2022 ALP [Catalytic activity/Vol] 46 U/L 32-92 [facility] Serum or plasma aspartate am inotransferase measurement (enzymatic activity/volume)Ordered By: Gregorio Barton on 03-31-2022 AST [Catalytic activity/Vol] 16 U/L 10-42 [facility] Serum or plasma calcium franchesca urement (mass/volume)Ordered By: Gregorio Barton on 03-31-2022 Calcium [Mass/Vol] 9.1 mg/dL 8.2-10.2 [facility] Serum or plasma chloride aristides surement (moles/volume)Ordered By: Gregorio Barton on 03-31-2022 Chloride [Moles/Vol] 103 mmol/L 95-114 [facility] Serum or plasma glucose franchesca urement (mass/volume)Ordered By: Gregorio Barton on 03-31-2022 Glucose [Mass/Vol] 88 mg/dL 70-100 [facility] Comment on above: ADA recommended refe rence [...] on 03-31-2022 Potassium [Moles/Vol] 4.1 mmol/L 3.5-5.1 [facility] Serum or plasma sodium measu rement (moles/volume)Ordered By: Gregorio Barton on 03-31-2022 Sodium [Moles/Vol] 137 mmol/L 136-146 [facility] Serum or plasma total biliru bin measurement (mass/volume)Ordered By: Gregorio Barton on 03-31-2022 Bilirubin [Mass/Vol] 0.6 mg/dL 0.3-1.2 [facility] Serum or plasma total carbon dioxide measurement (moles/volume)Ordered By: Gregorio Barton on 03-31-2022 CO2 [Moles/Vol] 23.3 mmol/L 22.0-30.0 [facility] Serum or plasma urea nitroge n measurement (mass/volume)Ordered By: Gregorio Barton on 03-31-2022 Urea nitrogen [Mass/Vol] 12 mg/dL 04-28 [facility] TSH DL <= 0.005 mIU/L QnOrde red By: Gregorio Barton on 03-31-2022 TSH Qn 3.65 m[IU]/L 0.45-5.33 [facility] BASIC METABOLIC PANELon 12- Anion gap [Moles/Vol] 13 mmol/L Normal 10 - 20 [facility] Comment on above: Performed By: #### B MP #### [address] [address] Calcium [Mass/Vol] 9.4 mg/dL Normal 8.6 - 10.3 [facility] Comment on above: Performed By: #### B MP #### [address] [address] Chloride [Moles/Vol] 103 mmol/L Normal 98 - 107 [facility] Comment on above: Performed By: #### B MP #### [address] [address] Creatinine [Mass/Vol] 0.67 mg/dL Normal 0.50 - 1.05 [facility] Comment on above: Performed By: #### B MP #### [address] [address] GFR- AM. >60 Normal >60 [facility] Comment on above: Result Comment: CALC ULATIONS OF ESTIMATED GFR ARE PERFORMED USING THE MDRD STUDY EQUATION FOR THE IDMS-TRACEABLE CREATININE METHODS. CLIN CHEM 2007;53:766-72 Performed By: #### B MP #### [address] [address] GFR-NON AM. >60 Normal >60 [facility] Comment on above: Performed By: #### B MP #### [address] [address] Glucose [Mass/Vol] 93 mg/dL Normal 74 - 99 [facility] Comment on above: Performed By: #### B MP #### [address] [address] HCO3 (Bld) [Moles/Vol] 27 mmol/L Normal 21 - 32 [facility] Comment on above: Performed By: #### B MP #### [address] [address] Potassium [Moles/Vol] 3.6 mmol/L Normal 3.5 - 5.3 [facility] Comment on above: Performed By: #### B MP #### [address] [address] Sodium [Moles/Vol] 139 mmol/L Normal 136 - 145 [facility] Comment on above: Performed By: #### B MP #### [address] [address] Urea nitrogen [Mass/Vol] 12 mg/dL Normal 6 - 23 [facility] Comment on above: Performed By: #### B MP #### [address] [address] CBCon 07-23-2020 Erythrocyte distribution width (RBC) [Ratio] 12.5 % Normal 11.5 - 14.5 [facility] Comment on above: Performed By: #### C BC #### [address] [address] Hematocrit (Bld) [Volume fraction] 40.8 % Normal 36.0 - 46.0 [facility] Comment on above: Performed By: #### C BC #### [address] [address] Hemoglobin (Bld) [Mass/Vol] 13.6 g/dL Normal 12.0 - 16.0 [facility] Comment on above: Performed By: #### C BC #### [address] [address] MCHC (RBC) [Mass/Vol] 33.3 g/dL Normal 32.0 - 36.0 [facility] Comment on above: Performed By: #### C BC #### [address] [address] MCV (RBC) [Entitic vol] 90 fL Normal 80 - 100 [facility] Comment on above: Performed By: #### C BC #### [address] [address] Nucleated RBC/100 WBC (Bld) [Ratio] 0.0 /100 WBC Normal 0.0 - 0.0 [facility] Comment on above: Performed By: #### C BC #### [address] [address] Platelets (Bld) [#/Vol] 228 10*3/uL Normal 150 - 450 [facility] Comment on above: Performed By: #### C BC #### [address] [address] RBC (Bld) [#/Vol] 4.53 x10E12/L Normal 4.00 - 5.20 [facility] Comment on above: Performed By: #### C BC #### [address] [address] WBC (Bld) [#/Vol] 7.9 10*3/uL Normal 4.4 - 11.3 [facility] Comment on above: Performed By: #### C BC #### [address] [address] CORONAVIRUS 2019, SCREEN ASY MPTOMATICon 07-23-2020 CORONAVIRUS 2019,PCR NOT DETECTED Normal Not Detected [facility] Comment on above: Result Comment: . This assay is designed to detect the N2 and E genes of SARS-CoV-2 via nucleic acid amplification. A Not Detected result does not preclude COVID-19 infection since the adequacy of sample collection and/or low viral burden may result in presence of viral nucleic acids below the clinical sensitivity of this test method. Fact sheet for providers: www.fda.gov/media/234958/download Fact sheet for patients: www.fda.gov/media/384470/download This test has received FDA Emergency Use Authorization (EUA) and has been verified by [facility]. This test is only authorized for the duration of time that circumstances exist to justify the authorization of the emergency use of in vitro diagnostic tests for the detection of SARS-CoV-2 virus and/or diagnosis of COVID-19 infection under section 564(b)(1) of the Act, 21 U.S.C. 360bbb-3(b)(1), unless the authorization is terminated or revoked sooner. [facility] is certified under CLIA-88 as qualified to perform high complexity testing. Testing is performed in the [facility] laboratory located at [address] [place] [address]. Performed By: #### C OVSC #### [place] [address] Lab Specimen Source Nasal, Nasopharyngeal Normal [facility] Comment on above: Performed By: #### C OVSC #### [place] [address] Covid 19 Resultson 0 Covid 19 Results [...] You may also be contacted by the [facility] to see if any of [...] or Naproxen (Aleve) can also be used. Fygl-pcb-bqanbfr cough and cold medicines can be used according to the instructions on the package. Some regj-yig-iupstpy medicines also contain acetaminophen. Make sure you [...] water are not available, use alcohol-based hand product applications engineer. Avoid touching your eyes, nose, and mouth [...] a total of 10 days. Additional resources: [facility] COVID Hotline at 5-996-7DSOHNM ( ). COVID-19 Careline at (available 24 hours per day, seven days a week if you or a loved one is experiencing anxiety related to the coronavirus pandemic). Clinical research opportunities: is conducting research studies to develop better testing and treatments for COVID. Do you want any information on how to participate Call [phone]. Websites: hospitals.org or www.CDC.gov Follow My Health / My [facility]HC[facility] (for other test results): Revised 06/22/2020 Electronic Signatures: April Chen (ADMIN) (Signature pending) Authored Last Updated: 23-Jul-2020 11:41 by April Chen (ADMIN) Normal [facility] PT/INRon 07-23-2020 INR Coag (PPP) [Relative time] 1.0 {INR} Normal 0.9 - 1.1 [facility] Comment on above: Performed By: #### P TINR #### [address] [address] PT Coag (PPP) [Time] 11.2 s Normal 10.1 - 13.3 [facility] Comment on above: Performed By: #### P TINR #### [address] [address] Vital Signs Date Time Vital Sign Value Performing Clinician Facility 08-08-2023 08:08-0500 Diastolic blood pressure 90 mm[Hg] Richard JACKSON [facility] 08-08-2023 08:08-0500 Heart rate 94 /min Richard JACKSON [facility] 08-08-2023 08:08-0500 Mean blood pressure 113 mm[Hg] Richard JACKSON [facility] 08-08-2023 08:08-0500 Respiratory rate 18 /min Richard JACKSON [facility] 08-08-2023 08:08-0500 Systolic blood pressure 159 mm[Hg] Richard JACKSON [facility] 08-08-2023 07:34-0500 Blood Pressure Location Richard JACKSON [facility] 08-08-2023 07:34-0500 Diastolic blood pressure 105 mm[Hg] Richard JACKSON [facility] 08-08-2023 07:34-0500 Heart rate 104 /min Richard JACKSON [facility] 08-08-2023 07:34-0500 Respiratory rate 18 /min Richard JACKSON [facility] 08-08-2023 07:34-0500 Systolic blood pressure 156 mm[Hg] Richard JACKSON [facility] 06-08-2023 12:37-0400 Diastolic blood pressure 88 mm[Hg] Richard JACKSON [facility] 06-08-2023 12:37-0400 Heart rate 91 /min Richard JACKSON [facility] 06-08-2023 12:37-0400 Respiratory rate 16 /min Richard JACKSON [facility] 06-08-2023 12:37-0400 Systolic blood pressure 136 mm[Hg] Richard JACKSON [facility] 01-15-2023 09:50-0400 Body height 165.1 cm Noris Elder Other [employer] Other 01-15-2023 09:50-0400 Body mass index (BMI) [Ratio] 22.3 kg/m2 Noris Elder Other [employer] Other 01-15-2023 09:50-0400 Body weight 60.78 kg Noris Elder Other [employer] Other 01-15-2023 09:50-0400 Diastolic blood pressure 86 mm[Hg] Noris Elder Other [employer] Other 01-15-2023 09:50-0400 Systolic blood pressure 142 mm[Hg] [employer] Other [employer] Other 06-19-2022 12:32-0500 Body height 165.1 cm Latoya R Bunting Work Phone: [facility] [employer] DO Work Phone: 06-19-2022 12:32-0500 Body mass index (BMI) [Ratio] 23.46 kg/m2 Latoya R Bunting Work Phone: [facility] [employer] 127 DO Work Phone: 06-19-2022 12:32-0500 Body surface area Derived from formula 1.71 m2 Latoya R Bunting Work Phone: [facility] 127 DO Work Phone: 06-19-2022 12:32-0500 Body weight 63.96 kg Latoya R Bunting Work Phone: [facility] [employer] 127 DO Work Phone: 06-19-2022 12:32-0500 Diastolic blood pressure 75 mm[Hg] Latoya R Bunting Work Phone: [facility] 127 DO Work Phone: 06-19-2022 12:32-0500 Heart rate 95 /min Latoya R Bunting Work Phone: [facility] 127 DO Work Phone: 06-19-2022 12:32-0500 Systolic blood pressure 153 mm[Hg] Latoya R Bunting Work Phone: [facility] DO Work Phone: Encounters Encounter Date Encounter Type Care Provider Facility Start: 08-13-2024 ambulatory Richard Tani ty:[facility] Start: 09-24-2023 End: 09-25-2023 ambulatory Tomas Rosas MD Facility: [facility] Start: 09-17-2023 End: 09-18-2023 ambulatory Tomas Rosas MD Facility: [facility] Start: 08-29-2023 End: 08-29-2023 ambulatory AUGUSTO SIU Not Available Start: 08-24-2023 End: 08-24-2023 ambulatory Augusto Siu Facility:[facility] Start: 08-08-2023 End: 08-09-2023 ambulatory Richard JACKSON Facility:[facility] Start: 08-08-2023 End: 08-08-2023 Patient encounter procedure Richard JACKSON [facility] [place] Start: 06-25-2023 End: 06-25-2023 ambulatory Richard Jackson Facility:[facility] Start: 06-25-2023 End: 06-25-2023 ambulatory DO Latoya Bunting Work Phone: [facility] Work Phone: Start: 06-25-2023 End: 06-25-2023 Patient encounter procedure DO Latoya Bunting Work Phone: [facility] [place] Work Phone: Start: 06-08-2023 End: 06-09-2023 ambulatory Richard JACKSON Facility:[facility] Start: 06-08-2023 End: 06-08-2023 Lab Drop off Richard JACKSON [facility] Start: 06-08-2023 End: 06-09-2023 ambulatory LATOYA R BUNTING Facility:[facility] Start: 06-08-2023 End: 06-08-2023 Patient encounter procedure Richard JACKSON [facility] [place] Start: 05-28-2023 End: 05-29-2023 ambulatory Tomas Rosas MD Facility: [facility] Start: 05-14-2023 End: 05-15-2023 ambulatory Cesarus Nico Rosas MD Facility:[facility] Start: 05-09-2023 ambulatory LATOYA BUNTING Facility :[facility] [place] Start: 05-08-2023 ambulatory LATOYA BUNTING Facility : [place] Start: 04-30-2023 End: 05-01-2023 ambulatory Tomas Rosas MD Facility: [facility] Start: 04-25-2023 End: 04-25-2023 ambulatory Latoya Bunting Facility:[facility] Start: 04-25-2023 End: 04-25-2023 ambulatory DO Latoya Bunting Work Phone: [facility] Work Phone: Start: 04-25-2023 End: 04-25-2023 Patient encounter procedure DO Latoya Bunting Work Phone: [facility] [address] Work Phone: Start: 04-16-2023 End: 04-17-2023 ambulatory Andrius Vytautas Giedraitis MD Facility:[facility] Start: 03-30-2023 End: 03-30-2023 ambulatory Noris Elder Facility:[facility] Start: 03-30-2023 End: 03-30-2023 ambulatory DO Latoya Bunting Work Phone: [facility] Work Phone: Start: 03-30-2023 End: 03-30-2023 Patient encounter procedure DO Latoya Bunting Work Phone: [facility] Work Phone: Start: 02-08-2023 End: 02-08-2023 ambulatory Noris Elder Facility:[facility] Start: 02-08-2023 End: 02-08-2023 ambulatory DO Latoya Bunting Work Phone: [facility] Work Phone: Start: 02-08-2023 End: 02-08-2023 Patient encounter procedure DO Latoya Bunting Work Phone: [facility]-MRI [facility] [place] Work Phone: Start: 02-08-2023 End: 02-08-2023 ambulatory DO Latoya Bunting Work Phone: [facility] Work Phone: Start: 02-08-2023 End: 02-08-2023 Patient encounter procedure DO Latoya Bunting Work Phone: [facility]-Ultrasound Cntr for Breast Car Start: 01-15-2023 End: 01-15-2023 ambulatory Noris Elder Other [facility] Other Start: 01-15-2023 Office outpatient ne w 45 minutes Noris Elder [facility] Neurosurgery Start: 08-28-2022 End: 08-28-2022 ambulatory DO Latoya Bunting Work Phone: [facility] Work Phone: Start: 08-28-2022 End: 08-28-2022 Patient encounter procedure DO Latoya Bunting Work Phone: [facility] Work Phone: Start: 08-23-2022 End: 08-23-2022 ambulatory DO Latoya Bunting Work Phone: [facility] Work Phone: Start: 08-23-2022 End: 08-23-2022 Patient encounter procedure DO Latoya Bunting Work Phone: [facility] Work Phone: Start: 06-19-2022 Office outpatient visit 25 minutes Latoya R Bunting Work Phone: [facility] [facility] DO Work Phone: Start: 06-19-[address] Gregorio Nihcols acility: Start: 06-09-2022 End: 06-09-2022 ambulatory DO Latoya Bunting Work Phone: [facility] Work Phone: Start: 06-09-2022 End: 06-09-2022 Patient encounter procedure DO Latoya Bunting Work Phone: [facility]-Lab Main [place] Start: 06-07-2022 End: 07-15-[address] LATOYA CHONG Facility:H1 Start: 04-17-[address] Gregorio Nichols acility: Start: 03-31-2022 Chart Update Latoya R Yaredti ng Work Phone: [facility] Work Phone: Start: 03-31-2022 End: 03-31-2022 Patient encounter procedure DO Latoya Bunting Work Phone: [facility]-Lab Main [place] Start: 09-12-2021 End: 02-08-[address] LUCI TROTTER Facility:H1 Start: 11-14-2018 Patient encounter procedure Gregorio Barton Facility:[id number] Start: 10-24-2018 Patient encounter procedure JUSTIN CHRISTINE Facility:[id number] Start: 09-23-2018 Patient encounter procedure JUSTIN CHRISTINE Facility:[id number] Patient encounter status Latoya R Bunting Work Phone: [facility] Work Phone: Procedures Date Procedure Procedure Detail [...] breasts DO Latoya Bunting Work Phone: Start: 04-11-2019 Echocardiography Jose Barton Back structure, excl uding neck (body structure) Richard JACKSON Cardiac ablation sys tem (physical object) Richard JACKSON Colonoscopy Latoya gomez Work Phone: Comment on above: [id number]; Colonoscopy Richard JACKSON Destructive procedure Latoya Chong Work Phone: Excision of basal ce ll carcinoma Latoya R Lor Work Phone: Hysterectomy Richard JACKSON Insertion of hip prosthesis Richard JACKSON Radiofrequency ablat ion of medial branch of lumbar nerve using fluoroscopic guidance Richard JACKSON Tonsillectomy and adenoidectomy Latoya Chong Work Phone: Total abdominal hysterectomy Latoya Chong Work Phone: Plan of Treatment Date Care Activity Detail Author Start: 04-25-2023 Hemolytic complement CH50 level [facility] Start: 04-25-2023 [facility] Start: 04-17-2022 FUV, Provider: Gregorio Barton, Status: Pen, Time: 11:45 AM FUV, Provider: Gregorio Barton, Status: Pen, Time: 11:45 AM [facility] Work Phone: Lupus anticoagulant [Interpretation] in Platelet poor plasma [facility] Thrombin time [facility] Immunizations Immunization Date Immunization Notes Care Provider Edan lopez 07-17-2023 influenza virus vaccine, unspecified formulation Richard JACKSON [facility] 06-20-2022 influenza virus vaccine, unspecified formulation Richard JACKSON [facility] [place] 07-14-2021 Pfizer-BioNTech COVID-19 Vacc 30 MCG/0.3ML Intramuscular Suspension Latoya R Bunting Work Phone: [facility] 05-19-2021 influenza virus vaccine, unspecified formulation Richard JACKSON [facility] 05-19-2021 influenza, injectable, quadrivalent, preservative free Latoya R Bunting Work Phone: [facility] 127 DO Work Phone: 12-02-2020 Pfizer-BioNTech COVID-19 Vacc 30 MCG/0.3ML Intramuscular Suspension Latoya R Bunting Work Phone: [facility] 11-11-2020 Pfizer-BioNTech COVID-19 Vacc 30 MCG/0.3ML Intramuscular Suspension Latoya R Bunting Work Phone: [facility] 07-16-2020 influenza virus vaccine, unspecified formulation Richard JACKSON [facility] 07-16-2020 Influenza, injectable, Madin Clare Canine Kidney, preservative free, quadrivalent Latoya R Bunting Work Phone: [facility] 127 DO Work Phone: 05-13-2020 influenza virus vaccine, unspecified formulation Latoya R Bunting Work Phone: [facility] 06-05-2019 influenza virus vaccine, unspecified formulation Richard JACKSON [facility] 06-05-2019 influenza, injectable, quadrivalent, preservative free Latoya R Bunting Work Phone: [facility] 127 DO Work Phone: 06-17-2018 influenza virus vaccine, unspecified formulation Richard JACKSON [facility] 06-17-2018 influenza, seasonal, injectable, preservative free [facility] Work Phone: 06-11-2018 influenza virus vaccine, unspecified formulation Richard JACKSON [facility] 06-06-2018 influenza virus vaccine, unspecified formulation Latoya R Bunting Work Phone: [facility] Work Phone: 06-06-2018 pneumococcal polysaccharide vaccine, 23 valent Latoya R Bunting Work Phone: [facility] Work Phone: 03-28-2018 tetanus toxoid, reduced diphtheria toxoid, and acellular pertussis vaccine, adsorbed Latoya R Bunting Work Phone: [facility] 07-01-2001 hepatitis B vaccine, adult dosage Latoya R Bunting Work Phone: [facility] 03-13-2001 hepatitis B vaccine, adult dosage Latoya R Bunting Work Phone: [facility] 12-18-2000 hepatitis B vaccine, adult dosage Latoya R Bunting Work Phone: [facility] NEGATED: Highlighted row has not occurred! 8 influenza, seasonal, injectable Patient Objection Noris Elder Other [employer] Other NEGATED: Highlighted row has not occurred! 8 pneumococcal polysaccharide vaccine, 23 valent Patient Objection Noris Elder Other [employer] Other Payers Date Payer Category Payer Unknown [id number] 2022 Medicare [id number] 2022 Self-pay [id number] 2022 Unknown 1959 Unknown [id number] 1956 Unknown [id number] 2.16.8 40.1.435970.3.579.2.355 1956 Unknown [id number] 2.16.8 40.1.773418.3.579.2.355 1956 Unknown [id number] 2.16.840 .1.289963.3.579.2.1068 1956 Unknown [id number] 2.16. 840.1.979676.3.579.2.356 1956 Unknown [id number] 2.16. 840.1.241303.3.579.2.356 1956 Unknown [id number] 2.16.84 0.1.413944.3.579.2.593 1956 Unknown [id number] 2.16.84 0.1.808104.3.579.2.593 1956 Unknown [id number] 2.16.8 40.1.857124.3.579.2.727 1956 Unknown [id number] 2.16.8 40.1.069202.3.579.2.727 1956 Unknown [id number] 2.16.8 40.1.203606.3.579.2.727 1956 Unknown [id number] 2.16.8 40.1.014750.3.579.2.727 1956 Unknown [id number] 2.16.84 0.1.483132.3.579.2.1259 1956 Unknown [id number] 2.16. 840.1.958484.3.579.2.196 1956 Unknown [id number] 2.16. 840.1.364622.3.579.2.196 1956 Unknown [id number] 2.16. 840.1.215485.3.579.2.196 1956 Unknown [id number] 2.16. 840.1.638885.3.579.2.196 1956 Unknown [id number] 2.16. 840.1.198670.3.579.2.196 1956 Unknown [id number] 2.16. 840.1.522704.3.579.2.196 Unknown [id number] Unknown [id number] Unknown [id number] 2.16.8 40.1.089704.3.579.2.531 Unknown [id number] 2.16.8 40.1.744625.3.579.2.531 Unknown [id number] 2.16.8 40.1.433945.3.579.2.531 Unknown [id number] 2.16.8 40.1.416430.3.579.2.531 Unknown [id number] 2.16.8 40.1.729572.3.579.2.531 Unknown [id number] 2.16.8 40.1.254853.3.579.2.531 Social History Date Type Detail Facility Occasional alcohol use Occasional alcohol use -[facility] Work Phone: Start: 05-04-2020 End: 08-08-2023 Tobacco smoking status NHIS Never smoked tobacco (finding) [facility] Start: 1955 Sex Assigned At Female F [facility] Sex Assigned At [facility] Tobacco smoking status Never [facility] [place] Functional Status Date Assessment Result Facility 08-08-2023 Functional Status N/A [facility] [place] 06-08-2023 Functional Status N/A [facility] [place] Clinical Notes 05-20-2022 to 08-08-2023 Note Date [...] Follow these instructions at home: Medicines Take irtp-xne-kgwehrj and prescription medicines only as told by [...] provider. Document Revised: 11/01/2022 Document Reviewed: 11/01/2022 [employer] Patient Education 2022 [employer] Follow Up Care 06/08/2023 13:38:53 With:KELSY GARCIA, Richard Resendiz, URL Address: [facility] [address], [place] [address]- When: Unknown [facility] 06-08-2023 Note Chief Complaint Referral *Microscopic Hematuria HPI Staff Evaluation requested by Dr Latoya Chong due to hematuria. Pt is a new pt, never before seen in our office. CT ap 04/20/20 UA 04/25/23 *10-19 RBC's CBC/CMP 04/25/23 *BUN 15 & Crea 0.63 Denies family Hx of Bladder Cancer. Never Smoker. Denies Hx of Kidney Stones, was told previous CT from [facility] states Rt Nephrolithiasis. Denies visible blood in [...] When Contact Information KELSY GARCIA, Richard Resendiz, [place] [address]- Additional Instructions: Cysto, CT Urogram Patient Education [...] virus vaccine, in (more content not included)... [facility] Comment on above: Result Comment: Elec [...] Follow these instructions at home: Medicines Take pwak-omb-ttsdfjn and prescription medicines only as told by [...] or the blood stops without treatment. Take phwg-epd-exdctwb and prescription medicines only as told by your health care provider. Drink enough fluid to keep your urine pale yellow. This information is not intended to replace advice given to you by your health care provider. Make sure you discuss any questions you have with your health care provider. Document Revised: 03/23/2021 Document Reviewed: 03/23/2021 [employer] Patient Education 2022 [employer]. Follow Up Care 05/09/2023 11:38:04 With:KELSY GARCIA, Richard R, URL Address: [address] [place], [place] [address]- When: Unknown [facility] [place] 01-15-2023 Evaluation note Encounter Date Diagnosis Assessment [...] PHQ reviewed score 4; education completed with Ayasdi/Crisis number given. denies anythoughts of harming self or others. Feels down d/t difficulty with pain and being able to do activities with grandchildren. Jan, BMI 22.0-22.9, adult (ICD-10 - Z68.22) Jan, Post menopausal syndrome (ICD-10 - Z78.0) [employer] Other 10-15-2022 History of Present illness Narrative* [...] ordered. Her stress test was [facility] stress test. Back in October 2018, [...] software was utilized to prepare this document. [facility] 127 DO Work Phone: Evaluation + Plan note Future Appointments Appointment Date:08/08/2023 07:45:00 AM Scheduled Provider:Richard JACKSON MD [facility] Type:[facility]O Procedure 15 min Diagnostic Tests Pending * Creatinine 06/08/23 [facility] evaluation + Plan note Future Appointments Appointment Date:08/08/2023 07:45:00 AM Scheduled Provider:Richard JACKSON MD Location:[facility] Karen Appointment Type:URO Procedure 15 min Diagnostic Tests Pending * Urine Cytology ([facility]) [facility] Future Appointments Appointment Date:08/13/2024 09:45:00 AM Scheduled Provider:Richard JACKSON MD [facility] Type:URO Office Visit [facility] Evaluation noteNo assessment information available [facility] Work Phone: History general Narrative - Reported* Type Description Date Medical History migraine headache Medical History mild osteoarthritis Medical History varicose veins Medical History basal cell carcinoma Surgical History hysterectomy 1993 Surgical History D&C 1981 Surgical History colonoscopy 2006, 2014 Surgical History tonsillectomy Hospitalization History same as surgical history [facility] Other Hospital course Narrative No data available for this section [facility] Hospital Discharge instructions No data available for this section [facility] No data available for this section [facility] [place] Summary Purpose Family History No Family History [...] Successful AV herman modification Procedure performed by: [facility] Director(s): none Estimated Blood Loss (mL): 5 Specimen: [...] Diagnosis 1 Lumbar pain (M54.50) Referral Organization [facility] urosurgery Referring Provider First Name Noris Referring Provider Last Name Jael Referring Provider Specialty Nurse Lashell elaine Referred Organization [facility] Referred Provider Trever Moreno Referred Address [address], [place],[address] Referred Provider Specialty Pain Medicin e Referral Priority Routine General Notes Kathia Nunez 023 08:06:47 AM >Received today and waiting for office notes to be locked before sending referral Kathia Nunez 01/17/2023 07:30:06 AM >Office notes are now locked. [facility]'s office request us to fill out form and fax referral to them and they will review the referral and call patient. Referral was fax Kathia Nunez 01/24/2023 10:24:48 AM >[facility] from [facility] is in the chart and patient has declined to schedule Clinical Notes Office [phone] Additional Source Comments INFORMATION SOURCE (unrecogn ized section and content) DATE CREATED AUTHOR 10/25/2018 [facility] DATE CREATED AUTHOR AUTHOR'S ORGANIZ ATION 11/16/2018 [facility] DATE CREATED AUTHOR AUTHOR'S ORGANIZ ATION 08/05/2020 [facility] DATE CREATED AUTHOR AUTHOR'S ORGANIZ ATION 06/20/2022 [facility] DATE CREATED AUTHOR AUTHOR'S ORGANIZ ATION 06/20/2022 [employer] DATE CREATED AUTHOR AUTHOR'S ORGANIZ ATION 08/17/2022 [facility] DATE CREATED AUTHOR AUTHOR'S ORGANIZ ATION 08/14/2023 [facility] DATE CREATED AUTHOR AUTHOR'S ORGANIZ ATION 08/30/2023 [facility] dical [facility] DATE CREATED AUTHOR AUTHOR'S ORGANIZ ATION 09/14/2023 [facility] DATE CREATED AUTHOR AUTHOR'S ORGANIZ ATION 10/05/2023 [facility] Care Teams (unrecognized sec tion and content) Team Status: Inactive Member Role Status Dates Latoyayanely Vail , DO Primary Care Provider Active Gregorio Barton MD Attending Provider Active Team Status: Active Member Role Status Dates Latoya Bunting , DO Primary Care Provider Active Team Status: Inactive Member Role Status Dates Latoya ting , DO Primary Care Provider, Attending Emir reyes Active Team Status: Inactive Member Role Status Dates Latoya Bunting , DO Primary Care Provider Active Augusto Siu , DO Attending Provider Active Team Status: Inactive Member Role Status Dates Latoya Bunting , DO Primary Care Provider Active CAL Patel Attending Provider Active Team Status: Inactive Member Role Status Dates Latoya ting , DO Primary Care Provider Active Art Rinaldi MD Attending Provider Active Team Status: Inactive Member Role Status Dates Latoya Bunting , DO Primary Care Provider Active Richard [...] BE BASED ON THE PRIMARY CLINICAL RECORDS. [facility]. provides no warranty or guarantee of the accuracy or completeness of information in this document.
[2023-10-08 07:10] VITALS: BP 160/84; PULSE 103; RESP 16; TEMP 36.5; O2SAT 97
[2023-10-08 07:52] VITALS: RESP 20
[2023-10-08 07:57] VITALS: BP 148/70; PULSE 90; PULSE 92; O2SAT 97; O2SAT 98
[2023-10-08] MEDS: BUPIVACAINE HCL 0.25% PF 25 MG/10 ML VIAL INJ (07:58)
[2023-10-08] MEDS: 0.9 % SODIUM CHLORIDE 10 ML INJ (07:58)
[2023-10-08] MEDS: LIDOCAINE HCL 2% PF 100 MG/5 ML VIAL INJ (07:59)
[2023-10-08] MEDS: IOHEXOL 240 MG/ML - 10 ML VIAL INJ (07:59)
[2023-10-08] MEDS: TRIAMCINOLONE ACETONIDE 40 MG/ML VIAL 80 MG INJ (08:00)
[2023-10-08 08:01] VITALS: BP 154/93
--- NOTE | 2023-10-08 08:03 | W.PM.PROCNOT ---
Date of procedure: 10/08/23 Pre-op diagnosis: Lumbar stenosis with neurogenic claudication Post-op diagnosis: same as pre-op Procedure: Procedure: Bilateral L5-S1 transforaminal epidural steroid injection Medications: Bupivacaine 0.25% 2cc, lidocaine 2% 1cc, kenalog 80mg The patient was seen and examined in the preoperative holding area.? Informed consent was obtained and placed on the chart.? Patient was brought to the medical procedure unit and placed in the prone position where a timeout was completed verifying the correct patient, procedure site, position, and planned special equipment using sterile aseptic technique.? Under direct fluoroscopic visualization a 25-gauge Quincke tipped spinal needle was advanced at level left L5-S1 to the designated neural foramen where contrast dye was injected to show adequate spread.? There was no evidence of vascular or adverse uptake.? Epidural spread was appreciated.? The above-mentioned injectate was then placed in a 1.5 mL aliquot preceded by negative aspiration.? The needle was removed. The same procedure, at the same level, was completed on the opposite side. ? Patient was taken to the postprocedural recovery area and monitored for an appropriate length of time before found suitable for discharge in the accompaniment of a responsible adult. Surgeon: Tomas Rosas Pathology: none sent Condition: stable Disposition: no change
== END 2023-10-08 08:05 | disposition home or self-care (01) ==
LOC: SURGOUT 06:53
PROVIDERS: PCP Family Medicine; Visit Provider Anesthesiology
DX: M48.062 Spinal stenosis, lumbar region with neurogenic claudication (principal)
CPT/HCPCS: 64483; Q9966

== ENCOUNTER 2023-10-24 08:52 | Outpatient (OUT) | payer BC, SELFPAY ==
--- NOTE | 2023-10-24 09:08 | P.CN_ITS ---
Consult Note: HPI Data of Consult Patient: known to practice within the last 3 years Consult date: 09/17/23 Requesting Physician: Mei Hatch NP Primary Care Provider: LATOYA CHONG Consult Narrative Reason for consult: low back, bilateral lower extremity pain Narrative: 67yof who presents for assessment. chronic low back pain with radiculopathy. recently underwent bilateral L4-5 TFESI and bilateral L5-S1 TFESI with 80-90% improvement in pain and functional ability. Today pain aching 2/10 in low back. Patient noticing significant ongoing relief from TFESIs. Continues to utilize PRN tylenol cc:: CC: Mei Hatch NP Review of Systems ROS Status of ROS 10 or more systems reviewed and unremark able except as noted in history and below Musculoskeletal Reports: back pain PFSH PFSH Medical History Scoliosis ?M41.9 - Scoliosis, unspecified (ICD-10) Osteoarthritis ?M19.90 - Unspecified osteoarthritis, unspecified site (ICD-10) Basal cell carcinoma ?C44.91 - Basal cell carcinoma of skin, unspecified (ICD-10) Surgical History History of tonsillectomy ?Z90.89 - Acquired absence of other organs (ICD-10) History of hysterectomy ?Z90.710 - Acquired absence of both cervix and uterus (ICD-10) History of cardiac radiofrequency ablation ?Z98.890 - Other specified postprocedural states (ICD-10) Meds Home Medications and Allergies Home Medications ?Medication ?Instructions ?Recorded ?Confirmed ?Type estradiol 1 mg tablet 1 mg PO DAILY 04/17/23 10/08/23 History mecobalamin (vitamin B12) 1,000 1,000 mcg PO DAILY 04/17/23 10/08/23 History mcg chewable tablet calcium carbonate 600 mg-vitamin 1 tab PO DAILY 09/24/23 10/08/23 History D3 5 mcg (200 unit) tablet (Calcium 600 + D(3)) Allergies Allergy/AdvReac Type Severity Reaction Status Date / Time azathioprine Allergy Unknown Verified 09/24/23 08:36 hydroxychloroquine Allergy Unknown Verified 09/24/23 08:36 Exam Narrative Exam Narrative: Psych-alert and oriented x 3. Attentive and appropriate, constitutionally normal, displays normal mood and affect per situation. There are no obvious deficits in memory, reasoning, or intellect.? Skin-no obvious rashes, bruising, erythema noted to the patient's area of pain.? Extremities- extremities are warm with minimal edema and palpable pulses. Lumbar-tenderness to palpation noted in the lumbar spine and paraspinal musculature. Pain is elicited with flexion, extension, and lateral rotation of the lumbar spine. Range of motion is not diminished with these motions. Facet loading maneuvers are negative.? Strength-noted to be unremarkable Sensory-no notable sensory deficits in the bilateral lower extremities to touch or pinprick in all dermatomal distributions Coordination remains intact.? Gait remains non-antalgic. Assessment and Plan Assessment and Plan (1) Lumbar stenosis with neurogenic claudication: Plan continue PRN tylenol continue HEP as tolerated okay to exercise, massage, chiropractor f/u 3 months, sooner if needed
== END 2023-10-24 08:53 | disposition home or self-care (01) ==
LOC: PM 08:52
PROVIDERS: PCP Family Medicine; Visit Provider Nurse Practitioner
DX: M48.062 Spinal stenosis, lumbar region with neurogenic claudication (principal)
CPT/HCPCS: G0463

== ENCOUNTER 2024-01-24 08:57 | Outpatient (OUT) | payer BC, SELFPAY ==
--- NOTE | 2024-01-24 08:59 | P.CN_ITS ---
Consult Note: HPI Data of Consult Patient: known to practice within the last 3 years Consult date: 09/17/23 Requesting Physician: Mei Hatch NP Primary Care Provider: LATOYA CHONG Consult Narrative Reason for consult: low back, bilateral lower extremity pain Narrative: 67yof who presents for assessment. chronic low back pain with radiculopathy. Previously underwent bilateral L4-5 TFESI and bilateral L5-S1 TFESI with 80-90% improvement in pain and functional ability. Today pain aching 1-2/10 in low back. Patient noticing significant ongoing relief from TFESIs. Continues to utilize PRN tylenol and motrin. Engages in PT exercises 3+x/week with benefit cc:: CC: Mei Hatch NP Review of Systems ROS Status of ROS 10 or more systems reviewed and unremark able except as noted in history and below Musculoskeletal Reports: back pain PFSH PFSH Medical History Scoliosis ?M41.9 - Scoliosis, unspecified (ICD-10) Osteoarthritis ?M19.90 - Unspecified osteoarthritis, unspecified site (ICD-10) Basal cell carcinoma ?C44.91 - Basal cell carcinoma of skin, unspecified (ICD-10) Surgical History History of tonsillectomy ?Z90.89 - Acquired absence of other organs (ICD-10) History of hysterectomy ?Z90.710 - Acquired absence of both cervix and uterus (ICD-10) History of cardiac radiofrequency ablation ?Z98.890 - Other specified postprocedural states (ICD-10) Meds Home Medications and Allergies Home Medications ?Medication ?Instructions ?Recorded ?Confirmed ?Type estradiol 1 mg tablet 1 mg PO DAILY 04/17/23 10/08/23 History mecobalamin (vitamin B12) 1,000 1,000 mcg PO DAILY 04/17/23 10/08/23 History mcg chewable tablet calcium carbonate 600 mg-vitamin 1 tab PO DAILY 09/24/23 10/08/23 History D3 5 mcg (200 unit) tablet (Calcium 600 + D(3)) Allergies Allergy/AdvReac Type Severity Reaction Status Date / Time azathioprine Allergy Unknown Verified 09/24/23 08:36 hydroxychloroquine Allergy Unknown Verified 09/24/23 08:36 Exam Narrative Exam Narrative: Psych-alert and oriented x 3. Attentive and appropriate, constitutionally normal, displays normal mood and affect per situation. There are no obvious deficits in memory, reasoning, or intellect.? Skin-no obvious rashes, bruising, erythema noted to the patient's area of pain.? Extremities- extremities are warm with minimal edema and palpable pulses. Lumbar-tenderness to palpation noted in the lumbar spine and paraspinal musculature. Pain is elicited with flexion, extension, and lateral rotation of the lumbar spine. Range of motion is not diminished with these motions. Facet loading maneuvers are negative.? Strength-noted to be unremarkable Sensory-no notable sensory deficits in the bilateral lower extremities to touch or pinprick in all dermatomal distributions Coordination remains intact.? Gait remains non-antalgic. Constitutional Documenting provider has reviewed patient's vital signs: yes Common normals: no apparent distress, oriented x3, healthy appearing, alert and well nourished General appearance: cooperative HENMT Common normals: normocephalic, hearing grossly normal bilaterally and moist oral mucous membranes Head and scalp: normocephalic Eye Common normals: PERRL Pupil: PERRL Neck & C-Spine Common normals: full ROM General: normal visual inspection Chest Common normals: inspection of chest normal Respiratory Common normals: normal respiratory effort, no retractions and no use of accessory muscles Neuro Common normals: oriented x3, CN's II-XII intact bilaterally, moves all extremities, no focal motor deficits, no sensory deficits noted and deep tendon reflexes 2+ bilaterally Sensorium/orientation: alert Motor exam: strength 5/5 throughout and no movement abnormalities noted Psych Common normals: mental status grossly normal, thought process normal, cooperative, affect normal, speech normal and activity/motor behavior normal Speech: normal speech Thought process: normal thought process Results Additional Findings Additional findings: If on a controlled substance or opioids, I have checked an [facility] report on this patient and there are no aberrancies noted in the prescribing history.??If on a controlled substance or opioid a drug screen was completed and reviewed within the last year, and if there has not been a drug screen completed we ordered one today to monitor higher risk, state monitored pain medication use. As part of providing excellent, safe, comprehensive care, the following was completed at our patient's visit: 1. A medication reconciliation and review to ensure accurate knowledge of current/active medications, including asking our patients to inform us about any [id number] medications or herbal remedies/nutritional supplements/alternative remedies. 2. A review to specifically ensure our patients have had annual screening for screening for depression, screening for tobacco use, and screening for unhealthy alcohol use. For concerning screenings had a discussion with the patient, provided patient education, and recommended follow-up with primary care provider when appropriate. If patient noted with a risk of falling, they received education on strength, gait, and balance training to prevent future risk of falling. Assessment and Plan Assessment and Plan (1) Lumbar stenosis with neurogenic claudication: Plan continue PRN tylenol/motrin continue HEP as tolerated okay to exercise, massage, chiropractor f/u as needed
== END 2024-01-24 08:58 | disposition home or self-care (01) ==
LOC: PM 08:57
PROVIDERS: PCP Family Medicine; Visit Provider Nurse Practitioner
DX: M48.062 Spinal stenosis, lumbar region with neurogenic claudication (principal)
CPT/HCPCS: G0463

== ENCOUNTER 2024-06-11 14:09 | Outpatient (OUT) | payer BC, SELFPAY ==
--- NOTE | 2024-06-11 14:51 | P.CN_ITS ---
Consult Note: HPI Data of Consult Patient: known to practice within the last 3 years Consult date: 09/17/23 Requesting Physician: Mei Hatch NP Primary Care Provider: LATOYA CHONG Consult Narrative Reason for consult: chronic low back pain Narrative: 68yof who presents for assessment. chronic low back pain without radiculopathy. Continues to utilize PRN tylenol and motrin. Engages in PT exercises 3+x/week with benefit. Over the last 1 month has noticed increased low back pain, aching, stiffness upon waking. Patient reports pain 2/10 increasing to 6/10 increasing with pushing/pulling, standing, walking, lifting, activity. Pain improved with sleep, lying down, sitting. cc:: CC: Mei Hatch NP Review of Systems ROS Status of ROS 10 or more systems reviewed and unremark able except as noted in history and below Musculoskeletal Reports: back pain PFSH PFSH Medical History Scoliosis ?M41.9 - Scoliosis, unspecified (ICD-10) Osteoarthritis ?M19.90 - Unspecified osteoarthritis, unspecified site (ICD-10) Basal cell carcinoma ?C44.91 - Basal cell carcinoma of skin, unspecified (ICD-10) Surgical History History of tonsillectomy ?Z90.89 - Acquired absence of other organs (ICD-10) History of hysterectomy ?Z90.710 - Acquired absence of both cervix and uterus (ICD-10) History of cardiac radiofrequency ablation ?Z98.890 - Other specified postprocedural states (ICD-10) Meds Home Medications and Allergies Home Medications ?Medication ?Instructions ?Recorded ?Confirmed ?Type estradiol 1 mg tablet 1 mg PO DAILY 04/17/23 10/08/23 History mecobalamin (vitamin B12) 1,000 1,000 mcg PO DAILY 04/17/23 10/08/23 History mcg chewable tablet calcium 600 mg (as 1 tab PO DAILY 09/24/23 10/08/23 History carbonate)-vitamin D3 5 mcg (200 unit) tablet (Calcium 600 + D(3)) Allergies Allergy/AdvReac Type Severity Reaction Status Date / Time azathioprine Allergy Unknown Verified 09/24/23 08:36 hydroxychloroquine Allergy Unknown Verified 09/24/23 08:36 Exam Constitutional Documenting provider has reviewed patient's vital signs: yes Common normals: no apparent distress, oriented x3, healthy appearing, alert and well nourished General appearance: cooperative HENMT Common normals: normocephalic, hearing grossly normal bilaterally and moist oral mucous membranes Head and scalp: normocephalic Eye Common normals: PERRL Pupil: PERRL Neck & C-Spine Common normals: full ROM General: normal visual inspection Chest Common normals: inspection of chest normal Respiratory Common normals: normal respiratory effort, no retractions and no use of accessory muscles Back & Pelvis Lumbar spine/lower back: ROM limited, pain with ROM and straight leg raise negative bilaterally Sacroiliac joints: SI joints normal Other: positive facet loading L3-S1 negative radiculopathy strength 5/5 in BLE, sensation intact BLE Neuro Common normals: oriented x3, CN's II-XII intact bilaterally, moves all extremities, no focal motor deficits, no sensory deficits noted and deep tendon reflexes 2+ bilaterally Sensorium/orientation: alert Motor exam: strength 5/5 throughout and no movement abnormalities noted Psych Common normals: mental status grossly normal, thought process normal, cooperative, affect normal, speech normal and activity/motor behavior normal Speech: normal speech Thought process: normal thought process Results Additional Findings Additional findings: If on a controlled substance or opioids, I have checked an [facility] report on this patient and there are no aberrancies noted in the prescribing history.??If on a controlled substance or opioid a drug screen was completed and reviewed within the last year, and if there has not been a drug screen completed we ordered one today to monitor higher risk, state monitored pain medication use. As part of providing excellent, safe, comprehensive care, the following was completed at our patient's visit: 1. A medication reconciliation and review to ensure accurate knowledge of current/active medications, including asking our patients to inform us about any [id number] medications or herbal remedies/nutritional supplements/alternative remedies. 2. A review to specifically ensure our patients have had annual screening for screening for depression, screening for tobacco use, and screening for unhealthy alcohol use. For concerning screenings had a discussion with the patient, provided patient education, and recommended follow-up with primary care provider when appropriate. If patient noted with a risk of falling, they received education on strength, gait, and balance training to prevent future risk of falling. Assessment and Plan Assessment and Plan (1) Lumbar spondylosis: Plan repeat bilateral L4-5 L5-S1 facet joint RFA under fluoroscopy, previous RFA provided >50% improvement in pain and functional ability greater than 6 months, to be completed with IV sedation due to inability to safely tolerate procedure without sedation continue HEP as tolerated continue current medications f/u 1 month after RFA complete
== END 2024-06-11 14:10 | disposition home or self-care (01) ==
LOC: PM 14:10
PROVIDERS: PCP Family Medicine; Visit Provider Nurse Practitioner
DX: M47.816 Spondylosis without myelopathy or radiculopathy, lumbar region (principal)
CPT/HCPCS: G0463

== ENCOUNTER 2024-06-23 07:40 | Day surgery (SDC) | payer BC, SELFPAY ==
--- OUTSIDE RECORDS SUMMARY | 2024-06-23 07:50 | XMS_ITS | CCD ---
Author Organization [facility] CliniSymn Care Team Providers Care Portfolio Administrator Name Role Phone JUSTIN CHRISTINE Attending Unavailable BUNTINGLATOYA R Primary Care Unavailable JUSTIN CHRISTINE Attending Unavailable BUNLATOYA GREEN R Primary Care Unavailable Gregorio Barton Attending Unavailable BunLatoya green Primary Care Unavailable BunLatoya green R Unavailable Unavailable Unavailable DO Latoya Chong Primary Care Provider MD Gregorio Barton Attending Provider Bunting, DO Klein Primary Care Provider MD Gregorio Barton Attending Provider [phone] Buneliana, DO Klein Attending Provider Mick, Dr. Gregorio Herrera Attending Unavailab le Mick, Dr. Gregorio Herrera Referring Unavailab le Latoya Chong Primary Care Unavailable Mick, Dr. Gregorio Herrera Attending Unavailab le BunLatoya green Primary Care Unavailable ROSE MARIE, DR LUCI Rivera Admitting Unavailable WEST, DR LUCI Rivera Attending Unavailable WEST, DR LUCI Rivera Consulting Unavailable BUNTING, DR KLEIN Admitting Unavailable BUNTING, DR KLEIN Attending Unavailable BunDO Latoya green Primary Care Provider DO Augusto Siu Attending Provider DO Latoya Chong Primary Care Provider DO Augusto Siu Attending Provider CAL Elder Attending Provider Noris Elder Unavailable MD Art Rinaldi Attending Provider LATOYA CHONG Primary Care Physician Bunting, DO Latoya Primary Care Provider [phone] CAL Elder Attending Provider MD Art Rinaldi Attending Provider MD Richard Jackson Attending Provider BUNTING, LATOYA R Referring Unavailable JACKSON, Richard R Attending Unavailable JACKSON, Richard R Attending Unavailable JACKSON, Richard R Admitting Unavailable JACKSON, Richard R Attending Unavailable JACKSON, Richard R Attending Unavailable Giedraitis , Andrius Vytautas Attending Unavailable Giedraitis , Andrius Vytautas Attending Unavailable Giedraitis MD, Andrius Vytautas Attending Unavailable Giedraitis MD, Andrius Vytautas Attending Unavailable Giedraitis , Andrius Vytautas Attending Unavailable Giedraitis , Andrius Vytautas Attending Unavailable Giedraitis , Andrius Vytautnirmala Attending Unavailable Bunting, DO Latoya Primary Care Provider MD Stanislav Doan Attending Provider Buneliana, Latoya R Primary Care Provider [phone] [facility] Attending Unavailable [facility] Referring Unavailable PETITTI, PAGE Byrne Attending Unavailable PETITTI, PAGE A Attending Unavailable PETITTI, PAGE A Attending Unavailable Bunting, Latoya Primary Care Unavailable Augusto Siu Admitting Unavailable Augusto Siu Attending Unavailable Stanislav Doan Attending Unavailable Bunting, Latoya Primary Care Unavailable Stanislav Doan Admitting Unavailable Bunting, Latoya Primary Care Unavailable Jackson, Richard Admitting Unavailable Jackson, Richard Attending Unavailable Bunting, Latoya Admitting Unavailable Bunting, Latoya Primary Care Unavailable Bunting, Latoya Attending Unavailable Bunting DOLatoya Primary Care Provider Stanislav Doan MD Attending Provider Ltaoya Chong DO Attending Provider Allergies Allergy Classification Reported Allergen(s) Allergy Type Date of Onset Reaction(s) Facility (12 sources) azaTHIOprine; Translations: [azaTHIOprine TABS] Drug Allergy 12-05-2023 Unknown [facility] (11 sources) azaTHIOprine; Translations: [azaTHIOprine] Drug Allergy 05-04-2020 Diarrhea [facility] (10 sources) Hydroxychloroquin e; Translations: [hydroxychloroqui ne] Drug Allergy 07-10-2023 Unknown [facility] Medications Current Medications Medication Drug Class(es) Dates Sig (Normalized) Sig (Original) bifidobacterium infantis 4 mg oral capsule (5 sources) Start: 12-28-2023 take 1 capsule by mouth once daily Bifidobacterium Infantis (Align) 4 mg capsule Active 4 MG PO Daily December 27, 2023 11:00pm Calcium Citrate / Vitamin D (3 sources) Start: 06-08-2023 calcium-vitamin D Refill(s) 0 Start Date: 06/08/23 Status: Ordered CALCIUM-VITAMIN D PO (6 sources) Start: 06-08-2023 CALCIUM-VITAMIN D PO Refill(s) 0 06/08/2023 Active Collagen (1 source) Collagen Active estradiol 1 mg oral tablet (20 sources) Estrogen Start: 04-20-2020 take 1 tablet by mouth once daily Estradiol 1 mg tablet Active 1 MG PO Daily April 19, 2020 11:00pm Fish Oils (1 source) take 1 capsule by mouth once daily ibuprofen 600 mg oral tablet (20 sources) Nonsteroidal Anti-inflammatory Drug Start: 12-28-2023 take 1 tablet by mouth three times daily as needed Ibuprofen 600 mg tablet Active 600 MG PO Three times daily as needed December 27, 2023 11:00pm Start: 04-20-2020 End: 05-04-2020 take 4 tablets by mouth every twenty-four hours for pain Ibuprofen 600 mg Tablet Discontinued 600 MG PO Every 6 hours as needed for Pain April 19, 2020 11:00pm May 04, 2020 6:58am do not exceed 4 doses in a 24 hour period take 1 tablet by symone th every eight hours Ibuprofen 600 MG Oral Tablet TAKE 1 TABLET DAILY OR 2 TABLETS DAILY ON A RARE OCCASION ONLY NEEDED FOR OSTEOARTHRITIES (USES 5 TIMES A MONTH MAX) Quantity: 0 Refills: 0 Ordered: 14-Feb-2022 DO Active lidocaine 0.05 mg/mg medicated patch (1 source) Antiarrhythmic, Amide Local Anesthetic Start: 01-15-2023 Lidocaine 5 % 1 patch remove after 12 hours Externally Once a day for 15 days Jan, Active meloxicam 15 mg oral tablet (1 source) Nonsteroidal Anti-inflammatory Drug take 1 tablet by mouth every twenty-four hours Meloxicam 15 MG 1 tablet Orally Once a day Active vitamin b12 1 mg oral tablet (15 sources) Vitamin B12 Start: 12-28-2023 take 1 tablet by mouth once daily Cyanocobalamin (Vitamin B-12) 1,000 mcg tablet Active 1 TAB PO Daily December 27, 2023 11:00pm FreeTextSi tablet Orally Once a day; Note: Source Status: Taking; Provider: Jael Hamm ( ) Start: 12-28-2023 take 1 tablet by symone th once daily Cyanocobalamin (Vitamin B-12) Active 1 TAB PO Daily December 28, 2023 12:00am [employer] tablet Orally Once a day; Note: Source Status: Taking; Provider: Jeal Hamm ( ) Start: 06-08-2023 Cyanocobalamin (VITAMIN B-12 PO) Refills(s) 0 06/08/2023 Active Start: 06-08-2023 Vitamin B12 Re fills(s) 0 Start Date: 06/08/23 Status: Ordered take 1 tablet by symone th every twenty-four hours Vitamin B-12 1000 MCG [...] / HYDROcodone bitartrate 5 mg oral tablet (14 sources) Opioid Agonist Start: 04-20-2020 End: 05-04-2020 take 1 tablet by mouth every four to six hours as needed for pain Hydrocodone-Acetamin ophen ([place]) 5-325 mg Tablet Discontinued 1 TAB PO EVERY 4-6 HOURS as needed for Pain 14 3 April 20, 2020 May 04, 2020 6:58am cholecalciferol 0.025 mg oral tablet (15 sources) Vitamin D Start: 05-04-2020 End: 12-28-2023 take 1 tablet by mouth once daily Cholecalciferol (Vitamin D3) (Vitamin D3) 25 mcg (1,000 unit) Tablet Discontinued 1000 UNIT PO Daily May 03, 2020 11:00pm December 28, 2023 12:50pm ciprofloxacin 500 mg oral tablet (2 sources) Quinolone Antimicrobial Start: 06-08-2023 Cipro 500 mg Tab 500 mg = 1 tab(s), Oral, As Directed, Pt to take 1 tab the day before procedure and the 2nd tab the day of procedure once completed., # 2 tab(s), Refills(s) 0, Pharmacy: [facility]/pharmacy #[id number], 164, cm, 06/08/23 12:39:00 EDT, Height/Length Dosing, 64, kg, 06/08/23 12:39:00 EDT, Weight Dosing Start Date: 06/08/23 Status: Ordered cyclobenzaprine hydrochloride 10 mg oral tablet (14 sources) Muscle Relaxant Start: 04-20-2020 End: 05-04-2020 take 1 tablet by mouth three times daily as needed for muscle spasms Cyclobenzaprine 10 mg Tablet Discontinued 10 MG PO Three times daily as needed for Muscle Spasm April 19, 2020 11:00pm May 04, 2020 6:58am Fish Oil CAPS (1 source) Fish Oil CAPS TA KE 1 CAPSULE Daily Quantity: 0 Refills: 0 Ordered: 14-Feb-2022 DO Active gentamicin 1 mg/ml topical cream (4 sources) Start: 12-28-2023 End: 04-21-2024 Gentamicin 0.1 % cream Discontinued 1 APPLIC TOPICAL Three times daily 15 December 27, 2023 11:00pm April 21, 2024 9:09am Jasper 2-Upg-Vhw-Fish Oil (Fish Oil) 1,000 mg (120 mg-180 mg) Capsule (14 sources) Start: 05-04-2020 End: 12-28-2023 take 1 capsule by mouth once daily [place]asper 3-Czi-Png-Fish Oil (Fish Oil) 1,000 mg (120 mg-180 mg) Capsule Discontinued 1000 CAP PO Daily May 03, 2020 11:00pm December 28, 2023 12:51pm Start: 05-04-2020 End: 12-28-2023 take 1 capsule by mouth once daily [place]asper 4-Zku-Qqt-Fish Oil (Fish Oil) 1,000 mg (120 mg-180 mg) Capsule Discontinued 1000 CAP PO Daily May 04, 2020 12:00am December 28, 2023 1:51pm Start: 05-04-2020 take 1 capsule by mo uth once daily [place]asper 7-Jib-Qnl-Fish Oil (Fish Oil) 1,000 mg (120 mg-180 mg) Capsule Active 1000 CAP PO Daily May 03, 2020 11:00pm Start: 05-04-2020 take 1 capsule by mo uth once daily [place]asper 9-Zvl-Ydi-Fish Oil (Fish Oil) 1,000 mg (120 mg-180 mg) Capsule Active 1000 CAP PO Daily May 04, 2020 12:00am Triamcinolone (2 sources) Corticosteroid Start: 08-08-2017 Kenalog -40 mg Aug, Start: 08-31-2016 Kenalog -40 mg Aug, Problems Active Problems Problem Classification Problem Date Documented Date Episodic/Chronic Abdominal pain (14 sources) Abdominal pain; Translations: [Unspecified abdominal pain] 04-20-2020 Episodic Cardiac dysrhythmias (5 sources) Supraventricular tachycardia; Translations: [Cardiac arrhythmia, unspecified] Onset: 09-23-2018 Chronic Cardiac dysrhythmias (4 sources) Palpitations; Translations: [Palpitations] Onset: 10-24-2018 Episodic Essential hypertension (1 source) Essential (primary) hypertension Onset: 10-24-2018 Chronic Osteoarthritis (17 sources) Degenerative joint disease of hand; Translations: [Primary osteoarthritis, left hand] Onset: 11-07-2019 06-08-2023 Chronic Other aftercare (2 sources) Removal of sutures done; Translations: [Encounter for removal of sutures] 05-27-2024 Episodic Other circulatory disease (3 sources) Telangiectasia disorder; Translations: [Nevus, non-neoplastic] 04-21-2024 Episodic Other circulatory disease (4 sources) Nevus, non-neoplastic; Translations: [Other and unspecified capillary diseases] 04-21-2024 Episodic Other diseases of veins and lymphatics (1 source) Venous insufficiency of leg; Translations: [Venous insufficiency (chronic) (peripheral)] Episodic Other lower respiratory disease (1 source) Shortness of breath Onset: 09-23-2018 Episodic Other lower respiratory disease (2 sources) Dyspnea on exertion; Translations: [Other respiratory abnormalities] Episodic Other lower respiratory disease (1 source) Multiple nodules of lung; Translations: [Other nonspecific abnormal finding of lung field] Episodic Other non-epithelial cancer of skin (2 sources) Squamous cell carcinoma of upper extremity; Translations: [Squamous cell carcinoma of skin of right upper limb, including shoulder] 05-14-2024 Episodic Residual codes; unclassified (4 sources) Body mass index 20-24 - normal; Translations: [Body Mass Index between 19-24, adult] Episodic Residual codes; unclassified (1 source) Body mass index (BMI) 22.0-22.9, adult Episodic Residual codes; unclassified (1 source) Asymptomatic menopausal state Episodic Residual codes; unclassified (3 sources) Bilateral lower limb edema; Translations: [Localized edema] 04-21-2024 Episodic Residual codes; unclassified (4 sources) Localized edema; Translations: [Edema] 04-21-2024 Episodic Screening and history of mental health and substance abuse codes (2 sources) Patient encounter status; Translations: [Encounter for screening for depression] Episodic Skin and subcutaneous tissue infections (4 sources) Paronychia; Translations: [Paronychia] 12-28-2023 Episodic Spondylosis; intervertebral disc disorders; other back problems (6 sources) Spondylosis without myelopathy or radiculopathy, thoracolumbar region; Translations: [Inflammation of sacroiliac joint] Onset: 06-07-2022 Chronic Unclassified (2 sources) Other forms of dyspnea; Translations: [Other forms of dyspnea] Onset: 09-23-2018 Unclassified (1 source) Encounter for screening mammogram for malignant neoplasm of breast; Translations: [Encounter for screening mammogram for malignant neoplasm of breast] Onset: 08-24-2023 Unclassified (1 source) Other microscopic hematuria; Translations: [Other microscopic hematuria] Onset: 06-25-2023 Varicose veins of lower extremity (13 sources) Varicose veins of bilateral lower extremities with pain; Translations: [Pain due to varicose veins of lower extremity] Onset: 09-12-2021 Episodic Past or Other Problems Problem Classification Problem Date Documented Date Episodic/Chronic Calculus of urinary tract (11 sources) Kidney stone; Translations: [Calculus of kidney] Onset: 3 Episodic Genitourinary symptoms and ill-defined conditions (11 sources) Microscopic hematuria; Translations: [Other microscopic hematuria] Onset: 3 Episodic Immunizations and screening for infectious disease (6 sources) Anti-nuclear factor positive; Translations: [Other specified abnormal immunological findings in serum] Onset: 0 08-29-2023 Episodic Other aftercare (6 sources) Drug therapy finding; Translations: [Other manager intermediate (current) drug therapy] Onset: 0 08-29-2023 Episodic Other bone disease and musculoskeletal deformities (6 sources) Disorder of bone; Translations: [Other specified disorders of bone density and structure, unspecified site] Onset: 0 08-29-2023 Episodic Other connective tissue disease (6 sources) Pain of bilateral hands; Translations: [Pain in right hand] Onset: 0 08-29-2023 Episodic Other connective tissue disease (6 sources) Bilateral chronic pain of feet; Translations: [Pain in right foot] Onset: 0 08-29-2023 Episodic Other connective tissue disease (6 sources) Pain in thumb ; Translations: [Pain in right finger(s)] Onset: 0 08-29-2023 Episodic Other connective tissue disease (6 sources) Swelling of finger ; Translations: [Other specified soft tissue disorders] Onset: 0 08-29-2023 Episodic Other connective tissue disease (6 sources) Toe swelling; Translations: [Other specified soft tissue disorders] Onset: 0 08-29-2023 Episodic Other female genital disorders (6 sources) Mass of uterine adnexa; Translations: [Other specified conditions associated with female genital organs and menstrual cycle] Onset: 3 07-10-2023 Episodic Other screening for suspected conditions (not mental disorders or infectious disease) (17 sources) Abnormal electrocardiogram [ECG] [EKG]; Translations: [Electrocardiogram abnormal] Onset: 9 07-10-2023 Episodic Other skin disorders (6 sources) Soft tissue swelling; Translations: [Localized swelling, mass and lump, unspecified] Onset: 0 08-29-2023 Episodic Residual codes; unclassified (6 sources) Family history of osteoporosis; Translations: [Family history of osteoporosis] Onset: 0 08-29-2023 Episodic Spondylosis; intervertebral disc disorders; other back problems (8 sources) Dorsalgia, unspecified; Translations: [Other specified dorsopathies, thoracolumbar region] Onset: 0 08-29-2023 Episodic Unclassified (1 source) Never smoked tobacco; Translations: [Never a smoker] Unclassified (1 source) Lumbar pain M54.50 Results Test Name Value Interpretation Reference Range Facility Alanine aminotransferase [En zymatic activity/volume] in Serum or PlasmaOrdered By: Latoya Bunting on 06-16-2024 ALT [Catalytic activity/Vol] Alanine aminotransferase [Enzymatic activity/volume] in Serum or Plasma 7-52 [facility] Albumin [Mass/volume] in Ser um or Plasma by Bromocresol green (BCG) dye binding methoOrdered By: Latoya Bunting on 06-16-2024 Albumin BCG dye [Mass/Vol] Albumin [Mass/volume] in Serum or Plasma by Bromocresol green (BCG) dye binding metho 3.5-5.7 [facility] Alkaline phosphatase [Enzyma tic activity/volume] in Serum or PlasmaOrdered By: Latoya Bunting on 06-16-2024 ALP [Catalytic activity/Vol] Alkaline phosphatase [Enzymatic activity/volume] in Serum or Plasma 34-104 [facility] Aspartate aminotransferase [ Enzymatic activity/volume] in Serum or PlasmaOrdered By: Latoya Bunting on 06-16-2024 AST [Catalytic activity/Vol] Aspartate aminotransferase [Enzymatic activity/volume] in Serum or Plasma 13-39 [facility] Basophils Auto (Bld) [#/Vol] Ordered By: Latoya Bunting on 06-16-2024 Basophils (Bld) [#/Vol] Automated basophil count 0.0-0.2 [facility] Basophils/100 WBC Auto (Bld) Ordered By: Latoya Bunting on 06-16-2024 Basophils/100 WBC (Bld) Automated basophil % . [facility] Bilirubin.total [Mass/volume ] in Serum or PlasmaOrdered By: Latoya Bunting on 06-16-2024 Bilirubin [Mass/Vol] Bilirubin.total [Mass/volume] in Serum or Plasma 0.3-1.0 [facility] Calcium [Mass/volume] in Ser um or PlasmaOrdered By: Latoya Bunting on 06-16-2024 Calcium [Mass/Vol] Calcium [Mass/volume ] in Serum or Plasma 8.6-10.3 [facility] Carbon dioxide, total [Moles /volume] in Serum or PlasmaOrdered By: Latoya Bunting on 06-16-2024 CO2 [Moles/Vol] Carbon dioxide, tota l [Moles/volume] in Serum or Plasma 21.0-31.0 [facility] Chloride [Moles/volume] in S ajith or PlasmaOrdered By: Latoya Bunting on 06-16-2024 Chloride [Moles/Vol] Chloride [Moles/vol ume] in Serum or Plasma 98-107 [facility] Cholesterol [Mass/volume] in Serum or PlasmaOrdered By: Latoya Bunting on 06-16-2024 Cholesterol [Mass/Vol] Cholesterol [Mass/volume] in Serum or Plasma High 140-200 [facility] Comment on above: Chol less than 200 m g/dl low riskChol 201-239 mg/dl borderline riskChol 240 mg/dl and greater high risk Cholesterol in HDL [Mass/vol ume] in Serum or PlasmaOrdered By: Latoya Buneliana on 06-16-2024 Cholesterol in HDL [Mass/Vol] Serum or plasma high density lipoprotein (HDL) cholesterol measurement 23-92 [facility] Comment on above: HDL CHOL ATP-III CLA SSIFICATION Cardiovascular RiskHDL > or equal to 60 mg/dL LOWHDL < 40 mg/dL HIGH Cholesterol in LDL Calc [Mas s/Vol]Ordered By: Latoya Chong on 06-16-2024 Cholesterol in LDL [Mass/Vol] Cholesterol in LDL [Mass/volume] in Serum or Plasma by calculation High 0-100 [facility] Comment on above: LDL ATP III CLASSIFI CATIONLDL less than 100 mg/dL OptimalLDL 100-129 mg/dL Near or above optimalLDL 130-159 mg/dL Borderline highLDL 160-189 mg/dL HighLDL greater than 189 mg/dL Very high Cholesterol in VLDL Calc [Ma ss/Vol]Ordered By: Latoya Buneliana on 06-16-2024 Cholesterol in VLDL [Mass/Vol] Cholesterol in VLDL [Mass/volume] in Serum or Plasma by calculation [facility] Complete Blood Count Auto Di ffon 06-16-2024 Basophils (Bld) [#/Vol] 0.0 10*3/uL Normal 0.0-0.2 [facility] Comment on above: Result Comment: PERF ORMED BY: [place] [address] PATHOLOGIST RN [facility] ALEJANDRA BONILLA M.D. Performed By: #### T SH3, CBC, LIPID, T4F, CMP #### [address] Basophils/100 WBC (Bld) 0.3 % Normal . [facility] Comment on above: Performed By: #### T SH3, CBC, LIPID, T4F, CMP #### [address] Eosinophils (Bld) [#/Vol] 0.1 10*3/uL Normal 0.0-0.45 [facility] Comment on above: Performed By: #### T SH3, CBC, LIPID, T4F, CMP #### [address] Eosinophils/100 WBC (Bld) 0.9 % Normal . [facility] Comment on above: Performed By: #### T SH3, CBC, LIPID, T4F, CMP #### [address] Erythrocyte distribution width (RBC) [Ratio] 13.6 % Normal 11.9-15.3 [facility] Comment on above: Performed By: #### T SH3, CBC, LIPID, T4F, CMP #### [address] Hematocrit (Bld) [Volume fraction] 38.2 % Normal 34.0-46.4 [facility] Comment on above: Performed By: #### T SH3, CBC, LIPID, T4F, CMP #### [place] [address] [place] Hemoglobin (Bld) [Mass/Vol] 13.0 g/dL Normal 11.8-15.4 [facility] Comment on above: Performed By: #### T SH3, CBC, LIPID, T4F, CMP #### [address] Lymphocytes (Bld) [#/Vol] 2.5 10*3/uL Normal 1.00-4.8 [facility] Comment on above: Performed By: #### T SH3, CBC, LIPID, T4F, CMP #### [address] Lymphocytes/100 WBC (Bld) 37.6 % Normal . [facility] Comment on above: Performed By: #### T SH3, CBC, LIPID, T4F, CMP #### [address] MCH (RBC) [Entitic mass] 29.9 pg Normal 24.7-34.3 [facility] Comment on above: Performed By: #### T SH3, CBC, LIPID, T4F, CMP #### [address] MCV (RBC) [Entitic vol] 88.0 fL Normal 80-100 [facility] Comment on above: Performed By: #### T SH3, CBC, LIPID, T4F, CMP #### [address] Mean Corpuscular HGB Conc 34.0 g/dL Normal 32.0-35.0 [facility] Comment on above: Performed By: #### T SH3, CBC, LIPID, T4F, CMP #### [address] Monocytes (Bld) [#/Vol] 0.5 10*3/uL Normal 0.0-0.8 [facility] Comment on above: Performed By: #### T SH3, CBC, LIPID, T4F, CMP #### [address] Monocytes/100 WBC (Bld) 6.8 % Normal . [facility] Comment on above: Performed By: #### T SH3, CBC, LIPID, T4F, CMP #### [address] Neutrophils (Bld) [#/Vol] 3.6 10*3/uL Normal 1.8-7.7 [facility] Comment on above: Performed By: #### T SH3, CBC, LIPID, T4F, CMP #### [place] [address] [place] Neutrophils/100 WBC (Bld) 54.4 % Normal . [facility] Comment on above: Performed By: #### T SH3, CBC, LIPID, T4F, CMP #### [address] NRBC% 0.2 /100{WBC} Normal 0-0.5 [facility] Comment on above: Performed By: #### T SH3, CBC, LIPID, T4F, CMP #### [address] Platelet mean volume (Bld) [Entitic vol] 8.5 fL Normal 6.3-10.7 [facility] Comment on above: Performed By: #### T SH3, CBC, LIPID, T4F, CMP #### [place] [address] [place] Platelets (Bld) [#/Vol] 233 10*3/uL Normal 150-450 [facility] Comment on above: Performed By: #### T SH3, CBC, LIPID, T4F, CMP #### [place] [address] [place] RBC (Bld) [#/Vol] 4.34 10*6/uL Normal 3.60-5.00 [facility] Comment on above: Performed By: #### T SH3, CBC, LIPID, T4F, CMP #### [place] [address] [place] WBC (Bld) [#/Vol] 6.6 10*3/uL Normal 3.8-11.6 [facility] Comment on above: Performed By: #### T SH3, CBC, LIPID, T4F, CMP #### [facility] [address] [place] [address] Comprehensive Metabolic Pane shane 06-16-2024 Albumin [Mass/Vol] 4.1 g/dL Normal 3.5-5.7 [facility] Comment on above: Performed By: #### T SH3, CBC, LIPID, T4F, CMP #### [address] Albumin/Globulin [Mass ratio] 1.8 {ratio} Normal [facility] Comment on above: Performed By: #### T SH3, CBC, LIPID, T4F, CMP #### [address] ALP [Catalytic activity/Vol] 51 U/L Normal 34-104 [facility] Comment on above: Performed By: #### T SH3, CBC, LIPID, T4F, CMP #### [address] ALT [Catalytic activity/Vol] 9 U/L Normal 7-52 [facility] Comment on above: Performed By: #### T SH3, CBC, LIPID, T4F, CMP #### [address] Anion gap [Moles/Vol] 11.8 mmol/L Normal 6.0-15.0 [facility] Comment on above: Performed By: #### T SH3, CBC, LIPID, T4F, CMP #### [address] AST [Catalytic activity/Vol] 13 U/L Normal 13-39 [facility] Comment on above: Performed By: #### T SH3, CBC, LIPID, T4F, CMP #### [address] Bilirubin [Mass/Vol] 0.4 mg/dL Normal 0.3-1.0 [facility] Comment on above: Performed By: #### T SH3, CBC, LIPID, T4F, CMP #### [address] [address] [place] Calcium [Mass/Vol] 8.7 mg/dL Normal 8.6-10.3 [facility] Comment on above: Performed By: #### T SH3, CBC, LIPID, T4F, CMP #### [facility] [address] [place] [address] [place] Chloride [Moles/Vol] 104 mmol/L Normal 98-107 [facility] Comment on above: Performed By: #### T SH3, CBC, LIPID, T4F, CMP #### [address] CO2 [Moles/Vol] 27.3 mmol/L Normal 21.0-31.0 [facility] Comment on above: Performed By: #### T SH3, CBC, LIPID, T4F, CMP #### [address] Creatinine [Mass/Vol] 0.69 mg/dL Normal 0.60-1.20 [facility] [facility] Comment on above: Performed By: #### T SH3, CBC, LIPID, T4F, CMP #### [place] [address] [place] GFR/1.73 sq M.predicted MDRD (S/P/Bld) [Vol rate/Area] mL/min/{1.73_m2} Normal [facility] Comment on above: Performed By: #### T SH3, CBC, LIPID, T4F, CMP #### [address] Globulin (S) [Mass/Vol] 2.3 g/dL Normal [facility] Comment on above: Performed By: #### T SH3, CBC, LIPID, T4F, CMP #### [address] Glucose [Mass/Vol] 90 mg/dL Normal 70-100 [facility] Comment on above: Result Comment: [place] Glucose Reference Range is dependent on time and content of last meal. Glucose of more than 200 mg/dL in a nonstressed, ambulatory subject supports the diagnosis of Diabetes Mellitus. ADA recommended reference range Performed By: #### T SH3, CBC, LIPID, T4F, CMP #### [facility] [address] Potassium [Moles/Vol] 4.1 mmol/L Normal 3.5-5.1 [facility] Comment on above: Performed By: #### T SH3, CBC, LIPID, T4F, CMP #### [facility] [address] Protein [Mass/Vol] 6.4 g/dL Normal 6.4-8.9 [facility] Comment on above: Performed By: #### T SH3, CBC, LIPID, T4F, CMP #### [facility] [address] Sodium [Moles/Vol] 139 mmol/L Normal 136-145 [facility] Comment on above: Performed By: #### T SH3, CBC, LIPID, T4F, CMP #### [facility] [address] Urea nitrogen [Mass/Vol] 12 mg/dL Normal 7-25 [facility] Comment on above: Performed By: #### T SH3, CBC, LIPID, T4F, CMP #### [facility] [address] Creatinine [Mass/volume] in Serum or PlasmaOrdered By: Latoya Bunting on 06-16-2024 Creatinine [Mass/Vol] Creatinine [Mass/v olume] in Serum or Plasma 0.60-1.20 [facility] Eosinophils Auto (Bld) [#/Vo l]Ordered By: Latoya Bunting on 06-16-2024 Eosinophils (Bld) [#/Vol] Automated eosinophil count 0.0-0.45 [facility] Eosinophils/100 WBC Auto (Bl d)Ordered By: Latoya Bunting on 06-16-2024 Eosinophils/100 WBC (Bld) Automated eosinophil % . [facility] Erythrocyte distribution wid th Auto (RBC) [Ratio]Ordered By: Latoya Bunting on 06-16-2024 Erythrocyte distribution width (RBC) [Ratio] Erythrocyte distribution width [Ratio] by Automated count 11.9-15.3 [facility] Free T4 (Free Thyroxine)on 08-16-2023 Free T4 [Mass/Vol] 0.67 ng/dL Normal 0.61-1.12 [facility] Comment on above: Performed By: #### T SH3, CBC, LIPID, T4F, CMP #### [address] Globulin Calc (S) [Mass/Vol] Ordered By: Latoya Chong on 06-16-2024 Globulin (S) [Mass/Vol] Serum globulin measurement by calculation (mass/volume) [facility] Glucose [Mass/volume] in Ser um or PlasmaOrdered By: Latoya Chong on 06-16-2024 Glucose [Mass/Vol] Glucose [Mass/volume ] in Serum or Plasma 70-100 [facility] Comment on above: ADA recommended refe rence rangeRandom Glucose Reference Range is dependent on time and content of last meal. Glucose of more than 200 mg/dL in a nonstressed, ambulatory subject supports the diagnosis of Diabetes Mellitus. Hematocrit Auto (Bld) [Volum e fraction]Ordered By: Latoya Chong on 06-16-2024 Hematocrit (Bld) [Volume fraction] Hematocrit [Volume Fraction] of Blood by Automated count 34.0-46.4 [facility] Hemoglobin [Mass/volume] in BloodOrdered By: Latoyayanely [facility] on 06-16-2024 Hemoglobin (Bld) [Mass/Vol] Hemoglobin [Mass/volume] in Blood 11.8-15.4 [facility] Leukocytes [#/volume] correc hilario for nucleated erythrocytes in Blood by Automated counOrdered By: Latoya Chong on 06-16-2024 WBC corrected for nucl RBC Auto (Bld) [#/Vol] Leukocytes [#/volume] corrected for nucleated erythrocytes in Blood by Automated coun 3.8-11.6 [facility] Lipid Panelon 06-16-2024 Cholesterol [Mass/Vol] 228 mg/dL High 140-200 [facility] Comment on above: Result Comment: Chol less than 200 mg/dl low risk Chol 201-239 mg/dl borderline risk Chol 240 mg/dl and greater high risk Performed By: #### T SH3, CBC, LIPID, T4F, CMP #### [facility] [address] Cholesterol in HDL [Mass/Vol] 78 mg/dL Normal 23-92 [facility] Comment on above: Result Comment: HDL CHOL ATP-III CLASSIFICATION Cardiovascular Risk HDL > or equal to 60 mg/dL LOW HDL < 40 mg/dL HIGH Performed By: #### T SH3, CBC, LIPID, T4F, CMP #### [facility] [address] Cholesterol.total/Cho lesterol in HDL [Mass ratio] 2.9 {ratio} Normal <5.0 [facility] Comment on above: Performed By: #### T SH3, CBC, LIPID, T4F, CMP #### [facility] [address] LDL Cholesterol,Calculate d 107 mg/dL High 0-100 [facility] Comment on above: Result Comment: LDL ATP III CLASSIFICATION LDL less than 100 mg/dL Optimal LDL 100-129 mg/dL Near or above optimal LDL 130-159 mg/dL Borderline high LDL 160-189 mg/dL High LDL greater than 189 mg/dL Very high Performed By: #### T SH3, CBC, LIPID, T4F, CMP #### [facility] [address] Triglyceride w/Reflex 216 mg/dL High 0-149 [facility] Comment on above: Result Comment: TRIG ATP III CLASSIFICATION TRIG less than 150 mg/dL Normal TRIG 150-199 mg/dL Borderline high TRIG 200-500 mg/dL High TRIG greater than 500 mg/dL Very high Standard traceable to the Center for Disease Conrtrol and Prevention (CDC) test method. Performed By: #### T SH3, CBC, LIPID, T4F, CMP #### [facility] [address] VLDL CHOLESTEROL 43 mg/dL Normal [facility] Comment on above: Performed By: #### T SH3, CBC, LIPID, T4F, CMP #### [facility] [address] [place] [id number] [facility] Lymphocytes Auto (Bld) [#/Vo l]Ordered By: Latoya Chong on 06-16-2024 Lymphocytes (Bld) [#/Vol] Lymphocytes [#/volume] in Blood by Automated count 1.00-4.8 [facility] Lymphocytes/100 WBC Auto (Bl d)Ordered By: Latoya Bunting on 06-16-2024 Lymphocytes/100 WBC (Bld) Lymphocytes/100 leukocytes in Blood by Automated count . [facility] MCH Auto (RBC) [Entitic mass ]Ordered By: Latoya Bunting on 06-16-2024 MCH (RBC) [Entitic mass] MCH [Entitic mass] by Automated count 24.7-34.3 [facility] MCHC Auto (RBC) [Mass/Vol]Or dered By: Latoya Bunting on 06-16-2024 MCHC (RBC) [Mass/Vol] MCHC [Mass/volume] by Automated count 32.0-35.0 [facility] MCV Auto (RBC) [Entitic vol] Ordered By: Latoya Bunting on 06-16-2024 MCV (RBC) [Entitic vol] MCV [Entitic volume] by Automated count 80-100 [facility] Monocytes Auto (Bld) [#/Vol] Ordered By: Latoya Bunting on 06-16-2024 Monocytes (Bld) [#/Vol] Automated blood monocyte count 0.0-0.8 [facility] Monocytes/100 WBC Auto (Bld) Ordered By: Latoya Bunting on 06-16-2024 Monocytes/100 WBC (Bld) Automated monocyte % . [facility] Neutrophils Auto (Bld) [#/Vo l]Ordered By: Latoya Bunting on 06-16-2024 Neutrophils (Bld) [#/Vol] Neutrophils [#/volume] in Blood by Automated count 1.8-7.7 [facility] Neutrophils/100 WBC Auto (Bl d)Ordered By: Latoya Bunting on 06-16-2024 Neutrophils/100 WBC (Bld) Automated neutrophil % . [facility] No Panel InformationOrdered By: Latoya Bunting on 06-16-2024 Estimated GFR (CKD-EPI) > 60.0 mL/Min [facility] Creatinine Clearance (Chem N/A [facility] Nucleated erythrocytes [Pres ence] in Blood by Automated countOrdered By: Latoya Bunting on 06-16-2024 Nucleated RBC Auto Ql (Bld) Nucleated erythrocytes [Presence] in Blood by Automated count 0-0.5 [facility] Platelet mean volume Auto (B ld) [Entitic vol]Ordered By: Latoya Bunting on 06-16-2024 Platelet mean volume (Bld) [Entitic vol] Platelet mean volume [Entitic volume] in Blood by Automated count 6.3-10.7 [facility] Platelets Auto (Bld) [#/Vol] Ordered By: Latoya Bunting on 06-16-2024 Platelets (Bld) [#/Vol] Platelets [#/volume] in Blood by Automated count 150-450 [facility] Potassium [Moles/volume] in Serum or PlasmaOrdered By: Latoya Bunting on 06-16-2024 Potassium [Moles/Vol] Potassium [Moles/v olume] in Serum or Plasma 3.5-5.1 [facility] Protein [Mass/volume] in Ser um or PlasmaOrdered By: Latoya Bunting on 06-16-2024 Protein [Mass/Vol] Protein [Mass/volume ] in Serum or Plasma 6.4-8.9 [facility] RBC Auto (Bld) [#/Vol]Ordere d By: Latoya Bunting on 06-16-2024 RBC (Bld) [#/Vol] Erythrocytes [#/volu me] in Blood by Automated count 3.60-5.00 [facility] Serum or plasma albumin/glob ulin mass ratioOrdered By: Latoya Bunting on 06-16-2024 Albumin/Globulin [Mass ratio] Serum or plasma albumin/globulin mass ratio [facility] Serum or plasma anion gap de terminationOrdered By: Latoya Bunting on 06-16-2024 Anion gap [Moles/Vol] Serum or plasma an ion gap determination 6.0-15.0 [facility] Serum or plasma total choles terol/high density lipoprotein (HDL) cholesterol mass ratOrdered By: Latoya Bunting on 06-16-2024 Cholesterol.total/Cho lesterol in HDL [Mass ratio] Serum or plasma total cholesterol/high density lipoprotein (HDL) cholesterol mass rat <5.0 [facility] Sodium [Moles/volume] in Ser um or PlasmaOrdered By: Latoya Bunting on 06-16-2024 Sodium [Moles/Vol] Sodium [Moles/volume ] in Serum or Plasma 136-145 [facility] Thyroid Stimulating Hormoneo n 06-16-2024 TSH Qn 5.53 m[IU]/L High 0.45-5.33 [facility] Comment on above: Result Comment: PERF ORMED BY: [facility] [address] [place] [address] PATHOLOGIST RN [facility] ALEJANDRA BONILLA M.D. Performed By: #### T SH3, CBC, LIPID, T4F, CMP #### [facility] [address] Thyrotropin [Units/volume] i n Serum or PlasmaOrdered By: Latoya Bunting on 06-16-2024 TSH Qn Thyrotropin [Units/v olume] in Serum or Plasma High 0.45-5.33 [facility] Thyroxine (T4) free [Mass/vo lume] in Serum or PlasmaOrdered By: Latoya Bunting on 06-16-2024 Free T4 [Mass/Vol] Thyroxine (T4) free [Mass/volume] in Serum or Plasma 0.61-1.12 [facility] Triglyceride [Mass/volume] i n Serum or PlasmaOrdered By: Latoya Bunting on 06-16-2024 Triglyceride [Mass/Vol] Triglyceride [Mass/volume] in Serum or Plasma High 0-149 [facility] Comment on above: TRIG ATP III CLASSIF ICATIONTRIG less than 150 mg/dL NormalTRIG 150-199 mg/dL Borderline highTRIG 200-500 mg/dL High TRIG greater than 500 mg/dL Very highStandard traceable to the Center for Disease Conrtrol and Prevention (CDC) test method. Urea nitrogen [Mass/volume] in Serum or PlasmaOrdered By: Latoya Bunting on 06-16-2024 Urea nitrogen [Mass/Vol] Urea nitrogen [Mass/volume] in Serum or Plasma 7-25 [facility] WBC Auto (Bld) [#/Vol]Ordere d By: Latoya Bunting on 06-16-2024 WBC (Bld) [#/Vol] Leukocytes [#/volume ] in Blood by Automated count 3.8-11.6 [facility] No Panel Informationon 05-14 Complexity: Intermed iate Final length (cm): 3 Reason for type of repair: allow closure of the large defect Undermining: edges undermined Undermining comment: The surrounding tissue was undermined until the skin edges could be approximated without undue tension. Any tissue redundancies were removed. Subcutaneous layers (deep stitches): Suture size: 3-0 Suture type comment: Biosyn Stitches: Buried horizontal mattress (Closure was performed in a layered fashion with subcutaneous tissue closed first using tension-bearing absorbable sutures to the level of the superficial fascia.) Fine/surface layer approximation (top stitches): Suture size: 4-0 Suture type comment: Surgipro Stitches: simple running Stitches comment: Epicuticular skin sutures were then placed with minimal tension. Outcome: patient tolerated procedure well with no complications Post-procedure details: sterile dressing applied and wound care instructions given Post-procedure details comment: It was emphasized to the patient to contact the office for any signs of infection, uncontrollable bleeding, or complications. Dressing type: bandage formerly [facility] Lesion length (cm): 0.6 Lesion width (cm): 0.6 Margin per side (cm): 0.4 Total excision diameter (cm): 1.4 Informed consent: discussed and consent obtained Informed consent comment: Risks and possible complications were discussed as noted on the consent form. The consent form was signed prior to the procedure. Timeout: patient name, date of , surgical site, and procedure verified Timeout comment: Patient and provider identified site. Site was marked and excision was drawn out. Photo was taken and shown to patient, patient verified this is the correct site. Procedure prep: Patient was prepped and draped in usual sterile fashion (The planned incision lines were drawn along relaxed skin tension lines, if possible, to minimize scarring and deformity of surrounding structures.) Prep type: Chlorhexidine Anesthesia: the lesion was anesthetized in a standard fashion Anesthesia comment: The local anesthetic was injected to create a field block at the site of the procedure. Anesthetic: 1% lidocaine w/ epinephrine 1-100,000 buffered w/ 8.4% NaHCO3 Instrument used: #15 blade Instrument used comment: Incisions were made as drawn, and the surrounding tissue was undermined until the skin edges could be approximated without undue tension. Any tissue redundancies were removed. Hemostasis achieved with: electrodesiccation Additional details: Amount of lidocaine used: 6.0 ml Estimated blood loss: 1 ml [facility] No Panel InformationOrdered By: Jeanette Gomez on 05-14-2024 [facility] US venous duplex LE BIon US venous duplex LE BI [facility] Main [place] [id number] Ultrasound Report Signed Patient: Christian Rich MR#: [id number] : 1955 Acct:[id number] Age/Sex: 68 / F ADM Date: 05/12/24 Loc: Room: Type: [facility] Attending Dr: Stanislav Doan MD Ordering Provider: Stanislav Doan MD Date of Service: 05/12/24 US/US venous duplex LE BI: I83.813 - Varicose veins of bilateral lower extremities w... Copies to: Stanislav Doan MD BILATERAL LOWER EXTREMITY VENOUS DUPLEX INDICATION: Symptomatic varicose veins PROCEDURE: Color-flow duplex scanning is used to interrogate the deep venous system of the right and left lower extremities. The common femoral vein, femoral vein and popliteal vein show good compressibility with normal proximal and distal augmentation. The calf veins are compressible. US/US venous duplex LE BI IMPRESSION: NO EVIDENCE FOR DEEP VEIN THROMBOSIS OR PROXIMAL SUPERFICIAL THROMBOPHLEBITIS IN THE RIGHT OR LEFT LOWER EXTREMITY. No reflux was identified in the deep, or superficial system, bilaterally. Impression dictated by: Art Nathan MD05/12/2024 2:23 PM Dictation Location: [facility]04 Tech: Farrah Andrews Transcribed By: JAHAIRA 05/12/24 1423 Dictated By: Art Nathan MD 05/12/24 142 Signed By: 05/12/24 142 Normal [facility] MM screening mammo BI w/CADo n 08-24-2023 MM screening mammo BI w/CAD [facility] [address] [address] Mammography Report Signed Patient: Christian Rich MR#: [id number] : 1955 Acct:[id number] Age/Sex: 67 / F ADM Date: 08/24/23 Loc: [place] [facility]: [facility] Att[facility] Dr: Augusto Siu DO Copies to: Latoya Chong,DO Augusto Siu DO Ordering Provider: Augusto Siu [...] Clarissa Garcia M.D.08/24/2023 11:18 AM Dictation Location: [facility] Transcribed By: [facility] 08/24/23 1118 Dictated By: Clarissa Garcia MD 08/24/23 1115 Signed By: 08/24/[address] [facility] Pre-Certification Formon Pre-Certification Form [id number]#1.00TIFF Normal [facility] Consent for Procedure/Surger yon 08-09-2023 Consent for Procedure/Surgery [id number]#1.00TIFF Normal [facility] Patient Educationon 08-08-19 24 Patient Education Urology Kidney Stones Kidney stones [...] these instructions at home: Medicines ? Take essw-lsm-xyseqtz and prescription medicines only as told by [...] recommendations from (more content not included)... Normal [facility] Urology Office/Clinic Noteon 08-08-2023 Urology Office/Clinic Note [...] URL [facility] [address], [place] [address]- Additional Instructions: 1 yr with KUB Patient [...] hepatitis B adult vaccine 12/18/2000 Recorded Normal [facility] Comment on above: Result Comment: Elec tronically Signed By: KELSY GARCIA, Richard Resendiz\.br\Date and Time Signed: 08/08/23 07:59 EST\.br\Electronically Co-Signed By: Angelina Turpin\.br\Date and Time Co-Signed: 08/08/23 07:58 EST Insurance Correspondenceon 1 Insurance Correspondence [id number]#1.00TIFF Normal [facility] RAD - CT Reporton 06-27-2023 RAD - CT Report [id number]#1.00TIFF Normal [facility] CT urogramon 06-25-2023 CT [address] [address] [address] Scan Report Signed Patient: Christian Rich MR#: [id number] : 1955 Acct:[id number] Age/Sex: 67 / F ADM Date: 06/25/23 Loc: CT Room: Type: REG CLI Attending Dr: Richard Jackson MD Copies to: [...] Pérez Jr., D.O.06/25/2023 12:34 PM Dictation Location: [place] [address] Transcribed By: [facility] 06/25/23 1234 Dictated By: Emanuel Pérez Jr, DO 06/25/23 1228 Signed By: 06/25/23 1234 Normal [facility] ISTAT XRay CREon 06-25-2023 ISTAT GFR > 60.0 Normal [facility] Comment on above: Result Comment: PERF ORMED BY: [facility] [place] [id number] PATHOLOGIST RN [facility]RG[facility] ALEJANDRA BONILLA M.D. Performed By: #### I SCRE #### [address] No Panel InformationOrdered By: Richardcass Jackson on 06-25-2023 Bedside Estimated GFR (eGFR) > 60.0 [facility] Whole blood creatinine measu rementOrdered By: Richard Jackson on 06-25-2023 Creatinine [Mass/Vol] 0.7 mg/dL Normal 0.6-1.3 [facility] Comment on above: ER/ESD physician is notified/shown all ISTAT results.Critical values may be confirmed by laboratory testing ifdeemed necessary by ER attending doctor. Result Comment: ER/E [place] physician is notified/shown all ISTAT results. Critical values may be confirmed by laboratory testing if deemed necessary by ER attending doctor. Performed By: #### I SCRE #### [address] Physician Referralon 023 Physician Referral [id number]#1.00TIFF Normal [facility] Pre-Certification Formon Pre-Certification Form [id number]#1.00TIFF Normal [facility] Urine Cytology ([facility])on 08-14-2022 Urine Cytology Diagnosis Info Invalid Interpretation Code [facility] Comment on above: Result Comment: A:Ur ine,Urine:Voided Interpretation - MicroScopic Description - Adequacy - Gross Description Site ID:A color Light Yellow fixative Alcohol Specimen designated Urine received in alcohol preservative and labeled with the patient?s name, consists of 80ml clear light yellow fluid. Electronically signed by : on: 06/14/2023 08:27:08 Performed By: #### 1 [id number] #### [facility] [address] [place] [id number] Ambulatory Visit Summaryon 08-08-2022 Ambulatory Visit Summary [...] with Richard JACKSON MD, BUDDY When: Where: [address] [place] [address]- Medications What When Instructions Unchanged calcium-vitamin D [...] these instructions at home: Medicines ? Take aeik-xjg-pbuihhg and prescription medicines only as told by [...] urine. ? (more content not included)... Normal [facility] Patient Educationon 11-03-20 23 Patient Education Urology Hematuria, Adult Hematuria [...] these instructions at home: Medicines ? Take ewwg-dke-nohwuwu and prescription medicines only as told by [...] the blood stops without treatment. ? Take akxs-rag-bxcxafb and prescription medicines only as told by your health care provider. ? Drink enough fluid to keep your urine pale yellow. This information is not intended to replace advice given to you by your health care provider. Make sure you discuss any questions you have with your health care provider. Document Revised: 03/23/2021 Document Reviewed: 03/23/2021 [employer] Patient Education ? 2022 [employer] Normal [facility] Urine Cytology ([facility])on 08-08-2022 Method of Extraction Voided Normal [facility] Comment on above: Performed By: #### 1 [id number] #### [facility] [address] [place] [address] Number of Jars 1 Invalid Interpretation Code [facility] Comment on above: Performed By: #### 1 [id number] #### [facility] [address] [place] [address] Specimen Urine Normal [facility] Comment on above: Performed By: #### 1 [id number] #### [facility] [address] [place] [address] Type of Service Technical Only Normal [facility] Comment on above: Performed By: #### 1 [id number] #### [facility] [address] [place] [address] Activated partial thrombopla stin time (aPTT) in platelet poor plasma by coagulation aOrdered By: Art Rinaldi on 04-25-2023 aPTT Coag (PPP) [Time] 28.6 s 25.1-36.5 [facility] Comment on above: A hematocrit value g reater than 55% may lead to inaccurate results in coagulation testing. Patients having hematocrit values >55% require a special collection tube for coagulation studies. Please contact the laboratory at [phone] for redraw instructions. Alanine aminotransferase [En zymatic activity/volume] in Serum or PlasmaOrdered By: Art Rinaldi on 04-25-2023 ALT [Catalytic activity/Vol] 10 U/L 7-52 [facility] Albumin [Mass/volume] in Ser um or Plasma by Bromocresol green (BCG) dye binding methoOrdered By: Art Rinadli on 04-25-2023 Albumin BCG dye [Mass/Vol] 4.3 g/dL 3.5-5.7 [facility] Alkaline phosphatase [Enzyma tic activity/volume] in Serum or PlasmaOrdered By: Art Rinaldi on 04-25-2023 ALP [Catalytic activity/Vol] 54 U/L 34-104 [facility] Aspartate aminotransferase [ Enzymatic activity/volume] in Serum or PlasmaOrdered By: Art Rinaldi on 04-25-2023 AST [Catalytic activity/Vol] 14 U/L 13-39 [facility] Automated erythrocytes count in urine sediment (number/area)Ordered By: Art Rinaldi on 04-25-2023 RBC Auto (Urine sed) [#/Area] 10-19 [HPF] 0-4 [facility] Automated leukocytes count i n urine sediment (number/area)Ordered By: Art Rinaldi on 04-25-2023 WBC Auto (Urine sed) [#/Area] None seen [HPF] 0-4 [facility] Basophils Auto (Bld) [#/Vol] Ordered By: Art Rinaldi on 04-25-2023 Basophils (Bld) [#/Vol] 0.0 10*3/uL 0.0-0.2 [facility] Basophils/100 WBC Auto (Bld) Ordered By: Art Rinaldi on 04-25-2023 Basophils/100 WBC (Bld) 0.2 % . [facility] Bilirubin Test strip Ql (U)O rdered By: Art Rinaldi on 04-25-2023 Bilirubin Ql (U) Negative Negative [facility] Bilirubin.total [Mass/volume ] in Serum or PlasmaOrdered By: Art Rinaldi on 04-25-2023 Bilirubin [Mass/Vol] 0.3 mg/dL 0.3-1.0 [facility] C reactive protein [Mass/vol ume] in Serum or PlasmaOrdered By: Art Rinaldi on 04-25-2023 CRP [Mass/Vol] < 0.5 mg/dL 0.0-0.5 [facility] Calcium [Mass/volume] in Ser um or PlasmaOrdered By: Art Rinaldi on 04-25-2023 Calcium [Mass/Vol] 9.4 mg/dL 8.6-10.3 [facility] Carbon dioxide, total [Moles /volume] in Serum or PlasmaOrdered By: Art Rinaldi on 04-25-2023 CO2 [Moles/Vol] 28.1 mmol/L 21.0-31.0 [facility] Chloride [Moles/volume] in S ajith or PlasmaOrdered By: Art Rinaldi on 04-25-2023 Chloride [Moles/Vol] 104 mmol/L 98-107 [facility] Cholesterol [Mass/volume] in Serum or PlasmaOrdered By: Art Rinaldi on 04-25-2023 Cholesterol [Mass/Vol] 226 mg/dL 140-200 [facility] Comment on above: Chol less than 200 m g/dl low riskChol 201-239 mg/dl borderline riskChol 240 mg/dl and greater high risk Cholesterol in LDL Calc [Mas s/Vol]Ordered By: Art Rinaldi on 04-25-2023 Cholesterol in LDL [Mass/Vol] 112 mg/dL 0-100 [facility] Comment on above: LDL ATP III CLASSIFI CATIONLDL less than 100 mg/dL OptimalLDL 100-129 mg/dL Near or above optimalLDL 130-159 mg/dL Borderline highLDL 160-189 mg/dL HighLDL greater than 189 mg/dL Very high Cholesterol in VLDL Calc [Ma ss/Vol]Ordered By: Art Rinaldi on 04-25-2023 Cholesterol in VLDL [Mass/Vol] 43 mg/dL [facility] Color Auto (U)Ordered By: Fili ttgarrett Nimco on 04-25-2023 Color (U) Yellow Yellow [facility] Creatine kinase [Enzymatic a ctivity/volume] in Serum or PlasmaOrdered By: Art Rinaldi on 04-25-2023 CK [Catalytic activity/Vol] 63 U/L 30-223 [facility] Creatinine [Mass/volume] in Serum or PlasmaOrdered By: Art Rinaldi on 04-25-2023 Creatinine [Mass/Vol] 0.63 mg/dL 0.60-1.20 [facility] Eosinophils Auto (Bld) [#/Vo l]Ordered By: Art Rinaldi on 04-25-2023 Eosinophils (Bld) [#/Vol] 0.0 10*3/uL 0.0-0.45 [facility] Eosinophils/100 WBC Auto (Bl d)Ordered By: Art Rinaldi on 04-25-2023 Eosinophils/100 WBC (Bld) 0.5 % . [facility] Erythrocyte distribution wid th Auto (RBC) [Ratio]Ordered By: Art Rinaldi on 04-25-2023 Erythrocyte distribution width (RBC) [Ratio] 13.3 % 11.9-15.3 [facility] Erythrocyte sedimentation ra te by Photometric methodOrdered By: Art Rinaldi on 04-25-2023 ESR Photometric method (Bld) [Velocity] 22 mm/hr 0-29 [facility] Globulin Calc (S) [Mass/Vol] Ordered By: Art Rinaldi on 04-25-2023 Globulin (S) [Mass/Vol] 2.4 g/dL [facility] Glucose [Mass/volume] in Ser um or PlasmaOrdered By: Art Rinaldi on 04-25-2023 Glucose [Mass/Vol] 92 mg/dL 70-100 [facility] Comment on above: ADA recommended refe rence rangeRandom Glucose Reference Range is dependent on time and content of last meal. Glucose of more than 200 mg/dL in a nonstressed, ambulatory subject supports the diagnosis of Diabetes Mellitus. Hematocrit Auto (Bld) [Volum e fraction]Ordered By: Art Rinaldi on 04-25-2023 Hematocrit (Bld) [Volume fraction] 36.9 % 34.0-46.4 [facility] Hemoglobin [Mass/volume] in BloodOrdered By: Art Rinaldi on 04-25-2023 Hemoglobin (Bld) [Mass/Vol] 12.5 g/dL 11.8-15.4 [facility] INR in Platelet poor plasma by Coagulation assayOrdered By: Art Rinaldi on 04-25-2023 INR Coag (PPP) [Relative time] 0.8 {INR} [facility] Comment on above: INR Therapeutic Rang e A) Pre- and Peroperative OAT started two weeks before surgery. NOT HIP SURGERY: 1.5 - 2.5 HIP SURGERY: 2 - 3B) Primary and secondary prevention of venous THROMBOSIS: 2 - 3C) Active venous thrombosis, pulmonary embolismand prevention of recurrent venous thrombosis: 2 - 3D) Prevention of arterial thromboembolismincluding patients with mechanical heart valves: 3 - 4.5 Ketones Auto test strip (U) [Mass/Vol]Ordered By: Art Rinaldi on 04-25-2023 Ketones (U) [Mass/Vol] Negative Negative [facility] Laboratory - UrinalysisOrder ed By: Art Rinaldi on 04-25-2023 Hyaline casts LM Ql (Urine sed) None seen [LPF] 0-8 [facility] Leukocytes [#/volume] correc hilario for nucleated erythrocytes in Blood by Automated counOrdered By: Art Rinaldi on 04-25-2023 WBC corrected for nucl RBC Auto (Bld) [#/Vol] 8.5 10*3/uL 3.8-11.6 [facility] Lupus anticoagulant [Interpr etation] in Platelet poor plasmaOrdered By: Art Rinaldi on 04-25-2023 Lupus anticoagulant (PPP) [Interp] Comment: . [facility] Comment on above: No lupus anticoagula nt was detected.Performed at: - [address] [id number] Director: Rowena Schofield MD, Phone: [phone] Lymphocytes Auto (Bld) [#/Vo l]Ordered By: Art Rinaldi on 04-25-2023 Lymphocytes (Bld) [#/Vol] 2.4 10*3/uL 1.00-4.8 [facility] Lymphocytes/100 WBC Auto (Bl d)Ordered By: Art Rinaldi on 04-25-2023 Lymphocytes/100 WBC (Bld) 28.5 % . [facility] MCH Auto (RBC) [Entitic mass ]Ordered By: Art Rinaldi on 04-25-2023 MCH (RBC) [Entitic mass] 29.8 pg 24.7-34.3 [facility] MCHC Auto (RBC) [Mass/Vol]Or dered By: Art Rinaldi on 04-25-2023 MCHC (RBC) [Mass/Vol] 33.8 g/dL 32.0-35.0 [facility] MCV Auto (RBC) [Entitic vol] Ordered By: Art Rinaldi on 04-25-2023 MCV (RBC) [Entitic vol] 88.1 fL 80-100 [facility] Magnesium [Mass/volume] in S ajith or PlasmaOrdered By: Art Rinaldi on 04-25-2023 Magnesium [Mass/Vol] 1.9 mg/dL 1.9-2.7 [facility] Monocytes Auto (Bld) [#/Vol] Ordered By: Art Rinaldi on 04-25-2023 Monocytes (Bld) [#/Vol] 0.6 10*3/uL 0.0-0.8 [facility] Monocytes/100 WBC Auto (Bld) Ordered By: Art Rinaldi on 04-25-2023 Monocytes/100 WBC (Bld) 6.9 % . [facility] Neutrophils Auto (Bld) [#/Vo l]Ordered By: Art Rinaldi on 04-25-2023 Neutrophils (Bld) [#/Vol] 5.5 10*3/uL 1.8-7.7 [facility] Neutrophils/100 WBC Auto (Bl d)Ordered By: Art Rinaldi on 04-25-2023 Neutrophils/100 WBC (Bld) 63.9 % . [facility] Nitrite Test strip Ql (U)Ord ered By: Art Rinaldi on 04-25-2023 Nitrite Ql (U) Negative Negative [facility] No Panel InformationOrdered By: Art Rinaldi on 04-25-2023 Anti-Nuclear Antibody Comment 2 See comment . [facility] Comment on above: For more information about Hep-2 cell patterns usePriceMeerSearch to Phone.I Love QC, the official website for the InternationalJets on Antinuclear Antibody (JESS) Patterns (ICAP). ---A positive JESS result may occur in healthy individuals (lowtiter) or be associated with a variety of diseases. Seeinterpretation chart which is not all inclusive:Pattern Antigen Detected Suggested Disease Association Homogeneous DNA(ds,ss), SLE - High titers Nucleosomes, Histones Drug-induced SLE Speckled Sm, SNACK STEWARD, SCL-70, SLE,MCTD,PSS (diffuse form), SS-A/SS-B Sjogrens Nucleolar SCL-70, PM-1/SCL High titers Scleroderma, PM/DM Centromere Centromere PSS (limited form) w/Crest syndrome variable Nuclear Dot [id number] Primary Biliary Cirrhosis Nuclear GP210, Primary Biliary CirrhosisMembrane mireille A,B,C Performed at: [facility] [id number] [place] [id number] Director: Freddy Zamora PhD, Phone: [phone] Estimated GFR (CKD-EPI) > 60.0 mL/Min [facility] Creatinine Clearance (Chem N/A [facility] Total Complement (CH50) >60 U/mL >41 [facility] Comment on above: Age Male Female 2 [...] to determine out of range values.Performed at: [facility] [id number] [place], [place] [id number] Director: Freddy Zamora PhD, Phone: [phone] Nucleated erythrocytes [Pres ence] in Blood by Automated countOrdered By: Art Rinaldi on 04-25-2023 Nucleated RBC Auto Ql (Bld) 0.1 /100{WBC} 0-0.5 [facility] Platelet mean volume Auto (B ld) [Entitic vol]Ordered By: Art Rinaldi on 04-25-2023 Platelet mean volume (Bld) [Entitic vol] 8.7 fL 6.3-10.7 [facility] Platelet poor plasma ratio o f lupus anticoagulant-sensitive activated partial thromboOrdered By: Art Rinaldi on 04-25-2023 aPTT.lupus sensitive.excess phospholipid actual/normal Coag (PPP) [Relative time] 33.7 sec 0.0-47.6 [facility] Platelets Auto (Bld) [#/Vol] Ordered By: Art Rinaldi on 04-25-2023 Platelets (Bld) [#/Vol] 229 10*3/uL 150-450 [facility] Potassium [Moles/volume] in Serum or PlasmaOrdered By: Art Rinaldi on 04-25-2023 Potassium [Moles/Vol] 3.7 mmol/L 3.5-5.1 [facility] Protein Auto test strip (U) [Mass/Vol]Ordered By: Art Rinaldi on 04-25-2023 Protein (U) [Mass/Vol] Negative Negative [facility] Protein [Mass/volume] in Ser um or PlasmaOrdered By: Art Rinaldi on 04-25-2023 Protein [Mass/Vol] 6.7 g/dL 6.4-8.9 [facility] Prothrombin time (PT)Ordered By: Art Rinaldi on 04-25-2023 PT Coag (PPP) [Time] 10.2 s 9.0-12.9 [facility] Comment on above: A hematocrit value g reater than 55% may lead to inaccurate results in coagulation testing. Patients having hematocrit values >55% require a special collection tube for coagulation studies. Please contact the laboratory at [phone] for redraw instructions. RBC Auto (Bld) [#/Vol]Ordere d By: Art Rinaldi on 04-25-2023 RBC (Bld) [#/Vol] 4.19 10*6/uL 3.60-5.00 [facility] Reagin Ab [Presence] in Seru m by RPROrdered By: Art Rinaldi on 04-25-2023 Reagin Ab RPR Ql (S) Non-Reactive Non Reactive [facility] Comment on above: Performed at: [facility] [id number] [place], [place] [id number] Director: Freddy Zamora PhD, Phone: [phone] Screening dilute Lavelle's v iper venom time (DRVVT) with reflex to confirmatory testOrdered By: Art Rinaldi on 04-25-2023 dRVVT Coag (PPP) [Time] 34.4 s 0.0-47.0 [facility] Screening lupus anticoagulan t-sensitive activated partial thromboplastin time (aPTT)Ordered By: Art Rinaldi on 04-25-2023 aPTT.lupus sensitive Coag (PPP) [Time] 37.4 sec 0.0-43.5 [facility] Serum homogeneous pattern an tinuclear antibody (JESS) titerOrdered By: Art Rinaldi on 04-25-2023 Homogenous nuclear Ab pattern (S) [Titer] 1:320 . [facility] Comment on above: ICAP nomenclature: A C-1 Serum nuclear antibody titer Ordered By: Art Rinaldi on 04-25-2023 Nuclear Ab (S) [Titer] Positive . [facility] Comment on above: Negative <1:80 Borde rline 1:80 Positive >1:80 Serum or plasma albumin/glob ulin mass ratioOrdered By: Art Rinaldi on 04-25-2023 Albumin/Globulin [Mass ratio] 1.8 {ratio} [facility] Serum or plasma anion gap de terminationOrdered By: Art Rinaldi on 04-25-2023 Anion gap [Moles/Vol] 11.6 mmol/L 6.0-15.0 [facility] Serum or plasma chromatin an tibody assay (units/volume)Ordered By: Art Rinaldi on 04-25-2023 Chromatin Ab Qn <0.2 AI 0.0-0.9 [facility] Comment on above: Performed at: [facility] [address] [id number] Director: Freddy Zamora PhD, Phone: [phone] Serum or plasma complement C 3 measurement (mass/volume)Ordered By: Art Rinaldi on 04-25-2023 Complement C3 [Mass/Vol] 138 mg/dL 82-167 [facility] Serum or plasma complement C 4 measurement (mass/volume)Ordered By: Art Rinaldi on 04-25-2023 Complement C4 [Mass/Vol] 21 mg/dL 12-38 [facility] Serum or plasma high density lipoprotein (HDL) cholesterol measurementOrdered By: Art Rinaldi on 04-25-2023 Cholesterol in HDL [Mass/Vol] 71 mg/dL 23-92 [facility] Comment on above: HDL CHOL ATP-III CLA SSIFICATION Cardiovascular RiskHDL > or equal to 60 mg/dL LOWHDL < 40 mg/dL HIGH Serum or plasma thyroglobuli n antibody assay (units/volume)Ordered By: Art Rinaldi on 04-25-2023 Thyroglobulin Ab Qn [IU]/mL 0.0-0.9 [facility] Comment on above: Thyroglobulin Antibo dy measured by in3DepthMethodologyPerformed at: [facility] [address] [id number] Director: Freddy Zamora PhD, Phone: [phone] Serum or plasma thyroperoxid ase antibody assay (units/volume)Ordered By: Art Rinaldi on 04-25-2023 TPO Ab Qn 13 [IU]/mL 0-34 [facility] Comment on above: Performed at: [email or web address] [address] [id number] Director: Freddy Zamora PhD, Phone: [phone] Serum or plasma total choles terol/high density lipoprotein (HDL) cholesterol mass ratOrdered By: Art Rinaldi on 04-25-2023 Cholesterol.total/Cho lesterol in HDL [Mass ratio] 3.2 {ratio} <5.0 [facility] Sodium [Moles/volume] in Ser um or PlasmaOrdered By: Art Rinaldi on 04-25-2023 Sodium [Moles/Vol] 140 mmol/L 136-145 [facility] Specific gravity Auto test s trip (U) [Rel density]Ordered By: Art Rinaldi on 04-25-2023 Specific gravity (U) [Rel density] 1.021 1.001-1.03 0 [facility] Squamous epithelial cells de tection in urine sediment by light microscopyOrdered By: Art Rinaldi on 04-25-2023 Epithelial cells.squamous LM Ql (Urine sed) None seen [HPF] 0-2 [facility] TT plasOrdered By: Art begum on 04-25-2023 Thrombin time Coag (PPP) [Time] 16.5 sec 0.0-23.0 [facility] Thyrotropin [Units/volume] i n Serum or PlasmaOrdered By: Art Rinaldi on 04-25-2023 TSH Qn 3.03 m[IU]/L 0.45-5.33 [facility] Thyroxine (T4) free [Mass/vo lume] in Serum or PlasmaOrdered By: Art Rinaldi on 04-25-2023 Free T4 [Mass/Vol] 0.60 ng/dL 0.61-1.12 [facility] Triglyceride [Mass/volume] i n Serum or PlasmaOrdered By: Art Rinaldi on 04-25-2023 Triglyceride [Mass/Vol] 217 mg/dL 0-149 [facility] Comment on above: TRIG ATP III CLASSIF ICATIONTRIG less than 150 mg/dL NormalTRIG 150-199 mg/dL Borderline highTRIG 200-500 mg/dL High TRIG greater than 500 mg/dL Very highStandard traceable to the Center for Disease Conrtrol and Prevention (CDC) test method. Urate [Mass/volume] in Serum or PlasmaOrdered By: Art Rinaldi on 04-25-2023 Urate [Mass/Vol] 3.9 mg/dL 2.3-6.6 [facility] Urea nitrogen [Mass/volume] in Serum or PlasmaOrdered By: Art Rinaldi on 04-25-2023 Urea nitrogen [Mass/Vol] 15 mg/dL 7-25 [facility] Urine bacteria detection by automated methodOrdered By: Art Rinaldi on 04-25-2023 Bacteria Auto Ql (U) None seen None Seen [facility] Urine clarity by refractomet ry automatedOrdered By: Art Rinaldi on 04-25-2023 Clarity Refractometry automated (U) Clear Clear [facility] Urine glucose measurement by automated test strip (mass/volume)Ordered By: Art Rinaldi on 04-25-2023 Glucose Auto test strip (U) [Mass/Vol] Normal mg/dL Normal [facility] Urine hemoglobin detection b y automated test stripOrdered By: Art Rinaldi on 04-25-2023 Hemoglobin Auto test strip Ql (U) Negative Negative [facility] Urine leukocyte esterase det ection by automated test stripOrdered By: Art Rinaldi on 04-25-2023 Leukocyte esterase Auto test strip Ql (U) Negative Negative [facility] Urobilinogen Auto test strip (U) [Mass/Vol]Ordered By: Art Rinaldi on 04-25-2023 Urobilinogen (U) [Mass/Vol] Normal mg/dL Normal [facility] Vitamin D+Metabolites [Mass/ volume] in Serum or PlasmaOrdered By: Art Rinaldi on 04-25-2023 Vitamin D+Metabolites [Mass/Vol] 32.0 ng/mL 30-100 [facility] Comment on above: VITAMIN D STATUS 25( [place])VITAMIN D RANGE (ng/mL) Deficient <20 Insufficient 20 to <30Sufficient 30 to 100Reference: Aly MF,Shaina MORENO, Iliana MELENDEZ, et al. Evaluation,treatment, and prevention of vitamin D deficiency; an Endocrine Society clinical practice guideline. JCEM. 2010; 96(7):1911-30. WBC Auto (Bld) [#/Vol]Ordere d By: Art Rinaldi on 04-25-2023 WBC (Bld) [#/Vol] 8.5 10*3/uL 3.8-11.6 [facility] aPTT.lupus sensitive/aPTT.jad pus sensitive W excess phospholipid (screen to confirm raOrdered By: Art Rinaldi on 04-25-2023 aPTT.lupus sensitive/aPTT.lupus sensitive W excess phospholipid Coag (PPP) [Ratio] 1.05 Ratio 0.00-1.34 [facility] pH Auto test strip (U)Ordere d By: Art Rinaldi on 04-25-2023 pH (U) 5.0 [pH] 5.0-9.0 [facility] MR lumbar spine wo conon MR lumbar spine wo con [facility] Other MR lumbar spine wo con [facility] Other MR lumbar spine wo con [address] [facility] Other MR lumbar spine wo con [place] [address] [facility] Other MR lumbar spine wo con MRI Report [facility] Other MR lumbar spine wo con Signed [facility] Other MR lumbar spine wo con Patient: Christian Rich MR#: [id number] [facility] Other MR lumbar spine wo con [id number] [facility] Other MR lumbar spine wo con : 1955 Acct:[id number] [facility] Other MR lumbar spine wo con Age/Sex: 67 / F ADM Date: 02/08/23 [facility] Other MR lumbar spine wo con Loc: MR Room: Type: [facility] Other MR lumbar spine wo con Attending Dr: Noris Elder [employer] [facility] Other MR lumbar spine wo con Copies to: Noris Elder [employer] [facility] Other MR lumbar spine wo con Ordering Provider: Noris Elder [employer] [facility] Other MR lumbar spine wo con Date of Service: 02/08/23 [facility] Other MR lumbar spine wo con MR/MR lumbar spine wo con: Lumbar pain [facility] Other MR lumbar spine wo con MRI LUMBAR SPINE WITHOUT CONTRAST [facility] Other MR lumbar spine wo con COMPARISON: Plain films 02/08/2023 [facility] Other MR lumbar spine wo con CLINICAL DATA: Chronic low back pain. No injury. [facility] Other MR lumbar spine wo con Multiecho imaging in the axial and sagittal plane was performed without contrast. [facility] Other MR lumbar spine wo con There is dextroscoliotic curvature. There is slight anterolisthesis of L5 on S1. Alignment is [facility] Other MR lumbar spine wo con otherwise maintained. No acute compression fractures or marrow edema are identified. There is [facility] Other MR lumbar spine wo con multilevel degenerative endplate signal change. The conus medullaris terminates at the L1-2 level. [facility] Other MR lumbar spine wo con No paraspinal soft tissue abnormalities are noted. [facility] Other MR lumbar spine wo con At T12-L1, there is narrowing of the disc space. There is mild annular disc bulging, slightly [facility] Other MR lumbar spine wo con asymmetric extending laterally on the right. There is slight anterior thecal sac effacement. The [facility] Other MR lumbar spine wo con neural foramen are patent. [facility] Other MR lumbar spine wo con L1-2, there is narrowing of the disc space. There is mild annular disc bulging, greater extending [facility] Other MR lumbar spine wo con laterally. There is minor facet disease. Mild thecal sac effacement is present. There is mild [facility] Other MR lumbar spine wo con right and mild to moderate left foraminal encroachment. [facility] Other MR lumbar spine wo con At L2-3, there is narrowing of the disc space. There is annular disc bulging, greater toward the [facility] Other MR lumbar spine wo con neural foramen and slightly asymmetric extending laterally on the left. There is bilateral facet [facility] Other MR lumbar spine wo con hypertrophy with fluid in the joint on the right. There is also thickening of ligamentum flavum, [facility] Other MR lumbar spine wo con slightly greater on the left. There is at moderate thecal sac effacement. There is mild right and [facility] Other MR lumbar spine wo con moderate left foraminal impingement. [facility] Other MR lumbar spine wo con At L3-4, there is narrowing of the space. Annular disc bulging is visualized, greater toward the [facility] Other MR lumbar spine wo con neural foramen where there is a more focal protrusion on the left. There is moderate facet and [facility] Other MR lumbar spine wo con ligamentous hypertrophy. There is moderate thecal sac effacement. There is moderate left and mild [facility] Other MR lumbar spine wo con right foraminal impingement. [facility] Other MR lumbar spine wo con At L4-5, there is narrowing of the disc space. Annular disc bulging is visualized, greater toward [facility] Other MR lumbar spine wo con the neural foramen and slightly asymmetric extending laterally on the right. There is facet and [facility] Other MR lumbar spine wo con ligamentous hypertrophy. Mild to moderate thecal sac effacement is identified. There is mild to [facility] Other MR lumbar spine wo con potentially moderate left and moderate to severe right foraminal impingement. [facility] Other MR lumbar spine wo con At the lumbosacral junction, there is mild annular disc bulging, slightly more focal in the right [facility] Other MR lumbar spine wo con parasagittal region extending toward the neural foramen. There is prominent bilateral facet [facility] Other MR lumbar spine wo con disease. A synovial cyst is visualized posterior to the facets on the right. There is mild thecal [facility] Other MR lumbar spine wo con sac effacement. Mild left and mild to moderate right foraminal encroachment is identified. [facility] Other MR lumbar spine wo con MR/MR lumbar spine wo con [facility] Other MR lumbar spine wo con IMPRESSION: [facility] Other MR lumbar spine wo con DEXTROSCOLIOSIS AND MULTILEVEL DISCOVERTEBRAL DEGENERATIVE CHANGES WITH ASSOCIATED STENOSIS, [facility] Other MR lumbar spine wo con OUTLINED ABOVE. [facility] Other MR lumbar spine wo con Impression dictated by: Clarissa Garcia M.D.02/08/2023 5:18 PM [facility] Other MR lumbar spine wo con Dictation Location: [place] [address] [facility] Other MR lumbar spine wo con Transcribed By: JAHAIRA 02/08/23 [facility] Other MR lumbar spine wo con Dictated By: Clarissa Garcia MD 02/08/[address] [facility] Other MR lumbar spine wo con Signed By: [facility] Other MR lumbar spine wo con 02/08/23 [facility] Other XR lumbar spine 6V w bending on 02-08-2023 XR lumbar spine 6V w bending XRay Report [facility] Other XR lumbar spine 6V w bending XR/XR lumbar spine 6V w bending: Lumbar pain [facility] Other XR lumbar spine 6V w bending LUMBAR SPINE WITH FLEXION, EXTENSION AND BENDING VIEWS - 6 views: [facility] Other XR lumbar spine 6V w bending CLINICAL HISTORY: Nonradiating low back pain. No injury. [facility] Other XR lumbar spine 6V w bending COMPARISON: 04/28/2020 [employer] Other XR lumbar spine 6V w bending Standing AP neutral, right left bending and lateral views with neutral, flexion and extension were [facility] Other XR lumbar spine 6V w bending obtained. There is osteopenia. There is rotatory dextroscoliotic curvature. There is minimal [facility] Other XR lumbar spine 6V w bending anterolisthesis of L5 on S1. There is no other malalignment or instability. No acute fractures are [facility] Other XR lumbar spine 6V w bending seen. There is disc space narrowing at the upper lumbar levels, asymmetric toward the left. There [facility] Other XR lumbar spine 6V w bending is also mild posterior disc space narrowing at L3-4 and L4-5. There are tiny endplate spurs. There [facility] Other XR lumbar spine 6V w bending is mid and lower lumbar facet disease. The SI joints are intact. No paraspinal soft tissue [facility] Other XR lumbar spine 6V w bending abnormalities are present. [facility] Other XR lumbar spine 6V w bending XR/XR lumbar spine 6V w bending [facility] Other XR lumbar spine 6V w bending SCOLIOSIS AND DEGENERATIVE CHANGES. [facility] Other XR lumbar spine 6V w bending Impression dictated by: Clarissa Garcia M.D.02/08/2023 5:08 PM [facility] Other XR lumbar spine 6V w bending Transcribed By: JAHAIRA 02/08/23 170 [facility] Other XR lumbar spine 6V w bending Dictated By: Clarissa Garcia MD 02/08/23 [facility] Other XR lumbar spine 6V w bending 02/08/23 [facility] Other Office Visit (Cardiology)on 06-19-2022 Follow-up visit [...] (I47.1) Surgical History Problems History of Colonoscopy [id number] History of Excision of basal cell carcinoma History of Radiofrequency ablation History of Tonsillectomy with adenoidectomy History of Total hysterectomy abdominal Past Medical History Problems History of BMI 24.0-24.9, adult (V85.1) (Z68.24) Current Meds Medication NameInstruction Estrace 1 MG Oral TabletTAKE 1 TABLET DAILY. Verbally updated medication list with Patient. Patient did not bring medication bottles or (more content not included)... Normal [employer] Tobacco Screening.on 022 Adult depression screening assessment No [facility] io [facility] [facility] DO Work Phone: Fall risk assessment a) No falls within the last year [facility] [facility] DO Work Phone: Tobacco use status CPHS b) No [facility] [facility] DO Work Phone: Albumin [Mass/volume] in Ser um or PlasmaOrdered By: Latoya Chong on 06-09-2022 Albumin [Mass/Vol] 3.7 g/dL 3.2-5.5 [facility] Basophils Auto (Bld) [#/Vol] Ordered By: Latoya Chong on 06-09-2022 Basophils (Bld) [#/Vol] 0.0 10*3/uL 0.0-0.2 [facility] Basophils/100 WBC Auto (Bld) Ordered By: Latoya Chong on 06-09-2022 Basophils/100 WBC (Bld) 0.2 % . [facility] Cholesterol [Mass/volume] in Serum or PlasmaOrdered By: Latoya Chong on 06-09-2022 Cholesterol [Mass/Vol] 231 mg/dL 140-200 [facility] Comment on above: Chol less than 200 m g/dl low riskChol 201-239 mg/dl borderline riskChol 240 mg/dl and greater high risk Cholesterol in LDL Calc [Mas s/Vol]Ordered By: Latoya Chong on 06-09-2022 Cholesterol in LDL [Mass/Vol] 135 mg/dL 0-100 [facility] Comment on above: LDL ATP III CLASSIFI CATIONLDL less than 100 mg/dL OptimalLDL 100-129 mg/dL Near or above optimalLDL 130-159 mg/dL Borderline highLDL 160-189 mg/dL HighLDL greater than 189 mg/dL Very high Cholesterol in VLDL Calc [Ma ss/Vol]Ordered By: Latoya Vailting on 06-09-2022 Cholesterol in VLDL [Mass/Vol] 25 mg/dL [facility] Creatinine and Glomerular fi ltration rate.predicted panel (S/P/Bld)Ordered By: Latoya Bunting on 06-09-2022 Creatinine [Mass/Vol] 0.69 mg/dL 0.44-1.03 [facility] Eosinophils Auto (Bld) [#/Vo l]Ordered By: Latoya Bunting on 06-09-2022 Eosinophils (Bld) [#/Vol] 0.0 10*3/uL 0.0-0.45 [facility] Eosinophils/100 WBC Auto (Bl d)Ordered By: Latoya Bunting on 06-09-2022 Eosinophils/100 WBC (Bld) 0.7 % . [facility] Erythrocyte distribution wid th Auto (RBC) [Ratio]Ordered By: Latoya Bunting on 06-09-2022 Erythrocyte distribution width (RBC) [Ratio] 13.4 % 11.9-15.3 [facility] Estimated glomerular filtrat ion rate (GFR) non- AmericanOrdered By: Latoya Bunting on 06-09-2022 GFR/1.73 sq M.predicted among non-blacks MDRD (S/P/Bld) [Vol rate/Area] > 60 mL/Min [facility] Globulin Calc (S) [Mass/Vol] Ordered By: Latoya Bunting on 06-09-2022 Globulin (S) [Mass/Vol] 2.5 g/dL [facility] Hematocrit Auto (Bld) [Volum e fraction]Ordered By: Latoya Bunting on 06-09-2022 Hematocrit (Bld) [Volume fraction] 38.6 % 34.0-46.4 [facility] Hemoglobin [Mass/volume] in BloodOrdered By: Latoya Bunting on 06-09-2022 Hemoglobin (Bld) [Mass/Vol] 12.9 g/dL 11.8-15.4 [facility] Laboratory - Hematology and Cell countsOrdered By: Latoya Bunting on 06-09-2022 Nucleated RBC/100 WBC (Bld) [Ratio] 0.1 % 0-0.5 [facility] Leukocytes [#/volume] in Blo od by Automated countOrdered By: Latoya Bunting on 06-09-2022 WBC (Bld) [#/Vol] 6.5 10*3/uL 4.5-11.0 [facility] Lymphocytes Auto (Bld) [#/Vo l]Ordered By: Latoya Bunting on 06-09-2022 Lymphocytes (Bld) [#/Vol] 2.3 10*3/uL 1.00-4.8 [facility] Lymphocytes/100 WBC Auto (Bl d)Ordered By: Latoya Bunting on 06-09-2022 Lymphocytes/100 WBC (Bld) 34.9 % . [facility] MCH Auto (RBC) [Entitic mass ]Ordered By: Latoya Bunting on 06-09-2022 MCH (RBC) [Entitic mass] 29.9 pg 24.7-34.3 [facility] MCHC Auto (RBC) [Mass/Vol]Or dered By: Latoya Bunting on 06-09-2022 MCHC (RBC) [Mass/Vol] 33.5 g/dL 32.0-35.0 [facility] MCV Auto (RBC) [Entitic vol] Ordered By: Latoya Bunting on 06-09-2022 MCV (RBC) [Entitic vol] 89.2 fL 80-100 [facility] Monocytes Auto (Bld) [#/Vol] Ordered By: Latoya Bunting on 06-09-2022 Monocytes (Bld) [#/Vol] 0.5 10*3/uL 0.0-0.8 [facility] Monocytes/100 WBC Auto (Bld) Ordered By: Latoya Bunting on 06-09-2022 Monocytes/100 WBC (Bld) 8.5 % . [facility] Neutrophils Auto (Bld) [#/Vo l]Ordered By: Latoya Bunting on 06-09-2022 Neutrophils (Bld) [#/Vol] 3.6 10*3/uL 1.8-7.7 [facility] Neutrophils/100 WBC Auto (Bl d)Ordered By: Latoya Bunting on 06-09-2022 Neutrophils/100 WBC (Bld) 55.7 % . [facility] No Panel InformationOrdered By: Latoya Bunting on 06-09-2022 25-Hydroxy Vitamin D Total 39.8 ng/mL 30-100 [facility] Comment on above: VITAMIN D STATUS 25( [place])VITAMIN D RANGE (ng/mL) Deficient <20 Insufficient 20 to <30Sufficient 30 to 100Reference: Aly MF,Shaina NC, Iliana MELENDEZ, et al. Evaluation,treatment, and prevention of vitamin D deficiency; an Endocrine Society clinical practice guideline. JCEM. 2010; 96(7):1911-30. Estimated GFR () > 60 mL/Min [facility] Comment on above: GFR estimated refere nce range: According to KDOQI guidelines, <60 ml/min/1.73m2 is sufficient to diagnose a patient with chronic kidney disease. Pharmacy Creatinine Clearance (Chem N/A [facility] Platelet mean volume Auto (B ld) [Entitic vol]Ordered By: Latoya Bunting on 06-09-2022 Platelet mean volume (Bld) [Entitic vol] 8.0 fL 6.3-10.7 [facility] Platelets Auto (Bld) [#/Vol] Ordered By: Latoya Bunting on 06-09-2022 Platelets (Bld) [#/Vol] 261 10*3/uL 150-450 [facility] Protein [Mass/volume] in Ser um or PlasmaOrdered By: Latoya Bunting on 06-09-2022 Protein [Mass/Vol] 6.2 g/dL 6.1-7.9 [facility] RBC Auto (Bld) [#/Vol]Ordere d By: Latoya Bunting on 06-09-2022 RBC (Bld) [#/Vol] 4.33 10*6/uL 3[facility]60-5.00 [facility] Serum or plasma alanine castro otransferase measurement without P-5'-P (enzymatic activiOrdered By: Latoya Bunting on 06-09-2022 ALT No additional P-5'-P [Catalytic activity/Vol] 13 U/L 10-60 [facility] Serum or plasma albumin/glob ulin mass ratioOrdered By: Latoya Buneliana on 06-09-2022 Albumin/Globulin [Mass ratio] 1.5 {ratio} [facility] Serum or plasma alkaline tesha sphatase measurement (enzymatic activity/volume)Ordered By: Latoya Chong on 06-09-2022 ALP [Catalytic activity/Vol] 51 U/L 32-92 [facility] Serum or plasma anion gap de terminationOrdered By: Latoya Chong on 06-09-2022 Anion gap [Moles/Vol] 15.5 mmol/L 6.0-15.0 [facility] Serum or plasma aspartate am inotransferase measurement (enzymatic activity/volume)Ordered By: Latoya Chong on 06-09-2022 AST [Catalytic activity/Vol] 19 U/L 10-42 [facility] Serum or plasma calcium franchesca urement (mass/volume)Ordered By: Latoya Chong on 06-09-2022 Calcium [Mass/Vol] 9.2 mg/dL 8.2-10.2 [facility] Serum or plasma chloride aristides surement (moles/volume)Ordered By: Latoya Chong on 06-09-2022 Chloride [Moles/Vol] 102 mmol/L 95-114 [facility] Serum or plasma glucose franchesca urement (mass/volume)Ordered By: Latoya Chong on 06-09-2022 Glucose [Mass/Vol] 91 mg/dL 70-100 [facility] Comment on above: ADA recommended refe rence rangeRandom Glucose Reference Range is dependent on time and content of last meal. Glucose of more than 200 mg/dL in a nonstressed, ambulatory subject supports the diagnosis of Diabetes Mellitus. Serum or plasma high density lipoprotein (HDL) cholesterol measurementOrdered By: Latoya Chong on 06-09-2022 Cholesterol in HDL [Mass/Vol] 71 mg/dL 35-85 [facility] Comment on above: HDL CHOL ATP-III CLA SSIFICATION Cardiovascular RiskHDL > or equal to 60 mg/dL LOWHDL < 40 mg/dL HIGH Serum or plasma potassium me asurement (moles/volume)Ordered By: Latoya Chong on 06-09-2022 Potassium [Moles/Vol] 4.1 mmol/L 3.5-5.1 [facility] Serum or plasma sodium measu rement (moles/volume)Ordered By: Latoya Chong on 06-09-2022 Sodium [Moles/Vol] 139 mmol/L 136-146 [facility] Serum or plasma total biliru bin measurement (mass/volume)Ordered By: Latoya Chong on 06-09-2022 Bilirubin [Mass/Vol] 0.7 mg/dL 0.3-1.2 [facility] Serum or plasma total carbon dioxide measurement (moles/volume)Ordered By: Latoya Chong on 06-09-2022 CO2 [Moles/Vol] 25.6 mmol/L 22.0-30.0 [facility] Serum or plasma total choles terol/high density lipoprotein (HDL) cholesterol mass ratOrdered By: Latoya Chong on 06-09-2022 Cholesterol.total/Cho lesterol in HDL [Mass ratio] 3.3 {ratio} <5.0 [facility] Serum or plasma urea nitroge n measurement (mass/volume)Ordered By: Latoya Chong on 06-09-2022 Urea nitrogen [Mass/Vol] 11 mg/dL 9-23 [facility] Triglyceride [Mass/volume] i n Serum or PlasmaOrdered By: Latoya Chong on 06-09-2022 Triglyceride [Mass/Vol] 125 mg/dL 35-149 [facility] Comment on above: TRIG ATP III CLASSIF ICATIONTRIG less than 150 mg/dL NormalTRIG 150-199 mg/dL Borderline highTRIG 200-500 mg/dL High TRIG greater than 500 mg/dL Very highStandard traceable to the Center for Disease Conrtrol and Prevention (CDC) test method. Basophils Auto (Bld) [#/Vol] Ordered By: Gregorio Barton on 03-31-2022 Basophils (Bld) [#/Vol] 0.0 10*3/uL 0.0-0.2 [facility] Basophils/100 WBC Auto (Bld) Ordered By: Gregorio Barton on 03-31-2022 Basophils/100 WBC (Bld) 0.3 % . [facility] Blood hemoglobin measurement (mass/volume)Ordered By: Gregorio Barton on 03-31-2022 Hemoglobin (Bld) [Mass/Vol] 13.0 g/dL 11.8-15.4 [facility] Blood leukocytes automated c ount (number/volume)Ordered By: Gregorio Barton on 03-31-2022 WBC (Bld) [#/Vol] 6.7 10*3/uL 4.5-11.0 [facility] Body fluid albumin measureme nt (mass/volume)Ordered By: Gregorio Barton on 03-31-2022 Albumin (Body fld) [Mass/Vol] 3.7 g/dL 3.2-5.5 [facility] Creatinine and Glomerular fi ltration rate.predicted panel (S/P/Bld)Ordered By: Gregorio Barton on 03-31-2022 Creatinine [Mass/Vol] 0.70 mg/dL 0.44-1.03 [facility] Eosinophils Auto (Bld) [#/Vo l]Ordered By: Gregorio Barton on 03-31-2022 Eosinophils (Bld) [#/Vol] 0.0 10*3/uL 0.0-0.45 [facility] Eosinophils/100 WBC Auto (Bl d)Ordered By: Gregorio Barton on 03-31-2022 Eosinophils/100 WBC (Bld) 0.6 % . [facility] Erythrocyte distribution wid th Auto (RBC) [Ratio]Ordered By: Gregorio Barton on 03-31-2022 Erythrocyte distribution width (RBC) [Ratio] 12.9 % 11.9-15.3 [facility] Estimated glomerular filtrat ion rate (GFR) non- AmericanOrdered By: Gregorio Barton on 03-31-2022 GFR/1.73 sq M.predicted among non-blacks MDRD (S/P/Bld) [Vol rate/Area] > 60 mL/Min [facility] Globulin Calc (S) [Mass/Vol] Ordered By: Gergorio Barton on 03-31-2022 Globulin (S) [Mass/Vol] 2.6 g/dL [facility] Hematocrit Auto (Bld) [Volum e fraction]Ordered By: Gregorio Barton on 03-31-2022 Hematocrit (Bld) [Volume fraction] 38.9 % 34.0-46.4 [facility] Laboratory - Hematology and Cell countsOrdered By: Gregorio Barton on 03-31-2022 Nucleated RBC/100 WBC (Bld) [Ratio] 0.0 % 0-0.5 [facility] Lymphocytes Auto (Bld) [#/Vo l]Ordered By: Gregorio Barton on 03-31-2022 Lymphocytes (Bld) [#/Vol] 2.4 10*3/uL 1.00-4.8 [facility] Lymphocytes/100 WBC Auto (Bl d)Ordered By: Gregorio Barton on 03-31-2022 Lymphocytes/100 WBC (Bld) 35.3 % . [facility] MCH Auto (RBC) [Entitic mass ]Ordered By: Gregorio Barton on 03-31-2022 MCH (RBC) [Entitic mass] 29.8 pg 24.7-34.3 [facility] MCHC Auto (RBC) [Mass/Vol]Or dered By: Gregorio Barton on 03-31-2022 MCHC (RBC) [Mass/Vol] 33.5 g/dL 32.0-35.0 [facility] MCV Auto (RBC) [Entitic vol] Ordered By: Gregorio Barton on 03-31-2022 MCV (RBC) [Entitic vol] 89.0 fL 80-100 [facility] Monocytes Auto (Bld) [#/Vol] Ordered By: Gregorio Barton on 03-31-2022 Monocytes (Bld) [#/Vol] 0.5 10*3/uL 0.0-0.8 [facility] Monocytes/100 WBC Auto (Bld) Ordered By: Gregorio Barton on 03-31-2022 Monocytes/100 WBC (Bld) 7.2 % . [facility] Neutrophils Auto (Bld) [#/Vo l]Ordered By: Gregorio Barton on 03-31-2022 Neutrophils (Bld) [#/Vol] 3.8 10*3/uL 1.8-7.7 [facility] Neutrophils/100 WBC Auto (Bl d)Ordered By: Gregorio Barton on 03-31-2022 Neutrophils/100 WBC (Bld) 56.6 % . [facility] No Panel InformationOrdered By: Gregorio Barton on 03-31-2022 Estimated GFR () > 60 mL/Min [facility] Comment on above: GFR estimated refere nce range: According to KDOQI guidelines, <60 ml/min/1.73m2 is sufficient to diagnose a patient with chronic kidney disease. Pharmacy Creatinine Clearance (Chem N/A [facility] No Panel Informationon 03-31 56.6\S\56.6 Normal . -[facility] Work Phone: 8.2\S\8.2 Normal 6.3-10.7 -[facility] Work Phone: 244\S\244 Normal 150-450 -[facility] Work Phone: 12.9\S\12.9 Normal 11.9-15.3 -[facility] Work Phone: 33.5\S\33.5 Normal 32.0-35.0 -[facility] Work Phone: 29.8\S\29.8 Normal 24.7-34.3 -[facility] Work Phone: 3.8\S\3.8 Normal 1.8-7.7 -[facility] Work Phone: 0.0\S\0.0 Normal 0.0-0.45 -[facility] Work Phone: Comment on above: PERFORMED BY:[facility] [place] [id number] MEDICAL DIRECTORALEJANDRA BONILLA M.D. 0.3\S\0.3 Normal . -[facility] Work Phone: 0.6\S\0.6 Normal 0.3-1.2 -[facility] Work Phone: 7.2\S\7.2 Normal . -[facility] Work Phone: 35.3\S\35.3 Normal . -[facility] Work Phone: [phone] 0.5\S\0.5 Normal 0.0-0.8 -[facility] Work Phone: [phone] 2.4\S\2.4 Normal 1.00-4.8 -[facility] Work Phone: [phone] 89.0\S\89.0 Normal 80-100 -[facility] Work Phone: [phone] 38.9\S\38.9 Normal 34.0-46.4 -[facility] Work Phone: [phone] 13.0\S\13.0 Normal 11.8-15.4 -[facility] Work Phone: [phone] 4.37\S\4.37 Normal 3.60-5.00 -[facility] Work Phone: [phone] 6.7\S\6.7 Normal 3.8-11.6 -[facility] Work Phone: [phone] 3.7\S\3.7 Normal 3.2-5.5 -[facility] Work Phone: [phone] 6.3\S\6.3 Normal 6.1-7.9 -[facility] Work Phone: [phone] 9.1\S\9.1 Normal 8.2-10.2 -[facility] Work Phone: [phone] 23.3\S\23.3 Normal 22.0-30.0 -[facility] Work Phone: [phone] 103\S\103 Normal 95-114 -[facility] Work Phone: [phone] 4.1\S\4.1 Normal 3.5-5.1 -[facility] Work Phone: 46\S\46 Normal 32-92 [facility] [place] Work Phone: 14\S\14 Normal 10-60 [facility] Work Phone: 16\S\16 Normal 10-42 [facility] Work Phone: 1.4\S\1.4 Normal [facility] [place] Work Phone: 2.6\S\2.6 Normal [facility] [place] Work Phone: 137\S\137 Normal 136-146 [facility] [place] Work Phone: > 60 Normal [facility] Work Phone: Comment on above: GFR estimated refere nce range: According to KDOQI guidelines, <60 ml/min/1.73m2 is sufficient to diagnose a patient with chronic kidney disease. 0.70\S\0.70 Normal 0.44-1.03 [facility] [place] Work Phone: 12\S\12 Normal 9-23 [facility] Work Phone: 88\S\88 Normal 70-100 [facility] [place] Work Phone: Comment on above: Random Glucose Refer ence Range is dependent on time and content of last meal. Glucose of more than 200 mg/dL in a nonstressed, ambulatory subject supports the diagnosis of Diabetes Mellitus. ADA recommended reference range 3.65\S\3.65 Normal 0.45-5.33 [facility] [place] Work Phone: Comment on above: PERFORMED BY:[place] [address] [place] [place], [place] [id number] MEDICAL DIRECTORALEJANDRA BONILLA M.D. Platelet mean volume Auto (B ld) [Entitic vol]Ordered By: Gregorio Barton on 03-31-2022 Platelet mean volume (Bld) [Entitic vol] 8.2 fL 6.3-10.7 [facility] Platelets Auto (Bld) [#/Vol] Ordered By: Gregorio Barton on 03-31-2022 Platelets (Bld) [#/Vol] 244 10*3/uL 150-450 [facility] Protein [Mass/volume] in Ser um or PlasmaOrdered By: Gregorio Barton on 03-31-2022 Protein [Mass/Vol] 6.3 g/dL 6.1-7.9 [facility] RBC Auto (Bld) [#/Vol]Ordere d By: Gregorio Barton on 03-31-2022 RBC (Bld) [#/Vol] 4.37 10*6/uL 3.60-5.00 [facility] Serum or plasma alanine castro otransferase measurement without P-5'-P (enzymatic activiOrdered By: Gregorio Barton on 03-31-2022 ALT No additional P-5'-P [Catalytic activity/Vol] 14 U/L 10-60 [facility] Serum or plasma albumin/glob ulin mass ratioOrdered By: Gregorio Barton on 03-31-2022 Albumin/Globulin [Mass ratio] 1.4 {ratio} [facility] Serum or plasma alkaline tesha sphatase measurement (enzymatic activity/volume)Ordered By: Gregorio Barton on 03-31-2022 ALP [Catalytic activity/Vol] 46 U/L 32-92 [facility] Serum or plasma aspartate am inotransferase measurement (enzymatic activity/volume)Ordered By: Gregorio Barton on 03-31-2022 AST [Catalytic activity/Vol] 16 U/L 10-42 [facility] Serum or plasma calcium franchesca urement (mass/volume)Ordered By: Gregorio Barton on 03-31-2022 Calcium [Mass/Vol] 9.1 mg/dL 8.2-10.2 [facility] Serum or plasma chloride aristides surement (moles/volume)Ordered By: Gregorio Barton on 03-31-2022 Chloride [Moles/Vol] 103 mmol/L 95-114 [facility] Serum or plasma glucose franchesca urement (mass/volume)Ordered By: Gregorio Barton on 03-31-2022 Glucose [Mass/Vol] 88 mg/dL 70-100 [facility] Comment on above: ADA recommended [...] on 03-31-2022 Potassium [Moles/Vol] 4.1 mmol/L 3.5-5.1 [facility] Serum or plasma sodium measu rement (moles/volume)Ordered By: Gregorio Barton on 03-31-2022 Sodium [Moles/Vol] 137 mmol/L 136-146 [facility] Serum or plasma total biliru bin measurement (mass/volume)Ordered By: Gregorio Barotn on 03-31-2022 Bilirubin [Mass/Vol] 0.6 mg/dL 0.3-1.2 [facility] Serum or plasma total carbon dioxide measurement (moles/volume)Ordered By: Gregorio Barton on 03-31-2022 CO2 [Moles/Vol] 23.3 mmol/L 22.0-30.0 [facility] Serum or plasma urea nitroge n measurement (mass/volume)Ordered By: Gregorio Barton on 03-31-2022 Urea nitrogen [Mass/Vol] 12 mg/dL 04-28 [facility] TSH DL <= 0.005 mIU/L QnOrde red By: Gregorio Barton on 03-31-2022 TSH Qn 3.65 m[IU]/L 0.45-5.33 [facility] BASIC METABOLIC PANELon 12-1 Anion gap [Moles/Vol] 13 mmol/L Normal 10 - 20 [facility] Comment on above: Performed By: #### B MP #### [address] [address] Calcium [Mass/Vol] 9.4 mg/dL Normal 8.6 - 10.3 [facility] Comment on above: Performed By: #### B MP #### [address] [address] Chloride [Moles/Vol] 103 mmol/L Normal 98 - 107 [facility] [place] Comment on above: Performed By: #### B MP #### [address] [address] Creatinine [Mass/Vol] 0.67 mg/dL Normal 0.50 - 1.05 [facility] [place] Comment on above: Performed By: #### B MP #### [address] [address] GFR- AM. >60 Normal >60 [facility] [place] Comment on above: Result Comment: CALC ULATIONS OF ESTIMATED GFR ARE PERFORMED USING THE MDRD STUDY EQUATION FOR THE IDMS-TRACEABLE CREATININE METHODS. CLIN CHEM 2007;53:766-72 Performed By: #### B MP #### [address] [address] GFR-NON AM. >60 Normal >60 [facility] [place] Comment on above: Performed By: #### B MP #### [address] [address] Glucose [Mass/Vol] 93 mg/dL Normal 74 - 99 [facility] Comment on above: Performed By: #### B MP #### [address] [address] HCO3 (Bld) [Moles/Vol] 27 mmol/L Normal 21 - 32 [facility] [place] Comment on above: Performed By: #### B MP #### [address] [address] Potassium [Moles/Vol] 3.6 mmol/L Normal 3.5 - 5.3 [facility] [place] Comment on above: Performed By: #### B MP #### [address] [address] Sodium [Moles/Vol] 139 mmol/L Normal 136 - 145 [facility] Comment on above: Performed By: #### B MP #### [address] [address] Urea nitrogen [Mass/Vol] 12 mg/dL Normal 6 - 23 [facility] [place] Comment on above: Performed By: #### B MP #### [address] [address] CBCon 07-23-2020 Erythrocyte distribution width (RBC) [Ratio] 12.5 % Normal 11.5 - 14.5 [facility] [place] Comment on above: Performed By: #### C BC #### [address] [address] Hematocrit (Bld) [Volume fraction] 40.8 % Normal 36.0 - 46.0 [facility] [place] Comment on above: Performed By: #### C BC #### [address] [address] Hemoglobin (Bld) [Mass/Vol] 13.6 g/dL Normal 12.0 - 16.0 [facility] [place] Comment on above: Performed By: #### C BC #### [address] [address] MCHC (RBC) [Mass/Vol] 33.3 g/dL Normal 32.0 - 36.0 [facility] [place] Comment on above: Performed By: #### C BC #### [address] [address] MCV (RBC) [Entitic vol] 90 fL Normal 80 - 100 [facility] [place] Comment on above: Performed By: #### C BC #### [address] [address] Nucleated RBC/100 WBC (Bld) [Ratio] 0.0 /100 WBC Normal 0.0 - 0.0 [facility] [place] Comment on above: Performed By: #### C BC #### [address] [address] Platelets (Bld) [#/Vol] 228 10*3/uL Normal 150 - 450 [facility] [place] Comment on above: Performed By: #### C BC #### [address] [address] RBC (Bld) [#/Vol] 4.53 x10E12/L Normal 4.00 - 5.20 [facility] [place] Comment on above: Performed By: #### C BC #### [address] [address] WBC (Bld) [#/Vol] 7.9 10*3/uL Normal 4.4 - 11.3 [facility] [place] Comment on above: Performed By: #### C BC #### [place] [address] CORONAVIRUS 2019, SCREEN ASY MPTOMATICon 07-23-2020 CORONAVIRUS 2019,PCR NOT DETECTED Normal Not Detected [facility] [place] Comment on above: Result Comment: . This assay is designed to detect the N2 and E genes of SARS-CoV-2 via nucleic acid amplification. A Not Detected result does not preclude COVID-19 infection since the adequacy of sample collection and/or low viral burden may result in presence of viral nucleic acids below the clinical sensitivity of this test method. Fact sheet for providers: www.fda.gov/media/385877/download Fact sheet for patients: www.fda.gov/media/415667/download This test has received FDA Emergency Use Authorization (EUA) and has been verified by [facility]. This test is only authorized for the duration of time that circumstances exist to justify the authorization of the emergency use of in vitro diagnostic tests for the detection of SARS-CoV-2 virus and/or diagnosis of COVID-19 infection under section 564(b)(1) of the Act, 21 U.S.C. 360bbb-3(b)(1), unless the authorization is terminated or revoked sooner. [facility] is certified under CLIA-88 as qualified to perform high complexity testing. Testing is performed in the [facility] [place] laboratory located at [address] [place] [address]. Performed By: #### C OVSC #### [place] [address] Lab Specimen Source Nasal, Nasopharyngeal Normal [facility] [place] Comment on above: Performed By: #### C OVSC #### [facility] [address] [place] [address] Covid 19 Resultson 0 Covid 19 Results [...] or Naproxen (Aleve) can also be used. Jiuz-nkw-qkonidu cough and cold medicines can be used according to the instructions on the package. Some hhqk-ssm-zrmqxau medicines also contain acetaminophen. Make sure you [...] water are not available, use alcohol-based hand wet wash assembler. Avoid touching your eyes, nose, and mouth [...] a total of 10 days. Additional resources: [facility] COVID Hotline at 1-626-5MGSOUG ( ). COVID-19 Careline at (available 24 hours per day, seven days a week if you or a loved one is experiencing anxiety related to the coronavirus pandemic). Clinical research opportunities: is conducting research studies to develop better testing and treatments for COVID. Do you want any information on how to participate Call [phone]. Websites: hospitals.org or www.CDC.gov Follow My Health / My UHCare (for other test results): Revised 06/22/2020 Electronic Signatures: [employer], [employer] (ADMIN) (Signature pending) Authored Last Updated: 23-Jul-2020 11:41 by April Chen (ADMIN) Normal [facility] [place] PT/INRon 07-23-2020 INR Coag (PPP) [Relative time] 1.0 {INR} Normal 0.9 - 1.1 [facility] [place] Comment on above: Performed By: #### P TINR #### [address] [address] PT Coag (PPP) [Time] 11.2 s Normal 10.1 - 13.3 [facility] [place] Comment on above: Performed By: #### P TINR #### [address] [address] Vital Signs Date Time Vital Sign Value Performing Clinician Facility 05-19-2024 10:23-0400 Body height 165.1 cm DO Latoya Bunting Work Phone: [facility] 05-19-2024 10:23-0400 Body mass index (BMI) [Ratio] 22.7 kg/m2 DO Latoya Bunting Work Phone: [facility] 05-19-2024 10:23-0400 Body temperature 98.6 [degF] DO Latoya Bunting Work Phone: [facility] 05-19-2024 10:23-0400 Body weight 62 kg DO Latoya Bunting Work Phone: [facility] 05-19-2024 10:23-0400 Diastolic blood pressure 66 mm[Hg] DO Latoya Bunting Work Phone: [facility] 05-19-2024 10:23-0400 Heart rate 76 /min DO Latoya Bunting Work Phone: [facility] 05-19-2024 10:23-0400 Respiratory rate 16 /min DO Latoya Bunting Work Phone: [facility] 05-19-2024 10:23-0400 SaO2% (BldA) [Mass fraction] 98 % DO Latoya Bunting Work Phone: [facility] 05-19-2024 10:23-0400 Systolic blood pressure 124 mm[Hg] DO Latoya Bunting Work Phone: [facility] 04-21-2024 10:09-0400 Body height 165.1 cm [facility] 04-21-2024 10:09-0400 Body mass index (BMI) [Ratio] 22.7 kg/m2 [facility] 04-21-2024 10:09-0400 Body temperature 97.8 [degF] [facility] 04-21-2024 10:09-0400 Body weight 62 kg [facility] 04-21-2024 10:09-0400 Diastolic blood pressure 72 mm[Hg] [facility] 04-21-2024 10:09-0400 Heart rate 72 /min [facility] 04-21-2024 10:09-0400 Respiratory rate 16 /min [facility] 04-21-2024 10:09-0400 Systolic blood pressure 122 mm[Hg] [facility] 12-28-2023 13:45-0400 Body height 165.1 cm [facility] 12-28-2023 13:45-0400 Body mass index (BMI) [Ratio] 22.9 kg/m2 [facility] 12-28-2023 13:45-0400 Body temperature 98.9 [degF] [facility] 12-28-2023 13:45-0400 Body weight 62.59 kg [facility] 12-28-2023 13:45-0400 Heart rate 118 /min [facility] 12-28-2023 13:45-0400 Respiratory rate 16 /min [facility] 12-28-2023 13:45-0400 SaO2% (BldA) [Mass fraction] 95 % [facility] 08-08-2023 08:08-0500 Diastolic blood pressure 90 mm[Hg] Richard JACKSON [facility] 08-08-2023 08:08-0500 Heart rate 94 /min Richard JACKSON [facility] 08-08-2023 08:08-0500 Mean blood pressure 113 mm[Hg] Richard JACKSON [facility] 08-08-2023 08:08-0500 Respiratory rate 18 /min Richard JACKSON [facility] 08-08-2023 08:08-0500 Systolic blood pressure 159 mm[Hg] Richard JACKSON [facility] 08-08-2023 07:34-0500 Blood Pressure Location Richard JACKSON [facility] 08-08-2023 07:34-0500 Diastolic blood pressure 105 mm[Hg] Richard JACKSON [facility] 08-08-2023 07:34-0500 Heart rate 104 /min Richard JACKSON [facility] 08-08-2023 07:34-0500 Respiratory rate 18 /min Richard JACKSON [facility] 08-08-2023 07:34-0500 Systolic blood pressure 156 mm[Hg] Richard JACKSON [facility] 06-08-2023 12:37-0400 Diastolic blood pressure 88 mm[Hg] Richard JACKSON [facility] 06-08-2023 12:37-0400 Heart rate 91 /min Richard JACKSON [facility] 06-08-2023 12:37-0400 Respiratory rate 16 /min Richard JACKSON [facility] 06-08-2023 12:37-0400 Systolic blood pressure 136 mm[Hg] Richard JACKSON [facility] 01-15-2023 09:50-0400 Body height 165.1 cm [employer] Other [facility] Other 01-15-2023 09:50-0400 Body mass index (BMI) [Ratio] 22.3 kg/m2 [employer] [place] Other [facility] Other 01-15-2023 09:50-0400 Body weight 60.78 kg [employer] [facility] Other [facility] Other 01-15-2023 09:50-0400 Diastolic blood pressure 86 mm[Hg] [employer] Other [facility] Other 01-15-2023 09:50-0400 Systolic blood pressure 142 mm[Hg] [employer] Other [facility] Other 06-19-2022 12:32-0500 Body height 165.1 cm Latoya R Bunting Work Phone: [facility] [employer] 127 DO Work Phone: 06-19-2022 12:32-0500 Body mass index (BMI) [Ratio] 23.46 kg/m2 Latoya R Bunting Work Phone: [facility] [employer] 127 DO Work Phone: 06-19-2022 12:32-0500 Body surface area Derived from formula 1.71 m2 Latoya R Bunting Work Phone: [facility] 127 DO Work Phone: 06-19-2022 12:32-0500 Body weight 63.96 kg Latoya R Bunting Work Phone: [facility] 127 DO Work Phone: 06-19-2022 12:32-0500 Diastolic blood pressure 75 mm[Hg] Latoya R Bunting Work Phone: [facility] 127 DO Work Phone: 06-19-2022 12:32-0500 Heart rate 95 /min Latoya R Bunting Work Phone: [facility] 127 DO Work Phone: 06-19-2022 12:32-0500 Systolic blood pressure 153 mm[Hg] Latoya R Bunting Work Phone: [facility] 127 DO Work Phone: Encounters Encounter Date Encounter Type Care Provider Facility Start: 08-13-2024 ambulatory Richard Paniagua ty:[facility] Start: 06-16-2024 End: 06-16-2024 Patient encounter procedure Latoya Bunting DO Work Phone: [facility] [place] Work Phone: Start: 06-16-2024 End: 06-16-2024 ambulatory Latoya Bunting Facility:[facility] Start: 05-27-2024 End: 05-27-2024 Bamboo flowsheet Page Velazco MD Work Phone: [facility] Start: 05-27-2024 End: 05-27-2024 Bamboo flowsheet Page Velazco MD Work Phone: [facility] Start: 05-27-2024 End: 05-27-2024 Postop follow up visit related to original px Page Velazco MD Work Phone: [facility] Comment on above: Encounter for remova l of sutures (Primary Dx) Start: 05-27-2024 End: 05-27-2024 ambulatory PAGE MANZANARESI Not Available Start: 05-19-2024 End: 05-19-2024 ambulatory DO Latoya Bunting Work Phone: [facility] Work Phone: Start: 05-19-2024 End: 05-19-2024 Patient encounter procedure DO Latoya Bunting Work Phone: [facility] Work Phone: Start: 05-14-2024 End: 05-14-2024 Bamboo flowsheet Page Velazco MD Work Phone: [facility] Start: 05-14-2024 End: 05-14-2024 Bamboo flowsheet Page Velazco MD Work Phone: [facility] Start: 05-14-2024 End: 05-14-2024 Patient encounter procedure Page Velazco MD Work Phone: [facility] Comment on above: 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, including shoulder (Primary Dx) Start: 05-14-2024 End: 05-14-2024 ambulatory PAGE VEALZCO Not Available Start: 05-12-2024 End: 05-12-2024 Patient encounter procedure DO Latoya Bunting Work Phone: [facility] [place] Work Phone: Start: 05-12-2024 End: 05-12-2024 ambulatory DO Latoya Bunting Work Phone: [facility] Work Phone: Start: 04-21-2024 End: 04-21-2024 ambulatory [facility] Work Phone: Start: 04-21-2024 End: 04-21-2024 Patient encounter procedure [facility] Work Phone: Start: 03-24-2024 End: 03-24-2024 ambulatory PAGE VELAZCO Not Available Start: 12-28-2023 End: 12-28-2023 ambulatory [facility] Work Phone: Start: 12-28-2023 End: 12-28-2023 Patient encounter procedure [facility] Work Phone: Start: 10-08-2023 End: 10-09-2023 ambulatory Tomas Rosas MD Facility:[facility] Start: 09-24-2023 End: 09-25-2023 ambulatory Tomas Escobaritis Facility:[facility] Start: 09-17-2023 End: 09-18-2023 ambulatory [facility] Start: 08-29-2023 End: 08-29-2023 ambulatory AUGUSTO SIU Not Available Start: 08-24-2023 End: 08-24-2023 ambulatory Latoya Buneliana Facility:[facility] Start: 08-08-2023 End: 08-09-2023 ambulatory Richard JACKSON Facility:[facility] Start: 08-08-2023 End: 08-08-2023 Patient encounter procedure Richard JACKSON [facility] Start: 06-25-2023 End: 06-25-2023 Patient encounter procedure DO Latoya Bunting Work Phone: [facility] [place] Work Phone: Start: 06-25-2023 End: 06-25-2023 ambulatory DO Latoya Bunting Work Phone: [facility] Work Phone: Start: 06-08-2023 End: 06-09-2023 ambulatory Richard JACKSON [facility] Start: 06-08-2023 End: 06-08-2023 Lab Drop off Richard JACKSON [facility] Start: 06-08-2023 End: 06-09-2023 ambulatory LATOYA R BUNTING Facility:[facility] [place] Start: 06-08-2023 End: 06-08-2023 Patient encounter procedure Richard JACKSON [facility] [place] Start: 05-28-2023 End: 05-29-2023 ambulatory Tomas Rosas MD Facility:[facility] Start: 05-14-2023 End: 05-15-2023 ambulatory Tomas Rosas MD Facility:[facility] Start: 05-09-2023 ambulatory LATOYA BUNTING Facility :[facility] [place] Start: 05-08-2023 ambulatory LATOYA BUNTING Facility : [place] Start: 04-30-2023 End: 05-01-2023 ambulatory Tomas Rosas MD Facility: [place] Start: 04-25-2023 End: 04-25-2023 ambulatory DO Latoya Bunting Work Phone: [facility] Work Phone: Start: 04-25-2023 End: 04-25-2023 Patient encounter procedure DO Latoya Bunting Work Phone: [facility] [address] Work Phone: Start: 04-16-2023 End: 04-17-2023 ambulatory Tomas Rosas MD Facility: [place] Start: 03-30-2023 End: 03-30-2023 ambulatory DO Latoya Bunting Work Phone: [facility] Work Phone: Start: 03-30-2023 End: 03-30-2023 Patient encounter procedure DO Latoya Bunting Work Phone: [facility] Work Phone: Start: 02-08-2023 End: 02-08-2023 ambulatory DO Latoya Bunting Work Phone: [facility] Work Phone: Start: 02-08-2023 End: 02-08-2023 Patient encounter procedure DO Latoya Bunting Work Phone: [facility] [place] Work Phone: Start: 02-08-2023 End: 02-08-2023 ambulatory DO Latoya Bunting Work Phone: [facility] Work Phone: Start: 02-08-2023 End: 02-08-2023 Patient encounter procedure DO Latoya Bunting Work Phone: [facility] Start: 01-15-2023 End: 01-15-2023 ambulatory Noris Elder Other [facility] [employer] Other Start: 01-15-2023 Office outpatient ne w 45 minutes Noris Elder [facility] Start: 08-28-2022 End: 08-28-2022 ambulatory DO Latoya Bunting Work Phone: [facility] Work Phone: Start: 08-28-2022 End: 08-28-2022 Patient encounter procedure DO Latoya Bunting Work Phone: [facility] Work Phone: Start: 08-23-2022 End: 08-23-2022 ambulatory DO Latoya Bunting Work Phone: [facility] Work Phone: Start: 08-23-2022 End: 08-23-2022 Patient encounter procedure DO Latoya Bunting Work Phone: [facility] Work Phone: Start: 06-19-2022 Office outpatient visit 25 minutes Latoya Vaileliana Work Phone: [facility] 127 DO Work Phone: Start: 06-19-[address] Gregorio Nichols acility: Start: 06-09-2022 End: 06-09-2022 ambulatory DO Latoya Chong Work Phone: [facility] Work Phone: Start: 06-09-2022 End: 06-09-2022 Patient encounter procedure DO Latoya Chong Work Phone: [facility] Start: 06-07-2022 End: 07-15-[address] LATOYA CHONG Facility:[facility] Start: 04-17-[address] Gregorio Nichols acility: Start: 03-31-2022 Chart Update Latoya Velez ng [facility] Work Phone: Start: 03-31-2022 End: 03-31-2022 Patient encounter procedure DO Latoya Chong Work Phone: [facility] Start: 09-12-2021 End: 09-13-[address] LUCI TROTTER Facility:[facility] Start: 11-14-2018 Patient encounter procedure Gregorio Barton Facility:[id number] Start: 10-24-2018 Patient encounter procedure JUSTIN CHRISTINE Facility:[id number] Start: 09-23-2018 Patient encounter procedure JUSTIN CHRISTINE Facility:[id number] Patient encounter status Latoya Chong [facility] [place] Work Phone: Procedures Date Procedure Procedure Detail Performing Clinician Start: 05-14-2024 SKIN REPAIR Page cardenas MD Work Phone: Start: 05-14-2024 SKIN EXCISION Page madden MD Work Phone: Start: 10-07-2024 Duplex scan of lower limb veins DO Latoya Bunting Work Phone: Start: 08-24-2023 Mammography Page wyhte MD Work Phone: Start: 08-08-2023 Transurethral cystoscopy Richard JACKSON Start: [...] Work Phone: Start: 11-14-2018 Echocardiography Jose Barton Start: 01-22-2015 Colonoscopy Page whyte MD Work Phone: Back structure, excl uding neck (body structure) Richard JACKSON Cardiac ablation sys tem (physical object) Richard JACKSON Colonoscopy Latoya gomez Work Phone: Comment on above: [id number]; Colonoscopy Richard JACKSON Destructive procedure Latoya Chong [...] Treatment Date Care Activity Detail Author Start: 03-26-2025 End: 03-26-2025 Patient encounter procedure 03/26/2025 10:05 AM EDT Office Visit [facility] [address] [place] [address] Page Velazco MD [address] [place], [place] [id number] [facility] Start: 01-22-2025 Screening for malignant neoplasm of colon [facility] Start: 09-01-2024 End: 09-01-2024 Patient encounter procedure 09/01/2024 11:15 AM EST Office Visit [facility] [address] [place] [id number] Augusto Siu DO [address] [place] [address] [facility] Start: 08-24-2024 Screening for malignant neoplasm of breast Mammogram [facility] Start: 05-27-2024 End: 05-27-2024 Patient encounter procedure [facility] Comment on above: Arrived Start: 05-14-2024 End: 05-14-2024 Patient encounter procedure 05/14/2024 1:30 PM EDT Office Visit [facility] [address] [place] [address] Pgae Velazco MD [address] [place] [address] Arrived [facility] Comment on above: Arrived Start: 04-06-2024 Influenza vaccination Influenza Vaccine (#1) [facility] Start: 04-25-2023 Hemolytic complement CH50 level [facility] Start: 04-25-2023 [facility] Start: 04-17-2022 FUV, Provider: Gregorio Barton, Status: Pen, Time: 11:45 AM FUV, Provider: Gregorio Barton, Status: Pen, Time: 11:45 AM [facility] Work Phone: Start: 2021 Pneumococcal Vaccine: 65+ Years (1 of 1 - PCV) Pneumococcal Vaccine: 65+ Years (1 of 1 - PCV) [facility] Start: 1955 Screening for malignant neoplasm of colon [facility] Dermatopathology exam Dermatopat hology exam Pathology and Cytology Timed Squamous cell carcinoma of skin of right upper limb, including shoulder Release Upon Ordering for 1 Occurrences starting 05/14/2024 [facility] Work Phone: Comment on above: Release Upon Ordering for 1 Occurrences starting 05/14/2024 Lupus anticoagulant [Interpretation] in Platelet poor plasma [facility] Thrombin time [facility] [place] Lower extremity v ein - bilateral [facility] Immunizations Immunization Date Immunization Notes Care Provider Fa cility 07-17-2023 influenza virus vaccine, unspecified formulation Richard JACKSON [facility] 07-17-2023 Influenza, High-dose Seasonal, Quadrivalent, Preservative Free Page Velazco MD Work Phone: [facility] 06-20-2022 influenza virus vaccine, unspecified formulation Richard JACKSON [facility] 06-20-2022 Influenza, High-dose Seasonal, Quadrivalent, Preservative Free Page Velazco MD Work Phone: [facility] 07-14-2021 Pfizer-BioNTech COVID-19 Vacc 30 MCG/0.3ML Intramuscular Suspension Latoya R Bunting Work Phone: [facility] 05-19-2021 influenza virus vaccine, unspecified formulation Richardcass JACKSON [facility] 05-19-2021 influenza, injectable, quadrivalent, preservative free Latoya R Bunting Work Phone: [facility] 127 DO Work Phone: 12-02-2020 Pfizer-BioNTech COVID-19 Vacc 30 MCG/0.3ML Intramuscular Suspension Latoya R Bunting Work Phone: [facility] 11-11-2020 Pfizer-BioNTech COVID-19 Vacc 30 MCG/0.3ML Intramuscular Suspension Latoya R Bunting Work Phone: [facility] 07-16-2020 influenza virus vaccine, unspecified formulation Richardcass JACKSON [facility] 07-16-2020 Influenza, injectable, [place] [place] Canine Kidney, preservative free, quadrivalent Latoya R Bunting Work Phone: [facility] 127 DO Work Phone: 05-13-2020 influenza virus vaccine, unspecified formulation Latoya R Bunting Work Phone: [facility] 05-13-2020 influenza, injectable, quadrivalent, preservative free Page Velazco MD Work Phone: [facility] 06-05-2019 influenza virus vaccine, unspecified formulation Richard JACKSON [facility] 06-05-2019 influenza, injectable, quadrivalent, preservative free Latoya R Bunting Work Phone: [place] [address] DO Work Phone: 06-04-2019 influenza, seasonal, injectable, preservative free Page Velazco MD Work Phone: [facility] 06-17-2018 influenza virus vaccine, unspecified formulation Richard JACKSON [facility] 06-17-2018 influenza, seasonal, injectable, preservative free Latoya R Bunting Work Phone: [place] [address] DO Work Phone: 06-11-2018 influenza virus vaccine, unspecified formulation Richard JACKSON [facility] 06-11-2018 influenza, injectable, quadrivalent, preservative free Page Velazco MD Work Phone: [facility] 06-06-2018 influenza virus vaccine, unspecified formulation Latoya R Bunting Work Phone: [facility] Work Phone: 06-06-2018 pneumococcal polysaccharide vaccine, 23 valent Latoya R Bunting Work Phone: [facility] Work Phone: 03-28-2018 tetanus toxoid, reduced diphtheria toxoid, and acellular pertussis vaccine, adsorbed Latoya R Bunting Work Phone: [facility] 07-01-2001 hepatitis B vaccine, adult dosage Latoya R Bunting Work Phone: [facility] 03-13-2001 hepatitis B vaccine, adult dosage Latoya R Bunting Work Phone: [facility] 12-18-2000 hepatitis B vaccine, adult dosage Latoya Chong Work Phone: [facility] NEGATED: Highlighted row has not occurred! 8 influenza, seasonal, injectable Patient Objection [employer] Other [facility] Other NEGATED: Highlighted row has not occurred! 8 pneumococcal polysaccharide vaccine, 23 valent Patient Objection [employer] Other [employer] Other Payers Date Payer Category Payer [facility] er [id number] 2023 Unknown [id number] 2023 Medicare [id number] 2023 Self-pay [id number] 2022 Unknown 1959 Unknown [id number] 1956 Unknown [id number] 2.16.840.1.248654.3.579.2. 355 1956 Unknown [id number] 2.16.840.1.175362.3.579.2. 355 1956 Unknown [id number] 2.16.840.1.200918.3.579.2. 1068 1956 Unknown [id number] 2.16.840.1.760864.3.579.2. 356 1956 Unknown [id number] 2.16.840.1.250693.3.579.2. 356 1956 Unknown [id number] 2.16.840.1.187118.3.579.2. 593 1956 Unknown [id number] 2.16.840.1.380779.3.579.2. 593 1956 Unknown [id number] 2.16.840.1.464564.3.579.2. 727 1956 Unknown [id number] 2.16.840.1.406351.3.579.2. 727 1956 Unknown [id number] 2.16.840.1.975679.3.579.2. 727 1956 Unknown [id number] 2.16.840.1.510735.3.579.2. 727 1956 Unknown [id number] 2.16.840.1.621449.3.579.2. 196 1956 Unknown [id number] 2.16.840.1.826825.3.579.2. 196 1956 Unknown [id number] 2.16.840.1.952342.3.579.2. 196 1956 Unknown [id number] 2.16.840.1.998359.3.579.2. 196 1956 Unknown [id number] 2.16.840.1.334196.3.579.2. 196 1956 Unknown [id number] 2.16.840.1.639327.3.579.2. 196 1956 Unknown [id number] 2.16.840.1.553190.3.579.2. 196 1956 Unknown [id number] 2.16.840.1.092829.3.579.2. 1259 1956 Unknown [id number] 2.16.840.1.141742.3.579.2. 1259 1956 Unknown [id number] 2.16.840.1.791651.3.579.2. 1259 1956 Unknown [id number] 2.16.840.1.823500.3.579.2. 1259 Unknown [id number] Unknown [id number] Unknown [id number] 2.16.840.1.373808.3.579.2. 531 Unknown [id number] 2.16.840.1.577708.3.579.2. 531 Unknown [id number] 2.16.840.1.600238.3.579.2. 531 Unknown [id number] 2.16.840.1.025090.3.579.2. 531 Social History Date Type Detail Facility Start: 08-29-2023 End: 05-27-2024 Occasional alcohol use Occasional alcohol use -[facility] Work Phone: Start: 05-04-2020 End: 12-28-2023 Tobacco smoking status NHIS Never smoked tobacco (finding) [facility] Start: 1955 Sex Assigned At Female F [facility] Start: 08-29-2023 End: 05-27-2024 Sex Assigned At [facility] Tobacco smoking status Never [facility] Start: 08-29-2023 Tobacco use and exposure Smokeless tobacco non-user [facility] Start: 03-24-2024 End: 05-27-2024 Alcoholic beverage intake Lifetime non-drinker (finding) [facility] How often to you hav e a drink containing alcohol? Monthly or less [facility] How many standard drinks containing alcohol do you have on a typical day? 1 or 2 [facility] How often do you hav e 6 or more drinks on 1 occasion? Never [facility] Start: 08-27-2023 Alcohol Comment Caffeine intake: non e [facility] Start: 1955 Sex assigned at Not on file [facility] Start: 06-17-2024 Sex Female (finding) [facility] Functional Status Date Assessment Result Facility 08-08-2023 Functional Status N/A [facility] 06-08-2023 Functional Status N/A [facility] Clinical Notes 05-20-2022 to 05-27-2024 Page Velazco MD - 05/27/2024 9:15 AM EDTEroosevelt Velazco MD - 05/14/2024 1:30 PM EDT Note Date & Type Note Facility 05-27-2024 History of Presen t illness Narrative Suture Removal Patient here for suture removal: No complaints of redness, drainage or swelling at site, compliant with wound care. Location: Right upper arm Procedure Performed: Excision Date of Procedure: 05/14/2024 Medications: none All pertinent medical history, medications, and allergies were reviewed. General Exam: alert, oriented to person, place, and time, normal affect, well appearing Unaccompanied A focused exam completed based on patient reported problems, see below: 1. Encounter for removal of sutures Right Upper Arm Sutures are intact, Skin edges are well-approximated, Mild erythema along incision line, No drainage or edema noted Suture removal today, see procedure note: Suture Removal Procedure: Sutures were removed without difficulty. Tincture of Benzoin was applied around site in preparation of steri-strips. Steri-strips were applied Post-Procedure instructions: Instructed to discontinue wound care., Instructed to keep steri strips on for at least 5-7 days., Pathology results discussed. Next Visit: as scheduled documented in this encounter [facility] 05-14-2024 History of Presen t illness Narrative Images from the original note were not included. Subjective Christian Rich is a 68 y.o. female who presents for the following: excision. Location: Right upper arm Date of biopsy: 03/24/2024 Diagnosis: Invasive squamous cell carcinoma Pre-Op Checklist: History of pacemaker/defibrillator: No History of joint replacement in the past 2 years: No History of HIV/Hepatitis B/Hepatitis C: No Latex allergy: No Is the patient currently on a blood thinner? No. All pertinent medical history, medications, and allergies were reviewed. Surgical assistants: Marya Gomez CMA and Alberto Chaidez LPN Objective Well appearing patient in no apparent distress; mood and affect are within normal limits. 1. Squamous cell carcinoma of skin of right upper limb, including shoulder Right Upper Arm - Posterior Callender macule at biopsied site. Skin excision Lesion length (cm): 0.6 Lesion width (cm): 0.6 Margin per side (cm): 0.4 Total excision diameter (cm): 1.4 Informed consent: discussed and consent obtained Informed consent comment: Risks and possible complications were discussed as noted on the consent form. The consent form was signed prior to the procedure. Timeout: patient name, date of , surgical site, and procedure verified Timeout comment: Patient and provider identified site. Site was marked and excision was drawn out. Photo was taken and shown to patient, patient verified this is the correct site. Procedure prep: Patient was prepped and draped in usual sterile fashion (The planned incision lines were drawn along relaxed skin tension lines, if possible, to minimize scarring and deformity of surrounding structures.) Prep type: Chlorhexidine Anesthesia: the lesion was anesthetized in a standard fashion Anesthesia comment: The local anesthetic was injected to create a field block at the site of the procedure. Anesthetic: 1% lidocaine w/ epinephrine 1-100,000 buffered w/ 8.4% NaHCO3 Instrument used: #15 blade Instrument used comment: Incisions were made as drawn, and the surrounding tissue was undermined until the skin edges could be approximated without undue tension. Any tissue redundancies were removed. Hemostasis achieved with: electrodesiccation Additional details: Amount of lidocaine used: 6.0 ml Estimated blood loss: 1 ml Skin repair Complexity: Intermediate Final length (cm): 3 Reason for type of repair: allow closure of the large defect Undermining: edges undermined Undermining comment: The surrounding tissue was undermined until the skin edges could be approximated without undue tension. Any tissue redundancies were removed. Subcutaneous layers (deep stitches): Suture size: 3-0 Suture type comment: Biosyn Stitches: Buried horizontal mattress (Closure was performed in a layered fashion with subcutaneous tissue closed first using tension-bearing absorbable sutures to the level of the superficial fascia.) Fine/surface layer approximation (top stitches): Suture size: 4-0 Suture type comment: Surgipro Stitches: simple running Stitches comment: Epicuticular skin sutures were then placed with minimal tension. Outcome: patient tolerated procedure well with no complications Post-procedure details: sterile dressing applied and wound care instructions given Post-procedure details comment: It was emphasized to the patient to contact the office for any signs of infection, uncontrollable bleeding, or complications. Dressing type: bandage Specimen A - Dermatopathology exam Differential Diagnosis: SCC, Well diff Check Margins: No Size of lesion: 0.6 x 0.6 cm Previous accession number: [id number] Excision done today. See procedure note. Follow up: 14 days for s/r documented in this encounter [facility] 04-21-2024 Evaluation note Diagnosis Onset Date Resolution Bilateral lower extremity edema acute April 21, 2024 9:36am Symptomatic varicose veins of both lower extremities acute April 21, 2024 9:36am Telangiectasia acute April 21, 2024 9:36am Bilateral lower extremity edema acute May 19 10:09am Symptomatic varicose veins of both lower extremities acute May 19 10:09am Telangiectasia acute May 192023 10:09am [facility] Work Phone: [phone]) 855-190301-03-2024 Hospital Discharge instructions Patient Education 08/08/2023 07:44:17 Kidney Stones Kidney Stones Kidney stones are solid, rock-like deposits that form inside of the kidneys. The kidneys are a pairof organs that make urine. A kidney stone [...] the ribs (flank pain). Pain usually spreads (radiates)to the groin. Needing to urinate often or [...] Follow these instructions at home: Medicines Take gnzy-sjy-lvcuaxp and prescription medicines only as told by [...] provider. Document Revised: 11/01/2022 Document Reviewed: 11/01/2022 nCrypted Cloud Patient Education 2022 Intelligent Apps (mytaxi). Follow Up Care 06/08/2023 13:38:53 With:KELSY GARCIA, Richard Resendiz, URL Address: [facility] [address], [place] [address]- When: Unknown [facility] [place] 11-03-2023 NoteChief Complaint Referral *Microscopic Hematuria HPI Staff Evaluation requested by Dr Latoya Chong due to hematuria. Pt is a new pt, never before seen in our office. CT ap 04/20/20 UA 04/25/23 *10-19 RBC's CBC/CMP 04/25/23 *BUN 15 & Crea 0.63 Denies family Hx of Bladder Cancer. Never Smoker. Denies Hx of Kidney Stones, was told previous CT from 2019 states Rt Nephrolithiasis. Denies visible blood in [...] Information KELSY GARCIA, Richard Resendiz, URL [address] [place] [address]- Additional Instructions: Cysto, CT Urogram Patient Education [...] influenza virus vaccine, in (more content not included)...[facility] HospitalComment on above:Result Comment: Electronically Signed By: Richard JACKSON MD\.br\Date and Time Signed: 06/08/23 13:16 EDT\.br\Electronically Co- Signed By: Gabbi Kwan\.br\Date and Time Co-Signed: 06/08/2313:12 EDT\.br\Electronically Co-Signed By: Gabbi Kwan\.br\Date and Time Co- Signed: 06/08/23 13:12 [id number] Hospital Discharge instructions Patient Education 06/08/2023 13:10:51 Hematuria, Adult Hematuria, Adult Hematuria is blood in the urine. Blood may be visible in the urine, or it may be identified with a test. This condition can be caused by infections of the bladder, urethra, kidney, or prostate. Otherpossible causes include: Kidney stones. Cancer of the [...] blood in your urine, even if it ispainless or the blood stops without treatment. Blood in the urine, when it happens and then stops and then happens again, can be a symptom of a very serious condition, including cancer. There is no pain in the initial stages of many urinary cancers. Follow these instructions at home: Medicines Take vnif-ibg-akvutle and prescription medicines only as told by your health care provider. If you were prescribed an antibiotic medicine, take it as told by your health care provider. Do notstop taking the antibiotic even if you start to feel better. Eating and drinking Drink enough fluid to keep your urine pale yellow. It is recommended that you drink 3 4 quarts (2.83.8 L) a day. If you have been diagnosed with an infection, drinking cranberry juice in addition tolarge amounts of water is recommended. Avoid caffeine, [...] about any blood in your urine, even ifit is painless or the blood stops without treatment. Take kxkj-kmv-gbvgucf and prescription medicines only as told by your health care provider. Drink enough fluid to keep your urine pale yellow. This information is not intended to replace advice given to you by your health care provider. Make sure you discuss any questions you have with your health care provider. Document Revised: 03/23/2021 Document Reviewed: 03/23/2021 nCrypted Cloud Patient Education 2022 Intelligent Apps (mytaxi). Follow Up Care 05/09/2023 11:38:04 With:KELSY GARCIA, Richard Resendiz, URL Address: [address] [place] [address]- When: Unknown [facility] 06-12-2023 Evaluation note* Encounter Date Diagnosis Assessment Notes Treatment Notes Treatment Clinical Notes Jan, Lumbar pain (ICD-10 - M54.50) [...] PHQ reviewed score 4; education completed with Couple/Crisis number given. denies anythoughts of harming self or others. Feels down d/t difficulty with pain and being able to do activities with grandchildren. Jan, BMI 22.0-22.9, adult (ICD-10 - Z68.22) Jan, Post menopausal syndrome (ICD-10 - Z78.0) [facility] Other 10-15-2022 History of Present illness Narrative* [...] software was utilized to prepare this document. [facility] [address] DO Work Phone: Evaluation + Plan note Future Appointments Appointment Date:08/08/2023 07:45:00 AM Scheduled Provider:Richard JACKSON MD Location:[facility] Karen Appointment Type:URO Procedure 15 min Diagnostic Tests Pending * Creatinine 06/08/23 [facility] evaluation + Plan note Future Appointments Appointment Date:08/08/2023 07:45:00 AM Scheduled Provider:Richard JACKSON MD Location:[facility] Karen Appointment Type:URO Procedure 15 min Diagnostic Tests Pending * Urine Cytology ([facility]) [facility] App[facility]ments Appointment Date:08/13/2024 09:45:00 AM Scheduled Provider:Richard JACKSON MD [facility] Type:[facility]O Office Visit [facility] Evaluation noteNo assessment information available [facility] Work Phone: evaluation note* Diagnosis Onset Date Resolution Status Bilateral lower extremity edema acute Symptomatic varicose veins of both lower extremities acute Telangiectasia acute [facility] Work Phone: evaluation note* Diagnosis Squamous cell carcinoma of skin of right upper limb, including shoulder- Primary [facility] Diagnosis Encounter for removal of sutures- Primary [facility] N[facility] - Reported* Type Description Date Medical History migraine headache Medical History mild osteoarthritis Medical History varicose veins Medical History basal cell carcinoma Surgical History hysterectomy 1993 Surgical History D&C 1981 Surgical History colonoscopy 2006, 2014 Surgical History tonsillectomy Hospitalization History same as surgical history [facility] Other Hospital course Narrative No data available for this section [facility] Hospital Discharge instructions No data available for this section [facility] No data available for this section [facility] [place] Summary Purpose Family History Unknown Family Member Name Dates Details No pertinent family history: Mother, Father(V49.89, Z78.9) Status:Active Relationship Condition Age at Onset Recorded Date/T katy Not Specified No pertinent family history Unknown Unknown Family Member Name Dates Details No pertinent family history: Mother, Father(V49.89, Z78.9) Status:Active Relationship Condition Age at Onset Recorded Date/T katy Not Specified No pertinent family history Unknown father Carotid artery disease Unknown Not Specified Malignant neoplasm Unknown Unknown Relationship Condition Age at Onset Recorded Date/T katy Not Specified No pertinent family history Unknown father Carotid artery disease Unknown mother Malignant neoplasm Unknown Unknown Advance Directives Advance Directive Response Recorded Date/ Time Advance [...] Successful AV herman modification Procedure performed by: ca Gas Refrigerator Servicer(s): none Estimated Blood Loss (mL): 5 Specimen: [...] z780 Rheumatoid Arthritis R31.29 N20.0 Chief Complaint Poss nail infection left middle finger Chief Complaint Refer: chronic Venou s insufficiency Chief Complaint Refer: chronic Venou s insufficiency I83.813 Reason for Visit Bilateral lower extr emity edema Symptomatic varicose veins of both lower extremities Telangiectasia Chief Complaint Refer: chronic Venou s insufficiency I83.813 GO OVER F/F DONE AT [facility] Reason for Visit Bilateral lower extr emity edema Symptomatic varicose veins of both lower extremities Telangiectasia Chief Complaint Admit Date Refer: chronic Venous insufficiency Sept emb2023 9:36am I83.813 May 12, 2024 10 :01am GO OVER F/F DONE AT [facility] May 19 10:09am e78.2 z00.00 z79.89 June 16, 2024 7:31am Reason for Visit Admit Date Bilateral lower extremity edema Septembe r 2023 9:36am Symptomatic varicose veins of both lower extremities April 21, 2024 9:36am Telangiectasia April 21, 2024 9:36am Bilateral lower extremity edema May 19, 2024 10:09am Symptomatic varicose veins of both lower extremities May 19, 2024 10:09am Telangiectasia May 19, 2024 1 0:09am Chief Complaint CHRISTIAN RICH is being seen for follow up. Reason for Referral Reason DECLINED evaluate and treat Diagnosis 1 Lumbar pain (M54.50) Referral Organization [facility] urosurgery Referring Provider First Name Noris Referring Provider Last Name Jael Referring Provider Specialty Nurse Pract itioner Referred Organization [facility] Referred Provider Trever Moreno Referred Address [address], [place],[address] Referred Provider Specialty Pain Medicin e Referral Priority Routine General Notes Kathia Nunez 08:06:47 AM >Received today and waiting for office notes to be locked before sending referral Kathia Nunez 01/17/2023 07:30:06 AM >Office notes are now locked. [facility]'s office request us to fill out form and fax referral to them and they will review the referral and call patient. Referral was fax Kathia Nunez 01/24/2023 10:24:48 AM >Letter from [facility] is in the chart and patient has declined to schedule Clinical Notes Office [phone] Additional Source Comments INFORMATION SOURCE (unrecogn ized section and content) DATE CREATED AUTHOR 10/25/2018 [facility] DATE CREATED AUTHOR AUTHOR'S ORGANIZ ATION 11/16/2018 [facility] DATE CREATED AUTHOR AUTHOR'S ORGANIZ ATION 08/05/2020 [facility] DATE CREATED AUTHOR AUTHOR'S ORGANIZ ATION 06/20/2022 [facility] DATE CREATED AUTHOR AUTHOR'S ORGANIZ ATION 06/20/2022 [facility] DATE CREATED AUTHOR AUTHOR'S ORGANIZ ATION 08/17/2022 [facility] DATE CREATED AUTHOR AUTHOR'S ORGANIZ ATION 08/14/2023 [facility] DATE CREATED AUTHOR AUTHOR'S ORGANIZ ATION 10/22/2023 [facility] DATE CREATED AUTHOR AUTHOR'S ORGANIZ ATION 05/29/2024 [facility] DATE CREATED AUTHOR AUTHOR'S ORGANIZ ATION 06/18/2024 [facility] Care Teams (unrecognized sec tion and content) [...] Primary Care Provider Active Augusto Siu , Attending Provider Active Team Status: Inactive Member [...] Active Richard Jackson MD Attending Provider Active Team Status: Inactive Member Role Status Dates Latoya Chong DO Primary Care Provider Active Start: December 28, 2023 End: December 28, 2023 Natalie Wilson APRN Attending Provider Active S tart: December 28, 2023 End: December 28, 2023 Team Status: Inactive Member Role Status Dates Latoya Chong DO Primary Care Provider Active Start: April 21, 2024 End: April 21, 2024 Stanislav Doan MD Attending Provider Active S tart: April 21, 2024 End: April 21, 2024 Team Status: Inactive Member Role Status Dates Latoya Chong DO Primary Care Provider Active Start: May 12, 2024 End: May 12, 2024 Stanislav Doan MD Attending Provider Active S tart: May 12, 2024 End: May 12, 2024 Portfolio Administrator Relationship Specialty Start Date End Date YaredelianaLatoya [address] [facility] [place] [address] PCP - General Family Medicine 08/29/23 Portfolio Administrator Relationship Specialty Start Date End Date Latoya Chong [address] [place] [id number] PCP - General Family Medicine 08/29/23 Team Status: Inactive Member Role Status Dates Latoya Chong DO Primary Care Provider Active Start: May 19, 2024 End: May 19, 2024 Stanislav Doan MD Attending Provider Active S tart: May 19, 2024 End: May 19, 2024 Portfolio Administrator Relationship Specialty Start Date End Date Latoya Chong [address] [facility] [place] [address] PCP - General Family Medicine 08/29/23 Portfolio Administrator Relationship Specialty Start Date End Date Latoya Chong R [address] [facility] [place] [address] PCP - General Family Medicine 08/29/23 Team Status: Inactive Member Role Status Dates Latoya Chong , DO Primary Care Provide r, Attending Provider Active Start: June 16, 2024 End: June 16, 2024 Goals (unrecognized section and content) Goals may [...] alternate section No data available for this sectionGoals may be documented in an alternate sectionGoals may be documented in an alternate sectionGoals may be documented in an alternate sectionGoals may be documented in an alternate sectionGoals may be documented in an alternate section REASON FOR VISIT (unrecogniz ed section and content) Reason Comments excision Reason Comments Suture / Staple Removal FOR RECORDS PERTAINING TO PATIENTS WHO ARE [...] BE BASED ON THE PRIMARY CLINICAL RECORDS. [facility]. provides no warranty or guarantee of the accuracy or completeness of information in this document.
[2024-06-23 07:59] VITALS: BP 162/89; PULSE 98; TEMP 36; O2SAT 100
[2024-06-23] MEDS: 0.9 % SODIUM CHLORIDE 500 ML IV (08:10)
[2024-06-23] MEDS: BUPIVACAINE HCL 0.25% PF 25 MG/10 ML VIAL 5 ML INJ (08:52)
[2024-06-23] MEDS: TRIAMCINOLONE ACETONIDE 40 MG/ML VIAL 80 MG INJ (08:52)
[2024-06-23] MEDS: LIDOCAINE HCL 2% 400 MG/20 ML MDV 5 ML INJ (09:00)
--- NOTE | 2024-06-23 09:04 | P.ON_ITS ---
Date of procedure: 06/23/24 Pre-op diagnosis: Pain due to lumbar spondylosis without myelopathy Post-op diagnosis: same as pre-op Procedure: Procedure: Bilateral L4-5, L5-S1 radiofrequency ablation Medications: Bupivacaine 0.25% 6cc, lidocaine 2% 6cc, kenalog 80mg The patient was seen and examined in the preoperative holding area.? The site was marked.? Written informed consent was obtained and placed on the chart.? The patient was brought to the medical procedure unit and placed in the prone position.? A timeout was completed verifying correct patient, procedure, positioning, and special requirements.? The skin overlying the target points, the designated medial branch, were prepped and draped in the usual sterile fashion.? The target point was achieved with a 20-gauge 15 cm with a 10 mm curved active tip radiofrequency cannula under direct fluoroscopic visualization.? The needle was inserted at level L4 on the right side. Needle tip position was confirmed with lateral fluoroscopic position.? Motor stimulation was carried out at 2 Hz up to 5 volts with the absence of extremity activity.? This was repeated at level L5, S1 on right side.?? Sensory stimulation was carried out.? Concordant pain was realized at the above- mentioned sites.? Then radiofrequency lesioning was carried out times 90 seconds at 80 degrees times 2 lesions at each level.? The radiofrequency probe was removed prior to cannula removal.? The above-mentioned injectate was placed in 1 mL increments.? The needle was removed. The same procedure, with the same steps, was then completed on the left side at the same levels. Insertion sites were covered.? The patient was taken to the postoperative recovery area and monitored for an appropriate length of time before being found suitable for discharge in the company of a responsible adult. Anesthesia: MAC Surgeon: Tomas Rosas Pathology: none sent Condition: stable Disposition: no change
[2024-06-23 09:06] VITALS: BP 107/63; PULSE 84; TEMP 36.4; O2SAT 95
[2024-06-23 09:08] VITALS: BP 104/60; PULSE 83; TEMP 36.4; O2SAT 94
== END 2024-06-23 09:31 | disposition home or self-care (01) ==
LOC: SURGOUT 07:40
PROVIDERS: PCP Family Medicine; Visit Provider Anesthesiology
PROC: (CPT 01992; principal; 2024-06-23 08:40)
DX: M47.816 Spondylosis without myelopathy or radiculopathy, lumbar region (principal)
CPT/HCPCS: 01992; 64635; 64636; J0665; J2704; J3301

== ENCOUNTER 2024-07-24 08:51 | Outpatient (OUT) | payer BC, SELFPAY ==
--- NOTE | 2024-07-24 09:12 | P.CN_ITS ---
Consult Note: HPI Data of Consult Patient: known to practice within the last 3 years Consult date: 09/17/23 Requesting Physician: Mei Hatch NP Primary Care Provider: LATOYA CHONG Consult Narrative Reason for consult: chronic low back pain Narrative: 68yof who presents for assessment. chronic low back pain without radiculopathy. Engages in PT exercises 3+x/week with benefit. Patient reports pain 2/10 increasing to 4/10 increasing with pushing/pulling, standing, walking, lifting, activity. Pain improved with sleep, lying down, sitting. recently underwent bilateral L4-5 L5-S1 facet RFA with 90% improvement ongoing per pt. has noticed improvement in pain with activity, travel, and sleep. rarely utilizing tylenol and motrin at this time. cc:: CC: Mei Hatch NP Review of Systems ROS Status of ROS 10 or more systems reviewed and unremark able except as noted in history and below Musculoskeletal Reports: back pain PFSH PFSH Medical History Scoliosis ?M41.9 - Scoliosis, unspecified (ICD-10) Osteoarthritis ?M19.90 - Unspecified osteoarthritis, unspecified site (ICD-10) Basal cell carcinoma ?C44.91 - Basal cell carcinoma of skin, unspecified (ICD-10) Surgical History History of tonsillectomy ?Z90.89 - Acquired absence of other organs (ICD-10) History of hysterectomy ?Z90.710 - Acquired absence of both cervix and uterus (ICD-10) History of cardiac radiofrequency ablation ?Z98.890 - Other specified postprocedural states (ICD-10) Meds Home Medications and Allergies Home Medications ?Medication ?Instructions ?Recorded ?Confirmed ?Type estradiol 1 mg tablet 1 mg PO DAILY 04/17/23 06/23/24 History mecobalamin (vitamin B12) 1,000 1,000 mcg PO DAILY 04/17/23 06/23/24 History mcg chewable tablet Allergies Allergy/AdvReac Type Severity Reaction Status Date / Time azathioprine AdvReac Mild Diarrhea Verified 06/23/24 08:05 hydroxychloroquine AdvReac Mild Diarrhea Verified 06/23/24 08:05 Exam Constitutional Documenting provider has reviewed patient's vital signs: yes Common normals: no apparent distress, oriented x3, healthy appearing, alert and well nourished General appearance: cooperative HENMT Common normals: normocephalic, hearing grossly normal bilaterally and moist oral mucous membranes Head and scalp: normocephalic Eye Common normals: PERRL Pupil: PERRL Neck & C-Spine Common normals: full ROM General: normal visual inspection Chest Common normals: inspection of chest normal Respiratory Common normals: normal respiratory effort, no retractions and no use of accessory muscles Back & Pelvis Lumbar spine/lower back: normal to inspection, lumbar ROM normal and straight leg raise negative bilaterally; no pain with ROM, no paraspinal muscle tenderness and no paraspinal muscle spasm Sacroiliac joints: SI joints normal Other: negative facet loading negative radiculopathy strength 5/5 in BLE, sensation intact BLE Neuro Common normals: oriented x3, CN's II-XII intact bilaterally, moves all extremities, no focal motor deficits, no sensory deficits noted and deep tendon reflexes 2+ bilaterally Sensorium/orientation: alert Motor exam: strength 5/5 throughout and no movement abnormalities noted Psych Common normals: mental status grossly normal, thought process normal, cooperative, affect normal, speech normal and activity/motor behavior normal Speech: normal speech Thought process: normal thought process Results Additional Findings Additional findings: If on a controlled substance or opioids, I have checked an [facility] report on this patient and there are no aberrancies noted in the prescribing history.??If on a controlled substance or opioid a drug screen was completed and reviewed within the last year, and if there has not been a drug screen completed we ordered one today to monitor higher risk, state monitored pain medication use. As part of providing excellent, safe, comprehensive care, the following was completed at our patient's visit: 1. A medication reconciliation and review to ensure accurate knowledge of current/active medications, including asking our patients to inform us about any [id number] medications or herbal remedies/nutritional supplements/alt ernative remedies. 2. A review to specifically ensure our patients have had annual screening for screening for depression, screening for tobacco use, and screening for unhealthy alcohol use. For concerning screenings had a discussion with the patient, provided patient education, and recommended follow-up with primary care provider when appropriate. If patient noted with a risk of falling, they received education on strength, gait, and balance training to prevent future risk of falling. Assessment and Plan Assessment and Plan (1) Lumbar spondylosis: Plan continue HEP as tolerated continue current medications f/u 6 months, sooner if needed
== END 2024-07-24 08:52 | disposition home or self-care (01) ==
LOC: PM 08:51
PROVIDERS: PCP Family Medicine; Visit Provider Nurse Practitioner
DX: M47.816 Spondylosis without myelopathy or radiculopathy, lumbar region (principal)
CPT/HCPCS: G0463